=== PATIENT | male | born 1935 | race Hispanic/Latino ===

== ENCOUNTER 2018-04-21 12:52 | Inpatient (IN) | payer MEDICAID, MEDICARE ==
--- NOTE | 2018-04-21 13:10 | ED PDOC ---
Arrival/HPI - General Time Seen by Provider: 04/21/18 13:03 Historian: Patient, EMS - History of Present Illness Narrative History of Present Illness (Text): 77 y/o M p/w general weakness. Patient states he felt fine today at home, went outside when he felt weak and "not good" and walked into a [facility] pharmacy and informed them and they called an ambulance. Patient states now that he feels well and has no complaint. He denies ever having chest pain or shortness of breath or LOC or trauma. Past Medical History - Provider Review Nursing Documentation Reviewed: Yes Family/Social History - Physician Review Nursing Documentation Reviewed: Yes Family/Social History: No Known Family HX Allergies/Home Meds Allergies/Adverse Reactions: Allergies No Known Allergies Allergy (Verified 04/21/18 13:11) Home Medications: Home Meds Medication Instructions Recorded Confirmed No Known Home Med 04/21/18 04/21/18 Review of Systems - Physician Review All systems were reviewed & negative as marked: Yes - Review of Systems Constitutional: absent: Fevers Cardiovascular: absent: Chest Pain Physical Exam - Physical Exam Narrative Physical Exam (Text): Gen: NAD Head: NC/AT Eyes: PERRL ENT: MMM Neck: Supple Chest: No tenderness CV: Regular rate Lungs: CTA b/l Abd: Soft, NT Back: No CVA tenderness Extremities: No edema or tenderness Skin: No rash Neuro: Alert, no focal deficit. Oriented x 2 (name, hospital) Vital Signs Reviewed: Yes Vital Signs Temp Pulse Resp BP Pulse Ox 04/21/18 17:13 135 H 148/80 04/21/18 17:02 135 H 128/78 04/21/18 16:30 150 H 129/76 04/21/18 15:05 136 H 18 139/104 H 97 04/21/18 13:25 98.5 F 147 H 20 102/69 94 L Temperature: Afebrile Blood Pressure: Normal Pulse: Tachycardic Respiratory Rate: Normal Medical Decision Making ED Course and Treatment: Plan: --Chest X-ray ordered --EG ordered --Blood sent --Urinalysis --Urine culture --Calcium Gluconate --Dextrose 50% --Insulin --Metoprolol --Sodium Polystyrene Sulfonate Patient found to be tachycardic 147 with peaked T waves and potassium 6.1. Cocktail administered, slowed to 130s without T wave abnormality. Patient without any symptoms. States takes medication at home but stopped 3 days ago because he felt that he did not need them. EKG 147 bpm, peaked T waves, narrow QRS. EKG 140 bpm, sinus rhythm, narrow QRS. Lopressor IV effective, followed by 25 PO. 3rd EKG NSR 80 bpm, no peaked Ts. T wave inversions laterally. CXR no active disease. - Lab Interpretations Lab Results: 04/21/18 13:34 04/21/18 13:34 Lab Results 04/21/18 13:34: Sodium 141, Potassium 6.1 H*, Chloride 104, Carbon Dioxide 25, Anion Gap 18, BUN 19, Creatinine 1.5, Est GFR ( Amer) 55, Est GFR (Non- Af Amer) 46, Random Glucose 103, Calcium 9.5, Total Bilirubin 1.0, AST 29, ALT 22, Alkaline Phosphatase 119, Total Creatine Kinase 118, Troponin I 0.04, Total Protein 7.2, Albumin 4.5, Globulin 2.7, Albumin/Globulin Ratio 1.6 04/21/18 13:34: WBC 12.4 H, RBC 4.41, Hgb 13.0 L, Hct 39.2 L, MCV 88.9, MCH 29.5 , MCHC 33.2, RDW 13.7, Plt Count 295, MPV 8.8, Gran % 89.3 H, Lymph % (Auto) 6.6 L, [place] % (Auto) 4.0, Eos % (Auto) 0.0 L, Baso % (Auto) 0.1, Gran # 11.04 H , Lymph # (Auto) 0.8 L, [place] # (Auto) 0.5, Eos # (Auto) 0.0, Baso # (Auto) 0.01 - RAD Interpretation Narrative RAD Interpretations (Text): FINDINGS: LUNGS: No active pulmonary disease. PLEURA: No significant pleural effusion identified, no pneumothorax apparent. CARDIOVASCULAR: No radiographic findings to suggest acute or significant cardiovascular disease. Tortuous thoracic aorta. OSSEOUS STRUCTURES: No significant abnormalities. VISUALIZED UPPER ABDOMEN: Normal. OTHER FINDINGS: None. IMPRESSION: No active disease. 04/21/18 15:46 04/21/18 18:19 Radiology Orders: 04/21/18 13:11 CHEST PORTABLE [RAD] Stat Coal Digger: Radiologist - EKG Interpretation EKG Interpretation (Text): EKG 147 bpm, peaked T waves, narrow QRS. EKG 140 bpm, sinus rhythm, narrow QRS. 04/21/18 15:45 Interpreted by ED Physician: Yes - Medication Orders Current Medication Orders: Discontinued Medications Calcium Gluconate (Calcium Gluconate Iv) 1,000 mg IVP ONCE ONE Stop: 04/21/18 14:17 Last Admin: 04/21/18 14:30 Dose: 1,000 mg IVP Administration Document 04/21/18 14:30 [email or web address] (Rec: 04/21/18 14:36 [email or web address] [id number]) Charges for Administration # of IVP Administrations 1 Dextrose (Dextrose 50% Inj) 50 ml IVP STAT STA Stop: 04/21/18 14:17 Last Admin: 04/21/18 14:36 Dose: 50 ml IVP Administration Document 04/21/18 14:36 [email or web address] (Rec: 04/21/18 14:36 [email or web address] [id number]) Charges for Administration # of IVP Administrations 1 Haloperidol Lactate (Haldol) 5 mg IM STAT STA PRN Reason: Protocol Stop: 04/21/18 17:02 Last Admin: 04/21/18 17:10 Dose: 5 mg IM Administration Charges Document 04/21/18 17:10 [email or web address] (Rec: 04/21/18 17:10 [email or web address] [id number]) Injection Site MAR Injection Site Right Deltoid Charges for Administration # of IM Administrations 1 Sodium Chloride (Sodium Chloride 0.9%) 1,000 mls @ 999 mls/hr IV .Q1H1M STA Stop: 04/21/18 14:36 Last Admin: 04/21/18 13:40 Dose: 999 mls/hr eMAR Start Stop Document 04/21/18 13:40 [email or web address] (Rec: 04/21/18 13:40 [email or web address] [id number]) Intravenous Solution Start Date 04/21/18 Start Time 13:40 Insulin Human Regular (Humulin R) 7 units IVP STAT STA Stop: 04/21/18 14:17 Last Admin: 04/21/18 14:37 Dose: 7 units IVP Administration Document 04/21/18 14:37 [email or web address] (Rec: 04/21/18 14:37 [email or web address] [id number]) Charges for Administration # of IVP Administrations 1 Lorazepam (Ativan) 2 mg IM ONCE ONE PRN Reason: Protocol Stop: 04/21/18 17:02 Last Admin: 04/21/18 17:10 Dose: 2 mg IM Administration Charges Document 04/21/18 17:10 [email or web address] (Rec: 04/21/18 17:10 [email or web address] [id number]) Injection Site MAR Injection Site Left Deltoid Charges for Administration # of IM Administrations 1 Metoprolol Tartrate (Lopressor) 5 mg IVP STAT STA Stop: 04/21/18 15:17 Last Admin: 04/21/18 17:02 Dose: 5 mg IVP Administration Document 04/21/18 17:02 [email or web address] (Rec: 04/21/18 17:02 [email or web address] [id number]) Charges for Administration # of IVP Administrations 1 MAR Pulse and Blood Pressure Document 04/21/18 17:02 [email or web address] (Rec: 04/21/18 17:02 [email or web address] [id number]) Pulse Pulse Rate (60-90) 135 Blood Pressure Blood Pressure (100/60-150/90) 128/78 Metoprolol Tartrate (Lopressor) 25 mg PO STAT STA Stop: 04/21/18 16:49 Last Admin: 04/21/18 17:13 Dose: 25 mg MAR Pulse and Blood Pressure Document 04/21/18 17:13 [email or web address] (Rec: 04/21/18 17:14 [email or web address] [id number]) Pulse Pulse Rate (60-90) 135 Blood Pressure Blood Pressure (100/60-150/90) 148/80 Sodium Polystyrene Sulfonate (Kayexalate Susp) 30 gm PO STAT STA Stop: 04/21/18 14:17 Last Admin: 04/21/18 14:36 Dose: 30 gm - Scribe Statement The provider has reviewed the documentation as recorded by the Nancy Valentin All medical record entries made by the Tirsoibtoña were at my direction and personally dictated by me. I have reviewed the chart and agree that the record accurately reflects my personal performance of the history, physical exam, medical decision making, and the department course for this patient. I have also personally directed, reviewed, and agree with the discharge instructions and disposition. Disposition/Present on Arrival - Present on Arrival Any Indicators Present on Arrival: No - Disposition Have Diagnosis and Disposition been Completed?: Yes Diagnosis: Hyperkalemia, Tachycardia Disposition: HOSPITALIZED Disposition Time: 15:10 Patient Plan: Admission, Telemetry Condition: GUARDED
[2018-04-21 13:12] VITALS: BMI 22.3
[2018-04-21] MEDS ORDERED: Sodium Chloride 0.9% 1,000 ML IV STA (13:36)
--- NOTE | 2018-04-21 13:44 | RAD ---
Date of service: 04/21/2018 HISTORY: Generalized weakness. COMPARISON: No prior. FINDINGS: LUNGS: No active pulmonary disease. PLEURA: No significant pleural effusion identified, no pneumothorax apparent. CARDIOVASCULAR: No radiographic findings to suggest acute or significant cardiovascular disease. Tortuous thoracic aorta. OSSEOUS STRUCTURES: No significant abnormalities. VISUALIZED UPPER ABDOMEN: Normal. OTHER FINDINGS: None. IMPRESSION: No active disease.
[2018-04-21 13:45] LABS: BASO # 0.01 K/mm3 (0.0-2.0); BASO % 0.1 % (0.0-3.0); GRAN # 11.04 (1.4-6.5); GRAN % 89.3 % (50.0-68.0); LYMPH # 0.8 (1.2-3.4); LYMPH % 6.6 % (22.0-35.0); MEAN CELL VOLUME 88.9 fl (80.0-105.0); MEAN CORPUSCULAR HEMOGLOBIN 29.5 pg (25.0-35.0); MEAN CORPUSCULAR HGB CONC 33.2 g/dl (31.0-37.0); MEAN PLATELET VOLUME 8.8 fl (7.0-11.0); MONO # 0.5 (0.1-0.6); RBC 4.41 10^6/uL (3.5-6.1); RED CELL DISTRIBUTION WIDTH 13.7 % (11.5-14.5); WHITE BLOOD COUNT 12.4 10^3/ul (4.5-11.0)
[2018-04-21 14:10] LABS: TROPONIN I 0.04 ng/mL
[2018-04-21 14:11] LABS: ALB/GLOB RATIO 1.6 (1.1-1.8); ALBUMIN 4.5 g/dL (3.0-4.8); CALCIUM 9.5 mg/dL (8.4-10.5)
[2018-04-21] MEDS ORDERED: Dextrose 50% SYRINGE Inj (50 ml) IVP STA (14:16)
[2018-04-21] MEDS ORDERED: Sod Polystyrene Sulf 15 gm/60 ml Susp PO STA (14:16)
[2018-04-21] MEDS ORDERED: Insulin Regular 1 UNITS/0.01 ML ML IVP STA (14:16)
[2018-04-21] MEDS: Metoprolol 1 mg/ml Inj IVP STA ×2 (16:30→17:02)
--- NOTE | 2018-04-21 20:34 | CP.PCM.HP ---
<Zainab Barriga - Last Filed: 04/21/18 20:28> History of Present Illness - History of Present Illness History of Present Illness: PGY-1 Zainab Barriga H&P for Dr. Zapata Patient is a 77 yo male with unknown PMH presents to ED for evaluation of generalized weakness. Patient is very lethargic at examination likely secondary to Ativan and Haldol administered in the ED. Patient unable to be awoken during examination limiting pertinent history leading up to event. As per EMT discussion with ED physician, patient went to [facility] with no complaints but was feeling "not good". At [facility] an ambulance was called for the patient. ROS limited as patient unable to participate. Information attempted to be gathered however lack of patient name makes it very difficult to ascertain. PMH-unknown PSH- unknown FH- unknown Meds-unknown Allergies- unknown Social- unknown Code- unknown PMD- unknown Present on Admission - Present on Admission Any Indicators Present on Admission: No - Notes: Notes:: unable to obtain full history secondary due to patient clinical condition; primary team will followup Review of Systems - Review of Systems Systems not reviewed;Unavailable: Acuity of Condition Past Patient History - Past Social History Smoking Status: Never Smoked - CARDIAC Hx Cardiac Disorders: No - PULMONARY Hx Respiratory Disorders: No - NEUROLOGICAL Hx Neurological Disorder: No - HEENT Hx HEENT Problems: No - RENAL Hx Chronic Kidney Disease: No - ENDOCRINE/METABOLIC Hx Endocrine Disorders: No - HEMATOLOGICAL/ONCOLOGICAL Hx Blood Disorders: No - INTEGUMENTARY Hx Dermatological Problems: No - MUSCULOSKELETAL/RHEUMATOLOGICAL Hx Musculoskeletal Disorders: No - GASTROINTESTINAL Hx Gastrointestinal Disorders: No - GENITOURINARY/GYNECOLOGICAL Hx Genitourinary Disorders: No - PSYCHIATRIC Hx Psychophysiologic Disorder: No Hx Substance Use: No - SURGICAL HISTORY Hx Surgeries: No Meds Allergies/Adverse Reactions: Allergies Allergy/AdvReac Type Severity Reaction Status Date / Time No Known Allergies Allergy Verified 04/21/18 13:11 Physical Exam - Constitutional Appears: Non-toxic, No Acute Distress - Head Exam Head Exam: NORMAL INSPECTION, NORMOCEPHALIC - Respiratory Exam Respiratory Exam: Clear to Auscultation Bilateral, NORMAL BREATHING PATTERN - Cardiovascular Exam Cardiovascular Exam: REGULAR RHYTHM, +S1, +S2 - GI/Abdominal Exam GI & Abdominal Exam: Normal Bowel Sounds, Soft - Extremities Exam Extremities exam: Positive for: normal inspection. Negative for: calf tenderness, pedal edema - Neurological Exam Additional comments: patient was not awake or alert patient not able to answer questioning Results - Vital Signs Recent Vital Signs: Last Vital Signs Temp 98.1 F 04/21/18 19:00 Pulse 78 04/21/18 19:00 Resp 19 04/21/18 19:00 BP 120/78 04/21/18 19:00 Pulse Ox 99 04/21/18 19:00 - Labs Result Diagrams: 04/21/18 13:34 04/21/18 13:34 Assessment & Plan - Assessment and Plan (Free Text) Assessment: Patient is a 77 yo male with unknown PMH presents s/p not feeling good at [facility] Plan: Generalized Weakness Patient lethargy may be worsened secondary to Ativan and Haldol CT head without contrast pending EKG q6 x 3; Trops q6 x 3 Tachycardia Cardio Consult- Dr. Brooks- recommendations appreciated Lopressor 5mg stat Lopressor 25mg stat HR in 80s currently; will monitor Hyperkalemia Kayexelate 30gm po stat Calcium gluconate 1000mg IVP once Dextrose 50ml IVP stat Humulin 7 units Repeat CMP in AM PPx GI ppx: Pepcid 40mg po DVT ppx: SCDs <Suresh Zapata - Last Filed: 04/24/18 00:08> Results - Vital Signs Recent Vital Signs: Last Vital Signs Temp 98 F 04/24/18 00:01 Pulse 57 L 04/24/18 00:01 Resp 18 04/24/18 00:01 BP 129/76 04/24/18 00:01 Pulse Ox 98 04/24/18 00:01 - Labs Result Diagrams: 04/23/18 06:00 04/23/18 06:00 Labs: Laboratory Results - last 24 hr 04/23/18 04/23/18 04/23/18 06:00 06:00 06:00 WBC 9.0 RBC 3.95 Hgb 11.3 L Hct 34.7 L MCV 87.8 MCH 28.6 MCHC 32.6 RDW 13.7 Plt Count 295 MPV 9.1 Gran % 76.0 H Lymph % (Auto) 13.9 L [place] % (Auto) 9.6 H Eos % (Auto) 0.3 L Baso % (Auto) 0.2 Gran # 6.86 H Lymph # (Auto) 1.3 [place] # (Auto) 0.9 H Eos # (Auto) 0.0 Baso # (Auto) 0.02 Sodium 139 Potassium 3.7 Chloride 104 Carbon Dioxide 23 Anion Gap 16 BUN 21 Creatinine 1.3 Est GFR ( Amer) > 60 Est GFR (Non-Af Amer) 54 Random Glucose 101 Calcium 8.7 Phosphorus 3.4 Magnesium 1.8 Total Bilirubin 1.0 AST 38 ALT 31 Alkaline Phosphatase 121 Total Protein 6.9 Albumin 4.2 Globulin 2.7 Albumin/Globulin Ratio 1.6 Triglycerides 110 Cholesterol 189 LDL Cholesterol Direct 105 HDL Cholesterol 50
[2018-04-21] MEDS ORDERED: Pneumococcal 23-Valent Vaccine IM ONE (22:29)
[2018-04-21] MEDS ORDERED: Influenza Vaccine 60 mcg/0.5 mL SYR (4YR UP) IM ONE (22:29)
[2018-04-21] MEDS ORDERED: Metoprolol 1 mg/ml Inj IVP STA (22:48)
[2018-04-22] MEDS ORDERED: Metoprolol 1 mg/ml Inj IVP ONE (05:37)
--- NOTE | 2018-04-22 08:43 | CT ---
Date of service: 04/21/2018 PROCEDURE: CT HEAD WITHOUT CONTRAST. HISTORY: AMS COMPARISON: None available. TECHNIQUE: Axial computed tomography images were obtained through the head/brain without intravenous contrast. Radiation dose: Total exam DLP = 1066.01 mGy-cm. This CT exam was performed using one or more of the following dose reduction techniques: Automated exposure control, adjustment of the mA and/or kV according to patient size, and/or use of iterative reconstruction technique. FINDINGS: HEMORRHAGE: No intracranial hemorrhage. BRAIN: Diffuse atrophy with prominence of the ventricles and sulci noted. No mass effect or edema. Tiny basal ganglia calcifications. Scattered periventricular and subcortical white matter hypodensities, which are nonspecific, but often seen with chronic microvascular ischemic disease. Please note that MRI with diffusion imaging is more sensitive in the detection of acute ischemic event. VENTRICLES: No hydrocephalus. CALVARIUM: Unremarkable. PARANASAL SINUSES: Unremarkable as visualized. No significant inflammatory changes. MASTOID AIR CELLS: Unremarkable as visualized. No inflammatory changes. OTHER FINDINGS: Deviated nasal septum. Mild soft tissue swelling. Radiopaque tiny densities noted within the soft tissues anteriorly consistent with debris. Nasal bone irregularities appear chronic. Mild soft tissue swelling; correlate clinically to exclude possibility of acute fracture. IMPRESSION: Generalized atrophy. Nonspecific white matter changes. Mild soft tissue swelling. Radiopaque tiny densities noted within the soft tissues anteriorly consistent with debris. Mild soft tissue swelling; correlate clinically to exclude possibility of acute fracture. Preliminary impression was provided by [employer].
[2018-04-22 09:04] LABS: BASO # 0.01 K/mm3 (0.0-2.0); BASO % 0.1 % (0.0-3.0); EOS % 0.1 % (1.5-5.0); GRAN # 8.36 (1.4-6.5); HEMOGLOBIN 11.1 g/dL (14.0-18.0); LYMPH # 1.2 (1.2-3.4); LYMPH % 11.4 % (22.0-35.0); MEAN CORPUSCULAR HEMOGLOBIN 28.9 pg (25.0-35.0); MEAN CORPUSCULAR HGB CONC 32.8 g/dl (31.0-37.0); MEAN PLATELET VOLUME 8.8 fl (7.0-11.0); MONO # 0.5 (0.1-0.6); MONO % 5.4 % (1.0-6.0); RBC 3.84 10^6/uL (3.5-6.1); RED CELL DISTRIBUTION WIDTH 13.7 % (11.5-14.5); WHITE BLOOD COUNT 10.1 10^3/ul (4.5-11.0)
--- NOTE | 2018-04-22 09:18 | CARD ---
APPROVED REPORT Date of service: 04/21/2018 EKG Measurement Heart [id number] <Conclusion> SVT at 147 BPM, possible A. Flutter LVH STTW changes c/w ischemia ASMI, age unknown Prolonged QTc
--- NOTE | 2018-04-22 09:26 | CARD ---
APPROVED REPORT Date of service: 04/21/2018 EKG Measurement Heart [id number] <Conclusion> SVT at 141 BPM LVH ASMI, age unknown STTW changes c/w ischemia Mildly prolonged QTc
[2018-04-22 09:30] LABS: ALB/GLOB RATIO 1.4 (1.1-1.8); ALBUMIN 3.6 g/dL (3.0-4.8); CALCIUM 8.5 mg/dL (8.4-10.5); TROPONIN I 0.08 ng/mL
--- NOTE | 2018-04-22 10:10 | CARD ---
APPROVED REPORT Date of service: 04/22/2018 EKG Measurement Heart [id number] <Conclusion> Supraventricular tachycardia LVH ASMI, age unknown STTW changes c/w ischemia Prolonged QTc
[2018-04-22] MEDS ORDERED: Metoprolol 1 mg/ml Inj IVP PRN (11:15)
--- NOTE | 2018-04-22 13:12 | CP.PCM.PN ---
<Zainab Barriga - Last Filed: 04/22/18 16:17> Subjective - Date & Time of Evaluation Date of Evaluation: 04/22/18 Time of Evaluation: 11:00 - Subjective Subjective: PGY-1 Marckkris Barriga Medicine Progress Note for Dr. Deutsch's service Patient seen and examined at bedside. Patient offers no acute complaints. Patient does not remember the situation that landed him in hospital. Patient denies chest pain, sob, n/v, constipation or diarrhea, headaches, lightheadedness. Objective - Vital Signs/Intake and Output Vital Signs (last 24 hours): Temp Pulse Resp BP Pulse Ox 97.9 F 89 20 186/93 H 99 04/22/18 12:00 04/22/18 12:00 04/22/18 12:00 04/22/18 12:00 04/21/18 21:15 Intake and Output: 04/22/18 04/22/18 06:59 18:59 Intake Total 30 Output Total 180 Balance -150 - Medications Medications: Current Medications Famotidine (Pepcid) 40 mg PO HS AMANDA Last Admin: 04/21/18 22:21 Dose: 40 mg Sodium Chloride (Sodium Chloride 0.9%) 1,000 mls @ 100 mls/hr IV DAILY AMANDA Metoprolol Tartrate (Lopressor) 5 mg IVP Q6H PRN PRN Reason: IF HR >130 - Labs Labs: 04/22/18 08:45 04/22/18 08:45 - Constitutional Appears: Non-toxic, No Acute Distress - Head Exam Head Exam: ATRAUMATIC, NORMAL INSPECTION - Eye Exam Eye Exam: EOMI, Normal appearance. absent: Nystagmus, Scleral icterus - ENT Exam ENT Exam: Mucous Membranes Moist - Respiratory Exam Respiratory Exam: Clear to Ausculation Bilateral - Cardiovascular Exam Cardiovascular Exam: Tachycardia, +S1, +S2 - GI/Abdominal Exam GI & Abdominal Exam: Soft, Normal Bowel Sounds - Extremities Exam Extremities Exam: Normal Inspection. absent: Calf Tenderness, Pedal Edema - Neurological Exam Neurological Exam: Alert, Awake. absent: Oriented x3 - Psychiatric Exam Psychiatric exam: Normal Affect, Normal Mood - Skin Skin Exam: Intact, Normal Color Assessment and Plan - Assessment and Plan (Free Text) Assessment: Patient is a 77 yo with unknown PMH who presents to hospital after he went to [facility] and ambulance was called; patient does not recall any information leading to event; patient states he has a sister whose number he cannot remember; patient states he lives alone; will ask social work for assistance to identify patient Plan: Tachycardia Cardio consulted- Dr. Brooks- recommendations appreciated Metoprolol 5mg IV q6h prn for HR >130 Afebrile Leukocytosis resolved TSH 2.76 Alcohol level <10; UDS pending Trops trending down Hyperkalemia Resolved s/p Kayexelate, Calcium Gluconate, Dextrose, Insulin, IVF bolus Repeat CMP in AM Anemia Likely dilutional Repeat CBC in AM PPx DVT ppx: SCDs GI ppx: Pepcid 40mg po <Maria A Deutsch - Last Filed: 04/22/18 18:01> Objective - Vital Signs/Intake and Output Vital Signs (last 24 hours): Temp Pulse Resp BP Pulse Ox 97.9 F 89 20 186/93 H 99 04/22/18 12:00 04/22/18 12:00 04/22/18 12:00 04/22/18 12:00 04/21/18 21:15 Intake and Output: 04/22/18 04/22/18 06:59 18:59 Intake Total 30 Output Total 180 Balance -150 - Medications Medications: Current Medications Famotidine (Pepcid) 40 mg PO HS AMANDA Last Admin: 04/21/18 22:21 Dose: 40 mg Sodium Chloride (Sodium Chloride 0.9%) 1,000 mls @ 100 mls/hr IV DAILY AMANDA Metoprolol Tartrate (Lopressor) 5 mg IVP Q6H PRN PRN Reason: IF HR >130 - Labs Labs: 04/22/18 08:45 04/22/18 08:45 Attending/Attestation - Attestation I have personally seen and examined this patient.: Yes I have fully participated in the care of the patient.: Yes I have reviewed all pertinent clinical information, including history, physical exam and plan: Yes Notes (Text): 04/22/18 17:50 77 year old male with no known medical history who was sent from [facility] yesterday for "not feeling well". No further history was able to be obtained, nor ID obtained and patient is admitted as Elton Majano. He was found to have sinus tachycardia, leukocytosis, and hyperkalemia. This morning he is oriented to self but not place or time. He is a poor historian. Will try to obtain more ID information will held of director social welfare and staff. He is started on metoprolol prn and ivf for tachycardia. Cardiology evaluation is requested. Urine drug screen is ordered. TSH was normal. Serial cardiac enzymes are indeterminate. Leukocytosis and hyperkalemia have resolved. ETOH level was negative. Will add ativan prn for agitation. Maria A Deutsch MD Hospitalist.
--- NOTE | 2018-04-22 22:10 | CP.PCM.PCO ---
Addendum Addendum: Resident was paged regarding elevated d-dimer. Dr. Goddard was contacted and he recommended CT angio chest STAT which was ordered. Patient was examined and is a poor historian. Tele monitor was noted to be in NSR with HR 90's but was tachy earlier with accelerated junctional rhythm. The patient looked familiar to the resident and his prior chart is: Sami Min, [id number]
[2018-04-22] MEDS ORDERED: Iohexol 350 MG/100 ML VIAL ONE (23:28)
[2018-04-23] MEDS ORDERED: Metoprolol 1 mg/ml Inj IVP STA (06:29)
[2018-04-23 06:37] LABS: BASO # 0.02 K/mm3 (0.0-2.0); BASO % 0.2 % (0.0-3.0); EOS % 0.3 % (1.5-5.0); GRAN # 6.86 (1.4-6.5); HEMOGLOBIN 11.3 g/dL (14.0-18.0); LYMPH # 1.3 (1.2-3.4); LYMPH % 13.9 % (22.0-35.0); MEAN CELL VOLUME 87.8 fl (80.0-105.0); MEAN CORPUSCULAR HEMOGLOBIN 28.6 pg (25.0-35.0); MEAN CORPUSCULAR HGB CONC 32.6 g/dl (31.0-37.0); MEAN PLATELET VOLUME 9.1 fl (7.0-11.0); MONO # 0.9 (0.1-0.6); MONO % 9.6 % (1.0-6.0); RBC 3.95 10^6/uL (3.5-6.1); RED CELL DISTRIBUTION WIDTH 13.7 % (11.5-14.5)
[2018-04-23 06:41] LABS: ALB/GLOB RATIO 1.6 (1.1-1.8); ALBUMIN 4.2 g/dL (3.0-4.8); ALT/SGPT 31 U/L (7-56); AST/SGOT 38 U/L (17-59); BLOOD UREA NITROGEN 21 mg/dL (7-21); CALCIUM 8.7 mg/dL (8.4-10.5); GFR NON-AFRICAN AMERICAN 54
--- NOTE | 2018-04-23 07:49 | CP.PCM.PN ---
<Zainab Barriga - Last Filed: 04/23/18 14:48> Subjective - Date & Time of Evaluation Date of Evaluation: 04/23/18 Time of Evaluation: 07:45 - Subjective Subjective: PGY-1 Medicine Progress note for Dr. Deutsch's service Patient seen and examined at bedside. Patient's name is Sami Min, previous MRN number [id number]. Patient seems to be at his baseline mental status likely due to dementia. Patient offers no acute complaints. Patient denies cp, sob, n/v, constipation or diarrhea, headaches, lightheadedness, dizziness. Objective - Vital Signs/Intake and Output Vital Signs (last 24 hours): Temp Pulse Resp BP Pulse Ox 98.6 F 84 20 199/114 H 99 04/23/18 06:00 04/23/18 06:32 04/23/18 06:00 04/23/18 06:32 04/23/18 06:00 Intake and Output: 04/23/18 04/23/18 06:59 18:59 Intake Total 360 Balance 360 - Medications Medications: Current Medications Famotidine (Pepcid) 40 mg PO HS [facility] Last Admin: 04/22/18 22:21 Dose: 40 mg Sodium Chloride (Sodium Chloride 0.9%) 1,000 mls @ 100 mls/hr IV DAILY [facility] Metoprolol Tartrate (Lopressor) 5 mg IVP Q6H PRN PRN Reason: IF HR >130 Nicotine (Nicoderm Cq) 1 patch TD 2200 [facility] Last Admin: 04/22/18 22:21 Dose: 1 patch - Labs Labs: 04/23/18 06:00 04/23/18 06:00 - Constitutional Appears: Non-toxic, No Acute Distress - Head Exam Head Exam: NORMAL INSPECTION, NORMOCEPHALIC - Eye Exam Eye Exam: EOMI, Normal appearance. absent: Nystagmus, Scleral icterus - ENT Exam ENT Exam: Mucous Membranes Moist - Respiratory Exam Respiratory Exam: Clear to Ausculation Bilateral, NORMAL BREATHING PATTERN. absent: Rales, Rhonchi, Wheezes - Cardiovascular Exam Cardiovascular Exam: REGULAR RHYTHM, +S1, +S2 - GI/Abdominal Exam GI & Abdominal Exam: Soft, Normal Bowel Sounds. absent: Tenderness - Extremities Exam Extremities Exam: Normal Inspection. absent: Calf Tenderness, Pedal Edema - Back Exam Back Exam: NORMAL INSPECTION - Neurological Exam Neurological Exam: Alert, Awake, Oriented x3 - Psychiatric Exam Psychiatric exam: Normal Affect, Normal Mood - Skin Skin Exam: Intact, Normal Color Assessment and Plan - Assessment and Plan (Free Text) Assessment: Patient is a 77 yo with unknown PMH who presents to hospital after he went to [facility] and ambulance was called; patient does not recall any information leading to event; patient states he has a sister whose number he cannot remember; patient states he lives alone; will ask social work for assistance to identify patient Plan: Reentrant supraventicular tachycardia Cardio consulted- Dr. Brooks- Continue lopressor 50mg bid, Aspirin 81mg po. Start Cardizem 30mg qid Metoprolol 50mg po bid Cardizem 30mg qid Afebrile ; Leukocytosis resolved TSH 2.76 Alcohol level <10; Trops trending down Echo pending UDS uncollected Hyperkalemia (resolved) Resolved s/p Kayexelate, Calcium Gluconate, Dextrose, Insulin, IVF bolus Repeat CMP in AM Anemia Likely dilutional H&H stable; asymptomatic; no active bleeding; hemodynamically stable Tobacco use disorder Nicotine 1 patch TD PPx DVT ppx: SCDs GI ppx: Pepcid 40mg po Medical Management discussed with Dr. Deutsch <Maria A Deutsch - Last Filed: 04/23/18 17:54> Objective - Vital Signs/Intake and Output Vital Signs (last 24 hours): Temp Pulse Resp BP Pulse Ox 98.1 F 81 20 189/105 H 99 04/23/18 12:00 04/23/18 17:18 04/23/18 12:00 04/23/18 17:18 04/23/18 06:00 Intake and Output: 04/23/18 04/23/18 06:59 18:59 Intake Total 360 Balance 360 - Medications Medications: Current Medications Aspirin (Ecotrin) 81 mg PO DAILY [facility] Last Admin: 04/23/18 11:26 Dose: 81 mg Diltiazem HCl (Cardizem) 30 mg PO QID [facility] Last Admin: 04/23/18 17:18 Dose: 30 mg Divalproex Sodium (Depakote Sprinkles) 125 mg PO BID [facility]; Protocol Famotidine (Pepcid) 20 mg PO HS [facility] Lorazepam (Ativan) 0.5 mg PO TID [facility]; Protocol Metoprolol Tartrate (Lopressor) 50 mg PO BID [facility] Last Admin: 04/23/18 17:18 Dose: 50 mg Nicotine (Nicoderm Cq) 1 patch TD 2200 [facility] Last Admin: 04/22/18 22:21 Dose: 1 patch Ziprasidone (Geodon Inj) 20 mg IM Q12H [facility]; Protocol - Labs Labs: 04/23/18 06:00 04/23/18 06:00 Attending/Attestation - Attestation I have personally seen and examined this patient.: Yes I have fully participated in the care of the patient.: Yes I have reviewed all pertinent clinical information, including history, physical exam and plan: Yes Notes (Text): 04/23/18 17:49 77 year old male with no known medical history who was sent from [facility] yesterday for "not feeling well". No further history was able to be obtained, nor ID obtained and patient is admitted as Elton Majano. He was later identified as Sami Min. Case discussed with social work professor. He was found to have SVT, leukocytosis, and hyperkalemia in ER. Urine drug screen was ordered. TSH was normal. Serial cardiac enzymes were indeterminate. D-dimer was elevated but CT angio was negative for PE. He is started on metoprolol and cardizem. Cardiology is following. Leukocytosis and hyperkalemia resolved. Psychiatry evaluation was requested for dementia, altered mental status and agitation. Maria A Deutsch MD Hospitalist.
--- NOTE | 2018-04-23 08:31 | CON ---
DATE: 04/22/2018 CARDIOLOGY CONSULTATION HISTORY OF PRESENT ILLNESS: The patient is a 77-year-old male from [place] ancestry who grew up in [place] and speaks besides [place], Tuvaluan, Belgian and Amharic. He was brought in after EMS was when the patient was in the [facility]. The patient was very lethargic on presentation and gave no reliable history. At the time of my evaluation to the patient, patient does not recall what happened to him and he denied any prior cardiac history and at the time of my evaluation, the patient denied any chest pain or shortness of breath. SOCIAL HISTORY: Patient is a smoker, who smokes tobacco that he prepares himself by drying tobacco leaves. He lives by himself. He has many brothers who live in a different apartment, because he has severed communications with them and does not want to reestablish communications with them. MEDICATIONS: Patient is on Lopressor 5 mg intravenously every 6 hours p.r.n. for heart rate more than 130, Pepcid 40 mg p.o. at bedtime, normal saline 100 mL an hour. Patient did receive Haldol in the emergency room. PAST MEDICAL HISTORY: Not obtainable in detail at this time. REVIEW OF SYSTEMS: Not obtainable in detail at this time. PHYSICAL EXAMINATION: GENERAL: The patient is an elderly male who does not appear to be in any acute distress. He is oriented for the fact that he is at [facility]. VITAL SIGNS: Blood pressure 134/83, heart rate 74, temperature 97.3, respirations 20. HEENT: Normocephalic. CHEST: Clear. HEART: S1, S2 regular. EXTREMITIES: No edema. LABORATORY DATA: SMA-7 on admission was within normal limits except for potassium of 6.1 and repeat potassium was 4. Three sets of troponin was 0.04, 0.11 and 0.08. TSH level is within normal limit. Lipid profile is within normal limit. Hemoglobin and hematocrit 11.1 and 33.8. White counts and platelet counts are within normal limit. DIAGNOSTIC DATA: EKG most recent one revealed sinus tachycardia at a rate of 141, consider lateral ischemic ST-T wave changes. Head CT scan without contrast, generalized atrophy, nonspecific white matter changes, mild soft tissue swelling. Radiopaque tiny densities noted within the soft tissue anteriorly consistent with debris. Mild soft tissue swelling correlate clinically to exclude possibility of acute fracture. Chest x-ray, no active disease. ASSESSMENT: 1. Sinus tachycardia and lateral ischemic ST-T wave changes. The patient has no prior visit to any of [facility] to compare that to another electrocardiogram. Patient denies any chest pain at this time. 2. Altered mental status. 3. Improved hyperkalemia. RECOMMENDATIONS: Continue Lopressor 5 mg intravenously every 6 hours p.r.n. Start aspirin 81 mg once a day. TSH level was obtained and was within normal limit. Obtain an echocardiogram, serum D-dimer and urine for drug screen. Parish Goddard MD
--- NOTE | 2018-04-23 08:33 | CT ---
Date of service: 04/22/2018 PROCEDURE: CT Chest with contrast (Pulmonary Angiogram) HISTORY: r/o PE as d/w Dr. Goddard COMPARISON: None available. TECHNIQUE: Axial computed tomography images were obtained of the chest in the pulmonary arterial phase of enhancement. Coronal and sagittal reformatted images were created and reviewed. Maximum intensity projection (MIP) reconstructed images in the following planes: Intravenous contrast dose: 100 cc Omnipaque 350. Mean Hounsfield value in the main pulmonary artery: 395.58 Radiation dose: Total exam DLP = 284.55 mGy-cm. This CT exam was performed using one or more of the following dose reduction techniques: Automated exposure control, adjustment of the mA and/or kV according to patient size, and/or use of iterative reconstruction technique. FINDINGS: PULMONARY ARTERIES: Unremarkable. No pulmonary embolism. AORTA: Aneurysm ascending aorta 3.9 cm. Tortuous descending aorta. LUNGS: Scarring at the lung bases. Hyperinflation/manifestations COPD.. No nodule, mass or pulmonary consolidation. PLEURAL SPACES: Unremarkable. No effusion or pneumothorax. HEART: Unremarkable. No cardiomegaly. No significant pericardial effusion. LYMPH NODES: No lymphadenopathy. BONES, CHEST WALL: Unremarkable. No fracture or destructive lesion OTHER FINDINGS: Unremarkable. IMPRESSION: Unremarkable CT pulmonary angiogram. No pulmonary embolus. Additional benign and/or incidental findings described above. Concordant results (preliminary interpretation) provided by [employer]. Procedure Completed: 23:44 Preliminary ([facility]) Report: Dictated and Authenticated: 01:09. Final Interpretation: 08:31. April 23, 2018.
[2018-04-23] MEDS ORDERED: Sodium Chloride 0.9% 1,000 ML IV SCH (10:00)
[2018-04-23 10:04] LABS: HDL CHOLESTEROL 50 mg/dL (29-60)
[2018-04-23 10:14] LABS: LDL CHOLESTEROL 105 mg/dL (0-129)
--- NOTE | 2018-04-23 12:34 | PN ---
DATE: 04/23/2018 SUBJECTIVE: The patient denies any dizziness or chest pain. The patient does not know anything about his past medical history. He knows that he is in the hospital, but confused to many other things. PHYSICAL EXAMINATION: VITAL SIGNS: Blood pressure 166/104, heart rate 84, temperature 98.1, respirations 20. HEENT: Normocephalic. CHEST: Minimal rhonchi. HEART: S1 and S2 regular. EXTREMITIES: No edema. LABORATORY DATA: Today's SMA-7 is entirely within normal limit. Lipid profile is within normal limit. TSH level is within normal limit. D-dimer 540. Chest CT angio unremarkable. No pulmonary embolus. Ascending aortic aneurysm, measured 3.9 cm. ASSESSMENT: 1. Altered mental status. 2. Status post fall. 3. Hypertension. 4. Reentrant supraventricular tachycardia. RECOMMENDATIONS: Continue Lopressor 50 mg twice a day, aspirin 81 mg once a day. Start Cardizem at 30 mg four times a day. Parish Goddard MD
--- NOTE | 2018-04-23 16:11 | CARD ---
APPROVED REPORT Date of service: 04/21/2018 EKG Measurement Heart [id number] <Conclusion> SVT at 147 BMP LVH STTW changes c/w ischemia
--- NOTE | 2018-04-23 16:12 | CARD ---
APPROVED REPORT Date of service: 04/21/2018 EKG Measurement Heart [id number] <Conclusion> RSR LVH PRWP, possible anterior OH, age unknown STTW changes c/w ischemia Prolonged QTc
[2018-04-23] MEDS: Divalproex 125 mg EC Sprinkle Cap PO SCH (18:14)
--- NOTE | 2018-04-23 22:46 | CON ---
DATE: 04/23/2018 HISTORY OF PRESENT ILLNESS: The patient was admitted to the hospital because the patient was wandering in the community, was very confused. The patient went to the [facility] and complained that he is not feeling good that is why they called 911 and the patient was brought in to the hospital. This process description writer was involved into the patient's care from the previous admission. The patient's family wanted the patient to be discharged and this process description writer suggested the programs such as [facility], but apparently the patient did not follow up. The patient was seen and examined. The patient presented to be alert. The patient knows that he is in the hospital, but the patient is not aware what is the day today. The patient reported that we are coming into winter. The patient had episodes of wandering behavior, agitation and aggression. The patient is currently on one-to-one observation. This process description writer would like to emphasize the fact that the patient was not agitated during this process description writer's interview, but seems to be disengaged and not interested to have an interview. Vital signs seems to be stable. Temperature 98.1, pulse is 81, blood pressure 189/105. Medications reviewed. Aspirin, Cardizem. This process description writer will initiate Depakote Sprinkles for mood stabilization and irritability. The patient is on Pepcid, Ativan 0.5 mg three times day as scheduled, which will be changed for p.r.n. because scheduled benzodiazepines could give more confusion. The patient also is on Lopressor, Nicoderm and Geodon 10 mg every 12 hours p.r.n. will be started in case of agitation and aggression. Labs reviewed. Coagulation reviewed. Toxicology reviewed. MENTAL STATUS EXAMINATION: The patient appears to be alert, somewhat confused, but the patient knows that he is in the hospital and knows the season, but not the date. The patient has wandering behavior, aggressive outburst. The patient tried to elope. Mood described as fine. Affect was constricted, at times reactive. Thought process concrete. Thought content, the patient was not able to understand the questions about hallucinations and suicidality, but the patient denied any thoughts of harming himself. Insight and judgment seems to be very limited. Impulses are unpredictable. In the history, the patient has dementia. The patient is not and does not have supportive family. IMPRESSION: Most likely, the patient has dementia. Delirium cannot be excluded. PLAN: This process description writer started Depakote, Risperdal as needed, Ativan as needed. The patient is currently on one-to-one. There are no acute psychiatric issues going on, but dementia with behavioral disturbances. Social Service evaluation. Family should be involved. Power of research attorney if it is possible, pt seems lack capacity to make decisions for himself as of now. If family wants to be involved. This process description writer will follow up on this patient tomorrow to make sure the patient tolerates medications well. Thank you very much for letting me participate in the care of your patient. Should you have any questions, give me a call back. Phyllis Isabel MD [facility]
[2018-04-24 07:23] LABS: BASO # 0.02 K/mm3 (0.0-2.0); BASO % 0.3 % (0.0-3.0); EOS # 0.1 (0.0-0.7); EOS % 0.8 % (1.5-5.0); GRAN # 5.93 (1.4-6.5); GRAN % 76.2 % (50.0-68.0); LYMPH % 12.7 % (22.0-35.0); MEAN CELL VOLUME 87.9 fl (80.0-105.0); MEAN CORPUSCULAR HEMOGLOBIN 29.1 pg (25.0-35.0); MEAN CORPUSCULAR HGB CONC 33.1 g/dl (31.0-37.0); MEAN PLATELET VOLUME 9.2 fl (7.0-11.0); MONO # 0.8 (0.1-0.6); RBC 4.13 10^6/uL (3.5-6.1); RED CELL DISTRIBUTION WIDTH 13.8 % (11.5-14.5); WHITE BLOOD COUNT 7.8 10^3/ul (4.5-11.0)
[2018-04-24 07:47] LABS: ALB/GLOB RATIO 1.3 (1.1-1.8); ALBUMIN 4.1 g/dL (3.0-4.8); ALT/SGPT 32 U/L (7-56); AST/SGOT 44 U/L (17-59); BLOOD UREA NITROGEN 17 mg/dL (7-21); CALCIUM 8.9 mg/dL (8.4-10.5); GFR NON-AFRICAN AMERICAN 59
[2018-04-24] MEDS ORDERED: Metoprolol 1 mg/ml Inj IVP STA (08:02)
[2018-04-24] MEDS: Divalproex 125 mg EC Sprinkle Cap PO SCH ×2 (10:18→18:17)
--- NOTE | 2018-04-24 14:05 | CARD ---
APPROVED REPORT Date of service: 04/24/2018 EKG Measurement Heart [id number] <Conclusion> Supraventricular tachycardia at 156 BPM Left ventricular hypertrophy STTW changes c/w ischemia
--- NOTE | 2018-04-24 15:47 | CP.PCM.PN ---
<Zainab Barriga - Last Filed: 04/24/18 15:44> Subjective - Date & Time of Evaluation Date of Evaluation: 04/24/18 Time of Evaluation: 09:30 - Subjective Subjective: PGY-1 Zainab Barriga Medicine Progress Note Patient seen and examined at bedside. Patient offers no acute complaints. Patient denies chest pain, sob, n/v, constipation or diarrhea, headaches, weakness. Objective - Vital Signs/Intake and Output Vital Signs (last 24 hours): Temp Pulse Resp BP Pulse Ox 97.6 F 65 18 147/85 98 04/24/18 12:00 04/24/18 12:00 04/24/18 12:00 04/24/18 12:00 04/24/18 00:01 - Medications Medications: Current Medications Aspirin (Ecotrin) 81 mg PO DAILY [facility] Last Admin: 04/24/18 10:18 Dose: 81 mg Diltiazem HCl (Cardizem) 30 mg PO QID [facility] Last Admin: 04/24/18 07:30 Dose: 30 mg Divalproex Sodium (Depakote Sprinkles) 125 mg PO BID [facility]; Protocol Last Admin: 04/24/18 10:18 Dose: 125 mg Famotidine (Pepcid) 20 mg PO HS [facility] Last Admin: 04/23/18 21:22 Dose: 20 mg Lorazepam (Ativan) 0.5 mg PO TID [facility]; Protocol PRN Reason: agitation/anxiety Metoprolol Tartrate (Lopressor) 50 mg PO BID [facility] Last Admin: 04/24/18 10:20 Dose: Not Given Nicotine (Nicoderm Cq) 1 patch TD 2200 [facility] Last Admin: 04/23/18 21:22 Dose: 1 patch Ziprasidone (Geodon Inj) 10 mg IM Q12H PRN; Protocol PRN Reason: Agitation - Labs Labs: 04/24/18 06:30 04/24/18 06:30 - Additional Findings Additional findings: - Constitutional Appears: Non-toxic, No Acute Distress - Head Exam Head Exam: NORMAL INSPECTION, NORMOCEPHALIC - Eye Exam Eye Exam: EOMI, Normal appearance. absent: Nystagmus, Scleral icterus - ENT Exam ENT Exam: Mucous Membranes Moist - Respiratory Exam Respiratory Exam: Clear to Ausculation Bilateral, NORMAL BREATHING PATTERN. absent: Rales, Rhonchi, Wheezes - Cardiovascular Exam Cardiovascular Exam: REGULAR RHYTHM, +S1, +S2 - GI/Abdominal Exam GI & Abdominal Exam: Soft, Normal Bowel Sounds. absent: Tenderness - Extremities Exam Extremities Exam: Normal Inspection. absent: Calf Tenderness, Pedal Edema - Back Exam Back Exam: NORMAL INSPECTION - Neurological Exam Neurological Exam: Alert, Awake, Oriented x3 - Psychiatric Exam Psychiatric exam: Normal Affect, Normal Mood - Skin Skin Exam: Intact, Normal Color Assessment and Plan - Assessment and Plan (Free Text) Assessment: Patient is a 77 yo with unknown PMH who presents to hospital after he went to [facility] and ambulance was called; patient does not recall any information leading to event; patient states he has a sister whose number he cannot remember; patient states he lives alone; will ask social work for assista nce to identify patient Plan: Reentrant supraventicular tachycardia Cardio consulted- Dr. Brooks- Continue lopressor 50mg bid, Aspirin 81mg po. S tart Cardizem 30mg qid Metoprolol 50mg po bid Cardizem 30mg qid Afebrile ; Leukocytosis resolved TSH 2.76 Alcohol level <10; Trops trending down Echo pending UDS uncollected AMS Psych consulted- Dr. Ferguson- Started patient on Dementia vs Delirium; More likely Dementia due to no infectious source or medications identified that can cause delirium Geodon 10mg IM q12h prn Depakote 125mg po bid Anemia H&H stable; asymptomatic; no active bleeding; hemodynamically stable Tobacco use disorder Nicotine 1 patch TD PPx DVT ppx: SCDs GI ppx: Pepcid 20mg po Medical Management discussed with Dr. Deutsch <Maria A Deutsch - Last Filed: 04/24/18 17:32> Objective - Vital Signs/Intake and Output Vital Signs (last 24 hours): Temp Pulse Resp BP Pulse Ox 97.6 F 71 18 139/68 98 04/24/18 12:00 04/24/18 14:45 04/24/18 12:00 04/24/18 14:45 04/24/18 00:01 - Medications Medications: Current Medications Aspirin (Ecotrin) 81 mg PO DAILY [facility] Last Admin: 04/24/18 10:18 Dose: 81 mg Diltiazem HCl (Cardizem) 30 mg PO QID [facility] Last Admin: 04/24/18 14:45 Dose: 30 mg Divalproex Sodium (Depakote Sprinkles) 125 mg PO BID [facility]; Protocol Last Admin: 04/24/18 10:18 Dose: 125 mg Famotidine (Pepcid) 20 mg PO HS [facility] Last Admin: 04/23/18 21:22 Dose: 20 mg Lorazepam (Ativan) 0.5 mg PO TID PRN; Protocol PRN Reason: agitation/anxiety Metoprolol Tartrate (Lopressor) 50 mg PO BID [facility] Last Admin: 04/24/18 10:20 Dose: Not Given Nicotine (Nicoderm Cq) 1 patch TD 2200 [facility] Last Admin: 04/23/18 21:22 Dose: 1 patch Ziprasidone (Geodon Inj) 10 mg IM Q12H PRN; Protocol PRN Reason: Agitation - Labs Labs: 04/24/18 06:30 04/24/18 06:30 Attending/Attestation - Attestation I have personally seen and examined this patient.: Yes I have fully participated in the care of the patient.: Yes I have reviewed all pertinent clinical information, including history, physical exam and plan: Yes Notes (Text): 04/24/18 17:30 77 year old male with no known medical history who was sent from [facility] for "not feeling well". He was initially admitted as Elton Majano but later identified as Sami Min. He was found to have SVT, leukocytosis, and hyperkalemia in ER. TSH was normal. Serial cardiac enzymes were indeterminate. D-dimer was elevated but CT angio was negative for PE. He is started on metoprolol and cardizem. Cardiology is following. Echocardiogram was reviewed; preserved EF. Leukocytosis and hyperkalemia resolved. Psychiatry evaluation was appreciated or dementia, altered mental status and agitation. He is on geodon prn, ativan prn and depakote. Patient is more cooperative today. Will need to discuss with family, social group worker and psychiatrist regarding safe d/c planning when ready. Maria A Deutsch MD Hospitalist.
--- NOTE | 2018-04-24 16:19 | CARD ---
APPROVED REPORT Date of service: 04/24/2018 EXAM: Two-dimensional and M-mode echocardiogram with Doppler and color Doppler. INDICATION Abnormal EKG/Arrhythmia 2D DIMENSIONS Left Atrium (2D)4.0 (1.6-4.0cm)IVSd1.3 (0.7-1.1cm) LVDd3.9 (3.9-5.9cm)PWd1.2 (0.7-1.1cm) LVDs2.5 (2.5-4.0cm)FS (%) 34.8 % LVEF (%)64.8 (>50%) M-Mode DIMENSIONS Aortic Root3.50 (2.2-3.7cm)Aortic Cusp Exc.1.10 (1.5-2.0cm) Aortic Valve AoV Peak Whcfzhzb169.0cm/sAoV VTI35.8cmAO Peak GR.12mmHg AO Mean GR.7mmHg Mitral Valve MV E Bqfsbver03.4cm/sMV A Cekkyqqe391.0cm/sE/A ratio0.6 TDI Lateral E' Peak V6.63cm/sMedial E' Peak V4.29cm/sE/Lateral E'11.1 E/Medial E'17.1 Pulmonary Valve PV Peak Cjsptdkq97.7cm/sPV Peak Grad.4mmHg Tricuspid Valve TR Peak Qypmcweb824ub/sRAP [id number] Peak Gr.27mmHg [id number] LEFT VENTRICLE The left ventricle is normal size. There is mild concentric left ventricular hypertrophy. The left ventricular function is normal. The left ventricular ejection fraction is within the normal range. There is normal LV segmental wall motion. Transmitral Doppler flow pattern is Grade I-abnormal relaxation pattern. RIGHT VENTRICLE The right ventricle is normal size. The right ventricle is mildly hypertrophied. The right ventricular systolic function is normal. ATRIA The left atrium size is normal. The right atrium size is normal. AORTIC VALVE The aortic valve is moderately thickened. No aortic regurgitation is present. There is no aortic valvular stenosis. MITRAL VALVE The mitral valve is moderately thickened. There is no mitral valve regurgitation noted. There is no mitral valve stenosis. TRICUSPID VALVE The tricuspid valve is normal in structure. There is mild tricuspid regurgitation. There is mild pulmonary hypertension. PULMONIC VALVE The pulmonary valve is normal in structure. There is no pulmonic valvular regurgitation. GREAT VESSELS The aortic root is normal in size. The IVC is normal in size and collapses >50% with inspiration. PERICARDIAL EFFUSION There is a trace loculated anterior pericardial effusion. <Conclusion> The left ventricle is normal size. There is mild concentric left ventricular hypertrophy. The left ventricular function is normal. The left ventricular ejection fraction is within the normal range. There is normal LV segmental wall motion. Transmitral Doppler flow pattern is Grade I-abnormal relaxation pattern. There is mild tricuspid regurgitation. There is mild pulmonary hypertension.
--- NOTE | 2018-04-24 22:53 | PN ---
DATE: 04/23/2018 FOLLOWUP NOTE SUBJECTIVE: The patient was followed up today. The patient tolerated medications well. The patient did not have any agitation or aggression. The patient presented to be in good mood. The patient was more confused today to compare with yesterday. The patient did not know where he is, but overall appears to be very comfortable. VITAL SIGNS: Stable. Temperature 97.6, pulse 71, blood pressure 139/68, respirations 18, oxygen saturation is 98. MEDICATIONS: Reviewed. Aspirin, Depakote 125 mg twice a day, Pepcid, Ativan as needed, Lopressor, Nicoderm patch, verapamil, ziprasidone 10 mg IM every 12 hour as needed. The patient did not required any IM. LABORATORY DATA: More stable. Chemistry within normal limits. Toxicology, alcohol level less than 10. MENTAL STATUS EXAM: The patient presented to be alert, pleasant, the patient is smiling reported that he feels happy. Affect was reactive, mood congruent. Thought process was confabulations. The patient said that he knows this medical technical writer from the last year, but the patient was not able to recall from where. Thought process seems to be circumstantial. Thought content, the patient does not present to be psychotic, but majority of the time confused. Insight and judgment seems to be impaired. Impulses are better controlled. IMPRESSION: Cognitive impairment rule out dementia, rule out delirium. PLAN: Family involvement, social work evaluation. The patient does not present to be psychotic, does not present to be depressed, cognitive impairment is prominent, pt has wandering behavior, most likely the patient is demented and delirious. This medical technical writer will sign off. Should you have any questions give me a call back. Thank you very much for letting me to participate in care of your patient. Phyllis Isabel MD [facility]
--- NOTE | 2018-04-24 23:03 | PN ---
DATE: 04/24/2018 SUBJECTIVE: The patient continues to have recurrent reentrant supraventricular tachycardia. PHYSICAL EXAMINATION: VITAL SIGNS: Blood pressure 139/68, heart rate 65, temperature 97.6, respirations 18. HEENT: Normocephalic. CHEST: Clear. HEART: S1 and S2 regular. EXTREMITIES: No edema. LABORATORY DATA: Today's SMA-7 is entirely within normal limit. Today's hemoglobin and hematocrit 12 and 36.6. White count and platelet count are within normal limits. Echocardiographic study performed today revealed normal left ventricular systolic function and mild pulmonary hypertension. EKG yesterday morning revealed ST changes with heart rate 156, lateral ischemic ST segment changes. ASSESSMENT: 1. Reentrant supraventricular tachycardia. 2. Dementia. 3. Status post syncopal episode. 4. Hypertension. RECOMMENDATIONS: Case was discussed with Dr. Deutsch and with the medical team. Continue aspirin 81 mg once a day, Lopressor 50 mg twice a day. Discontinue Cardizem and start verapamil SR at 240 mg once a day. The patient is not a suitable candidate for ablation therapy because of his cognitive condition as well as his social status. Apparently, the family did not want to have anything to do with the patient and until a legal guardian is obtained, the patient need to be hospitalized. Parish Goddard MD
[2018-04-25] MEDS ORDERED: Metoprolol 1 mg/ml Inj IVP ONE (00:34)
[2018-04-25 06:36] LABS: BASO # 0.01 K/mm3 (0.0-2.0); BASO % 0.1 % (0.0-3.0); EOS # 0.1 (0.0-0.7); EOS % 0.8 % (1.5-5.0); GRAN # 7.58 (1.4-6.5); GRAN % 73.1 % (50.0-68.0); HEMOGLOBIN 12.6 g/dL (14.0-18.0); MEAN CELL VOLUME 88.5 fl (80.0-105.0); MEAN CORPUSCULAR HEMOGLOBIN 29.5 pg (25.0-35.0); MEAN CORPUSCULAR HGB CONC 33.3 g/dl (31.0-37.0); MEAN PLATELET VOLUME 9.2 fl (7.0-11.0); MONO # 0.7 (0.1-0.6); RBC 4.27 10^6/uL (3.5-6.1); WHITE BLOOD COUNT 10.4 10^3/ul (4.5-11.0)
[2018-04-25 07:08] LABS: ALB/GLOB RATIO 1.5 (1.1-1.8); ALBUMIN 4.3 g/dL (3.0-4.8); ALT/SGPT 27 U/L (7-56); AST/SGOT 28 U/L (17-59); BLOOD UREA NITROGEN 21 mg/dL (7-21); CALCIUM 9.4 mg/dL (8.4-10.5); GFR NON-AFRICAN AMERICAN 59
[2018-04-25] MEDS: Divalproex 125 mg EC Sprinkle Cap PO SCH (10:14)
[2018-04-25] MEDS: Verapamil 240 mg ER Tab PO SCH (10:15)
--- NOTE | 2018-04-25 13:06 | CP.PCM.PN ---
<Zainab Barriga - Last Filed: 04/25/18 13:00> Subjective - Date & Time of Evaluation Date of Evaluation: 04/25/18 Time of Evaluation: 10:30 - Subjective Subjective: PGY-1 Zainab Barriga Medicine Progress Note Patient seen and examined at bedside. Patient offers no acute complaints. Patient denies chest pain, sob, n/v, constipation or diarrhea, dysuria. Objective - Vital Signs/Intake and Output Vital Signs (last 24 hours): Temp Pulse Resp BP Pulse Ox 98.2 F 93 H 18 137/80 97 04/25/18 10:00 04/25/18 10:15 04/25/18 10:00 04/25/18 10:15 04/25/18 10:00 Intake and Output: 04/25/18 04/25/18 06:59 18:59 Intake Total 120 Output Total 350 Balance -230 - Medications Medications: Current Medications Aspirin (Ecotrin) 81 mg PO DAILY [facility] Last Admin: 04/25/18 10:14 Dose: 81 mg Divalproex Sodium (Depakote Sprinkles) 125 mg PO BID [facility]; Protocol Last Admin: 04/25/18 10:14 Dose: 125 mg Famotidine (Pepcid) 20 mg PO HS [facility] Last Admin: 04/24/18 21:54 Dose: 20 mg Lorazepam (Ativan) 0.5 mg PO TID PRN; Protocol PRN Reason: agitation/anxiety Metoprolol Tartrate (Lopressor) 50 mg PO BID [facility] Last Admin: 04/25/18 10:09 Dose: 50 mg Nicotine (Nicoderm Cq) 1 patch TD 2200 [facility] Last Admin: 04/24/18 21:54 Dose: 1 patch Verapamil HCl (Calan Sr Tab) 240 mg PO DAILY [facility] Last Admin: 04/25/18 10:15 Dose: 240 mg Ziprasidone (Geodon Inj) 10 mg IM Q12H PRN; Protocol PRN Reason: Agitation - Labs Labs: 04/25/18 05:30 04/25/18 05:30 - Additional Findings Additional findings: - Constitutional Appears: Non-toxic, No Acute Distress - Head Exam Head Exam: NORMAL INSPECTION, NORMOCEPHALIC - Eye Exam Eye Exam: EOMI, Normal appearance. absent: Nystagmus, Scleral icterus - ENT Exam ENT Exam: Mucous Membranes Moist - Respiratory Exam Respiratory Exam: Clear to Ausculation Bilateral, NORMAL BREATHING PATTERN. absent: Rales, Rhonchi, Wheezes - Cardiovascular Exam Cardiovascular Exam: REGULAR RHYTHM, +S1, +S2 - GI/Abdominal Exam GI & Abdominal Exam: Soft, Normal Bowel Sounds. absent: Tenderness - Extremities Exam Extremities Exam: Normal Inspection. absent: Calf Tenderness, Pedal Edema - Back Exam Back Exam: NORMAL INSPECTION - Neurological Exam Neurological Exam: Alert, Awake, Oriented x3 - Psychiatric Exam Psychiatric exam: Normal Affect, Normal Mood - Skin Skin Exam: Intact, Normal Color Assessment and Plan - Assessment and Plan (Free Text) Assessment: Patient is a 77 yo with unknown PMH who presents to hospital after he went [facility] and ambulance was called; patient does not recall any information leading to event; patient states he has a sister whose number he cannot remember; patient states he lives alone; will ask social work for assistance to identify patient Plan: Reentrant supraventicular tachycardia Cardio consulted- Dr. Brooks- Lopressor, Asa, Verapamil Metoprolol 50mg po bid Cardizem dc'ed; Verapamil 240mg po daily Afebrile ; Leukocytosis resolved TSH 2.76 Alcohol level <10; Trops trending down Echo-LV normal size; mild concentric LVH; EF: 64.8 UDS uncollected AMS Psych consulted- Dr. Ferguson- Started patient on Dementia vs Delirium; More likely Dementia due to no infectious source or medications identified that can cause delirium Geodon 10mg IM q12h prn Depakote 125mg po bid Anemia H&H stable; asymptomatic; no active bleeding; hemodynamically stable Tobacco use disorder Nicotine 1 patch TD PPx DVT ppx: SCDs GI ppx: Pepcid 20mg po Medical Management discussed with Dr. Deutsch. Patient's family unwilling to participate in patient care. Likely patient will stay in hospital until guardianship. <Maria A Deutsch - Last Filed: 04/25/18 13:35> Objective - Vital Signs/Intake and Output Vital Signs (last 24 hours): Temp Pulse Resp BP Pulse Ox 98.2 F 93 H 18 137/80 97 04/25/18 10:00 04/25/18 10:15 04/25/18 10:00 04/25/18 10:15 04/25/18 10:00 Intake and Output: 04/25/18 04/25/18 06:59 18:59 Intake Total 120 Output Total 350 Balance -230 - Medications Medications: Current Medications Aspirin (Ecotrin) 81 mg PO DAILY [facility] Last Admin: 04/25/18 10:14 Dose: 81 mg Divalproex Sodium (Depakote Sprinkles) 125 mg PO BID [facility]; Protocol Last Admin: 04/25/18 10:14 Dose: 125 mg Famotidine (Pepcid) 20 mg PO HS [facility] Last Admin: 04/24/18 21:54 Dose: 20 mg Lorazepam (Ativan) 0.5 mg PO TID PRN; Protocol PRN Reason: agitation/anxiety Lorazepam (Ativan) 0.125 mg IVP Q6H PRN; Protocol PRN Reason: Anxiety Metoprolol Tartrate (Lopressor) 50 mg PO BID [facility] Last Admin: 04/25/18 10:09 Dose: 50 mg Nicotine (Nicoderm Cq) 1 patch TD 2200 [facility] Last Admin: 04/24/18 21:54 Dose: 1 patch Verapamil HCl (Calan Sr Tab) 240 mg PO DAILY [facility] Last Admin: 04/25/18 10:15 Dose: 240 mg Ziprasidone (Geodon Inj) 10 mg IM Q12H PRN; Protocol PRN Reason: Agitation - Labs Labs: 04/25/18 05:30 04/25/18 05:30 Attending/Attestation - Attestation I have personally seen and examined this patient.: Yes I have fully participated in the care of the patient.: Yes I have reviewed all pertinent clinical information, including history, physical exam and plan: Yes Notes (Text): 04/25/18 13:31 77 year old male with no known medical history who was sent from [facility] for "not feeling well". He was initially admitted as Elton Majano but later identified as Sami Mni. He was found to have SVT, leukocytosis, and hyperkalemia in ER. TSH was normal. Serial cardiac enzymes were indeterminate. D-dimer was elevated but CT angio was negative for PE. He is started on metoprolol and verapramil. Cardiology is following. Echocardiogram was reviewed; preserved EF. Leukocytosis and hyperkalemia resolved. Psychiatry evaluation was appreciated for dementia, altered mental status and ag itation. He is on geodon prn, ativan prn and depakote. Patient has been calm and cooperative for past 2 days. Will need to discuss with family, social work specialist and psychiatrist regarding safe d/c planning when ready. Maria A Deutsch MD Hospitalist.
--- NOTE | 2018-04-25 16:02 | PN ---
DATE: 04/25/2018 SUBJECTIVE: The patient is confused. He does not appear to be in any distress. He denies any palpitations or dizziness. PHYSICAL EXAMINATION: VITAL SIGNS: Blood pressure 137/80, heart rate 93, temperature 98.3, respirations 20. HEENT: Normocephalic. CHEST: S1, S2 regular. EXTREMITIES: Have no edema. LABORATORY DATA: Hemoglobin and hematocrit 12.6 and 37.8. White count and platelet count are within normal limits. Today SMA-7 is within normal limits. ASSESSMENT AND PLAN: 1. Reentrant paroxysmal supraventricular tachycardia. 2. Dementia. 3. Status post syncopal episode. 4. Hypertension. RECOMMENDATIONS: Case was discussed with Dr. Deutsch. Verapamil SR at 240 mg was started daily instead of Cardizem, continue Lopressor 50 mg twice a day. If the patient continues to have recurrence of SVT, I will consider initiating digoxin therapy. Parish Goddard MD
[2018-04-25 17:51] LABS: ARTERIAL BLOOD GAS HCO3 29.8 mmol/L (21-28); ARTERIAL BLOOD GAS O2 SAT 97.1 % (95-98); ARTERIAL BLOOD GAS PCO2 103 mm/Hg (35-45)
[2018-04-25] MEDS ORDERED: Metoprolol 1 mg/ml Inj ONE (17:51)
[2018-04-25 17:56] LABS: ARTERIAL BLOOD GAS PH 7.07 (7.35-7.45)
--- NOTE | 2018-04-25 18:27 | RAD ---
Date of service: 04/25/2018 HISTORY: TECHNOLOGIST DEVELOPMENT COMPARISON: Chest radiograph dated 04/21/2018. FINDINGS: LUNGS: No active pulmonary disease. PLEURA: No significant pleural effusion identified, no pneumothorax apparent. CARDIOVASCULAR: Atherosclerotic aortic calcifications. Cardiomediastinal silhouette within normal limits OSSEOUS STRUCTURES: Unchanged. VISUALIZED UPPER ABDOMEN: Normal. OTHER FINDINGS: Endotracheal tube with tip between the clavicles and summer. Enteric tube with tip in the stomach. IMPRESSION: Tubes and lines in satisfactory position. No focal consolidation, pleural effusion or evidence of pneumothorax.
[2018-04-25] MEDS ORDERED: Fentanyl 1000mcg/100ml NS 1,000 MCG/100 ML BAG IV PRN (18:45)
--- NOTE | 2018-04-25 18:46 | PCM.RRT ---
<Zainab Barriga - Last Filed: 04/25/18 18:31> WORK ORDER CLERK Nurse Assessment - Situation Date: 04/25/18 Time WORK ORDER CLERK was called: 17:38 WORK ORDER CLERK Responder Arrival Time: 17:39 WORK ORDER CLERK Location:: [address] [place] [address] Room Number: [id number] WORK ORDER CLERK Reason for Call: Not Responding to Urgent Treatment WORK ORDER CLERK Called By: RN - IV IV Inserted during WORK ORDER CLERK?: No - Respiratory Oxygen Delivery Method: Non Rebreather @% Received Nebulizer Treatments:: No Was the Patient Ventilated with Bag/Mask 100% O2?: No Secretions Suctioned?: No Was the Patient Intubated?: No Was the Patient Placed on a Ventilator?: No - Medication Medications Administered During WORK ORDER CLERK: Lopressor 5mg IV X1 - Diagnostic Test Ordered EKG: Yes Chest X-Ray: Yes CT Scan: No - Stat Labs Ordered WORK ORDER CLERK Stat Labs Ordered: CBC, BMP, PT/PTT, TROPONIN, ABG WORK ORDER CLERK Other Labs Ordered: MG, PHOS CPR started during WORK ORDER CLERK?: No - Vital Signs Vital Sign: Rapid Response Vital Sign Blood Pressure 200/100 Pulse Rate 103 Temperature 97.9 F Oxygen Saturation 85 - Finger Stick Blood Glucose Finger Stick Blood Glucose: 222 - Time WORK ORDER CLERK Ended Time WORK ORDER CLERK Ended: 17:56 - Vital Signs at end of WORK ORDER CLERK Vital Signs at end of WORK ORDER CLERK: Rapid Response End Vital Sign Blood Pressure 230/120 Pulse Rate 100 O2 Sat by Pulse Oximetry 86 - Recommendations Notifications: Attending Physician I.Reason for WORK ORDER CLERK - A) Acute Change in Patient: (Select all that apply): Acute change in mental status - Neurological Status (Select all that apply): absent: Alert, Responsive, Oriented, Verbal, Follows Commands, Disoriented, Confused, Lethargic, Aggressive, Weakness Other (Please specify): Patient was non responsive; - Respiratory Oxygen Delivery Method: Non Rebreather @%, Intubated - Constitutional Appears: Non-toxic, In Acute Distress - Head Head Exam: NORMAL INSPECTION, NORMOCEPHALIC - Eyes Eye Exam: EOMI, Normal appearance. absent: Nystagmus, Scleral icterus - Respiratory Exam Respiratory Exam: Accessory Muscle Use, Wheezes, Respiratory Distress. absent: Rales, Rhonchi - Cardiovascular Exam Cardiovascular Exam: Tachycardia, REGULAR RHYTHM, +S1, +S2 - GI/Abdominal Exam GI & Abdominal Exam: Soft, Normal Bowel Sounds. absent: Distended, Tenderness - Neurological Exam Neurological Exam: absent: Alert, Awake - Extremities Exam Extremities Exam: Normal Inspection. absent: Pedal Edema Plan - Assessment of Findings&Treatment Plan Patient had acute change in mental status prompting a rapid response. During evaluation orders were placed for ABG; CXray; CBC/CMP; Troponins, and EKG. ABG showed severe respiratory acidosis which required endoscopy support specialist for intiation of intubation. Patient on examination was very diaphoretic. Patient was non responsive and it did not improve with sternal rub. Patient had an episode of agitation earlier around 1:45 which required 1.25mg of Ativan. Patient continued to be agitated for which he was given Geodon at 2:30. According to nursing pa case was able to relax afterwards. Later patient was found to be non responsive and vital signs were pertinent for persistent tachycardia and elevated blood pressure. Elevated blood pressure of 230/120 was treated with lopressor 10mg and patient was trasnferred to ICU for intubation. <Maria A Deutsch - Last Filed: 04/26/18 08:07> WORK ORDER CLERK Nurse Assessment - Vital Signs Vital Sign: Rapid Response Vital Sign Blood Pressure 200/100 Pulse Rate 103 Temperature 97.9 F Oxygen Saturation 85 - Vital Signs at end of WORK ORDER CLERK Vital Signs at end of WORK ORDER CLERK: Rapid Response End Vital Sign Blood Pressure 230/120 Pulse Rate 100 O2 Sat by Pulse Oximetry 86 Attending/Attestation - Attestation I have personally seen and examined this patient.: Yes I have fully participated in the care of the patient.: Yes I have reviewed all pertinent clinical information, including history, physical exam and plan: Yes
--- NOTE | 2018-04-25 18:56 | CP.PCM.CON ---
History of Present Illness - History of Present Illness History of Present Illness: MICU CONSULT NOTE HPI Patient is 77yo male with no sig PMHx, admitted to telemetry for SVT and leukocytosis with AMS. History is limited to the chart and the primary hospitalist team as patient is obtunded. Pt was on floor being treated for SVT, AMS, and agitation, on Geodon, and Ativan, with improvement in agitation as per documentation today. This evening patient became obtunded, ABG showed severe resp acidosis with hypercapnia, subsequently intubated by ICU staff. Patient is currently intubated sedated, responds to painful stimuli. PMHx NONE PSHx NONE Meds as per EMR FHx unknown Social Hx cannot obtain ROS cannot obtain Review of Systems - Review of Systems Review of Systems: cannot obtain Past Patient History - Past Social History Smoking Status: Unknown If Ever Smoked - CARDIAC Hx Cardiac Disorders: (unknown) - PULMONARY Hx Respiratory Disorders: (unknown) - NEUROLOGICAL Hx Neurological Disorder: Yes (confused) - HEENT Hx HEENT Problems: (unknown) - RENAL Hx Chronic Kidney Disease: (unknown) - ENDOCRINE/METABOLIC Hx Endocrine Disorders: (unknown) - HEMATOLOGICAL/ONCOLOGICAL Hx Blood Disorders: (unknown) - INTEGUMENTARY Hx Dermatological Problems: Yes Other/Comment: dry skin to feet, thick hard toenails - MUSCULOSKELETAL/RHEUMATOLOGICAL Hx Musculoskeletal Disorders: Yes Hx Falls: (unknown) Hx Unsteady Gait: Yes - GASTROINTESTINAL Hx Gastrointestinal Disorders: (unknown) - GENITOURINARY/GYNECOLOGICAL Hx Genitourinary Disorders: (unknown) - PSYCHIATRIC Hx Psychophysiologic Disorder: (unknown) Hx Substance Use: (unknown) - SURGICAL HISTORY Hx Surgeries: (unknown) Meds Allergies/Adverse Reactions: Allergies Allergy/AdvReac Type Severity Reaction Status Date / Time No Known Allergies Allergy Verified 04/21/18 13:11 - Medications Medications: Current Medications Aspirin (Ecotrin) 81 mg PO DAILY [facility] Last Admin: 04/25/18 10:14 Dose: 81 mg Divalproex Sodium (Depakote Sprinkles) 125 mg PO BID [facility]; Protocol Last Admin: 04/25/18 10:14 Dose: 125 mg Famotidine (Pepcid) 20 mg PO HS [facility] Last Admin: 04/24/18 21:54 Dose: 20 mg Midazolam 100 mg/100ml in NS (Midazolam 100 Mg/100ml In Ns) 100 mg in 100 mls @ 2 mls/hr IV .Q24H PRN; Protocol PRN Reason: Agitation Fentanyl Citrate (Fentanyl Citrate/Sodium Chloride 1 Mg/100 Ml) 1,000 mcg in 100 mls @ 2.5 mls/hr IV .Q24H PRN; Protocol PRN Reason: TITRATE PER MD ORDER Lorazepam (Ativan) 0.5 mg PO TID PRN; Protocol PRN Reason: agitation/anxiety Lorazepam (Ativan) 0.125 mg IVP Q6H PRN; Protocol PRN Reason: Anxiety Last Admin: 04/25/18 13:43 Dose: 0.125 mg Metoprolol Tartrate (Lopressor) 50 mg PO BID [facility] Last Admin: 04/25/18 10:09 Dose: 50 mg Nicotine (Nicoderm Cq) 1 patch TD 2200 [facility] Last Admin: 04/24/18 21:54 Dose: 1 patch Verapamil HCl (Calan Sr Tab) 240 mg PO DAILY [facility] Last Admin: 04/25/18 10:15 Dose: 240 mg Ziprasidone (Geodon Inj) 10 mg IM Q12H PRN; Protocol PRN Reason: Agitation Last Admin: 04/25/18 14:30 Dose: 10 mg Physical Exam - Constitutional Appears: Toxic, In Acute Distress, Unkempt, Cachectic - Head Exam Head Exam: NORMAL INSPECTION - Eye Exam Eye Exam: Normal appearance - ENT Exam ENT Exam: Mucous Membranes Dry - Neck Exam Neck exam: Positive for: Full Rom - Respiratory Exam Respiratory Exam: Decreased Breath Sounds, Respiratory Distress - Cardiovascular Exam Cardiovascular Exam: REGULAR RHYTHM, +S1, +S2 - GI/Abdominal Exam GI & Abdominal Exam: Normal Bowel Sounds, Soft - Extremities Exam Extremities exam: Positive for: normal inspection - Neurological Exam Neurological exam: Altered - Skin Skin Exam: Normal Color, Warm Results - Vital Signs Recent Vital Signs: Last Vital Signs Temp 98.4 F 04/25/18 18:43 Pulse 69 04/25/18 18:43 Resp 20 04/25/18 18:43 BP 117/85 04/25/18 18:43 Pulse Ox 100 04/25/18 18:43 - Labs Result Diagrams: 04/25/18 05:30 04/25/18 05:30 Labs: Laboratory Results - last 24 hr 04/25/18 04/25/18 04/25/18 05:30 05:30 17:38 WBC 10.4 D RBC 4.27 Hgb 12.6 L Hct 37.8 L MCV 88.5 MCH 29.5 MCHC 33.3 RDW 14.0 Plt Count 359 MPV 9.2 Gran % 73.1 H Lymph % (Auto) 19.0 L Major % (Auto) 7.0 H Eos % (Auto) 0.8 L Baso % (Auto) 0.1 Gran # 7.58 H Lymph # (Auto) 2.0 Major # (Auto) 0.7 H Eos # (Auto) 0.1 Baso # (Auto) 0.01 pCO2 pO2 HCO3 ABG pH ABG Total CO2 ABG O2 Saturation ABG Base Excess ABG Potassium Glucose Lactate FiO2 Sodium 140 Potassium 4.7 Chloride 106 Carbon Dioxide 22 Anion Gap 16 BUN 21 Creatinine 1.2 Est GFR ( Amer) > 60 Est GFR (Non-Af Amer) 59 POC Glucose (mg/dL) 222 H Random Glucose 97 Calcium 9.4 Phosphorus 3.3 Magnesium 2.1 Total Bilirubin 1.1 AST 28 ALT 27 Alkaline Phosphatase 112 Total Protein 7.2 Albumin 4.3 Globulin 2.9 Albumin/Globulin Ratio 1.5 Arterial Blood Potassium 04/25/18 17:49 WBC RBC Hgb Hct MCV MCH MCHC RDW Plt Count MPV Gran % Lymph % (Auto) Major % (Auto) Eos % (Auto) Baso % (Auto) Gran # Lymph # (Auto) Major # (Auto) Eos # (Auto) Baso # (Auto) pCO2 103 H* pO2 100.0 HCO3 29.8 H ABG pH 7.07 L* ABG Total CO2 33.0 H ABG O2 Saturation 97.1 ABG Base Excess -3.2 L ABG Potassium 3.9 Glucose 215 H Lactate 1.2 FiO2 100.0 Sodium 140.0 Potassium Chloride 107.0 Carbon Dioxide Anion Gap BUN Creatinine Est GFR ( Amer) Est GFR (Non-Af Amer) POC Glucose (mg/dL) Random Glucose Calcium Phosphorus Magnesium Total Bilirubin AST ALT Alkaline Phosphatase Total Protein Albumin Globulin Albumin/Globulin Ratio Arterial Blood Potassium 3.9 - Imaging and Cardiology Chest x-ray Status: Image reviewed by me, Report reviewed by me Assessment & Plan - Assessment and Plan (Free Text) Assessment: 77yo male with AMS, and hyperpcanic resp failure. AMS Hypercapnic resp failure Agitation ?Dementia SVT HTN r/o Delirium Tremens - currently afebrile, BP stable, HR 80s, sinus, in NAD, intubated, sedated, with good oxygenation - CXR with confirmed ETT, and NGT - unclear etiology of AMS, and hypercapanic resp failure, rule out sepsis, delirium tremens, seizure, CVA - needs repeat of all workup, including cbc, cmp, INR, CT head, repeat ABG Recommend: - cont with vent support, low tidal volume ventilation, repeat ABG, daily sedation vacation, CXR - broad spectrum Cefepime, Vanco - panculture UCx, BCx, check Procal - IVF hydration - follow up cardiology - repeat CT head - obtain neuro consult - Versed, Fentanyl, rule out Delirium tremens - follow up psych - repeat CBC, CMP, ABG - FS control - consider VEEG - GI ppx - DVT ppx - Monitor in MICU critical care time 40 minutes
--- NOTE | 2018-04-25 18:56 | PCM.PROC ---
Procedures Attestation:: I certify that I have explained the specified Operation(s) or Procedure(s), risks, benefits and reasonable alternatives to the Patient and/or other person responsible. The opportunity was given to ask questions and all questions answered - Intubation Time Out Performed: Yes Sedative: Etomidate Laryngoscope: Glidescope ET Tube Size: 7.5 ET Tube Uncuffed: No ET Tube Secured at Depth: 22 ET Tube Secured Locarion: Teeth ET Tube Placement Confirmation: Visualized Passing Through Cords, Breath Sounds Equal Bilaterally, No Breath Sounds Over Epigastrum, Confirmation w/Capnometry Patient Tolerated Procedure: Well Procedure Immediate Complications: None
[2018-04-25 19:01] LABS: HEMOGLOBIN 12.6 g/dL (14.0-18.0); MEAN CELL VOLUME 90.7 fl (80.0-105.0); MEAN CORPUSCULAR HEMOGLOBIN 29.4 pg (25.0-35.0); MEAN CORPUSCULAR HGB CONC 32.4 g/dl (31.0-37.0); MEAN PLATELET VOLUME 9.1 fl (7.0-11.0); RBC 4.29 10^6/uL (3.5-6.1); RED CELL DISTRIBUTION WIDTH 14.2 % (11.5-14.5); WHITE BLOOD COUNT 13.4 10^3/ul (4.5-11.0)
[2018-04-25 19:11] LABS: INR 1.11; PARTIAL THROMBOPLASTIN TIME 22.4 Seconds (25.1-36.5); PROTHROMBIN TIME 12.7 SECONDS (9.4-12.5)
[2018-04-25 19:12] LABS: ALB/GLOB RATIO 1.3 (1.1-1.8); ALBUMIN 4.5 g/dL (3.0-4.8); CALCIUM 8.8 mg/dL (8.4-10.5)
[2018-04-25 19:37] LABS: TROPONIN I 0.03 ng/mL
[2018-04-25] MEDS ORDERED: Propofol 10 mg/ml 1,000 MG/100 ML VIAL IV PRN (21:07)
[2018-04-25] MEDS ORDERED: Sod Polystyrene Sulf 15 gm/60 ml Susp PO ONE (21:32)
[2018-04-25] MEDS: Midazolam 100 mg/100ml in NS 100 MG/100 ML SOL IV PRN (23:00)
[2018-04-25 23:14] LABS: ARTERIAL BLOOD GAS HCO3 20.9 mmol/L (21-28); ARTERIAL BLOOD GAS O2 SAT 100.3 % (95-98); ARTERIAL BLOOD GAS PCO2 33 mm/Hg (35-45); ARTERIAL BLOOD GAS PH 7.41 (7.35-7.45); ARTERIAL BLOOD GAS TCO2 21.9 mmol.L (22-28)
[2018-04-26] MEDS: Cefepime 1gm in NS 100ml 1 GM/100 ML BAG IVPB SCH ×3 (00:24→21:52)
[2018-04-26] MEDS: Sodium Chloride 0.9% 1,000 ML IV SCH ×4 (02:30→20:45)
[2018-04-26 05:46] LABS: GRAN # 7.95 (1.4-6.5); GRAN % 82.1 % (50.0-68.0); HEMOGLOBIN 10.6 g/dL (14.0-18.0); LYMPH # 0.6 (1.2-3.4); LYMPH % 6.2 % (22.0-35.0); MEAN CELL VOLUME 91.5 fl (80.0-105.0); MEAN CORPUSCULAR HEMOGLOBIN 29.1 pg (25.0-35.0); MEAN CORPUSCULAR HGB CONC 31.8 g/dl (31.0-37.0); MONO # 1.1 (0.1-0.6); MONO % 11.7 % (1.0-6.0); RBC 3.64 10^6/uL (3.5-6.1); RED CELL DISTRIBUTION WIDTH 14.6 % (11.5-14.5); WHITE BLOOD COUNT 9.7 10^3/ul (4.5-11.0)
[2018-04-26 06:03] LABS: ARTERIAL BLOOD GAS HCO3 19.5 mmol/L (21-28); ARTERIAL BLOOD GAS HEMOGLOBIN 10.3 g/dL (11.7-17.4); ARTERIAL BLOOD GAS O2 CAPACITY 14.4 mL/dl (16-24); ARTERIAL BLOOD GAS O2 CONTENT 14.4 ML/dl (15-23); ARTERIAL BLOOD GAS O2 SAT 100.2 % (95-98); ARTERIAL BLOOD GAS PCO2 28 mm/Hg (35-45); ARTERIAL BLOOD GAS PH 7.45 (7.35-7.45); ARTERIAL BLOOD GAS TCO2 20.4 mmol.L (22-28)
[2018-04-26 06:07] LABS: ALB/GLOB RATIO 1.3 (1.1-1.8); ALBUMIN 3.6 g/dL (3.0-4.8); CALCIUM 8.5 mg/dL (8.4-10.5)
--- NOTE | 2018-04-26 09:06 | CARD ---
APPROVED REPORT Date of service: 04/25/2018 EKG Measurement Heart [id number] <Conclusion> Normal sinus rhythm RVCD Prolonged QTc
--- NOTE | 2018-04-26 09:09 | PN ---
DATE: 04/26/2018 PIANO ASSEMBLER NOTE LOCATION: At [facility]. SUBJECTIVE: The patient is sedated on the ventilator with FIO2 of 50%. The patient is hemodynamically stable. The patient was intubated for hypercapnic respiratory failure. PHYSICAL EXAMINATION: VITAL SIGNS: Physical exam note that the patient's temperature is 97.8, pulse is 82, respirations are 18 and his BP is 153/90. The patient's saturation is 100% on 50% FIO2 on the ventilator. HEENT: Head is atraumatic, normocephalic. Eyes reactive to light. Ears, nose and throat seemed to be within normal limits. NECK: Supple. No JVD. No thyroid enlargement. No lymph nodes. HEART: Regular rate and rhythm. Normal S1, S2. LUNGS: Reveal rare rhonchi at the bases. ABDOMEN: Soft. Decreased bowel sounds. GENITALIA AND RECTAL: Deferred. MUSCULOSKELETAL: No joint deformities. EXTREMITIES: Reveal no significant lower extremity edema. NEUROLOGICAL: The patient is unresponsive on the ventilator. LABORATORY DATA: As far as his laboratories are concerned, his white count is 9.7, hemoglobin is 10.6, hematocrit is 33.3 with platelets of 261,000. Arterial blood gas reveals a pH of 7.45, pCO2 of 28, pO2 of 189. Sodium is 139, potassium 4.7, chloride 109, CO2 of 22 with BUN of 29, creatinine of 1.4 and a glucose of 99. The patient's chest x-ray is pending. IMPRESSION: As far as my impression, this patient presented with altered mental status, noted to have hypercapnic respiratory failure, is ventilator dependent and also noted to have anemia. There is possibility of sepsis. PLAN: As far as our plan, we will continue ventilator support. Continue sedation. The patient will get aggressive pulmonary toilet and we will continue with verapamil as well as aspirin and fentanyl has been . The patient is getting metoprolol, cefepime and Pepcid. We will continue the Versed and IV fluids. The patient is getting vancomycin. We will follow closely and treat aggressively along with the other consultants and the primary care doctor. Krunal Jordan MD
[2018-04-26] MEDS: Vancomycin 1gm in NS 250ml 1 GM/250 ML BAG IVPB SCH (09:41)
[2018-04-26] MEDS: Divalproex 125 mg EC Sprinkle Cap PO SCH ×2 (10:40→18:41)
[2018-04-26] MEDS: Verapamil 240 mg ER Tab PO SCH (10:52)
--- NOTE | 2018-04-26 11:24 | CP.PCM.PN ---
<Juan R Sanabria - Last Filed: 04/26/18 13:07> Subjective - Date & Time of Evaluation Date of Evaluation: 04/26/18 Time of Evaluation: 11:21 - Subjective Subjective: Long Sanabria PGY2 IM Resident - Progress Note for Medicine Service Patient seen and examined this AM. Over past 24 hours patient was noted to have rapid response called for being obtunded. ABG was drawn and patient was noted to be in hypercapnic respiratory failure with respiratory acidosis. Patient was intubated transferred to the unit. Currently on sedation and ROS unable to be obtained. Objective - Vital Signs/Intake and Output Vital Signs (last 24 hours): Temp Pulse Resp BP Pulse Ox 97.8 F 70 20 170/88 H 100 04/26/18 00:00 04/26/18 10:52 04/26/18 00:00 04/26/18 10:52 04/26/18 08:20 Intake and Output: 04/26/18 04/26/18 06:59 18:59 Intake Total 1850 Output Total 200 Balance 1650 - Medications Medications: Current Medications Aspirin (Ecotrin) 81 mg PO DAILY [facility] Last Admin: 04/26/18 09:42 Dose: 81 mg Divalproex Sodium (Depakote Sprinkles) 125 mg PO BID [facility]; Protocol Last Admin: 04/25/18 10:14 Dose: 125 mg Famotidine (Pepcid) 20 mg PO HS [facility] Last Admin: 04/26/18 00:23 Dose: 20 mg Midazolam 100 mg/100ml in NS (Midazolam 100 Mg/100ml In Ns) 100 mg in 100 mls @ 2 mls/hr IV .Q24H PRN; Protocol PRN Reason: Agitation Last Titration: 04/26/18 03:15 Dose: 2 mg/hr, 2 mls/hr Fentanyl Citrate (Fentanyl Citrate/Sodium Chloride 1 Mg/100 Ml) 1,000 mcg in 100 mls @ 2.5 mls/hr IV .Q24H PRN; Protocol PRN Reason: TITRATE PER MD ORDER Last Titration: 04/26/18 05:00 Dose: 0 mcg/hr, 0 mls/hr Cefepime HCl (Maxipime 1gm) 1 gm in 100 mls @ 100 mls/hr IVPB Q12 [facility]; Protocol Last Admin: 09/29/18 09:41 Dose: 100 mls/hr Vancomycin HCl (Vancomycin 1gm) 1 gm in 250 mls @ 167 mls/hr IVPB DAILY [facility]; Protocol Last Admin: 04/26/18 09:41 Dose: 167 mls/hr Sodium Chloride (Sodium Chloride 0.9%) 1,000 mls @ 150 mls/hr IV .Q6H40M [facility] Last Admin: 04/26/18 09:41 Dose: 150 mls/hr Propofol (Diprivan) 1,000 mg in 100 mls @ 1.606 mls/hr IV .Q24H PRN; Protocol PRN Reason: TITRATE PER MD ORDER Last Titration: 04/25/18 23:00 Dose: 0 mcg/kg/min, 0 mls/hr Lorazepam (Ativan) 0.5 mg PO TID PRN; Protocol PRN Reason: agitation/anxiety Lorazepam (Ativan) 0.125 mg IVP Q6H PRN; Protocol PRN Reason: Anxiety Last Admin: 04/25/18 13:43 Dose: 0.125 mg Metoprolol Tartrate (Lopressor) 50 mg PO BID [facility] Last Admin: 04/26/18 09:42 Dose: 50 mg Nicotine (Nicoderm Cq) 1 patch TD 2200 [facility] Last Admin: 04/26/18 00:23 Dose: 1 patch Verapamil HCl (Calan Sr Tab) 240 mg PO DAILY [facility] Last Admin: 04/26/18 10:52 Dose: 240 mg Ziprasidone (Geodon Inj) 10 mg IM Q12H PRN; Protocol PRN Reason: Agitation Last Admin: 04/25/18 14:30 Dose: 10 mg - Labs Labs: 04/26/18 05:00 04/26/18 05:00 PT 12.7 SECONDS (9.4-12.5) H 04/25/18 18:57 INR 1.11 04/25/18 18:57 APTT 22.4 Seconds (25.1-36.5) L 04/25/18 18:57 - Constitutional Appears: No Acute Distress - Head Exam Head Exam: ATRAUMATIC, NORMAL INSPECTION, NORMOCEPHALIC - ENT Exam Additional comments: ET tube in place, measuring - Respiratory Exam Respiratory Exam: Clear to Ausculation Bilateral, NORMAL BREATHING PATTERN. absent: Rhonchi, Wheezes - Cardiovascular Exam Cardiovascular Exam: REGULAR RHYTHM, +S1, +S2 - Neurological Exam Additional comments: intubated and sedated Responds to painful stimuli moves all four extremities spontaneously - Psychiatric Exam Additional comments: sedated - Skin Skin Exam: Dry, Intact Assessment and Plan - Assessment and Plan (Free Text) Assessment: 77 year old male with past medical history that includes - . Plan: Reentrant SVT - Cardiology consulted with Dr. Brooks, f/u recs - Lopressor, ASA, Verapamil - Metoprolol 50 mg BID - Echocardiogram showin LV normal size with mild concentric LVH, Ejection Fraction: 64 - Serial cardiac enzymes indeterminate Hypercapnic Respiratory Failure with respiratory Acidosis - Rapid response called yesterday - Patient intubated and transferred to ICU - ABG showing pH of 7.07/103/100/29.3 on FiO2 100% - Repeat ABG this AM showing improvement of (pH 7.45/28/189/19.5 on FiO2 of 50%) - Vent management per ICU team AMS - Patient with initial presentation of AMS, resolved, then PEANUT VENDOR for obtunded state, hypercapniec resp failure - Continue with broad specreum antibiotics Cefepime, vanco - Versed, Fentanyl - Psych following, f/u recs - UDS pending - Head CT from 04/25 showing no acute abnormalities or significant change from previous Anemia - Normocytic Normochromic anemia - H/H stable at this point - No signs of active bleeding, HDS GI/DVT ppx - Protonix - SCDS Patient seen, case and plan discussed with attending <Maria A Deutsch - Last Filed: 04/26/18 17:16> Objective - Vital Signs/Intake and Output Vital Signs (last 24 hours): Temp Pulse Resp BP Pulse Ox 97.8 F 70 20 170/88 H 100 04/26/18 00:00 04/26/18 10:52 04/26/18 00:00 04/26/18 10:52 04/26/18 08:20 Intake and Output: 04/26/18 04/26/18 06:59 18:59 Intake Total 1850 Output Total 200 Balance 1650 - Medications Medications: Current Medications Aspirin (Ecotrin) 81 mg PO DAILY [facility] Last Admin: 04/26/18 09:42 Dose: 81 mg Divalproex Sodium (Depakote Sprinkles) 125 mg PO BID [facility]; Protocol Last Admin: 04/25/18 10:14 Dose: 125 mg Famotidine (Pepcid) 20 mg PO HS [facility] Last Admin: 04/26/18 00:23 Dose: 20 mg Midazolam 100 mg/100ml in NS (Midazolam 100 Mg/100ml In Ns) 100 mg in 100 mls @ 2 mls/hr IV .Q24H PRN; Protocol PRN Reason: Agitation Last Titration: 04/26/18 03:15 Dose: 2 mg/hr, 2 mls/hr Fentanyl Citrate (Fentanyl Citrate/Sodium Chloride 1 Mg/100 Ml) 1,000 mcg in 100 mls @ 2.5 mls/hr IV .Q24H PRN; Protocol PRN Reason: TITRATE PER MD ORDER Last Titration: 04/26/18 05:00 Dose: 0 mcg/hr, 0 mls/hr Cefepime HCl (Maxipime 1gm) 1 gm in 100 mls @ 100 mls/hr IVPB Q12 [facility]; Protocol Last Admin: 04/26/18 09:41 Dose: 100 mls/hr Vancomycin HCl (Vancomycin 1gm) 1 gm in 250 mls @ 167 mls/hr IVPB DAILY [facility]; Protocol Last Admin: 04/26/18 09:41 Dose: 167 mls/hr Sodium Chloride (Sodium Chloride 0.9%) 1,000 mls @ 150 mls/hr IV .Q6H40M [facility] Last Admin: 04/26/18 09:41 Dose: 150 mls/hr Propofol (Diprivan) 1,000 mg in 100 mls @ 1.606 mls/hr IV .Q24H PRN; Protocol PRN Reason: TITRATE PER MD ORDER Last Titration: 04/25/18 23:00 Dose: 0 mcg/kg/min, 0 mls/hr Lorazepam (Ativan) 0.5 mg PO TID PRN; Protocol PRN Reason: agitation/anxiety Lorazepam (Ativan) 0.125 mg IVP Q6H PRN; Protocol PRN Reason: Anxiety Last Admin: 04/25/18 13:43 Dose: 0.125 mg Metoprolol Tartrate (Lopressor) 50 mg PO BID [facility] Last Admin: 04/26/18 09:42 Dose: 50 mg Nicotine (Nicoderm Cq) 1 patch TD 2200 [facility] Last Admin: 04/26/18 00:23 Dose: 1 patch Verapamil HCl (Calan Sr Tab) 240 mg PO DAILY [facility] Last Admin: 04/26/18 10:52 Dose: 240 mg Ziprasidone (Geodon Inj) 10 mg IM Q12H PRN; Protocol PRN Reason: Agitation Last Admin: 04/25/18 14:30 Dose: 10 mg - Labs Labs: 04/26/18 05:00 04/26/18 05:00 PT 12.7 SECONDS (9.4-12.5) H 04/25/18 18:57 INR 1.11 04/25/18 18:57 APTT 22.4 Seconds (25.1-36.5) L 04/25/18 18:57 Attending/Attestation - Attestation I have personally seen and examined this patient.: Yes I have fully participated in the care of the patient.: Yes I have reviewed all pertinent clinical information, including history, physical exam and plan: Yes Notes (Text): 04/26/18 17:02 77 year old male with no known medical history who was sent from [facility] for "not feeling well". He was initially admitted as Elton Majano but later identified as Sami Min. He was found to have SVT, leukocytosis, and hyperkalemia in ER. TSH was normal. Serial cardiac enzymes were indeterminate. D-dimer was elevated but CT angio was negative for PE. He is started on metoprolol and verapramil by cardiology. Echocardiogram was reviewed; preserved EF. Leukocytosis and hyperkalemia resolved. Psychiatry evaluation was appreciated for dementia, altered mental status and agitation. He was on geodon prn, ativan prn and depakote. Yesterday evening he has PEANUT VENDOR for lethargy and acute respiratory distress. ABG was obtained which showed acute hyperpcapneic respiratory acidosis. Patient was transferred to ICU and intubated. He was empirically started on antibiotics. ABG this morning reviewed; vent management as per interior design program chair. Repeat CXR today showed new left lower lobe / retrocardiac infiltrate. I did call his sister, Nancy Min [phone] but not answer. I also called his wignbfh-gb-nkc, Jabier [phone] this evening who did answer. He was informed of updated patient status. Questions were answered. He stated he will call on Saturday for updates or we may call him. Maria A Deutsch MD Hospitalist.
--- NOTE | 2018-04-26 13:10 | CT ---
Date of service: 04/25/2018 PROCEDURE: CT HEAD WITHOUT CONTRAST. HISTORY: altered, unstable COMPARISON: 04/21/2018. TECHNIQUE: Axial computed tomography images were obtained through the head/brain without intravenous contrast. Supplemental Coronal and Sagittal projectections created and reviewed. Radiation dose: Total exam DLP = mGy-cm. This CT exam was performed using one or more of the following dose reduction techniques: Automated exposure control, adjustment of the mA and/or kV according to patient size, and/or use of iterative reconstruction technique. FINDINGS: HEMORRHAGE: No intracranial hemorrhage. BRAIN: No mass effect or edema. Cortical and cerebellar atrophy, periventricular small vessel disease. VENTRICLES: Unremarkable. No hydrocephalus. CALVARIUM: Unremarkable. PARANASAL SINUSES: Unremarkable as visualized. No significant inflammatory changes. MASTOID AIR CELLS: Unremarkable as visualized. No inflammatory changes. OTHER FINDINGS: None. IMPRESSION: No acute intracranial abnormalities. No significant findings to account for the clinical presentation. No significant interval change compared to the prior examination(s). Concordant results (preliminary interpretation) provided by [facility]. Procedure Completed: 22:04 Preliminary Report: Dictated and Authenticated: 22:37 Final Interpretation: 13:08.
--- NOTE | 2018-04-26 13:59 | PN ---
DATE: 04/26/2018 FOLLOWUP SUBJECTIVE: The patient has a rapid response yesterday at 06:30 p.m. following acute changes in mental status following the patient's sedation. The patient was intubated and transferred to the ICU. There was no reported arrhythmia at the time of the patient's rapid response; however, he did have a run of SVT while on the ventilator that terminated spontaneously. No reported hypertensions except at the time of his sedation. PHYSICAL EXAMINATION: VITAL SIGNS: Blood pressure 170/88, heart rate 70, respirations 26, temperature 97.8. HEENT: No pallor. HEART: S1 and S2 regular. LUNGS: Clear. EXTREMITIES: No edema. LABORATORY DATA: Today's hemoglobin and hematocrit 10.6 and 33.3. White count and platelet count are within normal limit. Today's SMA-7 is within normal limit except for chloride of 109 and BUN of 29. Chest x-ray was unremarkable except for COPD picture. Head CT scan done yesterday revealed no acute intracranial abnormality. ASSESSMENT: 1. Paroxysmal reentrant supraventricular tachycardia. 2. Respiratory failure. 3. Dementia. 4. Hypertension. RECOMMENDATIONS: Continue current Calan SR at 240 mg once a day, Depakote 125 mg twice a day via nasogastric tube, aspirin 81 mg once a day, Lopressor 50 mg twice a day, IV Maxipime 1 g every 12 hours, IV vancomycin at 1 g intravenously daily. Obtain an EEG and consider repeating head CT scan. No specific cardiac workup is indicated at this time. Parish Goddard MD
--- NOTE | 2018-04-26 14:02 | RAD ---
Date of service: 04/26/2018 HISTORY: Intubated. COMPARISON: April 25, 2018. FINDINGS: LUNGS: Atelectasis at the left lung base, retrocardiac region. This represents a new finding. PLEURA: Probable small left pleural effusion. CARDIOVASCULAR: No radiographic findings to suggest acute or significant cardiovascular disease. OSSEOUS STRUCTURES: No significant abnormalities. VISUALIZED UPPER ABDOMEN: Normal. OTHER FINDINGS: Satisfactory and stable position of endotracheal tube and nasogastric tube. IMPRESSION: Stable position of support apparatus. New left lower lobe/retrocardiac infiltrate and effusion.
[2018-04-26 19:58] LABS: BARBITURATES, UR NEGATIVE (NEGATIVE); BENZODIAZEPINES, UR POSITIVE (NEGATIVE); OPIATES, UR NEGATIVE (NEGATIVE); PHENCYCLIDINE, UR NEGATIVE (NEGATIVE)
[2018-04-26] MEDS ORDERED: Metoprolol 1 mg/ml Inj IVP ONE ×2 (22:37→23:59)
[2018-04-27] MEDS: Sodium Chloride 0.9% 1,000 ML IV SCH ×2 (04:00→12:43)
[2018-04-27] MEDS: Midazolam 100 mg/100ml in NS 100 MG/100 ML SOL IV PRN (06:29)
[2018-04-27 06:57] LABS: ARTERIAL BLOOD GAS HEMOGLOBIN 9.3 g/dL (11.7-17.4); ARTERIAL BLOOD GAS O2 CONTENT 13.1 ML/dl (15-23); ARTERIAL BLOOD GAS O2 SAT 100.4 % (95-98); ARTERIAL BLOOD GAS PCO2 30 mm/Hg (35-45); ARTERIAL BLOOD GAS PH 7.41 (7.35-7.45); ARTERIAL BLOOD GAS TCO2 19.9 mmol.L (22-28)
[2018-04-27] MEDS: Verapamil 240 mg ER Tab PO SCH (09:34)
[2018-04-27] MEDS: Divalproex 125 mg EC Sprinkle Cap PO SCH ×2 (09:35→17:05)
[2018-04-27] MEDS: Cefepime 1gm in NS 100ml 1 GM/100 ML BAG IVPB SCH ×2 (09:36→21:57)
[2018-04-27] MEDS: Vancomycin 1gm in NS 250ml 1 GM/250 ML BAG IVPB SCH (09:36)
--- NOTE | 2018-04-27 10:34 | CP.PCM.PN ---
<Jeffrey Lee - Last Filed: 04/27/18 11:11> Subjective - Date & Time of Evaluation Date of Evaluation: 04/27/18 Time of Evaluation: 08:33 - Subjective Subjective: Jeffrey Lee PGY2 IM Progress Note for Dr. Deutsch Patient was seen and examined at bedside. He remains intubated with sedation (Midazolam and fentanyl). Patient was noted to be agitated overnight which is why he remain in restraints and on sedation. Lane catheter is in place and patient making urine. No BMs reported. Nursing notes were reviewed and today's labs are pending. Objective - Vital Signs/Intake and Output Vital Signs (last 24 hours): Temp Pulse Resp BP Pulse Ox 97.6 F 63 22 152/79 H 100 04/27/18 08:00 04/27/18 10:20 04/27/18 08:00 04/27/18 10:00 04/27/18 10:20 Intake and Output: 04/27/18 04/27/18 06:59 18:59 Intake Total 1920 0 Output Total 800 Balance 1120 0 - Medications Medications: Current Medications Aspirin (Ecotrin) 81 mg PO DAILY [facility] Last Admin: 04/27/18 09:37 Dose: 81 mg Divalproex Sodium (Depakote Sprinkles) 125 mg PO BID [facility]; Protocol Last Admin: 04/27/18 09:35 Dose: 125 mg Famotidine (Pepcid) 20 mg PO HS [facility] Last Admin: 04/26/18 21:51 Dose: 20 mg Hydralazine HCl (Apresoline) 50 mg PO Q12 PRN PRN Reason: SBP >180 Last Admin: 04/26/18 17:42 Dose: 50 mg Midazolam 100 mg/100ml in NS (Midazolam 100 Mg/100ml In Ns) 100 mg in 100 mls @ 2 mls/hr IV .Q24H PRN; Protocol PRN Reason: Agitation Last Admin: 04/27/18 06:29 Dose: 2 mg/hr, 2 mls/hr Fentanyl Citrate (Fentanyl Citrate/Sodium Chloride 1 Mg/100 Ml) 1,000 mcg in 100 mls @ 2.5 mls/hr IV .Q24H PRN; Protocol PRN Reason: TITRATE PER MD ORDER Last Titration: 04/27/18 08:08 Dose: 20 mcg/hr, 2 mls/hr Cefepime HCl (Maxipime 1gm) 1 gm in 100 mls @ 100 mls/hr IVPB Q12 [facility]; Protocol Last Admin: 04/27/18 09:36 Dose: 100 mls/hr Vancomycin HCl (Vancomycin 1gm) 1 gm in 250 mls @ 167 mls/hr IVPB DAILY [facility]; Protocol Last Admin: 04/27/18 09:36 Dose: 167 mls/hr Sodium Chloride (Sodium Chloride 0.9%) 1,000 mls @ 150 mls/hr IV .Q6H40M [facility] Last Admin: 04/27/18 04:00 Dose: 150 mls/hr Propofol (Diprivan) 1,000 mg in 100 mls @ 1.606 mls/hr IV .Q24H PRN; Protocol PRN Reason: TITRATE PER MD ORDER Last Titration: 04/25/18 23:00 Dose: 0 mcg/kg/min, 0 mls/hr Lorazepam (Ativan) 0.5 mg PO TID PRN; Protocol PRN Reason: agitation/anxiety Lorazepam (Ativan) 0.125 mg IVP Q6H PRN; Protocol PRN Reason: Anxiety Last Admin: 04/25/18 13:43 Dose: 0.125 mg Metoprolol Tartrate (Lopressor) 50 mg PO BID [facility] Last Admin: 04/27/18 09:36 Dose: 50 mg Nicotine (Nicoderm Cq) 1 patch TD 2200 [facility] Last Admin: 04/26/18 21:51 Dose: 1 patch Verapamil HCl (Calan Sr Tab) 240 mg PO DAILY [facility] Last Admin: 04/27/18 09:34 Dose: 240 mg Ziprasidone (Geodon Inj) 10 mg IM Q12H PRN; Protocol PRN Reason: Agitation Last Admin: 04/25/18 14:30 Dose: 10 mg - Labs Labs: 04/26/18 05:00 04/26/18 05:00 PT 12.7 SECONDS (9.4-12.5) H 04/25/18 18:57 INR 1.11 04/25/18 18:57 APTT 22.4 Seconds (25.1-36.5) L 04/25/18 18:57 - Constitutional Appears: Non-toxic, No Acute Distress - Head Exam Head Exam: NORMAL INSPECTION - Eye Exam Eye Exam: Normal appearance, PERRL - ENT Exam Additional comments: ET tube in place - Neck Exam Neck Exam: Normal Inspection - Respiratory Exam Respiratory Exam: NORMAL BREATHING PATTERN. absent: Rales, Rhonchi, Wheezes - Cardiovascular Exam Cardiovascular Exam: RRR, +S1, +S2. absent: Murmur - GI/Abdominal Exam GI & Abdominal Exam: Soft, Normal Bowel Sounds. absent: Distended, Tenderness - Extremities Exam Additional comments: sedated - Neurological Exam Additional comments: sedated - Skin Skin Exam: Normal Color, Warm Assessment and Plan - Assessment and Plan (Free Text) Assessment: 77 yo with history of SVT (intially admitted as Elton Majano, later identified as Sami Min) who was found to be in SVT (TSH was normal), and was started on metoprolol and verapamil by Cardiology. Patient had PRIMARY GRADE TEACHER for lethargy and noted to have hypercapneic respiratory failure, for which he was intubated and transferred to ICU. CXR showed new LLL infiltrate and effusion, and he is on empiric antibiotics. Plan: 1. Reentrant supraventicular tachycardia - cont Metoprolol and Verapamil - Cardio consulted, recs appreciated - cont to monitor for episodes - cont ASA per cardio recs - Hydralazine for hypertensive episodes 2. Hypercapneic respiratory failure w/ new LLL infiltrate - s/p intubation, OGT for PO intake - cont ICU monitoring - cont empiric abx (vanc and cefepime) - daily ABG's shows excess oxygenation, will discuss with ICU regarding decreasing FiO2 - management for daily sedation vacation, weaning trials and oral care per ICU team 3. AMS, likely 2/2 dementia, at baseline as no cause of acute delerium noted - Psych consulted, recs appreciated - cont Geodon 10mg IM q12h prn - cont Depakote 125mg po bid for seizure ppx 4. Chronic anemia, stable - cont to monitor 5. Tobacco use disorder - cont Nicotine 1 patch TD 6. PPx - DVT ppx: SCDs - GI ppx: Pepcid Dispo: cont to try and contact family for collateral information. cont medical treatment at this time. Patient was examined and discussed with attending, Dr. La Nena Lee PGY2 <Maria A Deutsch - Last Filed: 04/27/18 12:15> Objective - Vital Signs/Intake and Output Vital Signs (last 24 hours): Temp Pulse Resp BP Pulse Ox 97.6 F 63 22 152/79 H 100 04/27/18 08:00 04/27/18 10:20 04/27/18 08:00 04/27/18 10:00 04/27/18 10:20 Intake and Output: 04/27/18 04/27/18 06:59 18:59 Intake Total 1920 8 Output Total 800 Balance 1120 8 - Medications Medications: Current Medications Aspirin (Ecotrin) 81 mg PO DAILY [facility] Last Admin: 04/27/18 09:37 Dose: 81 mg Divalproex Sodium (Depakote Sprinkles) 125 mg PO BID [facility]; Protocol Last Admin: 04/27/18 09:35 Dose: 125 mg Famotidine (Pepcid) 20 mg PO HS [facility] Last Admin: 04/26/18 21:51 Dose: 20 mg Hydralazine HCl (Apresoline) 50 mg PO Q12 PRN PRN Reason: SBP >180 Last Admin: 04/26/18 17:42 Dose: 50 mg Midazolam 100 mg/100ml in NS (Midazolam 100 Mg/100ml In Ns) 100 mg in 100 mls @ 2 mls/hr IV .Q24H PRN; Protocol PRN Reason: Agitation Last Admin: 04/27/18 06:29 Dose: 2 mg/hr, 2 mls/hr Fentanyl Citrate (Fentanyl Citrate/Sodium Chloride 1 Mg/100 Ml) 1,000 mcg in 100 mls @ 2.5 mls/hr IV .Q24H PRN; Protocol PRN Reason: TITRATE PER MD ORDER Last Titration: 04/27/18 11:12 Dose: 0 mcg/hr, 0 mls/hr Cefepime HCl (Maxipime 1gm) 1 gm in 100 mls @ 100 mls/hr IVPB Q12 [facility]; Protocol Last Admin: 04/27/18 09:36 Dose: 100 mls/hr Vancomycin HCl (Vancomycin 1gm) 1 gm in 250 mls @ 167 mls/hr IVPB DAILY [facility]; Protocol Last Admin: 04/27/18 09:36 Dose: 167 mls/hr Sodium Chloride (Sodium Chloride 0.9%) 1,000 mls @ 150 mls/hr IV .Q6H40M [facility] Last Admin: 04/27/18 04:00 Dose: 150 mls/hr Propofol (Diprivan) 1,000 mg in 100 mls @ 1.606 mls/hr IV .Q24H PRN; Protocol PRN Reason: TITRATE PER MD ORDER Last Titration: 04/25/18 23:00 Dose: 0 mcg/kg/min, 0 mls/hr Lorazepam (Ativan) 0.5 mg PO TID PRN; Protocol PRN Reason: agitation/anxiety Lorazepam (Ativan) 0.125 mg IVP Q6H PRN; Protocol PRN Reason: Anxiety Last Admin: 04/25/18 13:43 Dose: 0.125 mg Metoprolol Tartrate (Lopressor) 50 mg PO BID [facility] Last Admin: 04/27/18 09:36 Dose: 50 mg Nicotine (Nicoderm Cq) 1 patch TD 2200 [facility] Last Admin: 04/26/18 21:51 Dose: 1 patch Verapamil HCl (Calan Sr Tab) 240 mg PO DAILY [facility] Last Admin: 04/27/18 09:34 Dose: 240 mg Ziprasidone (Geodon Inj) 10 mg IM Q12H PRN; Protocol PRN Reason: Agitation Last Admin: 04/25/18 14:30 Dose: 10 mg - Labs Labs: 04/26/18 05:00 04/26/18 05:00 PT 12.7 SECONDS (9.4-12.5) H 04/25/18 18:57 INR 1.11 04/25/18 18:57 APTT 22.4 Seconds (25.1-36.5) L 04/25/18 18:57 Attending/Attestation - Attestation I have personally seen and examined this patient.: Yes I have fully participated in the care of the patient.: Yes I have reviewed all pertinent clinical information, including history, physical exam and plan: Yes Notes (Text): 04/27/18 12:10 77 year old male with no known medical history who was sent from [facility] for "not feeling well". He was initially admitted as Elton Majano but later identified as Sami Min. He was found to have SVT, leukocytosis, and hyperkalemia in ER. TSH was normal. Serial cardiac enzymes were indeterminate. D-dimer was elevated but CT angio was negative for PE. He is started on metoprolol and verapramil by cardiology. Echocardiogram was reviewed; preserved EF. Leukocytosis and hyperkalemia resolved. Psychiatry evaluation was appreciated for dementia, altered mental status and agitation. He was on geodon prn, ativan prn and depakote. Saturday evening he has PRIMARY GRADE TEACHER for lethargy and acute respiratory distress. ABG was obtained which showed acute hyperpcapneic respiratory acidosis. Patient was transferred to ICU and intubated. He was empirically started on antibiotics. CXR yesterday showe LLL infiltrate. ABG this morning reviewed; vent management as per telegraph repeater mechanic. I spoke with his [id number], Jabier [phone] yesterday evening and updated him on patient status. He enquired about visiting hours and states he may call or come in on Saturday. Maria A Deutsch MD Hospitalist.
--- NOTE | 2018-04-27 17:54 | PN ---
DATE: 04/27/2018 SUBJECTIVE: The patient shows signs of awakening today. No reported SVT. PHYSICAL EXAMINATION: VITAL SIGNS: Blood pressure /63, heart rate 67, temperature 98.5, respirations 20. HEENT: Normocephalic. CHEST: Clear. HEART: S1 and S2 regular. EXTREMITIES: No edema. LABORATORY DATA: No lab work for today noted. ASSESSMENT: 1. Respiratory failure. 2. Paroxysmal reentrant supraventricular tachycardia. 3. Dementia. 4. Hypertension. 5. Left lower lobe pneumonia. RECOMMENDATIONS: Continue current hydralazine 50 mg every 12 hours, Calan SR 240 mg once a day, Depakote 125 mg twice a day, aspirin 81 mg once a day, Lopressor 50 mg twice a day, Maxipime 1 g intravenously every 12 hours, vancomycin 1 g intravenously daily. Parish Goddard MD
[2018-04-28] MEDS: Sodium Chloride 0.9% 1,000 ML IV SCH ×3 (02:56→20:35)
[2018-04-28 06:21] LABS: ARTERIAL BLOOD GAS HCO3 17.9 mmol/L (21-28); ARTERIAL BLOOD GAS HEMOGLOBIN 8.9 g/dL (11.7-17.4); ARTERIAL BLOOD GAS O2 CAPACITY 12.4 mL/dl (16-24); ARTERIAL BLOOD GAS O2 CONTENT 12.4 ML/dl (15-23); ARTERIAL BLOOD GAS O2 SAT 99.8 % (95-98); ARTERIAL BLOOD GAS PCO2 31 mm/Hg (35-45); ARTERIAL BLOOD GAS PH 7.37 (7.35-7.45); ARTERIAL BLOOD GAS TCO2 18.9 mmol.L (22-28)
[2018-04-28 07:18] LABS: BASO # 0.01 K/mm3 (0.0-2.0); BASO % 0.1 % (0.0-3.0); EOS % 0.2 % (1.5-5.0); GRAN # 6.59 (1.4-6.5); GRAN % 80.6 % (50.0-68.0); HEMOGLOBIN 9.7 g/dL (14.0-18.0); LYMPH # 0.8 (1.2-3.4); LYMPH % 9.7 % (22.0-35.0); MEAN CELL VOLUME 91.1 fl (80.0-105.0); MEAN CORPUSCULAR HEMOGLOBIN 28.8 pg (25.0-35.0); MEAN CORPUSCULAR HGB CONC 31.6 g/dl (31.0-37.0); MONO # 0.8 (0.1-0.6); MONO % 9.4 % (1.0-6.0); RBC 3.37 10^6/uL (3.5-6.1); WHITE BLOOD COUNT 8.2 10^3/ul (4.5-11.0)
[2018-04-28] MEDS: Midazolam 100 mg/100ml in NS 100 MG/100 ML SOL IV PRN (07:23)
[2018-04-28 07:45] LABS: ALBUMIN 2.9 g/dL (3.0-4.8); ALT/SGPT 25 U/L (7-56); AST/SGOT 24 U/L (17-59); BLOOD UREA NITROGEN 17 mg/dL (7-21); CALCIUM 8.1 mg/dL (8.4-10.5); GFR NON-AFRICAN AMERICAN > 60
[2018-04-28] MEDS: Verapamil 240 mg ER Tab PO SCH ×2 (08:11→10:11)
[2018-04-28] MEDS: Divalproex 125 mg EC Sprinkle Cap PO SCH ×3 (08:11→18:11)
[2018-04-28] MEDS ORDERED: Potassium Chloride 40 mEq/30 ml LIQ UD NG ONE (08:56)
--- NOTE | 2018-04-28 08:59 | PN ---
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 No change hemodynamically. The patient was initially intubated for hypercapnic respiratory failure. PHYSICAL EXAMINATION: VITAL SIGNS: Note that his temperature is 97.9, pulse is 83, respirations are 18 and BP is 164/86. O2 saturation is 100%. HEENT: Head is atraumatic, normocephalic. Eyes reactive to light. Ears, nose and throat seem to be within normal limits. NECK: Supple. No JVD. No thyroid enlargement. No lymph nodes. HEART: Has regular rate and rhythm. Normal S1, S2. LUNGS: Reveal good breath sounds bilaterally. ABDOMEN: Soft. Decreased bowel sounds. GENITALIA: Deferred. RECTAL: Deferred. MUSCULOSKELETAL: No joint deformities. EXTREMITIES: Reveal trace lower extremity edema. NEUROLOGICAL: He is sedated on the ventilator. DATA: As far as laboratories are concerned, his white count is 9.7, hemoglobin is 10.6, hematocrit 33.3 with platelets of 261,000. Arterial blood gas reveals a pH of 7.41, pCO2 of 30, pO2 of 177. Sodium is 139, potassium 4.7, chloride 109, CO2 of 22 with a BUN of 29, creatinine of 1.4 and a glucose of 99. IMPRESSION: As far as impression, the patient has presented with altered mental status and noted to be hypercapnic and in respiratory failure, requiring ventilator support. The patient has anemia and possible sepsis. PLAN: As far as our plan, we will continue with ventilator support and sedation. The patient is getting aggressive pulmonary toilet as well as aspirin and fentanyl. He is getting metoprolol, cefepime, Pepcid and Versed as well as vancomycin. The patient has been started on hydralazine to support and help control his blood pressure. We will continue to treat aggressively along with the other consultants and primary care doctor. Krunal Jordan MD
[2018-04-28] MEDS: Cefepime 1gm in NS 100ml 1 GM/100 ML BAG IVPB SCH (10:08)
[2018-04-28] MEDS: Vancomycin 1gm in NS 250ml 1 GM/250 ML BAG IVPB SCH (10:11)
[2018-04-28] MEDS ORDERED: Albuterol-Ipratrop 3 mg / 0.5 (3 ml) UD IH PRN (12:05)
--- NOTE | 2018-04-28 12:12 | CP.CCUPN ---
<Tristin Burris - Last Filed: 04/28/18 13:50> CCU Subjective - Physician Review Subjective (Free Text): Tristin Burris DO, PGY-1 ICU Progress Note for Dr. Mimi Foy Patient was seen and examined at bedside this AM. No acute events overnight. Is still intubated and sedated. CCU Objective - Vital Signs / Intake & Output Vital Signs (Last 4 hours): Vital Signs Pulse Resp BP Pulse Ox 04/28/18 10:10 49 L 100 04/28/18 10:00 50 L 108/62 100 04/28/18 09:54 50 L 21 100 04/28/18 09:50 49 L 100 04/28/18 09:40 48 L 100 04/28/18 09:30 47 L 100 04/28/18 09:20 48 L 99 04/28/18 09:10 48 L 98 04/28/18 09:00 46 L 95/53 L 97 04/28/18 08:50 45 L 97 04/28/18 08:43 105/59 L 04/28/18 08:42 55 L 98 04/28/18 08:40 57 L 98 04/28/18 08:30 68 100 04/28/18 08:20 69 100 04/28/18 08:11 69 201/95 H 04/28/18 08:10 68 100 Intake and Output (Last 8hrs): Intake & Output 04/27/18 04/28/18 04/28/18 22:59 06:59 14:59 Intake Total 1974 1648 410 Output Total 460 550 Balance 1514 1098 410 Intake: IV 1754 1648 110 Fentanyl Drip 6 IVF 1350 1500 IVPB 350 100 Versed Drip 48 48 Oral 220 0 300 Output: Urine 460 550 Urethral (Lane) 460 550 Other: # Bowel Movements 0 - Physical Exam Head: Positive for: Atraumatic, Normocephalic Pupils: Positive for: PERRL, Sluggish Conjunctiva: Negative for: Injected, Icteric Mouth: Positive for: Dry Neck: Negative for: JVD, Lymphadenopathy Respiratory/Chest: Positive for: Wheezes (faint expiratory wheezes bilaterally). Negative for: Respiratory Distress, Accessory Muscle Use, Rales, Rhonchi Cardiovascular: Positive for: Bradycardic. Negative for: Rub, Gallop Abdomen: Negative for: Distention, Mass/Organomegaly Upper Extremity: Negative for: Cyanosis, Edema Lower Extremity: Negative for: Edema Neurological: Positive for: Other (intubated and sedated) Skin: Positive for: Warm, Dry - Medications Active Medications: Active Medications Generic Name Dose Route Start Last Admin Trade Name Freq PRN Reason Stop Dose Admin Albuterol/Ipratropium 3 ml 04/28/18 12:05 Duoneb 3 Mg/0.5 Mg (3 Ml) Ud IH Q2H PRN Shortness of Breath Aspirin 81 mg 04/23/18 10:00 04/28/18 10:10 Ecotrin PO Not Given DAILY AMANDA Divalproex Sodium 125 mg 04/23/18 18:00 04/28/18 10:10 Depakote Sprinkles PO Not Given BID [facility] Protocol Enoxaparin Sodium 40 mg 04/28/18 12:15 Lovenox SC DAILY [facility] Protocol Famotidine 20 mg 04/23/18 10:02 04/27/18 21:58 Pepcid PO 20 mg HS AMANDA Administration Hydralazine HCl 50 mg 04/26/18 17:27 04/28/18 01:32 Apresoline PO 50 mg Q12 PRN Administration SBP >180 Midazolam 100 mg/100ml in NS 100 mg in 100 mls @ 2 mls/hr 04/25/18 18:45 04/28/18 10:59 Midazolam 100 Mg/100ml In Ns IV 0 mg/hr .Q24H PRN 0 mls/hr Agitation Titration Protocol 2 MG/HR Sodium Chloride 1,000 mls @ 150 mls/hr 04/25/18 19:15 04/28/18 02:56 Sodium Chloride 0.9% IV 150 mls/hr .Q6H40M AMANDA Administration Propofol 1,000 mg in 100 mls @ 1.606 mls/hr 04/25/18 21:07 04/25/18 23:00 Diprivan IV 0 mcg/kg/min .Q24H PRN 0 mls/hr TITRATE PER MD ORDER Titration Protocol 5 MCG/KG/MIN Methylprednisolone 40 mg 04/28/18 12:15 Solu-Medrol IVP DAILY [facility] Metoprolol Tartrate 50 mg 04/23/18 10:00 04/28/18 10:10 Lopressor PO Not Given BID [facility] Nicotine 1 patch 04/22/18 22:00 04/27/18 21:58 Nicoderm Cq TD 1 patch 2200 AMANDA Administration Potassium Chloride 40 meq 04/28/18 13:00 Potassium Chloride Oral Soln PO 04/28/18 13:01 ONCE ONE Verapamil HCl 240 mg 04/25/18 10:00 04/28/18 10:11 Calan Sr Tab PO Not Given DAILY AMANDA Ziprasidone 10 mg 04/23/18 18:20 04/25/18 14:30 Geodon Inj IM 10 mg Q12H PRN Administration Agitation Protocol - Patient Studies Lab Studies: Microbiology Studies 04/25/18 22:24 Blood Culture - Preliminary Blood NO GROWTH AFTER 48 HOURS 04/25/18 22:00 Blood Culture - Preliminary Blood NO GROWTH AFTER 48 HOURS Lab Studies 04/28/18 04/28/18 04/28/18 Range/Units 06:18 06:18 06:00 WBC 8.2 (4.5-11.0) 10^3/ul RBC 3.37 L (3.5-6.1) 10^6/uL Hgb 9.7 L (14.0-18.0) g/dL Hct 30.7 L (42.0-52.0) % MCV 91.1 (80.0-105.0) fl MCH 28.8 (25.0-35.0) pg MCHC 31.6 (31.0-37.0) g/dl RDW 15.0 H (11.5-14.5) % Plt Count 254 (120.0-450.0) 10^3/uL MPV 9.0 (7.0-11.0) fl Gran % 80.6 H (50.0-68.0) % Lymph % (Auto) 9.7 L (22.0-35.0) % [place] % (Auto) 9.4 H (1.0-6.0) % Eos % (Auto) 0.2 L (1.5-5.0) % Baso % (Auto) 0.1 (0.0-3.0) % Gran # 6.59 H (1.4-6.5) Lymph # (Auto) 0.8 L (1.2-3.4) [place] # (Auto) 0.8 H (0.1-0.6) Eos # (Auto) 0.0 (0.0-0.7) Baso # (Auto) 0.01 (0.0-2.0) K/mm3 pCO2 31 L (35-45) mm/Hg pO2 121.0 H (80-100) mm/Hg HCO3 17.9 L (21-28) mmol/L ABG pH 7.37 (7.35-7.45) ABG Total CO2 18.9 L (22-28) mmol.L ABG O2 Saturation 99.8 H (95-98) % ABG O2 Content 12.4 L (15-23) ML/dl ABG Base Excess -6.6 L (-2.0-3.0) mmol/L ABG Hemoglobin 8.9 L (11.7-17.4) g/dL ABG Carboxyhemoglobin 2.4 H (0.5-1.5) % POC ABG HHb (Measured) 0.2 (0-5) % ABG Methemoglobin 0.7 (0.0-3.0) % ABG O2 Capacity 12.4 L (16-24) mL/dl Hgb O2 Saturation 96.8 (95.0-98.0) % FiO2 40.0 % Sodium 141 (132-148) mmol/L Potassium 3.4 L (3.6-5.0) mmol/L Chloride 114 H (98-107) mmol/L Carbon Dioxide 19 L (21-33) mmol/L Anion Gap 12 (10-20) BUN 17 (7-21) mg/dL Creatinine 0.9 (0.8-1.5) mg/dl Est GFR ( Amer) > 60 Est GFR (Non-Af Amer) > 60 Random Glucose 68 L (70-110) mg/dL Calcium 8.1 L (8.4-10.5) mg/dL Phosphorus 3.3 (2.5-4.5) mg/dL Magnesium 1.8 (1.7-2.2) mg/dL Total Bilirubin 1.2 (0.2-1.3) mg/dL AST 24 (17-59) U/L ALT 25 (7-56) U/L Alkaline Phosphatase 83 (38-126) U/L Total Protein 5.8 (5.8-8.3) g/dL Albumin 2.9 L (3.0-4.8) g/dL Globulin 2.8 gm/dL Albumin/Globulin Ratio 1.0 L (1.1-1.8) Laboratory Results - last 24 hr 04/28/18 04/28/18 04/28/18 06:00 06:18 06:18 WBC 8.2 RBC 3.37 L Hgb 9.7 L Hct 30.7 L MCV 91.1 MCH 28.8 MCHC 31.6 RDW 15.0 H Plt Count 254 MPV 9.0 Gran % 80.6 H Lymph % (Auto) 9.7 L [place] % (Auto) 9.4 H Eos % (Auto) 0.2 L Baso % (Auto) 0.1 Gran # 6.59 H Lymph # (Auto) 0.8 L [place] # (Auto) 0.8 H Eos # (Auto) 0.0 Baso # (Auto) 0.01 pCO2 31 L pO2 121.0 H HCO3 17.9 L ABG pH 7.37 ABG Total CO2 18.9 L ABG O2 Saturation 99.8 H ABG O2 Content 12.4 L ABG Base Excess -6.6 L ABG Hemoglobin 8.9 L ABG Carboxyhemoglobin 2.4 H POC ABG HHb (Measured) 0.2 ABG Methemoglobin 0.7 ABG O2 Capacity 12.4 L Hgb O2 Saturation 96.8 FiO2 40.0 Sodium 141 Potassium 3.4 L Chloride 114 H Carbon Dioxide 19 L Anion Gap 12 BUN 17 Creatinine 0.9 Est GFR ( Amer) > 60 Est GFR (Non-Af Amer) > 60 Random Glucose 68 L Calcium 8.1 L Phosphorus 3.3 Magnesium 1.8 Total Bilirubin 1.2 AST 24 ALT 25 Alkaline Phosphatase 83 Total Protein 5.8 Albumin 2.9 L Globulin 2.8 Albumin/Globulin Ratio 1.0 L Fingerstick Blood Sugar Results: 109 Review of Systems - Review of Systems Systems not reviewed;Unavailable: Intubated Critical Care Progress Note - Ventilator Checklist Head of Bed 30 Degrees: Yes Daily Sedation Vacation: Yes Daily Assessment of Readiness to Wean: Yes Daily Spontaneous Breathing Trial: Yes PUD Prophalyxis: Yes DVT Prophylaxis: Yes Oral Care with Chlorhexidine Gluconate {CHG}: Yes - Vent Settings MODE:: PRVC TIDAL VOLUME:: 420 RESP RATE:: 14 FIO2:: 30 PEEP:: 5 - Extremities/Vascular Does the Patient have a Lane Catheter?: Yes Assessment/Plan - Assessment and Plan (Free Text) Assessment: 77 yo M with unknown PMH brought in by EMS after found wandering at local grocery store admitted for altered mental status and episode of SVT. Respiratory status subsequently worsened on the floor and was subsequently admitted to ICU in acute respiratory failure. Plan: Neuro: -Intubated and sedated currently -Was altered in ED -Will d/c propofol, ativan, and fentanyl -Will wean off midazolam -Reassess neuro status after sedatives are weaned and patient is extubated Cardio: -Admitted with SVT -Was subsequently managed with lopressor, verapimil -Was bradycardic following administration of these meds -HR now in 70s -Continue to monitor -Cardiology following, recs appreciated Pulm: -Faint expiratory wheezes auscultated bilaterally -Obstructive lung disease is evident from CT chest -Will begin treatment for COPD exacerbation -Solumedrol 40 mg IVP daily for 5 days -Duo-neb Q2h -ABG improving -Change vent settings to 14 RR, TV 420, O2 30% -Continue daily CXR, ABG -Will monitor and start weaning as tolerated GI: -Keep NPO -Will begin feeding as sedatives are weaned and patient is extubated /Nephro: -BUN/Cr stable -UOP of 1010 -Maintain euvolemia -Replete electrolytes as needed Endo: -TSH within normal limits -Maintain euglycemia ID: -Was started on empiric vanc and cefepime for concern of a LLL infiltrate on CXR -This infiltrate was not seen on CT chest -Blood and urine cx negative -D/c abx Heme/Onc: -H/H stable -No signs of HD compromise -Continue monitoring H/H GI/DVT PPX: Pepcid and lovenox Case and plan reviewed and discussed with my attending Dr. Mimi Burris, IM Resident PGY-1 <Harlan Foy - Last Filed: 04/28/18 17:33> CCU Objective - Vital Signs / Intake & Output Vital Signs (Last 4 hours): Vital Signs Temp Pulse Resp BP Pulse Ox 04/28/18 16:10 63 98 04/28/18 16:00 98.2 F 62 19 155/78 H 98 04/28/18 15:50 58 L 98 04/28/18 15:40 57 L 98 04/28/18 15:30 55 L 97 04/28/18 15:23 56 L 98 04/28/18 15:22 55 L 98 04/28/18 15:20 55 L 98 04/28/18 15:13 56 L 98 04/28/18 15:10 56 L 98 04/28/18 15:00 55 L 129/72 98 04/28/18 14:55 55 L 98 04/28/18 14:52 55 L 98 04/28/18 14:50 56 L 99 04/28/18 14:40 56 L 99 04/28/18 14:30 57 L 99 04/28/18 14:20 57 L 99 04/28/18 14:10 60 99 04/28/18 14:00 60 129/70 99 04/28/18 13:50 60 100 04/28/18 13:40 54 L 99 Intake and Output (Last 8hrs): Intake & Output 04/28/18 04/28/18 04/28/18 06:59 14:59 22:59 Intake Total 1648 766 Output Total 550 Balance 1098 766 Intake: IV 1648 466 IVF 1500 IVPB 100 350 Versed Drip 48 6 Oral 0 300 Output: Urine 550 Urethral (Lane) 550 Other: # Bowel Movements 0 - Medications Active Medications: Active Medications Generic Name Dose Route Start Last Admin Trade Name Freq PRN Reason Stop Dose Admin Albuterol/Ipratropium 3 ml 04/28/18 17:15 Duoneb 3 Mg/0.5 Mg (3 Ml) Ud IH 04/29/18 17:16 Q6H AMANDA Aspirin 81 mg 04/23/18 10:00 04/28/18 10:10 Ecotrin PO Not Given DAILY AMANDA Divalproex Sodium 125 mg 04/23/18 18:00 04/28/18 10:10 Depakote Sprinkles PO Not Given BID [facility] Protocol Enoxaparin Sodium 40 mg 04/28/18 12:15 04/28/18 12:30 Lovenox SC 40 mg DAILY AMANDA Administration Protocol Famotidine 20 mg 04/23/18 10:02 04/27/18 21:58 Pepcid PO 20 mg HS AMANDA Administration Hydralazine HCl 50 mg 04/26/18 17:27 04/28/18 01:32 Apresoline PO 50 mg Q12 PRN Administration SBP >180 Midazolam 100 mg/100ml in NS 100 mg in 100 mls @ 2 mls/hr 04/25/18 18:45 04/28/18 10:59 Midazolam 100 Mg/100ml In Ns IV 0 mg/hr .Q24H PRN 0 mls/hr Agitation Titration Protocol 2 MG/HR Sodium Chloride 1,000 mls @ 150 mls/hr 04/25/18 19:15 04/28/18 12:30 Sodium Chloride 0.9% IV 150 mls/hr .Q6H40M AMANDA Administration Propofol 1,000 mg in 100 mls @ 1.606 mls/hr 04/25/18 21:07 04/25/18 23:00 Diprivan IV 0 mcg/kg/min .Q24H PRN 0 mls/hr TITRATE PER MD ORDER Titration Protocol 5 MCG/KG/MIN Methylprednisolone 40 mg 04/28/18 12:15 04/28/18 12:30 Solu-Medrol IVP 40 mg DAILY AMANDA Administration Nicotine 1 patch 04/22/18 22:00 04/27/18 21:58 Nicoderm Cq TD 1 patch 2200 AMANDA Administration Ziprasidone 10 mg 04/23/18 18:20 04/25/18 14:30 Geodon Inj IM 10 mg Q12H PRN Administration Agitation Protocol - Patient Studies Lab Studies: Microbiology Studies 04/25/18 22:24 Blood Culture - Preliminary Blood NO GROWTH AFTER 48 HOURS 04/25/18 22:00 Blood Culture - Preliminary Blood NO GROWTH AFTER 48 HOURS Lab Studies 04/28/18 04/28/18 04/28/18 Range/Units 06:18 06:18 06:00 WBC 8.2 (4.5-11.0) 10^3/ul RBC 3.37 L (3.5-6.1) 10^6/uL Hgb 9.7 L (14.0-18.0) g/dL Hct 30.7 L (42.0-52.0) % MCV 91.1 (80.0-105.0) fl MCH 28.8 (25.0-35.0) pg MCHC 31.6 (31.0-37.0) g/dl RDW 15.0 H (11.5-14.5) % Plt Count 254 (120.0-450.0) 10^3/uL MPV 9.0 (7.0-11.0) fl Gran % 80.6 H (50.0-68.0) % Lymph % (Auto) 9.7 L (22.0-35.0) % [place] % (Auto) 9.4 H (1.0-6.0) % Eos % (Auto) 0.2 L (1.5-5.0) % Baso % (Auto) 0.1 (0.0-3.0) % Gran # 6.59 H (1.4-6.5) Lymph # (Auto) 0.8 L (1.2-3.4) [place] # (Auto) 0.8 H (0.1-0.6) Eos # (Auto) 0.0 (0.0-0.7) Baso # (Auto) 0.01 (0.0-2.0) K/mm3 pCO2 31 L (35-45) mm/Hg pO2 121.0 H (80-100) mm/Hg HCO3 17.9 L (21-28) mmol/L ABG pH 7.37 (7.35-7.45) ABG Total CO2 18.9 L (22-28) mmol.L ABG O2 Saturation 99.8 H (95-98) % ABG O2 Content 12.4 L (15-23) ML/dl ABG Base Excess -6.6 L (-2.0-3.0) mmol/L ABG Hemoglobin 8.9 L (11.7-17.4) g/dL ABG Carboxyhemoglobin 2.4 H (0.5-1.5) % POC ABG HHb (Measured) 0.2 (0-5) % ABG Methemoglobin 0.7 (0.0-3.0) % ABG O2 Capacity 12.4 L (16-24) mL/dl Hgb O2 Saturation 96.8 (95.0-98.0) % FiO2 40.0 % Sodium 141 (132-148) mmol/L Potassium 3.4 L (3.6-5.0) mmol/L Chloride 114 H (98-107) mmol/L Carbon Dioxide 19 L (21-33) mmol/L Anion Gap 12 (10-20) BUN 17 (7-21) mg/dL Creatinine 0.9 (0.8-1.5) mg/dl Est GFR ( Amer) > 60 Est GFR (Non-Af Amer) > 60 Random Glucose 68 L (70-110) mg/dL Calcium 8.1 L (8.4-10.5) mg/dL Phosphorus 3.3 (2.5-4.5) mg/dL Magnesium 1.8 (1.7-2.2) mg/dL Total Bilirubin 1.2 (0.2-1.3) mg/dL AST 24 (17-59) U/L ALT 25 (7-56) U/L Alkaline Phosphatase 83 (38-126) U/L Total Protein 5.8 (5.8-8.3) g/dL Albumin 2.9 L (3.0-4.8) g/dL Globulin 2.8 gm/dL Albumin/Globulin Ratio 1.0 L (1.1-1.8) Laboratory Results - last 24 hr 04/28/18 04/28/18 04/28/18 06:00 06:18 06:18 WBC 8.2 RBC 3.37 L Hgb 9.7 L Hct 30.7 L MCV 91.1 MCH 28.8 MCHC 31.6 RDW 15.0 H Plt Count 254 MPV 9.0 Gran % 80.6 H Lymph % (Auto) 9.7 L [place] % (Auto) 9.4 H Eos % (Auto) 0.2 L Baso % (Auto) 0.1 Gran # 6.59 H Lymph # (Auto) 0.8 L [place] # (Auto) 0.8 H Eos # (Auto) 0.0 Baso # (Auto) 0.01 pCO2 31 L pO2 121.0 H HCO3 17.9 L ABG pH 7.37 ABG Total CO2 18.9 L ABG O2 Saturation 99.8 H ABG O2 Content 12.4 L ABG Base Excess -6.6 L ABG Hemoglobin 8.9 L ABG Carboxyhemoglobin 2.4 H POC ABG HHb (Measured) 0.2 ABG Methemoglobin 0.7 ABG O2 Capacity 12.4 L Hgb O2 Saturation 96.8 FiO2 40.0 Sodium 141 Potassium 3.4 L Chloride 114 H Carbon Dioxide 19 L Anion Gap 12 BUN 17 Creatinine 0.9 Est GFR ( Amer) > 60 Est GFR (Non-Af Amer) > 60 Random Glucose 68 L Calcium 8.1 L Phosphorus 3.3 Magnesium 1.8 Total Bilirubin 1.2 AST 24 ALT 25 Alkaline Phosphatase 83 Total Protein 5.8 Albumin 2.9 L Globulin 2.8 Albumin/Globulin Ratio 1.0 L Addendum Addendum: 04/28/18 17:33 ICU Attending Addendum: Patient seen and examined. Case reviewed on round with housestaff. Agree with resident note above with the following additions/exceptions: 77 M found locally without ID admitted to AMS, HCRF s/p intubation and SVT. CT chest suggest emphysema, predom in apicies. Will tx like COPD exasc with duonebs, steroids and 5 days azithro. I suspect he may also be a chronic retainer. procal <0.5 - can d/c other abx wean sedation today and SBT in AM for plan to extubate for SVT on verapamil and metoprolol. cardio on board HB dropping, no signs of blood loss. Unclear what baseline in. Cont to monitor closely rest of care above Harlan Foy MD Research Development Manager Crtical Care TIme: 33 mins
[2018-04-28] MEDS: MethylPREDNISolone 40 mg Vial IVP SCH (12:30)
[2018-04-28] MEDS: Enoxaparin 40 mg Syringe SC SCH (12:30)
[2018-04-28] MEDS ORDERED: Potassium Chloride 40 mEq/30 ml LIQ UD PO ONE (13:00)
--- NOTE | 2018-04-28 13:07 | CP.PCM.PN ---
<Zainab Barriga - Last Filed: 04/28/18 17:14> Subjective - Date & Time of Evaluation Date of Evaluation: 04/28/18 Time of Evaluation: 09:30 - Subjective Subjective: PGY-1 Zainab Barriga Medicine Progress Note for Dr. Mohan's service Patient seen and examined at bedside. No acute events overnight as per nursing. 12 point ROS limited as patient is sedated and intubated. Objective - Vital Signs/Intake and Output Vital Signs (last 24 hours): Temp Pulse Resp BP Pulse Ox 97.9 F 55 L 20 128/71 100 04/28/18 12:00 04/28/18 12:20 04/28/18 12:00 04/28/18 12:00 04/28/18 12:20 Intake and Output: 04/28/18 04/28/18 06:59 18:59 Intake Total 1648 410 Output Total 550 Balance 1098 410 - Medications Medications: Current Medications Albuterol/Ipratropium (Duoneb 3 Mg/0.5 Mg (3 Ml) Ud) 3 ml IH Q2H PRN PRN Reason: Shortness of Breath Aspirin (Ecotrin) 81 mg PO DAILY [facility] Last Admin: 04/28/18 10:10 Dose: Not Given Divalproex Sodium (Depakote Sprinkles) 125 mg PO BID [facility]; Protocol Last Admin: 04/28/18 10:10 Dose: Not Given Enoxaparin Sodium (Lovenox) 40 mg SC DAILY [facility]; Protocol Last Admin: 04/28/18 12:30 Dose: 40 mg Famotidine (Pepcid) 20 mg PO HS [facility] Last Admin: 04/27/18 21:58 Dose: 20 mg Hydralazine HCl (Apresoline) 50 mg PO Q12 PRN PRN Reason: SBP >180 Last Admin: 04/28/18 01:32 Dose: 50 mg Midazolam 100 mg/100ml in NS (Midazolam 100 Mg/100ml In Ns) 100 mg in 100 mls @ 2 mls/hr IV .Q24H PRN; Protocol PRN Reason: Agitation Last Titration: 04/28/18 10:59 Dose: 0 mg/hr, 0 mls/hr Sodium Chloride (Sodium Chloride 0.9%) 1,000 mls @ 150 mls/hr IV .Q6H40M [facility] Last Admin: 04/28/18 12:30 Dose: 150 mls/hr Propofol (Diprivan) 1,000 mg in 100 mls @ 1.606 mls/hr IV .Q24H PRN; Protocol PRN Reason: TITRATE PER MD ORDER Last Titration: 04/25/18 23:00 Dose: 0 mcg/kg/min, 0 mls/hr Methylprednisolone (Solu-Medrol) 40 mg IVP DAILY [facility] Last Admin: 04/28/18 12:30 Dose: 40 mg Metoprolol Tartrate (Lopressor) 50 mg PO BID [facility] Last Admin: 04/28/18 10:10 Dose: Not Given Nicotine (Nicoderm Cq) 1 patch TD 2200 [facility] Last Admin: 04/27/18 21:58 Dose: 1 patch Verapamil HCl (Calan Sr Tab) 240 mg PO DAILY [facility] Last Admin: 04/28/18 10:11 Dose: Not Given Ziprasidone (Geodon Inj) 10 mg IM Q12H PRN; Protocol PRN Reason: Agitation Last Admin: 04/25/18 14:30 Dose: 10 mg - Labs Labs: 04/28/18 06:18 04/28/18 06:18 PT 12.7 SECONDS (9.4-12.5) H 04/25/18 18:57 INR 1.11 04/25/18 18:57 APTT 22.4 Seconds (25.1-36.5) L 04/25/18 18:57 - Constitutional Appears: Non-toxic, No Acute Distress - Head Exam Head Exam: NORMAL INSPECTION, NORMOCEPHALIC - Eye Exam Eye Exam: EOMI, Normal appearance. absent: Nystagmus, Scleral icterus - ENT Exam Additional comments: intubated on midazolam - Respiratory Exam Respiratory Exam: Clear to Ausculation Bilateral, NORMAL BREATHING PATTERN. absent: Rales, Rhonchi, Wheezes - Cardiovascular Exam Cardiovascular Exam: Bradycardia, REGULAR RHYTHM, +S1, +S2 - GI/Abdominal Exam GI & Abdominal Exam: Soft, Normal Bowel Sounds. absent: Tenderness - Extremities Exam Extremities Exam: Full ROM, Normal Inspection - Neurological Exam Neurological Exam: absent: Alert, Awake, Oriented x3 - Psychiatric Exam Psychiatric exam: Normal Affect, Normal Mood - Skin Skin Exam: Intact, Normal Color Assessment and Plan - Assessment and Plan (Free Text) Assessment: 77 yo with history of SVT (intially admitted as Elton Majano, later identified as Sami Min) who was found to be in SVT (TSH was normal), and was started on metoprolol and verapamil by Cardiology. 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 CXR showed new LLL infiltrate and effusion, and he is on empiric antibiotics. DC'ed abx pending repeat Cxray to restart if clinically warranted Plan: Reentrant supraventicular tachycardia Cardio consulted Dr. Goddard- Metoprolol and Verapamil Metoprolol 50mg po bid and Verapamil 240mg po daily Hydralazine 50 mg q12 PRN for SBP >180 ASA 81mg cont to monitor for episodes Hypercapneic respiratory failure w/ new LLL infiltrate s/p intubation, OGT for PO intake cont ICU monitoring Repeat Cxray pending DC'ed abx as prior cxray showed no infiltrate daily ABG's shows excess oxygenation, will discuss with ICU regarding decreasing FiO2 (currently at 40%) management for daily sedation vacation, weaning trials and oral care per ICU team AMS, likely 2/2 dementia Psych consulted- Dr. Armenta- started patient on Depakote bettye and Geodon PRN Geodon 10mg IM q12h prn Depakote 125mg po bid for seizure ppx Chronic anemia, stable H&H stable; hemondynamically stable Continue to monitor Tobacco use disorder Nicotine 1 patch TD PPx DVT ppx: SCDs GI ppx: Pepcid Dispo: plan for guardianship to provide continued care as family does not want to be involved in patient care. Patient was examined and discussed with attending, Dr. Marques Barriga <Ninoska Mohan - Last Filed: 05/01/18 17:50> Objective - Vital Signs/Intake and Output Vital Signs (last 24 hours): Temp Pulse Resp BP Pulse Ox 98.0 F 91 H 64 H 133/74 95 05/01/18 15:34 05/01/18 15:20 05/01/18 15:20 05/01/18 14:02 05/01/18 15:20 Intake and Output: 05/01/18 05/01/18 06:59 18:59 Intake Total 187.7 6.3 Output Total 250 Balance -62.3 6.3 - Medications Medications: Current Medications Albuterol/Ipratropium (Duoneb 3 Mg/0.5 Mg (3 Ml) Ud) 3 ml IH [id number] [facility] Last Admin: 05/01/18 13:31 Dose: 3 ml Aspirin (Ecotrin) 81 mg PO DAILY [facility] Last Admin: 05/01/18 09:40 Dose: Not Given Divalproex Sodium (Depakote Sprinkles) 125 mg PO BID [facility]; Protocol Last Admin: 05/01/18 13:11 Dose: Not Given Enoxaparin Sodium (Lovenox) 40 mg SC DAILY [facility]; Protocol Last Admin: 05/01/18 09:38 Dose: 40 mg Famotidine (Pepcid) 20 mg PO HS [facility] Last Admin: 04/30/18 21:00 Dose: Not Given Hydralazine HCl (Apresoline) 25 mg IVP Q4H PRN PRN Reason: Systolic Blood Pressure Last Admin: 05/01/18 13:11 Dose: 25 mg Azithromycin (Zithromax 500mg In Ns) 500 mg in 250 mls @ 167 mls/hr IVPB DAILY [facility]; Protocol Last Admin: 05/01/18 09:44 Dose: 167 mls/hr Lisinopril (Zestril) 20 mg NG DAILY [facility] Last Admin: 05/01/18 09:41 Dose: Not Given Methylprednisolone (Solu-Medrol) 40 mg IVP DAILY [facility] Last Admin: 05/01/18 09:38 Dose: 40 mg Metoprolol Tartrate (Lopressor) 50 mg PO BID [facility] Last Admin: 05/01/18 17:43 Dose: Not Given Nicotine (Nicoderm Cq) 1 patch TD 2200 [facility] Last Admin: 04/30/18 22:43 Dose: 1 patch Ziprasidone (Geodon Inj) 10 mg IM Q12H PRN; Protocol PRN Reason: Agitation Last Admin: 04/25/18 14:30 Dose: 10 mg - Labs Labs: 05/01/18 06:00 05/01/18 06:00 PT 12.7 SECONDS (9.4-12.5) H 04/25/18 18:57 INR 1.11 04/25/18 18:57 APTT 22.4 Seconds (25.1-36.5) L 04/25/18 18:57 Attending/Attestation - Attestation I have personally seen and examined this patient.: Yes I have fully participated in the care of the patient.: Yes I have reviewed all pertinent clinical information, including history, physical exam and plan: Yes Notes (Text): 05/01/18 17:49 Medical record note made by the resident after discussion with my direction and input after the patient was personally seen and examined by me. I have reviewed the chart and agree that the record accurately reflects by personal performance of the history, physical exam, data review, and medical decision-making, in the course for the patient. I have also personally directed the plan of care.
--- NOTE | 2018-04-28 13:31 | RAD ---
Date of service: 04/28/2018 HISTORY: intubated, poss aspiration COMPARISON: 04/26/2018 FINDINGS: LUNGS: No active pulmonary disease. PLEURA: No significant pleural effusion identified, no pneumothorax apparent. CARDIOVASCULAR: Normal. OSSEOUS STRUCTURES: No significant abnormalities. VISUALIZED UPPER ABDOMEN: Normal. OTHER FINDINGS: The endotracheal and nasogastric tubes are in satisfactory position IMPRESSION: No active disease.
[2018-04-28] MEDS ORDERED: Albuterol-Ipratrop 3 mg / 0.5 (3 ml) UD IH SCH (15:45)
--- NOTE | 2018-04-28 16:54 | CP.PCM.CON ---
<Guadalupe Orlando - Last Filed: 04/28/18 17:17> History of Present Illness - History of Present Illness History of Present Illness: Guadalupe Orlando, PGY2, Neurology Consult Note for Dr Narvaez: Reason for consult: AMS 77 yo male with no sig PMHx, initially came to [facility] [place] for agitation, AMS, also found to have SVT, leukocytosis. AMS was deemed as part of dementia. 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 Patient's respiratory acidosis was then corrected, however, patient becomes lethargic. All sedation turned off at 8:30 this AM. Currently, patient winces on sternal rubs, moving RLE. No fevers. ROS limited as patient is intubated. PMHx: none PSHx none Meds as per EMR FHx unknown Social Hx cannot obtain ROS cannot obtain Review of Systems - Review of Systems Systems not reviewed;Unavailable: Altered Mental Status, Intubated Past Patient History - Past Social History Smoking Status: Unknown If Ever Smoked - CARDIAC Hx Cardiac Disorders: (unknown) - PULMONARY Hx Respiratory Disorders: (unknown) - NEUROLOGICAL Hx Neurological Disorder: Yes (confused) - HEENT Hx HEENT Problems: (unknown) - RENAL Hx Chronic Kidney Disease: (unknown) - ENDOCRINE/METABOLIC Hx Endocrine Disorders: (unknown) - HEMATOLOGICAL/ONCOLOGICAL Hx Blood Disorders: (unknown) - INTEGUMENTARY Hx Dermatological Problems: Yes Other/Comment: dry skin to feet, thick hard toenails - MUSCULOSKELETAL/RHEUMATOLOGICAL Hx Musculoskeletal Disorders: Yes Hx Falls: (unknown) Hx Unsteady Gait: Yes - GASTROINTESTINAL Hx Gastrointestinal Disorders: (unknown) - GENITOURINARY/GYNECOLOGICAL Hx Genitourinary Disorders: (unknown) - PSYCHIATRIC Hx Psychophysiologic Disorder: (unknown) Hx Substance Use: (unknown) - SURGICAL HISTORY Hx Surgeries: (unknown) Meds Allergies/Adverse Reactions: Allergies Allergy/AdvReac Type Severity Reaction Status Date / Time No Known Allergies Allergy Verified 04/21/18 13:11 - Medications Medications: Current Medications Albuterol/Ipratropium (Duoneb 3 Mg/0.5 Mg (3 Ml) Ud) 3 ml IH Q2H [facility] Stop: 04/28/18 21:46 Aspirin (Ecotrin) 81 mg PO DAILY [facility] Last Admin: 10/01/18 10:10 Dose: Not Given Divalproex Sodium (Depakote Sprinkles) 125 mg PO BID [facility]; Protocol Last Admin: 04/28/18 10:10 Dose: Not Given Enoxaparin Sodium (Lovenox) 40 mg SC DAILY [facility]; Protocol Last Admin: 04/28/18 12:30 Dose: 40 mg Famotidine (Pepcid) 20 mg PO HS [facility] Last Admin: 04/27/18 21:58 Dose: 20 mg Hydralazine HCl (Apresoline) 50 mg PO Q12 PRN PRN Reason: SBP >180 Last Admin: 04/28/18 01:32 Dose: 50 mg Midazolam 100 mg/100ml in NS (Midazolam 100 Mg/100ml In Ns) 100 mg in 100 mls @ 2 mls/hr IV .Q24H PRN; Protocol PRN Reason: Agitation Last Titration: 04/28/18 10:59 Dose: 0 mg/hr, 0 mls/hr Sodium Chloride (Sodium Chloride 0.9%) 1,000 mls @ 150 mls/hr IV .Q6H40M [facility] Last Admin: 04/28/18 12:30 Dose: 150 mls/hr Propofol (Diprivan) 1,000 mg in 100 mls @ 1.606 mls/hr IV .Q24H PRN; Protocol PRN Reason: TITRATE PER MD ORDER Last Titration: 04/25/18 23:00 Dose: 0 mcg/kg/min, 0 mls/hr Methylprednisolone (Solu-Medrol) 40 mg IVP DAILY [facility] Last Admin: 04/28/18 12:30 Dose: 40 mg Nicotine (Nicoderm Cq) 1 patch TD 2200 [facility] Last Admin: 04/27/18 21:58 Dose: 1 patch Ziprasidone (Geodon Inj) 10 mg IM Q12H PRN; Protocol PRN Reason: Agitation Last Admin: 04/25/18 14:30 Dose: 10 mg Physical Exam - Constitutional Appears: Older Than Stated Age - Head Exam Head Exam: ATRAUMATIC, NORMOCEPHALIC - Eye Exam Eye Exam: PERRL. absent: Conjunctival injection, EOMI (unable to assess), Nystagmus, Periorbital swelling, Scleral icterus Pupil Exam: PERRL. absent: Fixed, Irregular, Miosis, Mydriatic, Unequal - ENT Exam Additional comments: intubated - Respiratory Exam Respiratory Exam: Wheezes (mild) - Cardiovascular Exam Cardiovascular Exam: RRR, +S1, +S2. absent: Systolic Murmur - GI/Abdominal Exam GI & Abdominal Exam: Normal Bowel Sounds, Soft. absent: Distended, Tenderness - Extremities Exam Extremities exam: Positive for: normal inspection. Negative for: calf tenderness, pedal edema - Neurological Exam Additional comments: winces to pain, does not open eyes spontaneously. + gag reflex, dolls eyes maneuver normal, + corneal reflex moves right lower extremity. - Skin Skin Exam: Normal Color, Warm Results - Vital Signs Recent Vital Signs: Last Vital Signs Temp 98.2 F 04/28/18 16:00 Pulse 63 04/28/18 16:10 Resp 19 04/28/18 16:00 BP 155/78 H 04/28/18 16:00 Pulse Ox 98 04/28/18 16:10 - Labs Result Diagrams: 04/28/18 06:18 04/28/18 06:18 Labs: Laboratory Results - last 24 hr 04/28/18 04/28/18 04/28/18 06:00 06:18 06:18 WBC 8.2 RBC 3.37 L Hgb 9.7 L Hct 30.7 L MCV 91.1 MCH 28.8 MCHC 31.6 RDW 15.0 H Plt Count 254 MPV 9.0 Gran % 80.6 H Lymph % (Auto) 9.7 L Braxton % (Auto) 9.4 H Eos % (Auto) 0.2 L Baso % (Auto) 0.1 Gran # 6.59 H Lymph # (Auto) 0.8 L Braxton # (Auto) 0.8 H Eos # (Auto) 0.0 Baso # (Auto) 0.01 pCO2 31 L pO2 121.0 H HCO3 17.9 L ABG pH 7.37 ABG Total CO2 18.9 L ABG O2 Saturation 99.8 H ABG O2 Content 12.4 L ABG Base Excess -6.6 L ABG Hemoglobin 8.9 L ABG Carboxyhemoglobin 2.4 H POC ABG HHb (Measured) 0.2 ABG Methemoglobin 0.7 ABG O2 Capacity 12.4 L Hgb O2 Saturation 96.8 FiO2 40.0 Sodium 141 Potassium 3.4 L Chloride 114 H Carbon Dioxide 19 L Anion Gap 12 BUN 17 Creatinine 0.9 Est GFR ( Amer) > 60 Est GFR (Non-Af Amer) > 60 Random Glucose 68 L Calcium 8.1 L Phosphorus 3.3 Magnesium 1.8 Total Bilirubin 1.2 AST 24 ALT 25 Alkaline Phosphatase 83 Total Protein 5.8 Albumin 2.9 L Globulin 2.8 Albumin/Globulin Ratio 1.0 L Assessment & Plan - Assessment and Plan (Free Text) Assessment: 77 year old male with no significant PMH, initially presented to [facility] [place] for agitiation, AMS, was being treated for SVT, leukocytosis. Patient then went into hypercapneic respiratory failure, requiring intubation and ICU monitoring. Neur ology consulted for AMS: - will obtain video EEG to rule out seizures - MRI brain unavailable to do tonight - Head CT 04/25 negative for acute changes - neuro checks, seizure precautions, aspiration precautions - c/w ICU management - monitor Case discussed with Dr Narvaez. <Pavel Narvaez - Last Filed: 04/29/18 12:25> Meds - Medications Medications: Current Medications Albuterol/Ipratropium (Duoneb 3 Mg/0.5 Mg (3 Ml) Ud) 3 ml IH Q6H [facility] Stop: 04/29/18 17:16 Last Admin: 04/29/18 07:52 Dose: 3 ml Aspirin (Ecotrin) 81 mg PO DAILY [facility] Last Admin: 04/29/18 10:20 Dose: 81 mg Divalproex Sodium (Depakote Sprinkles) 125 mg PO BID [facility]; Protocol Last Admin: 04/29/18 10:20 Dose: 125 mg Enoxaparin Sodium (Lovenox) 40 mg SC DAILY [facility]; Protocol Last Admin: 04/29/18 10:21 Dose: 40 mg Famotidine (Pepcid) 20 mg PO HS [facility] Last Admin: 04/28/18 22:38 Dose: 20 mg Hydralazine HCl (Apresoline) 50 mg PO Q12 PRN PRN Reason: SBP >180 Last Admin: 04/29/18 10:21 Dose: 50 mg Midazolam 100 mg/100ml in NS (Midazolam 100 Mg/100ml In Ns) 100 mg in 100 mls @ 2 mls/hr IV .Q24H PRN; Protocol PRN Reason: Agitation Last Titration: 04/28/18 19:50 Dose: 4 mg/hr, 4 mls/hr Sodium Chloride (Sodium Chloride 0.9%) 1,000 mls @ 150 mls/hr IV .Q6H40M [facility] Last Admin: 04/28/18 20:35 Dose: 150 mls/hr Propofol (Diprivan) 1,000 mg in 100 mls @ 1.606 mls/hr IV .Q24H PRN; Protocol PRN Reason: TITRATE PER MD ORDER Last Titration: 04/25/18 23:00 Dose: 0 mcg/kg/min, 0 mls/hr Azithromycin (Zithromax 500mg In Ns) 500 mg in 250 mls @ 167 mls/hr IVPB DAILY [facility]; Protocol Last Admin: 04/29/18 10:22 Dose: 167 mls/hr Valproate Sodium 750 mg/ (Sodium Chloride) 107.5 mls @ 100 mls/hr IVPB BID [facility] Valproate Sodium 1,000 mg/ (Sodium Chloride) 110 mls @ 100 mls/hr IVPB ONCE ONE Stop: 04/29/18 12:24 Lisinopril (Zestril) 10 mg NG DAILY [facility] Last Admin: 04/29/18 10:20 Dose: 10 mg Methylprednisolone (Solu-Medrol) 40 mg IVP DAILY [facility] Last Admin: 04/29/18 10:21 Dose: 40 mg Metoprolol Tartrate (Lopressor) 50 mg PO BID [facility] Nicotine (Nicoderm Cq) 1 patch TD 2200 [facility] Last Admin: 04/28/18 22:38 Dose: 1 patch Ziprasidone (Geodon Inj) 10 mg IM Q12H PRN; Protocol PRN Reason: Agitation Last Admin: 04/25/18 14:30 Dose: 10 mg Results - Vital Signs Recent Vital Signs: Last Vital Signs Temp 98.2 F 04/29/18 04:00 Pulse 129 H 04/29/18 10:50 Resp 19 04/29/18 09:40 BP 190/84 H 04/29/18 10:42 Pulse Ox 100 04/29/18 10:50 - Labs Result Diagrams: 04/29/18 11:00 04/29/18 11:00 Labs: Laboratory Results - last 24 hr 04/29/18 04/29/18 04/29/18 06:21 11:00 11:00 WBC 11.9 H D RBC 3.78 Hgb 11.2 L Hct 34.1 L MCV 90.2 MCH 29.6 MCHC 32.8 RDW 15.0 H Plt Count 321 MPV 9.2 Gran % 86.2 H Lymph % (Auto) 5.7 L Braxton % (Auto) 7.9 H Eos % (Auto) 0.2 L Baso % (Auto) 0.0 Gran # 10.22 H Lymph # (Auto) 0.7 L Braxton # (Auto) 0.9 H Eos # (Auto) 0.0 Baso # (Auto) 0.00 pCO2 34 L pO2 109.0 H HCO3 17.1 L ABG pH 7.31 L ABG Total CO2 18.1 L ABG O2 Saturation 99.9 H ABG O2 Content 15.4 ABG Base Excess -8.3 L ABG Hemoglobin 11.2 L ABG Carboxyhemoglobin 2.6 H POC ABG HHb (Measured) 0.1 ABG Methemoglobin 0.7 ABG O2 Capacity 15.4 L Hgb O2 Saturation 96.5 FiO2 30.0 Sodium 141 Potassium 4.3 Chloride 117 H Carbon Dioxide 15 L Anion Gap 14 BUN 19 Creatinine 0.8 Est GFR ( Amer) > 60 Est GFR (Non-Af Amer) > 60 Random Glucose 105 Calcium 8.8 Phosphorus 3.2 Magnesium 2.0 Total Bilirubin 0.8 AST 18 ALT 24 Alkaline Phosphatase 89 Total Protein 5.7 L Albumin 3.1 Globulin 2.7 Albumin/Globulin Ratio 1.2 Assessment & Plan - Assessment and Plan (Free Text) Assessment: All medical record entries made by the resident were at my direction and personally dictated by me. I have reviewed the chart and agree that the record accurately reflects my personal performance of the history, physical exam, medical decision making, and the department course for this patient. I have also personally directed, reviewed, and agree with the discharge instructions and disposition.
[2018-04-28] MEDS: Albuterol-Ipratrop 3 mg / 0.5 (3 ml) UD IH SCH (20:00)
[2018-04-29] MEDS: Albuterol-Ipratrop 3 mg / 0.5 (3 ml) UD IH SCH ×3 (02:55→13:21)
[2018-04-29 06:27] LABS: ARTERIAL BLOOD GAS HCO3 17.1 mmol/L (21-28); ARTERIAL BLOOD GAS HEMOGLOBIN 11.2 g/dL (11.7-17.4); ARTERIAL BLOOD GAS O2 CAPACITY 15.4 mL/dl (16-24); ARTERIAL BLOOD GAS O2 CONTENT 15.4 ML/dl (15-23); ARTERIAL BLOOD GAS O2 SAT 99.9 % (95-98); ARTERIAL BLOOD GAS PCO2 34 mm/Hg (35-45); ARTERIAL BLOOD GAS PH 7.31 (7.35-7.45); ARTERIAL BLOOD GAS TCO2 18.1 mmol.L (22-28)
--- NOTE | 2018-04-29 08:09 | PN ---
DATE: 04/28/2018 SUBJECTIVE: The patient is sedated on the ventilator. No reported SVT. Patient is persistently hypertensive. [id number] was contacted by the ICU team and he promised to come and visit the patient. PHYSICAL EXAMINATION: VITAL SIGNS: Blood pressure 155/78, heart rate 62, respiratory rate 24, temperature 97.9. HEENT: Head: Normocephalic. CHEST: Bibasilar rhonchi. HEART: S1 and S2 regular. EXTREMITIES: No edema. LABORATORY DATA: Today's hemoglobin and hematocrit 9.7 and 30.7. White count and platelet count are within normal limit. SMA-7: Sodium 141, potassium 3.4, chloride 114, CO2 of 19, glucose 68, BUN 17, creatinine 0.9. Today's chest x-ray report no active disease. ASSESSMENT: 1. Paroxysmal reentrant supraventricular tachycardia. 2. Respiratory failure requiring intubation, mechanical ventilation. 3. Hypokalemia. 4. Dementia. 5. Hypertension. 6. Consider left lower lobe pneumonia. RECOMMENDATIONS: Continue hydralazine 50 mg every 12 hours p.r.n. for systolic blood pressure above 180, Calan SR is on hold because of sinus bradycardia as well as Lopressor. Continue midazolam infusion at 2 mL per hour, Solu-Medrol 40 mg intravenously daily. Discontinue both Lopressor and verapamil for now. Parish Goddard MD
[2018-04-29] MEDS: Divalproex 125 mg EC Sprinkle Cap PO SCH (10:20)
[2018-04-29] MEDS: MethylPREDNISolone 40 mg Vial IVP SCH (10:21)
[2018-04-29] MEDS: Enoxaparin 40 mg Syringe SC SCH (10:21)
[2018-04-29] MEDS: Azithromycin 500MG/NS 250ml 500 MG/250 ML BAG IVPB SCH (10:22)
--- NOTE | 2018-04-29 10:32 | CP.CCUPN ---
Addendum entered and electronically signed by Tristin Burris DO 04/29/18 13:06: Spoke with patient's brother in law who identified him as Sami Min (MR # [id number]). Medical records was called to speak with his brother in law to get the medical records corrected. Per his brother in law, prior to this admission he had some baseline dementia but was still living at [facility] nearby. He has a history of wandering off in the past. Discussed patient's diagnosis and the plan going forward with Dr. Goddard. Original Note: <Tristin Burris - Last Filed: 04/29/18 12:26> CCU Subjective - Physician Review Subjective (Free Text): Tristin Burris DO, PGY-1 ICU Progress Note for Dr. Mimi Foy Patient was seen and examined at bedside this AM. No acute events overnight. Is still intubated and sedated. Administrative Nursing Supervisor was unable to draw AM labs because patient was agitated at the time. Patient is now sedated but HR and BP are noted to be elevated. CCU Objective - Vital Signs / Intake & Output Vital Signs (Last 4 hours): Vital Signs Pulse BP 04/29/18 10:21 144 H 190/84 H 04/29/18 10:20 145 H 190/84 H 04/29/18 07:50 78 04/29/18 07:42 74 184/93 H 04/29/18 07:40 73 04/29/18 07:30 80 04/29/18 07:20 76 04/29/18 07:10 73 04/29/18 07:00 75 184/91 H 04/29/18 06:50 77 04/29/18 06:40 79 Intake and Output (Last 8hrs): Intake & Output 04/28/18 04/29/18 04/29/18 22:59 06:59 14:59 Intake Total 1534 1844 Output Total 480 800 Balance 1054 1044 Intake: IV 1354 1844 IVF 1350 1800 Versed Drip 44 Oral 180 Output: Urine 480 800 Urethral (Lane) 480 800 - Physical Exam Physical Exam Limitations: Positive for: Other (grimaces and flexes to pain with sternal rub and trapezius pinch) Head: Positive for: Atraumatic, Normocephalic Pupils: Positive for: PERRL, Sluggish Conjunctiva: Negative for: Injected, Icteric Mouth: Positive for: Dry Neck: Negative for: JVD, Lymphadenopathy Respiratory/Chest: Positive for: Clear to Auscultation. Negative for: Respiratory Distress, Accessory Muscle Use, Rales, Rhonchi Cardiovascular: Positive for: Tachycardic. Negative for: Rub, Gallop Abdomen: Negative for: Distention, Mass/Organomegaly Upper Extremity: Negative for: Cyanosis, Edema Lower Extremity: Negative for: Edema Neurological: Positive for: Other (intubated and sedated, grimacing with painful stimuli, GCS of 5) Skin: Positive for: Warm, Dry - Medications Active Medications: Active Medications Generic Name Dose Route Start Last Admin Trade Name Freq PRN Reason Stop Dose Admin Albuterol/Ipratropium 3 ml 04/28/18 17:15 04/29/18 07:52 Duoneb 3 Mg/0.5 Mg (3 Ml) Ud IH 04/29/18 17:16 3 ml Q6H AMANDA Administration Aspirin 81 mg 04/23/18 10:00 04/29/18 10:20 Ecotrin PO 81 mg DAILY AMANDA Administration Divalproex Sodium 125 mg 04/23/18 18:00 04/29/18 10:20 Depakote Sprinkles PO 125 mg BID AMANDA Administration Protocol Enoxaparin Sodium 40 mg 04/28/18 12:15 04/29/18 10:21 Lovenox SC 40 mg DAILY AMANDA Administration Protocol Famotidine 20 mg 04/23/18 10:02 04/28/18 22:38 Pepcid PO 20 mg HS AMANDA Administration Hydralazine HCl 50 mg 04/26/18 17:27 04/29/18 10:21 Apresoline PO 50 mg Q12 PRN Administration SBP >180 Midazolam 100 mg/100ml in NS 100 mg in 100 mls @ 2 mls/hr 04/25/18 18:45 04/28/18 19:50 Midazolam 100 Mg/100ml In Ns IV 4 mg/hr .Q24H PRN 4 mls/hr Agitation Titration Protocol 2 MG/HR Sodium Chloride 1,000 mls @ 150 mls/hr 04/25/18 19:15 04/28/18 20:35 Sodium Chloride 0.9% IV 150 mls/hr .Q6H40M AMANDA Administration Propofol 1,000 mg in 100 mls @ 1.606 mls/hr 04/25/18 21:07 04/25/18 23:00 Diprivan IV 0 mcg/kg/min .Q24H PRN 0 mls/hr TITRATE PER MD ORDER Titration Protocol 5 MCG/KG/MIN Azithromycin 500 mg in 250 mls @ 167 mls/hr 04/29/18 10:00 04/29/18 10:22 Zithromax 500mg In Ns IVPB 167 mls/hr DAILY AMANDA Administration Protocol Lisinopril 10 mg 04/29/18 10:00 04/29/18 10:20 Zestril NG 10 mg DAILY AMANDA Administration Methylprednisolone 40 mg 04/28/18 12:15 04/29/18 10:21 Solu-Medrol IVP 40 mg DAILY AMANDA Administration Nicotine 1 patch 04/22/18 22:00 04/28/18 22:38 Nicoderm Cq TD 1 patch 2200 AMANDA Administration Ziprasidone 10 mg 04/23/18 18:20 04/25/18 14:30 Geodon Inj IM 10 mg Q12H PRN Administration Agitation Protocol - Patient Studies Lab Studies: Microbiology Studies 04/25/18 22:24 Blood Culture - Preliminary Blood NO GROWTH AFTER 3 DAYS 04/25/18 22:00 Blood Culture - Preliminary Blood NO GROWTH AFTER 3 DAYS Lab Studies 04/29/18 Range/Units 06:21 pCO2 34 L (35-45) mm/Hg pO2 109.0 H (80-100) mm/Hg HCO3 17.1 L (21-28) mmol/L ABG pH 7.31 L (7.35-7.45) ABG Total CO2 18.1 L (22-28) mmol.L ABG O2 Saturation 99.9 H (95-98) % ABG O2 Content 15.4 (15-23) ML/dl ABG Base Excess -8.3 L (-2.0-3.0) mmol/L ABG Hemoglobin 11.2 L (11.7-17.4) g/dL ABG Carboxyhemoglobin 2.6 H (0.5-1.5) % POC ABG HHb (Measured) 0.1 (0-5) % ABG Methemoglobin 0.7 (0.0-3.0) % ABG O2 Capacity 15.4 L (16-24) mL/dl Hgb O2 Saturation 96.5 (95.0-98.0) % FiO2 30.0 % Laboratory Results - last 24 hr 04/29/18 06:21 pCO2 34 L pO2 109.0 H HCO3 17.1 L ABG pH 7.31 L ABG Total CO2 18.1 L ABG O2 Saturation 99.9 H ABG O2 Content 15.4 ABG Base Excess -8.3 L ABG Hemoglobin 11.2 L ABG Carboxyhemoglobin 2.6 H POC ABG HHb (Measured) 0.1 ABG Methemoglobin 0.7 ABG O2 Capacity 15.4 L Hgb O2 Saturation 96.5 FiO2 30.0 Fingerstick Blood Sugar Results: 109 Review of Systems - Review of Systems Systems not reviewed;Unavailable: Intubated Critical Care Progress Note - Ventilator Checklist Head of Bed 30 Degrees: Yes Daily Sedation Vacation: Yes Daily Assessment of Readiness to Wean: Yes Daily Spontaneous Breathing Trial: Yes PUD Prophalyxis: Yes DVT Prophylaxis: Yes - Vent Settings MODE:: PRVC - Extremities/Vascular Does the Patient have a Central Venous Catheter?: No Does the Patient have a Lane Catheter?: Yes - Restraints Justification for Restraints: High risk for removing IV access - Prophylaxis GI Prophylaxis GI: Pepsid - Prophylaxis DVT Prophylaxis DVT: Lovenox Assessment/Plan - Assessment and Plan (Free Text) Assessment: 77 yo M with unknown PMH brought in by EMS after found wandering at local grocery store admitted for altered mental status and episode of SVT. Respiratory status subsequently worsened on the floor and was subsequently admitted to ICU in acute respiratory failure. Plan: Neuro: -Was agitated overnight as sedatives were weaned -Per neuro recs, will continue 24 hr EEG today, will be complete around 1800 -MRI brain ordered -Will also start empiric valproate 1000 mg single dose and 750 mg BID -Doll's eyes, gag, pupillary reflexes intact Cardio: -Admitted with episode of SVT, was given lopressor and verapamil per cardiology recs -Was bradycardic overnight so lopressor and verapamil were discontinued -Became tachycardic in the 150s in the morning but responded well to single 5 mg IVP dose of lopressor -Will continue to monitor -Continue to maintain MAP > 65 -Cardiology following, recs appreciated Pulm: -Will wait to wean off vent until EEG and MRI are complete -Last CXR with tube in place, continue daily CXR -ABG improving, continue daily ABG -Vent settings: TV 450, RR 16, O2 40, PEEP 5 -Maintain SpO2 > 95% -Begin weaning off vent tomorrow GI: -Patient has been intubated since Saturday -Will begin tube feedings -Begin regular feeds after extubation, plan on extubation tomorrow /Nephro: -BUN/Cr stable -Continue to replete electrolytes as needed -UOP adequate Endocrine: -Maintain euglycemia -Prior TSH WNL Heme/Onc: -H/H stable -Monitor for signs of HD compromise -Continue to monitor H/H Case and plan reviewed and discussed with my attending Dr. Mimi Burris, IM Resident PGY-1 <Harlan Foy - Last Filed: 04/29/18 14:50> CCU Objective - Vital Signs / Intake & Output Vital Signs (Last 4 hours): Vital Signs Pulse BP Pulse Ox 04/29/18 14:30 74 100 04/29/18 14:22 72 144/83 100 04/29/18 14:20 68 100 04/29/18 14:10 67 100 04/29/18 14:00 68 126/66 100 04/29/18 13:50 68 100 04/29/18 13:40 68 100 04/29/18 13:30 69 100 04/29/18 13:20 68 100 04/29/18 13:10 69 100 04/29/18 13:00 70 136/67 100 04/29/18 12:50 71 100 04/29/18 12:40 73 100 04/29/18 12:30 74 100 04/29/18 12:20 71 100 04/29/18 12:10 68 100 04/29/18 12:00 69 133/69 100 04/29/18 11:50 70 100 04/29/18 11:40 72 100 04/29/18 11:30 73 100 04/29/18 11:20 72 100 04/29/18 11:10 71 100 04/29/18 11:00 150/80 100 04/29/18 10:50 129 H 100 Intake and Output (Last 8hrs): Intake & Output 04/28/18 04/29/18 04/29/18 22:59 06:59 14:59 Intake Total 1534 1844 Output Total 480 800 Balance 1054 1044 Intake: IV 1354 1844 IVF 1350 1800 Versed Drip 44 Oral 180 Output: Urine 480 800 Urethral (Lane) 480 800 - Medications Active Medications: Active Medications Generic Name Dose Route Start Last Admin Trade Name Freq PRN Reason Stop Dose Admin Albuterol/Ipratropium 3 ml 04/29/18 14:38 Duoneb 3 Mg/0.5 Mg (3 Ml) Ud IH 04/30/18 08:01 0800,1400,2000 AMANDA Aspirin 81 mg 04/23/18 10:00 04/29/18 10:20 Ecotrin PO 81 mg DAILY AMANDA Administration Divalproex Sodium 125 mg 04/23/18 18:00 04/29/18 10:20 Depakote Sprinkles PO 125 mg BID AMANDA Administration Protocol Enoxaparin Sodium 40 mg 04/28/18 12:15 04/29/18 10:21 Lovenox SC 40 mg DAILY AMANDA Administration Protocol Famotidine 20 mg 04/23/18 10:02 04/28/18 22:38 Pepcid PO 20 mg HS AMANDA Administration Hydralazine HCl 50 mg 04/29/18 22:00 Apresoline PO Q12 AMANDA Midazolam 100 mg/100ml in NS 100 mg in 100 mls @ 2 mls/hr 04/25/18 18:45 04/28/18 19:50 Midazolam 100 Mg/100ml In Ns IV 4 mg/hr .Q24H PRN 4 mls/hr Agitation Titration Protocol 2 MG/HR Sodium Chloride 1,000 mls @ 150 mls/hr 04/25/18 19:15 04/28/18 20:35 Sodium Chloride 0.9% IV 150 mls/hr .Q6H40M AMANDA Administration Propofol 1,000 mg in 100 mls @ 1.606 mls/hr 04/25/18 21:07 04/25/18 23:00 Diprivan IV 0 mcg/kg/min .Q24H PRN 0 mls/hr TITRATE PER MD ORDER Titration Protocol 5 MCG/KG/MIN Azithromycin 500 mg in 250 mls @ 167 mls/hr 04/29/18 10:00 04/29/18 10:22 Zithromax 500mg In Ns IVPB 167 mls/hr DAILY AMANDA Administration Protocol Valproate Sodium 750 mg/ 107.5 mls @ 100 mls/hr 04/29/18 18:00 Sodium Chloride IVPB BID AMANDA Lisinopril 10 mg 04/29/18 10:00 04/29/18 10:20 Zestril NG 10 mg DAILY AMANDA Administration Methylprednisolone 40 mg 04/28/18 12:15 04/29/18 10:21 Solu-Medrol IVP 40 mg DAILY AMANDA Administration Metoprolol Tartrate 50 mg 04/29/18 18:00 Lopressor PO BID AMANDA Nicotine 1 patch 04/22/18 22:00 04/28/18 22:38 Nicoderm Cq TD 1 patch 2200 AMANDA Administration Ziprasidone 10 mg 04/23/18 18:20 04/25/18 14:30 Geodon Inj IM 10 mg Q12H PRN Administration Agitation Protocol - Patient Studies Lab Studies: Microbiology Studies 04/25/18 22:24 Blood Culture - Preliminary Blood NO GROWTH AFTER 3 DAYS 04/25/18 22:00 Blood Culture - Preliminary Blood NO GROWTH AFTER 3 DAYS Lab Studies 04/29/18 04/29/18 04/29/18 Range/Units 11:00 11:00 06:21 WBC 11.9 H D (4.5-11.0) 10^3/ul RBC 3.78 (3.5-6.1) 10^6/uL Hgb 11.2 L (14.0-18.0) g/dL Hct 34.1 L (42.0-52.0) % MCV 90.2 (80.0-105.0) fl MCH 29.6 (25.0-35.0) pg MCHC 32.8 (31.0-37.0) g/dl RDW 15.0 H (11.5-14.5) % Plt Count 321 (120.0-450.0) 10^3/uL MPV 9.2 (7.0-11.0) fl Gran % 86.2 H (50.0-68.0) % Lymph % (Auto) 5.7 L (22.0-35.0) % Cottle % (Auto) 7.9 H (1.0-6.0) % Eos % (Auto) 0.2 L (1.5-5.0) % Baso % (Auto) 0.0 (0.0-3.0) % Gran # 10.22 H (1.4-6.5) Lymph # (Auto) 0.7 L (1.2-3.4) Cottle # (Auto) 0.9 H (0.1-0.6) Eos # (Auto) 0.0 (0.0-0.7) Baso # (Auto) 0.00 (0.0-2.0) K/mm3 pCO2 34 L (35-45) mm/Hg pO2 109.0 H (80-100) mm/Hg HCO3 17.1 L (21-28) mmol/L ABG pH 7.31 L (7.35-7.45) ABG Total CO2 18.1 L (22-28) mmol.L ABG O2 Saturation 99.9 H (95-98) % ABG O2 Content 15.4 (15-23) ML/dl ABG Base Excess -8.3 L (-2.0-3.0) mmol/L ABG Hemoglobin 11.2 L (11.7-17.4) g/dL ABG Carboxyhemoglobin 2.6 H (0.5-1.5) % POC ABG HHb (Measured) 0.1 (0-5) % ABG Methemoglobin 0.7 (0.0-3.0) % ABG O2 Capacity 15.4 L (16-24) mL/dl Hgb O2 Saturation 96.5 (95.0-98.0) % FiO2 30.0 % Sodium 141 (132-148) mmol/L Potassium 4.3 (3.6-5.0) mmol/L Chloride 117 H (98-107) mmol/L Carbon Dioxide 15 L (21-33) mmol/L Anion Gap 14 (10-20) BUN 19 (7-21) mg/dL Creatinine 0.8 (0.8-1.5) mg/dl Est GFR ( Amer) > 60 Est GFR (Non-Af Amer) > 60 Random Glucose 105 (70-110) mg/dL Calcium 8.8 (8.4-10.5) mg/dL Phosphorus 3.2 (2.5-4.5) mg/dL Magnesium 2.0 (1.7-2.2) mg/dL Total Bilirubin 0.8 (0.2-1.3) mg/dL AST 18 (17-59) U/L ALT 24 (7-56) U/L Alkaline Phosphatase 89 (38-126) U/L Total Protein 5.7 L (5.8-8.3) g/dL Albumin 3.1 (3.0-4.8) g/dL Globulin 2.7 gm/dL Albumin/Globulin Ratio 1.2 (1.1-1.8) Laboratory Results - last 24 hr 04/29/18 04/29/18 04/29/18 06:21 11:00 11:00 WBC 11.9 H D RBC 3.78 Hgb 11.2 L Hct 34.1 L MCV 90.2 MCH 29.6 MCHC 32.8 RDW 15.0 H Plt Count 321 MPV 9.2 Gran % 86.2 H Lymph % (Auto) 5.7 L Cottle % (Auto) 7.9 H Eos % (Auto) 0.2 L Baso % (Auto) 0.0 Gran # 10.22 H Lymph # (Auto) 0.7 L Cottle # (Auto) 0.9 H Eos # (Auto) 0.0 Baso # (Auto) 0.00 pCO2 34 L pO2 109.0 H HCO3 17.1 L ABG pH 7.31 L ABG Total CO2 18.1 L ABG O2 Saturation 99.9 H ABG O2 Content 15.4 ABG Base Excess -8.3 L ABG Hemoglobin 11.2 L ABG Carboxyhemoglobin 2.6 H POC ABG HHb (Measured) 0.1 ABG Methemoglobin 0.7 ABG O2 Capacity 15.4 L Hgb O2 Saturation 96.5 FiO2 30.0 Sodium 141 Potassium 4.3 Chloride 117 H Carbon Dioxide 15 L Anion Gap 14 BUN 19 Creatinine 0.8 Est GFR ( Amer) > 60 Est GFR (Non-Af Amer) > 60 Random Glucose 105 Calcium 8.8 Phosphorus 3.2 Magnesium 2.0 Total Bilirubin 0.8 AST 18 ALT 24 Alkaline Phosphatase 89 Total Protein 5.7 L Albumin 3.1 Globulin 2.7 Albumin/Globulin Ratio 1.2 Addendum Addendum: 04/29/18 14:48 ICU Attending Addendum: Patient seen and examined. Case reviewed on round with housestaff. Agree with resident note above with the following additions/exceptions: 77 M found locally without ID admitted to AMS, HCRF s/p intubation and SVT. CT chest suggest emphysema, predom in apicies. tx like COPD exasc with duonebs, steroids and 5 days azithro. procal <0.5 - can d/c other abx on cont EEG for 24hours, will hold off on extubating until after EEG for SVT on verapamil and metoprolol. cardio on board HB dropping, no signs of blood loss. Unclear what baseline in. Cont to monitor closely Will confirm ID today and have name appropriately changed to his government name rest of care above Harlan Foy MD Filtration Operator Crtical Care TIme: 31 mins
[2018-04-29] MEDS ORDERED: Metoprolol 1 mg/ml Inj IVP ONE (10:38)
[2018-04-29] MEDS ORDERED: Metoprolol 1 mg/ml Inj ONE (10:40)
[2018-04-29 11:10] LABS: EOS % 0.2 % (1.5-5.0); GRAN # 10.22 (1.4-6.5); GRAN % 86.2 % (50.0-68.0); HEMOGLOBIN 11.2 g/dL (14.0-18.0); LYMPH # 0.7 (1.2-3.4); LYMPH % 5.7 % (22.0-35.0); MEAN CELL VOLUME 90.2 fl (80.0-105.0); MEAN CORPUSCULAR HEMOGLOBIN 29.6 pg (25.0-35.0); MEAN CORPUSCULAR HGB CONC 32.8 g/dl (31.0-37.0); MEAN PLATELET VOLUME 9.2 fl (7.0-11.0); MONO # 0.9 (0.1-0.6); MONO % 7.9 % (1.0-6.0); RBC 3.78 10^6/uL (3.5-6.1); WHITE BLOOD COUNT 11.9 10^3/ul (4.5-11.0)
[2018-04-29] MEDS ORDERED: Valproate 1,000 MG in Sodium Chloride 0.9% 100 ML IVPB ONE (11:19)
[2018-04-29 11:21] LABS: ALB/GLOB RATIO 1.2 (1.1-1.8); ALBUMIN 3.1 g/dL (3.0-4.8); ALT/SGPT 24 U/L (7-56); AST/SGOT 18 U/L (17-59); BLOOD UREA NITROGEN 19 mg/dL (7-21); CALCIUM 8.8 mg/dL (8.4-10.5); GFR NON-AFRICAN AMERICAN > 60
--- NOTE | 2018-04-29 13:01 | CP.PCM.PN ---
<Linus,Zainab - Last Filed: 04/29/18 12:56> Subjective - Date & Time of Evaluation Date of Evaluation: 04/29/18 Time of Evaluation: 09:40 - Subjective Subjective: PGY-1 Zainab Barriga Medicine Progress Note for Dr. Mohan's service Patient seen and examined at bedside. As per nursing patient was agitated overnight. Patient's blood was not drawn for similar reason in the morning. 12 point ROS limited as patient is sedated and intubated. Objective - Vital Signs/Intake and Output Vital Signs (last 24 hours): Temp Pulse Resp BP Pulse Ox 98.2 F 129 H 19 190/84 H 100 04/29/18 04:00 04/29/18 10:50 04/29/18 09:40 04/29/18 10:42 04/29/18 10:50 Intake and Output: 04/29/18 04/29/18 06:59 18:59 Intake Total 1848 Output Total 800 Balance 1048 - Medications Medications: Current Medications Albuterol/Ipratropium (Duoneb 3 Mg/0.5 Mg (3 Ml) Ud) 3 ml IH Q6H [facility] Stop: 04/29/18 17:16 Last Admin: 04/29/18 07:52 Dose: 3 ml Aspirin (Ecotrin) 81 mg PO DAILY [facility] Last Admin: 04/29/18 10:20 Dose: 81 mg Divalproex Sodium (Depakote Sprinkles) 125 mg PO BID [facility]; Protocol Last Admin: 04/29/18 10:20 Dose: 125 mg Enoxaparin Sodium (Lovenox) 40 mg SC DAILY [facility]; Protocol Last Admin: 04/29/18 10:21 Dose: 40 mg Famotidine (Pepcid) 20 mg PO HS [facility] Last Admin: 04/28/18 22:38 Dose: 20 mg Hydralazine HCl (Apresoline) 50 mg PO Q12 PRN PRN Reason: SBP >180 Last Admin: 04/29/18 10:21 Dose: 50 mg Midazolam 100 mg/100ml in NS (Midazolam 100 Mg/100ml In Ns) 100 mg in 100 mls @ 2 mls/hr IV .Q24H PRN; Protocol PRN Reason: Agitation Last Titration: 04/28/18 19:50 Dose: 4 mg/hr, 4 mls/hr Sodium Chloride (Sodium Chloride 0.9%) 1,000 mls @ 150 mls/hr IV .Q6H40M BETTYE Last Admin: 04/28/18 20:35 Dose: 150 mls/hr Propofol (Diprivan) 1,000 mg in 100 mls @ 1.606 mls/hr IV .Q24H PRN; Protocol PRN Reason: TITRATE PER MD ORDER Last Titration: 04/25/18 23:00 Dose: 0 mcg/kg/min, 0 mls/hr Azithromycin (Zithromax 500mg In Ns) 500 mg in 250 mls @ 167 mls/hr IVPB DAILY [facility]; Protocol Last Admin: 04/29/18 10:22 Dose: 167 mls/hr Valproate Sodium 750 mg/ (Sodium Chloride) 107.5 mls @ 100 mls/hr IVPB BID [facility] Lisinopril (Zestril) 10 mg NG DAILY [facility] Last Admin: 04/29/18 10:20 Dose: 10 mg Methylprednisolone (Solu-Medrol) 40 mg IVP DAILY [facility] Last Admin: 04/29/18 10:21 Dose: 40 mg Metoprolol Tartrate (Lopressor) 50 mg PO BID [facility] Nicotine (Nicoderm Cq) 1 patch TD 2200 [facility] Last Admin: 04/28/18 22:38 Dose: 1 patch Ziprasidone (Geodon Inj) 10 mg IM Q12H PRN; Protocol PRN Reason: Agitation Last Admin: 04/25/18 14:30 Dose: 10 mg - Labs Labs: 04/29/18 11:00 04/29/18 11:00 PT 12.7 SECONDS (9.4-12.5) H 04/25/18 18:57 INR 1.11 04/25/18 18:57 APTT 22.4 Seconds (25.1-36.5) L 04/25/18 18:57 - Additional Findings Additional findings: - Constitutional Appears: Non-toxic, No Acute Distress - Head Exam Head Exam: NORMAL INSPECTION, NORMOCEPHALIC - Eye Exam Eye Exam: EOMI, Normal appearance. absent: Nystagmus, Scleral icterus - ENT Exam Additional comments: intubated on midazolam and propofol - Respiratory Exam Respiratory Exam: Clear to Ausculation Bilateral, NORMAL BREATHING PATTERN. absent: Rales, Rhonchi, Wheezes - Cardiovascular Exam Cardiovascular Exam: Bradycardia, REGULAR RHYTHM, +S1, +S2 - GI/Abdominal Exam GI & Abdominal Exam: Soft, Normal Bowel Sounds. absent: Tenderness - Extremities Exam Extremities Exam: Full ROM, Normal Inspection - Neurological Exam Neurological Exam: absent: Alert, Awake, Oriented x3 - Psychiatric Exam Psychiatric exam: Normal Affect, Normal Mood - Skin Skin Exam: Intact, Normal Color Assessment and Plan - Assessment and Plan (Free Text) Assessment: 77 yo with history of SVT (intially admitted as Elton Majano, later identified as Sami Min) who was found to be in SVT (TSH was normal), and was started on metoprolol and verapamil by Cardiology. Patient had RN DIALYSIS for lethargy and noted to have hypercapneic respiratory failure, for which he was intubated and transferred to ICU. CXR showed new LLL infiltrate and effusion, and he is on empiric antibiotics. Switched to azithromax only as per ICU. Patient started on valproate as per neuro Plan: Reentrant supraventicular tachycardia Cardio consulted Dr. Goddard- Hydralazine 50mg q12 prn SBP >180; Calan and Lopressor were held due to bradycardai; DC'ed metoprolol and verapamil for now; Solumedrol 40mg IV daily ICU consulted Dr. Adams- Patient restarted on lopressor 50mg bid bettye Metoprolol 50mg bid bettye Hydralazine 50 mg q12 PRN for SBP >180 Lisinopril 10mg daily bettye ASA 81mg cont to monitor for episodes Hypercapneic respiratory failure w/ new LLL infiltrate s/p intubation, OGT for PO intake cont ICU monitoring 04-28-18 Cxray shows no active disease Azithromycin started for elevated WBC Duoneb 3ml q6h bettye daily ABG's shows excess oxygenation, will discuss with ICU regarding decreasing FiO2 (currently at 40%) management for daily sedation vacation, weaning trials and oral care per ICU team AMS, likely 2/2 dementia Psych consulted- Dr. Armenta- started patient on Depakote bettye and Geodon PRN Geodon 10mg IM q12h prn Depakote 125mg po bid for seizure ppx Valproate 750mg in NS Chronic anemia, stable H&H stable; hemondynamically stable Continue to monitor Tobacco use disorder Nicotine 1 patch TD PPx DVT ppx: Lovenox 40mg sc daily GI ppx: Pepcid Dispo: SW note states that brother in law will come to hospital today. Weaning patient off intubation as per ICU team. Patient was examined and discussed with attending, Dr. Marques Barriga <Ninoska Mohan - Last Filed: 05/01/18 17:49> Objective - Vital Signs/Intake and Output Vital Signs (last 24 hours): Temp Pulse Resp BP Pulse Ox 98.0 F 91 H 64 H 133/74 95 05/01/18 15:34 05/01/18 15:20 05/01/18 15:20 05/01/18 14:02 05/01/18 15:20 Intake and Output: 05/01/18 05/01/18 06:59 18:59 Intake Total 187.7 6.3 Output Total 250 Balance -62.3 6.3 - Medications Medications: Current Medications Albuterol/Ipratropium (Duoneb 3 Mg/0.5 Mg (3 Ml) Ud) 3 ml IH [id number] [facility] Last Admin: 05/01/18 13:31 Dose: 3 ml Aspirin (Ecotrin) 81 mg PO DAILY [facility] Last Admin: 05/01/18 09:40 Dose: Not Given Divalproex Sodium (Depakote Sprinkles) 125 mg PO BID [facility]; Protocol Last Admin: 05/01/18 13:11 Dose: Not Given Enoxaparin Sodium (Lovenox) 40 mg SC DAILY [facility]; Protocol Last Admin: 05/01/18 09:38 Dose: 40 mg Famotidine (Pepcid) 20 mg PO HS [facility] Last Admin: 04/30/18 21:00 Dose: Not Given Hydralazine HCl (Apresoline) 25 mg IVP Q4H PRN PRN Reason: Systolic Blood Pressure Last Admin: 05/01/18 13:11 Dose: 25 mg Azithromycin (Zithromax 500mg In Ns) 500 mg in 250 mls @ 167 mls/hr IVPB DAILY [facility]; Protocol Last Admin: 05/01/18 09:44 Dose: 167 mls/hr Lisinopril (Zestril) 20 mg NG DAILY [facility] Last Admin: 05/01/18 09:41 Dose: Not Given Methylprednisolone (Solu-Medrol) 40 mg IVP DAILY [facility] Last Admin: 05/01/18 09:38 Dose: 40 mg Metoprolol Tartrate (Lopressor) 50 mg PO BID [facility] Last Admin: 05/01/18 17:43 Dose: Not Given Nicotine (Nicoderm Cq) 1 patch TD 2200 [facility] Last Admin: 04/30/18 22:43 Dose: 1 patch Ziprasidone (Geodon Inj) 10 mg IM Q12H PRN; Protocol PRN Reason: Agitation Last Admin: 04/25/18 14:30 Dose: 10 mg - Labs Labs: 05/01/18 06:00 05/01/18 06:00 PT 12.7 SECONDS (9.4-12.5) H 04/25/18 18:57 INR 1.11 04/25/18 18:57 APTT 22.4 Seconds (25.1-36.5) L 04/25/18 18:57 Attending/Attestation - Attestation I have personally seen and examined this patient.: Yes I have fully participated in the care of the patient.: Yes I have reviewed all pertinent clinical information, including history, physical exam and plan: Yes Notes (Text): 05/01/18 17:49 Medical record note made by the resident after discussion with my direction and input after the patient was personally seen and examined by me. I have reviewed the chart and agree that the record accurately reflects by personal performance of the history, physical exam, data review, and medical decision-making, in the course for the patient. I have also personally directed the plan of care.
[2018-04-29] MEDS ORDERED: Valproate 750 MG in Sodium Chloride 0.9% 100 ML IVPB SCH (18:00)
[2018-04-29] MEDS ORDERED: Valproate 1,000 MG in Sodium Chloride 0.9% 100 ML IVPB SCH (18:00)
[2018-04-29] MEDS: Midazolam 100 mg/100ml in NS 100 MG/100 ML SOL IV PRN (19:06)
--- NOTE | 2018-04-29 20:16 | PN ---
DATE: 04/29/2018 SUBJECTIVE: This is the first time that we were able to get the exact name of the patient instead of Elton Quijano. The patient's [id number] arrived to the hospital and the demographic informations were corrected; however, the chart is still not connected to previous admissions, which I could not browse on the [facility] database. According to [id number] that the patient left [place] by himself. He did smoke tobacco of his own and at times, he would dry some flower leaves and smoke it. Patient apparently took a bus to visit his sister and ended up in a [employer] and collapsed there. According to the [id number], the patient has signs of early dementia. However, he is a man of his own in terms of decision making. The patient is still on a ventilator. He did develop SVT that required IV Lopressor and currently in sinus rhythm. He is sedated on a ventilator. PHYSICAL EXAMINATION: VITAL SIGNS: Blood pressure 144/83, heart rate 72, temperature 98.2, respirations 20. HEENT: Normocephalic. CHEST: Bibasilar rhonchi. HEART: S1 and S2 regular. ABDOMEN: Soft. EXTREMITIES: No edema. LABORATORY DATA: Hemoglobin and hematocrit 11.2 and 34.1. White count 11.9, platelet count 321,000. SMA-7: Sodium 141, potassium 4.2, chloride 117, CO2 15, glucose 105, BUN 19, creatinine 0.8. I did refer a Neurology evaluation. ASSESSMENT: A 77 years old male with no significant past medical history, presented because of agitation, altered mental status, was being treated for a supraventricular tachycardia and leukocytosis and went on to respiratory failure. Endocrine is to obtain a video electroencephalogram, brain magnetic resonance imaging. 1. Paroxysmal reentrant supraventricular tachycardia. 2. Respiratory failure. 3. Altered mental status. 4. Chronic obstructive lung disease. 5. Dementia. 6. Hypertension. RECOMMENDATIONS: Continue hydralazine 50 mg every 12 hours, aspirin 81 mg once a day, Lopressor 50 mg twice a day, Lovenox 40 mg subcutaneous once a day, IV midazolam at 2 mL per hour, Nicoderm patch, Solu-Medrol 40 mg intravenously daily, valproate sodium 750 mg IV piggyback twice a day, Zestril 10 mg daily via nasogastric tube and Zithromax 500 mg intravenously daily. Parish Goddard MD [facility] # [id number]
[2018-04-30 05:23] LABS: ARTERIAL BLOOD GAS HCO3 20.2 mmol/L (21-28); ARTERIAL BLOOD GAS HEMOGLOBIN 9.8 g/dL (11.7-17.4); ARTERIAL BLOOD GAS O2 CAPACITY 13.5 mL/dl (16-24); ARTERIAL BLOOD GAS O2 CONTENT 13.4 ML/dl (15-23); ARTERIAL BLOOD GAS O2 SAT 99.1 % (95-98); ARTERIAL BLOOD GAS PCO2 35 mm/Hg (35-45); ARTERIAL BLOOD GAS PH 7.37 (7.35-7.45); ARTERIAL BLOOD GAS TCO2 21.3 mmol.L (22-28)
[2018-04-30 06:30] LABS: GRAN # 8.62 (1.4-6.5); GRAN % 86.1 % (50.0-68.0); HEMOGLOBIN 10.5 g/dL (14.0-18.0); LYMPH # 0.6 (1.2-3.4); LYMPH % 5.9 % (22.0-35.0); MEAN CELL VOLUME 91.6 fl (80.0-105.0); MEAN CORPUSCULAR HEMOGLOBIN 29.4 pg (25.0-35.0); MEAN CORPUSCULAR HGB CONC 32.1 g/dl (31.0-37.0); MEAN PLATELET VOLUME 9.8 fl (7.0-11.0); MONO # 0.8 (0.1-0.6); RBC 3.57 10^6/uL (3.5-6.1); RED CELL DISTRIBUTION WIDTH 15.4 % (11.5-14.5)
[2018-04-30 07:13] LABS: ALB/GLOB RATIO 1.1 (1.1-1.8); ALBUMIN 2.9 g/dL (3.0-4.8); ALT/SGPT 20 U/L (7-56); AST/SGOT 17 U/L (17-59); BLOOD UREA NITROGEN 24 mg/dL (7-21); CALCIUM 8.5 mg/dL (8.4-10.5); GFR NON-AFRICAN AMERICAN > 60
[2018-04-30] MEDS: Albuterol-Ipratrop 3 mg / 0.5 (3 ml) UD IH SCH ×4 (07:43→20:32)
--- NOTE | 2018-04-30 07:51 | CP.CCUPN ---
<Tristin Burris - Last Filed: 04/30/18 07:54> CCU Subjective - Physician Review Subjective (Free Text): Tristin Burris DO, PGY-1 ICU Progress Note for Dr. Mimi Foy Patient was seen and examined at bedside this AM. No acute events overnight. Is still intubated and sedated. HR stable overnight s/p lopressor. He is currently receiving tube feeds. CCU Objective - Vital Signs / Intake & Output Vital Signs (Last 4 hours): Vital Signs Temp Pulse BP Pulse Ox 04/30/18 06:48 69 04/30/18 06:40 67 98 04/30/18 06:30 71 97 04/30/18 06:20 73 97 04/30/18 06:10 74 98 04/30/18 06:00 79 167/88 H 98 04/30/18 05:50 82 99 04/30/18 05:40 71 94 L 04/30/18 05:30 65 98 04/30/18 05:20 67 100 04/30/18 05:10 64 100 04/30/18 05:00 65 163/89 H 100 04/30/18 04:50 67 100 04/30/18 04:40 68 100 04/30/18 04:30 68 100 04/30/18 04:20 71 100 04/30/18 04:10 73 100 04/30/18 04:04 77 04/30/18 04:03 78 04/30/18 04:02 79 04/30/18 04:00 97.9 F 81 150/91 H 04/30/18 03:54 78 04/30/18 03:52 78 04/30/18 03:50 82 100 Intake and Output (Last 8hrs): Intake & Output 04/29/18 04/30/18 04/30/18 22:59 06:59 14:59 Intake Total 1584 688 Output Total 0 550 Balance 1584 138 Weight 141 lb 3.2 oz Intake: IV 1334 48 IVF 950 IVPB 250 Versed Drip 48 48 Tube Feeding 200 540 Other 50 100 Output: Urine 0 550 Urine, Voided 0 550 - Physical Exam Head: Positive for: Atraumatic, Normocephalic Pupils: Positive for: PERRL, Sluggish Conjunctiva: Negative for: Injected, Icteric Mouth: Positive for: Moist Mucous Membranes Neck: Negative for: JVD, Lymphadenopathy Respiratory/Chest: Positive for: Clear to Auscultation. Negative for: Respiratory Distress, Accessory Muscle Use, Wheezes, Rales, Rhonchi Cardiovascular: Positive for: Regular Rate and Rhythm, Normal S1, S2. Negative for: Murmurs, Rub, Gallop Abdomen: Negative for: Distention, Mass/Organomegaly Upper Extremity: Negative for: Cyanosis, Edema Lower Extremity: Negative for: Edema Neurological: Positive for: Other (intubated and sedated, grimacing with painful stimuli, GCS of 5) Skin: Positive for: Warm, Dry - Medications Active Medications: Active Medications Generic Name Dose Route Start Last Admin Trade Name Freq PRN Reason Stop Dose Admin Albuterol/Ipratropium 3 ml 04/29/18 14:38 04/30/18 07:43 Duoneb 3 Mg/0.5 Mg (3 Ml) Ud IH 04/30/18 08:01 3 ml 0800,1400,2000 AMANDA Administration Aspirin 81 mg 04/23/18 10:00 04/29/18 10:20 Ecotrin PO 81 mg DAILY AMANDA Administration Divalproex Sodium 125 mg 04/23/18 18:00 04/29/18 10:20 Depakote Sprinkles PO 125 mg BID AMANDA Administration Protocol Enoxaparin Sodium 40 mg 04/28/18 12:15 04/29/18 10:21 Lovenox SC 40 mg DAILY AMANDA Administration Protocol Famotidine 20 mg 04/23/18 10:02 04/29/18 21:48 Pepcid PO 20 mg HS AMANDA Administration Hydralazine HCl 50 mg 04/29/18 22:00 04/29/18 22:06 Apresoline PO 50 mg Q12 AMANDA Administration Midazolam 100 mg/100ml in NS 100 mg in 100 mls @ 2 mls/hr 04/25/18 18:45 04/29/18 19:06 Midazolam 100 Mg/100ml In Ns IV 4 mg/hr .Q24H PRN 4 mls/hr Agitation Administration Protocol 2 MG/HR Propofol 1,000 mg in 100 mls @ 1.606 mls/hr 04/25/18 21:07 04/25/18 23:00 Diprivan IV 0 mcg/kg/min .Q24H PRN 0 mls/hr TITRATE PER MD ORDER Titration Protocol 5 MCG/KG/MIN Azithromycin 500 mg in 250 mls @ 167 mls/hr 04/29/18 10:00 04/29/18 10:22 Zithromax 500mg In Ns IVPB 167 mls/hr DAILY AMANDA Administration Protocol Valproate Sodium 750 mg/ 107.5 mls @ 100 mls/hr 04/29/18 18:00 04/29/18 19:00 Sodium Chloride IVPB 100 mls/hr BID AMANDA Administration Lisinopril 10 mg 04/29/18 10:00 04/29/18 10:20 Zestril NG 10 mg DAILY AMANDA Administration Methylprednisolone 40 mg 04/28/18 12:15 04/29/18 10:21 Solu-Medrol IVP 40 mg DAILY AMANDA Administration Metoprolol Tartrate 50 mg 04/29/18 18:00 04/29/18 18:58 Lopressor PO 50 mg BID AMANDA Administration Nicotine 1 patch 04/22/18 22:00 04/29/18 21:48 Nicoderm Cq TD 1 patch 2200 AMANDA Administration Ziprasidone 10 mg 04/23/18 18:20 04/25/18 14:30 Geodon Inj IM 10 mg Q12H PRN Administration Agitation Protocol - Patient Studies Lab Studies: Microbiology Studies 04/25/18 22:24 Blood Culture - Preliminary Blood NO GROWTH AFTER 4 DAYS 04/25/18 22:00 Blood Culture - Preliminary Blood NO GROWTH AFTER 4 DAYS Lab Studies 04/30/18 04/30/18 04/30/18 Range/Units 05:15 05:15 05:08 WBC 10.0 (4.5-11.0) 10^3/ul RBC 3.57 (3.5-6.1) 10^6/uL Hgb 10.5 L (14.0-18.0) g/dL Hct 32.7 L (42.0-52.0) % MCV 91.6 (80.0-105.0) fl MCH 29.4 (25.0-35.0) pg MCHC 32.1 (31.0-37.0) g/dl RDW 15.4 H (11.5-14.5) % Plt Count 349 (120.0-450.0) 10^3/uL MPV 9.8 (7.0-11.0) fl Gran % 86.1 H (50.0-68.0) % Lymph % (Auto) 5.9 L (22.0-35.0) % [place] % (Auto) 8.0 H (1.0-6.0) % Eos % (Auto) 0.0 L (1.5-5.0) % Baso % (Auto) 0.0 (0.0-3.0) % Gran # 8.62 H (1.4-6.5) Lymph # (Auto) 0.6 L (1.2-3.4) [place] # (Auto) 0.8 H (0.1-0.6) Eos # (Auto) 0.0 (0.0-0.7) Baso # (Auto) 0.00 (0.0-2.0) K/mm3 pCO2 35 (35-45) mm/Hg pO2 100.0 (80-100) mm/Hg HCO3 20.2 L (21-28) mmol/L ABG pH 7.37 (7.35-7.45) ABG Total CO2 21.3 L (22-28) mmol.L ABG O2 Saturation 99.1 H (95-98) % ABG O2 Content 13.4 L (15-23) ML/dl ABG Base Excess -4.5 L (-2.0-3.0) mmol/L ABG Hemoglobin 9.8 L (11.7-17.4) g/dL ABG Carboxyhemoglobin 2.1 H (0.5-1.5) % POC ABG HHb (Measured) 0.9 (0-5) % ABG Methemoglobin 0.7 (0.0-3.0) % ABG O2 Capacity 13.5 L (16-24) mL/dl Hgb O2 Saturation 96.3 (95.0-98.0) % FiO2 30.0 % Sodium 144 (132-148) mmol/L Potassium 4.0 (3.6-5.0) mmol/L Chloride 116 H (98-107) mmol/L Carbon Dioxide 20 L (21-33) mmol/L Anion Gap 13 (10-20) BUN 24 H (7-21) mg/dL Creatinine 0.8 (0.8-1.5) mg/dl Est GFR ( Amer) > 60 Est GFR (Non-Af Amer) > 60 Random Glucose 112 H (70-110) mg/dL Calcium 8.5 (8.4-10.5) mg/dL Phosphorus 2.9 (2.5-4.5) mg/dL Magnesium 2.2 (1.7-2.2) mg/dL Total Bilirubin 0.4 (0.2-1.3) mg/dL AST 17 (17-59) U/L ALT 20 (7-56) U/L Alkaline Phosphatase 69 (38-126) U/L Total Protein 5.6 L (5.8-8.3) g/dL Albumin 2.9 L (3.0-4.8) g/dL Globulin 2.7 gm/dL Albumin/Globulin Ratio 1.1 (1.1-1.8) 04/29/18 04/29/18 Range/Units 11:00 11:00 WBC 11.9 H D (4.5-11.0) 10^3/ul RBC 3.78 (3.5-6.1) 10^6/uL Hgb 11.2 L (14.0-18.0) g/dL Hct 34.1 L (42.0-52.0) % MCV 90.2 (80.0-105.0) fl MCH 29.6 (25.0-35.0) pg MCHC 32.8 (31.0-37.0) g/dl RDW 15.0 H (11.5-14.5) % Plt Count 321 (120.0-450.0) 10^3/uL MPV 9.2 (7.0-11.0) fl Gran % 86.2 H (50.0-68.0) % Lymph % (Auto) 5.7 L (22.0-35.0) % [place] % (Auto) 7.9 H (1.0-6.0) % Eos % (Auto) 0.2 L (1.5-5.0) % Baso % (Auto) 0.0 (0.0-3.0) % Gran # 10.22 H (1.4-6.5) Lymph # (Auto) 0.7 L (1.2-3.4) [place] # (Auto) 0.9 H (0.1-0.6) Eos # (Auto) 0.0 (0.0-0.7) Baso # (Auto) 0.00 (0.0-2.0) K/mm3 pCO2 (35-45) mm/Hg pO2 (80-100) mm/Hg HCO3 (21-28) mmol/L ABG pH (7.35-7.45) ABG Total CO2 (22-28) mmol.L ABG O2 Saturation (95-98) % ABG O2 Content (15-23) ML/dl ABG Base Excess (-2.0-3.0) mmol/L ABG Hemoglobin (11.7-17.4) g/dL ABG Carboxyhemoglobin (0.5-1.5) % POC ABG HHb (Measured) (0-5) % ABG Methemoglobin (0.0-3.0) % ABG O2 Capacity (16-24) mL/dl Hgb O2 Saturation (95.0-98.0) % FiO2 % Sodium 141 (132-148) mmol/L Potassium 4.3 (3.6-5.0) mmol/L Chloride 117 H (98-107) mmol/L Carbon Dioxide 15 L (21-33) mmol/L Anion Gap 14 (10-20) BUN 19 (7-21) mg/dL Creatinine 0.8 (0.8-1.5) mg/dl Est GFR ( Amer) > 60 Est GFR (Non-Af Amer) > 60 Random Glucose 105 (70-110) mg/dL Calcium 8.8 (8.4-10.5) mg/dL Phosphorus 3.2 (2.5-4.5) mg/dL Magnesium 2.0 (1.7-2.2) mg/dL Total Bilirubin 0.8 (0.2-1.3) mg/dL AST 18 (17-59) U/L ALT 24 (7-56) U/L Alkaline Phosphatase 89 (38-126) U/L Total Protein 5.7 L (5.8-8.3) g/dL Albumin 3.1 (3.0-4.8) g/dL Globulin 2.7 gm/dL Albumin/Globulin Ratio 1.2 (1.1-1.8) Laboratory Results - last 24 hr 04/29/18 04/29/18 04/30/18 11:00 11:00 05:08 WBC 11.9 H D RBC 3.78 Hgb 11.2 L Hct 34.1 L MCV 90.2 MCH 29.6 MCHC 32.8 RDW 15.0 H Plt Count 321 MPV 9.2 Gran % 86.2 H Lymph % (Auto) 5.7 L [place] % (Auto) 7.9 H Eos % (Auto) 0.2 L Baso % (Auto) 0.0 Gran # 10.22 H Lymph # (Auto) 0.7 L [place] # (Auto) 0.9 H Eos # (Auto) 0.0 Baso # (Auto) 0.00 pCO2 35 pO2 100.0 HCO3 20.2 L ABG pH 7.37 ABG Total CO2 21.3 L ABG O2 Saturation 99.1 H ABG O2 Content 13.4 L ABG Base Excess -4.5 L ABG Hemoglobin 9.8 L ABG Carboxyhemoglobin 2.1 H POC ABG HHb (Measured) 0.9 ABG Methemoglobin 0.7 ABG O2 Capacity 13.5 L Hgb O2 Saturation 96.3 FiO2 30.0 Sodium 141 Potassium 4.3 Chloride 117 H Carbon Dioxide 15 L Anion Gap 14 BUN 19 Creatinine 0.8 Est GFR ( Amer) > 60 Est GFR (Non-Af Amer) > 60 Random Glucose 105 Calcium 8.8 Phosphorus 3.2 Magnesium 2.0 Total Bilirubin 0.8 AST 18 ALT 24 Alkaline Phosphatase 89 Total Protein 5.7 L Albumin 3.1 Globulin 2.7 Albumin/Globulin Ratio 1.2 04/30/18 04/30/18 05:15 05:15 WBC 10.0 RBC 3.57 Hgb 10.5 L Hct 32.7 L MCV 91.6 MCH 29.4 MCHC 32.1 RDW 15.4 H Plt Count 349 MPV 9.8 Gran % 86.1 H Lymph % (Auto) 5.9 L [place] % (Auto) 8.0 H Eos % (Auto) 0.0 L Baso % (Auto) 0.0 Gran # 8.62 H Lymph # (Auto) 0.6 L [place] # (Auto) 0.8 H Eos # (Auto) 0.0 Baso # (Auto) 0.00 pCO2 pO2 HCO3 ABG pH ABG Total CO2 ABG O2 Saturation ABG O2 Content ABG Base Excess ABG Hemoglobin ABG Carboxyhemoglobin POC ABG HHb (Measured) ABG Methemoglobin ABG O2 Capacity Hgb O2 Saturation FiO2 Sodium 144 Potassium 4.0 Chloride 116 H Carbon Dioxide 20 L Anion Gap 13 BUN 24 H Creatinine 0.8 Est GFR ( Amer) > 60 Est GFR (Non-Af Amer) > 60 Random Glucose 112 H Calcium 8.5 Phosphorus 2.9 Magnesium 2.2 Total Bilirubin 0.4 AST 17 ALT 20 Alkaline Phosphatase 69 Total Protein 5.6 L Albumin 2.9 L Globulin 2.7 Albumin/Globulin Ratio 1.1 Fingerstick Blood Sugar Results: 109 Review of Systems - Review of Systems Systems not reviewed;Unavailable: Intubated Critical Care Progress Note - Ventilator Checklist Head of Bed 30 Degrees: Yes Daily Sedation Vacation: Yes Daily Assessment of Readiness to Wean: Yes Daily Spontaneous Breathing Trial: No PUD Prophalyxis: Yes DVT Prophylaxis: Yes - Vent Settings MODE:: PRVC - Extremities/Vascular Does the Patient have a Lane Catheter?: Yes - Restraints Justification for Restraints: High risk for self extubation, High risk for removing IV access - Prophylaxis GI Prophylaxis GI: Pepsid - Prophylaxis DVT Prophylaxis DVT: Lovenox Assessment/Plan - Assessment and Plan (Free Text) Assessment: 77 yo M with unknown PMH brought in by EMS after found wandering at local grocery store admitted for altered mental status and episode of SVT. Respiratory status subsequently worsened on the floor and was subsequently admitted to ICU in acute respiratory failure. Originally admitted as Elton Majano but identified by brother in law as Paulie Min (also known as Sami Min on prior visits, ). Plan: Neuro: -Per neuro recs, brain MRI today -EEG without seizure activity, d/c valproic acid -Doll's eyes, gag, pupillary reflexes intact Cardio: -HR RRR overnight -Will continue to monitor -Continue to maintain MAP > 65 -Cardiology following, recs appreciated Pulm: -CTA b/l, no wheezes s/p duo-neb and solumedrol -Will begin weaning off vent after MRI today -ABG improving, continue daily ABG until off vent -Vent settings: TV 450, RR 16, O2 40, PEEP 5 -Maintain SpO2 > 95% -Patient is a chronic smoker and has underlying obstructive disease based on chest CT -Follow up PFTs needed GI: -D/c tube feeds prior to extubation - /Nephro: -BUN/Cr stable -Continue to replete electrolytes as needed -UOP adequate Endocrine: -Maintain euglycemia -Prior TSH WNL Heme/Onc: -H/H stable -Monitor for signs of HD compromise -Continue to monitor H/H Case and plan reviewed and discussed with my attending Dr. Mimi Burris, IM Resident PGY-1 <Harlan Foy - Last Filed: 04/30/18 11:14> CCU Objective - Vital Signs / Intake & Output Vital Signs (Last 4 hours): Vital Signs Temp Pulse Resp BP Pulse Ox 04/30/18 09:11 65 152/77 H 04/30/18 09:10 65 152/77 H 04/30/18 09:09 65 152/77 H 04/30/18 08:00 98.4 F 72 14 178/85 H 97 Intake and Output (Last 8hrs): Intake & Output 04/29/18 04/30/18 04/30/18 22:59 06:59 14:59 Intake Total 1584 688 Output Total 0 550 Balance 1584 138 Weight 64.047 kg Intake: IV 1334 48 IVF 950 IVPB 250 Versed Drip 48 48 Tube Feeding 200 540 Other 50 100 Output: Urine 0 550 Urine, Voided 0 550 - Medications Active Medications: Active Medications Generic Name Dose Route Start Last Admin Trade Name Freq PRN Reason Stop Dose Admin Aspirin 81 mg 04/23/18 10:00 04/30/18 09:10 Ecotrin PO 81 mg DAILY AMANDA Administration Divalproex Sodium 125 mg 04/23/18 18:00 04/30/18 09:09 Depakote Sprinkles PO 125 mg BID AMANDA Administration Protocol Enoxaparin Sodium 40 mg 04/28/18 12:15 04/30/18 09:10 Lovenox SC 40 mg DAILY AMANDA Administration Protocol Famotidine 20 mg 04/23/18 10:02 04/29/18 21:48 Pepcid PO 20 mg HS AMANDA Administration Hydralazine HCl 50 mg 04/29/18 22:00 04/30/18 09:09 Apresoline PO 50 mg Q12 AMANDA Administration Midazolam 100 mg/100ml in NS 100 mg in 100 mls @ 2 mls/hr 09/28/18 18:45 04/29/18 19:06 Midazolam 100 Mg/100ml In Ns IV 4 mg/hr .Q24H PRN 4 mls/hr Agitation Administration Protocol 2 MG/HR Azithromycin 500 mg in 250 mls @ 167 mls/hr 04/29/18 10:00 04/30/18 09:11 Zithromax 500mg In Ns IVPB 167 mls/hr DAILY AMANDA Administration Protocol Lisinopril 10 mg 04/29/18 10:00 04/30/18 09:11 Zestril NG 10 mg DAILY AMANDA Administration Methylprednisolone 40 mg 04/28/18 12:15 04/30/18 09:11 Solu-Medrol IVP 40 mg DAILY AMANDA Administration Metoprolol Tartrate 50 mg 04/29/18 18:00 04/30/18 09:10 Lopressor PO 50 mg BID AMANDA Administration Nicotine 1 patch 04/22/18 22:00 04/29/18 21:48 Nicoderm Cq TD 1 patch 2200 AMANDA Administration Ziprasidone 10 mg 04/23/18 18:20 04/25/18 14:30 Geodon Inj IM 10 mg Q12H PRN Administration Agitation Protocol - Patient Studies Lab Studies: Microbiology Studies 04/25/18 22:24 Blood Culture - Preliminary Blood NO GROWTH AFTER 4 DAYS 04/25/18 22:00 Blood Culture - Preliminary Blood NO GROWTH AFTER 4 DAYS Lab Studies 04/30/18 04/30/18 04/30/18 Range/Units 05:15 05:15 05:08 WBC 10.0 (4.5-11.0) 10^3/ul RBC 3.57 (3.5-6.1) 10^6/uL Hgb 10.5 L (14.0-18.0) g/dL Hct 32.7 L (42.0-52.0) % MCV 91.6 (80.0-105.0) fl MCH 29.4 (25.0-35.0) pg MCHC 32.1 (31.0-37.0) g/dl RDW 15.4 H (11.5-14.5) % Plt Count 349 (120.0-450.0) 10^3/uL MPV 9.8 (7.0-11.0) fl Gran % 86.1 H (50.0-68.0) % Lymph % (Auto) 5.9 L (22.0-35.0) % [place] % (Auto) 8.0 H (1.0-6.0) % Eos % (Auto) 0.0 L (1.5-5.0) % Baso % (Auto) 0.0 (0.0-3.0) % Gran # 8.62 H (1.4-6.5) Lymph # (Auto) 0.6 L (1.2-3.4) [place] # (Auto) 0.8 H (0.1-0.6) Eos # (Auto) 0.0 (0.0-0.7) Baso # (Auto) 0.00 (0.0-2.0) K/mm3 pCO2 35 (35-45) mm/Hg pO2 100.0 (80-100) mm/Hg HCO3 20.2 L (21-28) mmol/L ABG pH 7.37 (7.35-7.45) ABG Total CO2 21.3 L (22-28) mmol.L ABG O2 Saturation 99.1 H (95-98) % ABG O2 Content 13.4 L (15-23) ML/dl ABG Base Excess -4.5 L (-2.0-3.0) mmol/L ABG Hemoglobin 9.8 L (11.7-17.4) g/dL ABG Carboxyhemoglobin 2.1 H (0.5-1.5) % POC ABG HHb (Measured) 0.9 (0-5) % ABG Methemoglobin 0.7 (0.0-3.0) % ABG O2 Capacity 13.5 L (16-24) mL/dl Hgb O2 Saturation 96.3 (95.0-98.0) % FiO2 30.0 % Sodium 144 (132-148) mmol/L Potassium 4.0 (3.6-5.0) mmol/L Chloride 116 H (98-107) mmol/L Carbon Dioxide 20 L (21-33) mmol/L Anion Gap 13 (10-20) BUN 24 H (7-21) mg/dL Creatinine 0.8 (0.8-1.5) mg/dl Est GFR ( Amer) > 60 Est GFR (Non-Af Amer) > 60 Random Glucose 112 H (70-110) mg/dL Calcium 8.5 (8.4-10.5) mg/dL Phosphorus 2.9 (2.5-4.5) mg/dL Magnesium 2.2 (1.7-2.2) mg/dL Total Bilirubin 0.4 (0.2-1.3) mg/dL AST 17 (17-59) U/L ALT 20 (7-56) U/L Alkaline Phosphatase 69 (38-126) U/L Total Protein 5.6 L (5.8-8.3) g/dL Albumin 2.9 L (3.0-4.8) g/dL Globulin 2.7 gm/dL Albumin/Globulin Ratio 1.1 (1.1-1.8) 04/29/18 04/29/18 Range/Units 11:00 11:00 WBC 11.9 H D (4.5-11.0) 10^3/ul RBC 3.78 (3.5-6.1) 10^6/uL Hgb 11.2 L (14.0-18.0) g/dL Hct 34.1 L (42.0-52.0) % MCV 90.2 (80.0-105.0) fl MCH 29.6 (25.0-35.0) pg MCHC 32.8 (31.0-37.0) g/dl RDW 15.0 H (11.5-14.5) % Plt Count 321 (120.0-450.0) 10^3/uL MPV 9.2 (7.0-11.0) fl Gran % 86.2 H (50.0-68.0) % Lymph % (Auto) 5.7 L (22.0-35.0) % [place] % (Auto) 7.9 H (1.0-6.0) % Eos % (Auto) 0.2 L (1.5-5.0) % Baso % (Auto) 0.0 (0.0-3.0) % Gran # 10.22 H (1.4-6.5) Lymph # (Auto) 0.7 L (1.2-3.4) [place] # (Auto) 0.9 H (0.1-0.6) Eos # (Auto) 0.0 (0.0-0.7) Baso # (Auto) 0.00 (0.0-2.0) K/mm3 pCO2 (35-45) mm/Hg pO2 (80-100) mm/Hg HCO3 (21-28) mmol/L ABG pH (7.35-7.45) ABG Total CO2 (22-28) mmol.L ABG O2 Saturation (95-98) % ABG O2 Content (15-23) ML/dl ABG Base Excess (-2.0-3.0) mmol/L ABG Hemoglobin (11.7-17.4) g/dL ABG Carboxyhemoglobin (0.5-1.5) % POC ABG HHb (Measured) (0-5) % ABG Methemoglobin (0.0-3.0) % ABG O2 Capacity (16-24) mL/dl Hgb O2 Saturation (95.0-98.0) % FiO2 % Sodium 141 (132-148) mmol/L Potassium 4.3 (3.6-5.0) mmol/L Chloride 117 H (98-107) mmol/L Carbon Dioxide 15 L (21-33) mmol/L Anion Gap 14 (10-20) BUN 19 (7-21) mg/dL Creatinine 0.8 (0.8-1.5) mg/dl Est GFR ( Amer) > 60 Est GFR (Non-Af Amer) > 60 Random Glucose 105 (70-110) mg/dL Calcium 8.8 (8.4-10.5) mg/dL Phosphorus 3.2 (2.5-4.5) mg/dL Magnesium 2.0 (1.7-2.2) mg/dL Total Bilirubin 0.8 (0.2-1.3) mg/dL AST 18 (17-59) U/L ALT 24 (7-56) U/L Alkaline Phosphatase 89 (38-126) U/L Total Protein 5.7 L (5.8-8.3) g/dL Albumin 3.1 (3.0-4.8) g/dL Globulin 2.7 gm/dL Albumin/Globulin Ratio 1.2 (1.1-1.8) Laboratory Results - last 24 hr 04/29/18 04/29/18 04/30/18 11:00 11:00 05:08 WBC 11.9 H D RBC 3.78 Hgb 11.2 L Hct 34.1 L MCV 90.2 MCH 29.6 MCHC 32.8 RDW 15.0 H Plt Count 321 MPV 9.2 Gran % 86.2 H Lymph % (Auto) 5.7 L [place] % (Auto) 7.9 H Eos % (Auto) 0.2 L Baso % (Auto) 0.0 Gran # 10.22 H Lymph # (Auto) 0.7 L [place] # (Auto) 0.9 H Eos # (Auto) 0.0 Baso # (Auto) 0.00 pCO2 35 pO2 100.0 HCO3 20.2 L ABG pH 7.37 ABG Total CO2 21.3 L ABG O2 Saturation 99.1 H ABG O2 Content 13.4 L ABG Base Excess -4.5 L ABG Hemoglobin 9.8 L ABG Carboxyhemoglobin 2.1 H POC ABG HHb (Measured) 0.9 ABG Methemoglobin 0.7 ABG O2 Capacity 13.5 L Hgb O2 Saturation 96.3 FiO2 30.0 Sodium 141 Potassium 4.3 Chloride 117 H Carbon Dioxide 15 L Anion Gap 14 BUN 19 Creatinine 0.8 Est GFR ( Amer) > 60 Est GFR (Non-Af Amer) > 60 Random Glucose 105 Calcium 8.8 Phosphorus 3.2 Magnesium 2.0 Total Bilirubin 0.8 AST 18 ALT 24 Alkaline Phosphatase 89 Total Protein 5.7 L Albumin 3.1 Globulin 2.7 Albumin/Globulin Ratio 1.2 04/30/18 04/30/18 05:15 05:15 WBC 10.0 RBC 3.57 Hgb 10.5 L Hct 32.7 L MCV 91.6 MCH 29.4 MCHC 32.1 RDW 15.4 H Plt Count 349 MPV 9.8 Gran % 86.1 H Lymph % (Auto) 5.9 L [place] % (Auto) 8.0 H Eos % (Auto) 0.0 L Baso % (Auto) 0.0 Gran # 8.62 H Lymph # (Auto) 0.6 L [place] # (Auto) 0.8 H Eos # (Auto) 0.0 Baso # (Auto) 0.00 pCO2 pO2 HCO3 ABG pH ABG Total CO2 ABG O2 Saturation ABG O2 Content ABG Base Excess ABG Hemoglobin ABG Carboxyhemoglobin POC ABG HHb (Measured) ABG Methemoglobin ABG O2 Capacity Hgb O2 Saturation FiO2 Sodium 144 Potassium 4.0 Chloride 116 H Carbon Dioxide 20 L Anion Gap 13 BUN 24 H Creatinine 0.8 Est GFR ( Amer) > 60 Est GFR (Non-Af Amer) > 60 Random Glucose 112 H Calcium 8.5 Phosphorus 2.9 Magnesium 2.2 Total Bilirubin 0.4 AST 17 ALT 20 Alkaline Phosphatase 69 Total Protein 5.6 L Albumin 2.9 L Globulin 2.7 Albumin/Globulin Ratio 1.1 Addendum Addendum: 04/30/18 11:12 ICU Attending Addendum: Patient seen and examined. Case reviewed on round with housestaff. Agree with resident note above with the following additions/exceptions: 77 M found locally admitted for AMS, HCRF s/p intubation and SVT. CT chest suggest emphysema, predom in apicies. tx like COPD exasc with duonebs, steroids and 5 days azithro. procal <0.5 - can d/c other abx f/u EEG done yesterday, as per neuro MRI today post-MRI wean off sedation, hold feeds, SBT and plant extubate will use precedex if needed for agitation for SVT on verapamil and metoprolol. cardio on board HB stable rest of care above Harlan Foy MD [employer] Crtical Care TIme: 30 mins
[2018-04-30] MEDS: Divalproex 125 mg EC Sprinkle Cap PO SCH ×2 (09:09→17:16)
[2018-04-30] MEDS: Enoxaparin 40 mg Syringe SC SCH (09:10)
[2018-04-30] MEDS: MethylPREDNISolone 40 mg Vial IVP SCH (09:11)
[2018-04-30] MEDS: Azithromycin 500MG/NS 250ml 500 MG/250 ML BAG IVPB SCH (09:11)
--- NOTE | 2018-04-30 11:15 | MRI ---
Date of service: 04/30/2018 PROCEDURE: MRI BRAIN WITHOUT CONTRAST HISTORY: altered mental status, r/o CVA COMPARISON: None available. TECHNIQUE: Multiplanar, multisequence MR images of the brain were obtained without intravenous contrast enhancement. FINDINGS: HEMORRHAGE: None DWI: No evidence of an acute or early subacute infarction. BRAIN PARENCHYMA: No mass effect or edema. There is mild to moderate atrophy. There are no microvascular changes seen. VENTRICLES: Unremarkable. No hydrocephalus. CRANIUM: Unremarkable. ORBITS: Grossly unremarkable. PARANASAL SINUSES/MASTOIDS: Small amount of fluid in the mastoid air cells VASCULAR SYSTEM: Skull base flow voids intact. OTHER FINDINGS: None. IMPRESSION: No acute intracranial findings
[2018-04-30 12:21] LABS: URINE BILIRUBIN NEGATIVE (NEGATIVE); URINE BLOOD NEGATIVE (NEGATIVE); URINE GLUCOSE (UA) NEGATIVE (NEGATIVE); URINE LEUKOCYTE ESTERASE TRACE Leu/uL (NEGATIVE); URINE PROTEIN TRACE mg/dL (<30 mg/dL)
[2018-04-30 12:22] LABS: URINE APPEARANCE CLEAR (CLEAR); URINE COLOR YELLOW (YELLOW)
[2018-04-30 12:28] LABS: URINE BACTERIA MOD (NEG); URINE EPITHELIAL CELLS 0 - 2 /hpf (0-5); URINE RBC 0 - 2 /hpf (0-2)
[2018-04-30 12:29] LABS: URINE AMORPHOUS SEDIMENT FEW; URINE COARSE GRANULAR CAST TRACE /hpf (0-2)
--- NOTE | 2018-04-30 13:00 | CP.PCM.PN ---
<Zainab Barriga - Last Filed: 04/30/18 12:54> Subjective - Date & Time of Evaluation Date of Evaluation: 04/30/18 Time of Evaluation: 12:54 - Subjective Subjective: PGY-1 Zainab Barriga Medicine Progress Note for Dr. Mohan's service Patient seen and examined at bedside. As per nursing patient was agitated overnight. Patient's blood was not drawn for similar reason in the morning. 12 point ROS limited as patient is sedated and intubated. Objective - Vital Signs/Intake and Output Vital Signs (last 24 hours): Temp Pulse Resp BP Pulse Ox 98.4 F 65 22 181/90 H 100 04/30/18 12:00 04/30/18 12:20 04/30/18 12:00 04/30/18 12:00 04/30/18 12:20 Intake and Output: 04/30/18 04/30/18 06:59 18:59 Intake Total 688 Output Total 550 Balance 138 - Medications Medications: Current Medications Aspirin (Ecotrin) 81 mg PO DAILY [facility] Last Admin: 04/30/18 09:10 Dose: 81 mg Divalproex Sodium (Depakote Sprinkles) 125 mg PO BID [facility]; Protocol Last Admin: 04/30/18 09:09 Dose: 125 mg Enoxaparin Sodium (Lovenox) 40 mg SC DAILY [facility]; Protocol Last Admin: 04/30/18 09:10 Dose: 40 mg Famotidine (Pepcid) 20 mg PO HS [facility] Last Admin: 04/29/18 21:48 Dose: 20 mg Hydralazine HCl (Apresoline) 50 mg PO Q12 [facility] Last Admin: 04/30/18 09:09 Dose: 50 mg Midazolam 100 mg/100ml in NS (Midazolam 100 Mg/100ml In Ns) 100 mg in 100 mls @ 2 mls/hr IV .Q24H PRN; Protocol PRN Reason: Agitation Last Admin: 04/29/18 19:06 Dose: 4 mg/hr, 4 mls/hr Azithromycin (Zithromax 500mg In Ns) 500 mg in 250 mls @ 167 mls/hr IVPB DAILY [facility]; Protocol Last Admin: 04/30/18 09:11 Dose: 167 mls/hr Lisinopril (Zestril) 10 mg NG DAILY [facility] Last Admin: 04/30/18 09:11 Dose: 10 mg Lisinopril (Zestril) 20 mg PO DAILY [facility] Methylprednisolone (Solu-Medrol) 40 mg IVP DAILY [facility] Last Admin: 04/30/18 09:11 Dose: 40 mg Metoprolol Tartrate (Lopressor) 50 mg PO BID [facility] Last Admin: 04/30/18 09:10 Dose: 50 mg Nicotine (Nicoderm Cq) 1 patch TD 2200 [facility] Last Admin: 04/29/18 21:48 Dose: 1 patch Ziprasidone (Geodon Inj) 10 mg IM Q12H PRN; Protocol PRN Reason: Agitation Last Admin: 04/25/18 14:30 Dose: 10 mg - Labs Labs: 04/30/18 05:15 04/30/18 05:15 PT 12.7 SECONDS (9.4-12.5) H 04/25/18 18:57 INR 1.11 04/25/18 18:57 APTT 22.4 Seconds (25.1-36.5) L 04/25/18 18:57 - Additional Findings Additional findings: - Constitutional Appears: Non-toxic, No Acute Distress - Head Exam Head Exam: NORMAL INSPECTION, NORMOCEPHALIC - Eye Exam Eye Exam: EOMI, Normal appearance. absent: Nystagmus, Scleral icterus - ENT Exam Additional comments: intubated on midazolam and propofol - Respiratory Exam Respiratory Exam: Clear to Ausculation Bilateral, NORMAL BREATHING PATTERN. absent: Rales, Rhonchi, Wheezes - Cardiovascular Exam Cardiovascular Exam: Bradycardia, REGULAR RHYTHM, +S1, +S2 - GI/Abdominal Exam GI & Abdominal Exam: Soft, Normal Bowel Sounds. absent: Tenderness - Extremities Exam Extremities Exam: Full ROM, Normal Inspection - Neurological Exam Neurological Exam: absent: Alert, Awake, Oriented x3 - Psychiatric Exam Psychiatric exam: Normal Affect, Normal Mood - Skin Skin Exam: Intact, Normal Color Assessment and Plan - Assessment and Plan (Free Text) Assessment: 77 yo with history of SVT (intially admitted as Elton Majano, later identified as Sami Min) who was found to be in SVT (TSH was normal), and was started on metoprolol and verapamil by Cardiology. Patient had STENCIL TYPIST for lethargy and noted to have hypercapneic respiratory failure, for which he was intubated and transferred to ICU. CXR showed new LLL infiltrate and effusion, and he is on Azithromycin. Patient's medications were changed as per ICU and cardio team to include solu-medrol and metoprolol because patient had low heart rate readings after intubation. Patient's blood pressure remains and lisinopril was added yesterday and increased to 20mg today. Hydralazine 50mg po q12sch for better blood pressure control. MRI of brain w/o contrast pending. Valproate was stopped as per neuro. Plan: Reentrant supraventicular tachycardia Cardio consulted Dr. Goddard- Hydralazine 50mg q12 prn SBP >180; Metoprolol 50mg bid ICU consulted Dr. Adams- patient intubated; post MRI wean off sedation Metoprolol 50mg bid bettye Hydralazine 50 mg q12 PRN for SBP >180 Lisinopril 20mg daily bettye ASA 81mg cont to monitor for episodes Hypercapneic respiratory failure w/ new LLL infiltrate 04-28-18 Cxray shows no active disease s/p intubation, OGT for PO intake; on midazolam; FiO2 at 30 % Azithromycin; possible dc for Abx as procal <0.05; was started for COPD exacerbation as per ICU team Solumedrol 40mg IVP management for daily sedation weaning trials and oral care per ICU team AMS, likely 2/2 dementia Psych consulted- Dr. Armenta- started patient on Depakote bettye and Geodon PRN Geodon 10mg IM q12h prn Depakote 125mg po bid for seizure ppx Was on EEG monitoring- but no seizure like activity noted- stopped valproate as per Neuro MRI brain w/o contrast pending Chronic anemia, stable H&H stable; hemondynamically stable Continue to monitor Tobacco use disorder Nicotine 1 patch TD PPx DVT ppx: Lovenox 40mg sc daily GI ppx: Pepcid 20mg po HS Dispo: Pending Update from pick up worker team Patient was examined and discussed with attending, Dr. Marques Barriga <Ninoska Mohan - Last Filed: 05/01/18 17:48> Objective - Vital Signs/Intake and Output Vital Signs (last 24 hours): Temp Pulse Resp BP Pulse Ox 98.0 F 91 H 64 H 133/74 95 05/01/18 15:34 05/01/18 15:20 05/01/18 15:20 05/01/18 14:02 05/01/18 15:20 Intake and Output: 05/01/18 05/01/18 06:59 18:59 Intake Total 187.7 6.3 Output Total 250 Balance -62.3 6.3 - Medications Medications: Current Medications Albuterol/Ipratropium (Duoneb 3 Mg/0.5 Mg (3 Ml) Ud) 3 ml IH [id number] [facility] Last Admin: 05/01/18 13:31 Dose: 3 ml Aspirin (Ecotrin) 81 mg PO DAILY [facility] Last Admin: 05/01/18 09:40 Dose: Not Given Divalproex Sodium (Depakote Sprinkles) 125 mg PO BID [facility]; Protocol Last Admin: 05/01/18 13:11 Dose: Not Given Enoxaparin Sodium (Lovenox) 40 mg SC DAILY [facility]; Protocol Last Admin: 05/01/18 09:38 Dose: 40 mg Famotidine (Pepcid) 20 mg PO HS [facility] Last Admin: 04/30/18 21:00 Dose: Not Given Hydralazine HCl (Apresoline) 25 mg IVP Q4H PRN PRN Reason: Systolic Blood Pressure Last Admin: 05/01/18 13:11 Dose: 25 mg Azithromycin (Zithromax 500mg In Ns) 500 mg in 250 mls @ 167 mls/hr IVPB DAILY [facility]; Protocol Last Admin: 05/01/18 09:44 Dose: 167 mls/hr Lisinopril (Zestril) 20 mg NG DAILY [facility] Last Admin: 05/01/18 09:41 Dose: Not Given Methylprednisolone (Solu-Medrol) 40 mg IVP DAILY [facility] Last Admin: 05/01/18 09:38 Dose: 40 mg Metoprolol Tartrate (Lopressor) 50 mg PO BID [facility] Last Admin: 05/01/18 17:43 Dose: Not Given Nicotine (Nicoderm Cq) 1 patch TD 2200 [facility] Last Admin: 04/30/18 22:43 Dose: 1 patch Ziprasidone (Geodon Inj) 10 mg IM Q12H PRN; Protocol PRN Reason: Agitation Last Admin: 04/25/18 14:30 Dose: 10 mg - Labs Labs: 05/01/18 06:00 05/01/18 06:00 PT 12.7 SECONDS (9.4-12.5) H 04/25/18 18:57 INR 1.11 04/25/18 18:57 APTT 22.4 Seconds (25.1-36.5) L 04/25/18 18:57 Attending/Attestation - Attestation I have personally seen and examined this patient.: Yes I have fully participated in the care of the patient.: Yes I have reviewed all pertinent clinical information, including history, physical exam and plan: Yes Notes (Text): 05/01/18 17:48 Medical record note made by the resident after discussion with my direction and input after the patient was personally seen and examined by me. I have reviewed the chart and agree that the record accurately reflects by personal performance of the history, physical exam, data review, and medical decision-making, in the course for the patient. I have also personally directed the plan of care.
[2018-04-30 15:25] LABS: ARTERIAL BLOOD GAS HCO3 22.6 mmol/L (21-28); ARTERIAL BLOOD GAS HEMOGLOBIN 10.6 g/dL (11.7-17.4); ARTERIAL BLOOD GAS O2 CAPACITY 14.4 mL/dl (16-24); ARTERIAL BLOOD GAS O2 CONTENT 14.3 ML/dl (15-23); ARTERIAL BLOOD GAS O2 SAT 99.2 % (95-98); ARTERIAL BLOOD GAS PCO2 34 mm/Hg (35-45); ARTERIAL BLOOD GAS PH 7.43 (7.35-7.45); ARTERIAL BLOOD GAS TCO2 23.6 mmol.L (22-28)
--- NOTE | 2018-04-30 15:27 | PN ---
DATE: 04/30/2018 FOLLOWUP SUBJECTIVE: No reported hypotension or supraventricular tachycardia. The patient is still sedated on a ventilator. PHYSICAL EXAMINATION: VITAL SIGNS: Blood pressure 181/90, heart rate 59, temperature 98.4, respirations 22. HEENT: Normocephalic. CHEST: Bilateral rhonchi. HEART: S1 and S2 regular. ABDOMEN: Soft. EXTREMITIES: No edema. LABORATORY DATA: Hemoglobin and hematocrit 10.5 and 32.7. White count and platelet count are within normal limit. SMA-7: Sodium 144, potassium 4, chloride 116, CO2 of 20, glucose 112, BUN 24, creatinine 0.8. Brain MRI revealed no acute intracranial findings. ASSESSMENT: 1. Paroxysmal reentrant supraventricular tachycardia. 2. Respiratory failure. 3. Dementia. 4. Hypertension. 5. Chronic obstructive lung disease. RECOMMENDATIONS: Continue hydralazine 50 mg every 12 hours. Continue aspirin 81 mg once a day, Lopressor 50 mg twice a day, Solu-Medrol 40 mg intravenously daily, Zestril 20 mg daily, IV Zithromax 500 mg daily. Parish Goddard MD
--- NOTE | 2018-04-30 15:28 | CP.PCM.PN ---
<Guadalupe Orlando - Last Filed: 04/30/18 15:41> Subjective - Date & Time of Evaluation Date of Evaluation: 04/30/18 Time of Evaluation: 15:28 - Subjective Subjective: Guadalupe Orlando, PGY2, Neurology Progress Note for Dr Narvaez: Patient seen and examined at bedside. No acute events overnight. Patient remains intubated, on versed. Patient opens eyes spontaneously, remains intubated, moving all extremities, grimaces to pain. Patient is not following commands. ROS limited as patient is intubated. Objective - Vital Signs/Intake and Output Vital Signs (last 24 hours): Temp Pulse Resp BP Pulse Ox 98.4 F 77 26 H 196/99 H 99 04/30/18 12:00 04/30/18 14:32 04/30/18 14:10 04/30/18 14:32 04/30/18 14:10 Intake and Output: 04/30/18 04/30/18 06:59 18:59 Intake Total 688 55 Output Total 550 Balance 138 55 - Medications Medications: Current Medications Albuterol/Ipratropium (Duoneb 3 Mg/0.5 Mg (3 Ml) Ud) 3 ml IH [id number] [facility] Last Admin: 04/30/18 13:38 Dose: 3 ml Aspirin (Ecotrin) 81 mg PO DAILY [facility] Last Admin: 04/30/18 09:10 Dose: 81 mg Divalproex Sodium (Depakote Sprinkles) 125 mg PO BID [facility]; Protocol Last Admin: 04/30/18 09:09 Dose: 125 mg Enoxaparin Sodium (Lovenox) 40 mg SC DAILY [facility]; Protocol Last Admin: 04/30/18 09:10 Dose: 40 mg Famotidine (Pepcid) 20 mg PO HS [facility] Last Admin: 04/29/18 21:48 Dose: 20 mg Hydralazine HCl (Apresoline) 25 mg IVP Q4H PRN PRN Reason: Systolic Blood Pressure Last Admin: 04/30/18 14:32 Dose: 25 mg Midazolam 100 mg/100ml in NS (Midazolam 100 Mg/100ml In Ns) 100 mg in 100 mls @ 2 mls/hr IV .Q24H PRN; Protocol PRN Reason: Agitation Last Titration: 04/30/18 12:53 Dose: 0 mg/hr, 0 mls/hr Azithromycin (Zithromax 500mg In Ns) 500 mg in 250 mls @ 167 mls/hr IVPB DAILY [facility]; Protocol Last Admin: 04/30/18 09:11 Dose: 167 mls/hr Dexmedetomidine HCl (Precedex 400mcg/100ml) 400 mcg in 100 mls @ 3.202 mls/hr IV .Q24H PRN; Protocol PRN Reason: Agitation Lisinopril (Zestril) 20 mg NG DAILY [facility] Methylprednisolone (Solu-Medrol) 40 mg IVP DAILY [facility] Last Admin: 04/30/18 09:11 Dose: 40 mg Metoprolol Tartrate (Lopressor) 50 mg PO BID [facility] Last Admin: 04/30/18 09:10 Dose: 50 mg Nicotine (Nicoderm Cq) 1 patch TD 2200 [facility] Last Admin: 04/29/18 21:48 Dose: 1 patch Ziprasidone (Geodon Inj) 10 mg IM Q12H PRN; Protocol PRN Reason: Agitation Last Admin: 04/25/18 14:30 Dose: 10 mg - Labs Labs: 04/30/18 05:15 04/30/18 05:15 PT 12.7 SECONDS (9.4-12.5) H 04/25/18 18:57 INR 1.11 04/25/18 18:57 APTT 22.4 Seconds (25.1-36.5) L 04/25/18 18:57 - Additional Findings Additional findings: - Constitutional Appears: Older Than Stated Age - Head Exam Head Exam: ATRAUMATIC, NORMOCEPHALIC - Eye Exam Eye Exam: PERRL. absent: Conjunctival injection, EOMI (unable to assess), Nystagmus, Periorbital swelling, Scleral icterus Pupil Exam: PERRL. absent: Fixed, Irregular, Miosis, Mydriatic, Unequal - ENT Exam Additional comments: intubated - Respiratory Exam Respiratory Exam: mild rhonchi - Cardiovascular Exam Cardiovascular Exam: RRR, +S1, +S2. absent: Systolic Murmur - GI/Abdominal Exam GI & Abdominal Exam: Normal Bowel Sounds, Soft. absent: Distended, Tenderness - Extremities Exam Extremities exam: Positive for: normal inspection. Negative for: calf tenderness, pedal edema - Neurological Exam Additional comments: Opens eyes spontaneously, + gag reflex, + corneal reflexes, PERRL moves all extremities. Does not follow commands Assessment and Plan - Assessment and Plan (Free Text) Assessment: 82 year old male with PMH dementia, COPD, heavy smoker, initially presented to [facility] for agitiation, AMS, was being treated for SVT, leukocytosis. Patient then went into hypercapneic respiratory failure, requiring intubation and ICU monitoring. Neurology consulted for AMS, likely toxic metabolic encephalopathy and dementia: - EEG neg for seizure activity, MRI brain neg. - Head CT 04/25 negative for acute changes - correct underlying abnormalities - continue with medical management. - Please reconsult us if necessary Case discussed with Dr Narvaez. <Pavel Narvaez - Last Filed: 05/01/18 13:12> Objective - Vital Signs/Intake and Output Vital Signs (last 24 hours): Temp Pulse Resp BP Pulse Ox 100 F H 62 18 147/71 99 05/01/18 04:00 05/01/18 05:10 05/01/18 05:10 05/01/18 05:00 05/01/18 05:10 Intake and Output: 05/01/18 05/01/18 06:59 18:59 Intake Total 187.7 6.3 Output Total 250 Balance -62.3 6.3 - Medications Medications: Current Medications Albuterol/Ipratropium (Duoneb 3 Mg/0.5 Mg (3 Ml) Ud) 3 ml IH [id number] [facility] Last Admin: 05/01/18 07:38 Dose: 3 ml Aspirin (Ecotrin) 81 mg PO DAILY [facility] Last Admin: 05/01/18 09:40 Dose: Not Given Divalproex Sodium (Depakote Sprinkles) 125 mg PO BID [facility]; Protocol Last Admin: 04/30/18 17:16 Dose: 125 mg Enoxaparin Sodium (Lovenox) 40 mg SC DAILY [facility]; Protocol Last Admin: 05/01/18 09:38 Dose: 40 mg Famotidine (Pepcid) 20 mg PO HS [facility] Last Admin: 04/30/18 21:00 Dose: Not Given Hydralazine HCl (Apresoline) 25 mg IVP Q4H PRN PRN Reason: Systolic Blood Pressure Last Admin: 04/30/18 20:56 Dose: 25 mg Midazolam 100 mg/100ml in NS (Midazolam 100 Mg/100ml In Ns) 100 mg in 100 mls @ 2 mls/hr IV .Q24H PRN; Protocol PRN Reason: Agitation Last Titration: 04/30/18 12:53 Dose: 0 mg/hr, 0 mls/hr Azithromycin (Zithromax 500mg In Ns) 500 mg in 250 mls @ 167 mls/hr IVPB DAILY [facility]; Protocol Last Admin: 05/01/18 09:44 Dose: 167 mls/hr Dexmedetomidine HCl (Precedex 400mcg/100ml) 400 mcg in 100 mls @ 3.202 mls/hr IV .Q24H PRN; Protocol PRN Reason: Agitation Last Admin: 05/01/18 09:00 Dose: 0.2 mcg/kg/hr, 3.202 mls/hr Lisinopril (Zestril) 20 mg NG DAILY [facility] Last Admin: 05/01/18 09:41 Dose: Not Given Methylprednisolone (Solu-Medrol) 40 mg IVP DAILY [facility] Last Admin: 05/01/18 09:38 Dose: 40 mg Metoprolol Tartrate (Lopressor) 50 mg PO BID [facility] Last Admin: 05/01/18 09:39 Dose: Not Given Nicotine (Nicoderm Cq) 1 patch TD 2200 [facility] Last Admin: 04/30/18 22:43 Dose: 1 patch Ziprasidone (Geodon Inj) 10 mg IM Q12H PRN; Protocol PRN Reason: Agitation Last Admin: 04/25/18 14:30 Dose: 10 mg - Labs Labs: 05/01/18 06:00 05/01/18 06:00 PT 12.7 SECONDS (9.4-12.5) H 04/25/18 18:57 INR 1.11 04/25/18 18:57 APTT 22.4 Seconds (25.1-36.5) L 04/25/18 18:57 Assessment and Plan - Assessment and Plan (Free Text) Plan: All medical record entries made by the Resident were at my direction and personally dictated by me. I have reviewed the chart and agree that the record accurately reflects my personal performance of the history, physical exam, medical decision making, and the department course for this patient. I have also personally directed, reviewed, and agree with the discharge instructions and disposition. Patient is waking up slightly, with improved cognition. Intact brainstem reflexes and attempting weaning from trach today. Thank you Dr. Brice Augustine
[2018-04-30] MEDS: Dexmedetomidine 400mcg/100mL 400 MCG/100 ML BOTTLE IV PRN (20:54)
[2018-05-01] MEDS: Albuterol-Ipratrop 3 mg / 0.5 (3 ml) UD IH SCH ×5 (01:20→20:00)
[2018-05-01 06:12] LABS: ARTERIAL BLOOD GAS HCO3 25.5 mmol/L (21-28); ARTERIAL BLOOD GAS HEMOGLOBIN 9.3 g/dL (11.7-17.4); ARTERIAL BLOOD GAS O2 CAPACITY 12.9 mL/dl (16-24); ARTERIAL BLOOD GAS O2 CONTENT 12.9 ML/dl (15-23); ARTERIAL BLOOD GAS O2 SAT 99.8 % (95-98); ARTERIAL BLOOD GAS PCO2 35 mm/Hg (35-45); ARTERIAL BLOOD GAS PH 7.47 (7.35-7.45); ARTERIAL BLOOD GAS TCO2 26.6 mmol.L (22-28)
[2018-05-01 07:15] LABS: GRAN # 7.53 (1.4-6.5); GRAN % 86.1 % (50.0-68.0); HEMOGLOBIN 9.6 g/dL (14.0-18.0); LYMPH # 0.5 (1.2-3.4); LYMPH % 5.1 % (22.0-35.0); MEAN CELL VOLUME 90.1 fl (80.0-105.0); MEAN CORPUSCULAR HEMOGLOBIN 29.6 pg (25.0-35.0); MEAN CORPUSCULAR HGB CONC 32.9 g/dl (31.0-37.0); MEAN PLATELET VOLUME 8.9 fl (7.0-11.0); MONO # 0.8 (0.1-0.6); MONO % 8.8 % (1.0-6.0); RBC 3.24 10^6/uL (3.5-6.1); RED CELL DISTRIBUTION WIDTH 15.3 % (11.5-14.5); WHITE BLOOD COUNT 8.8 10^3/ul (4.5-11.0)
[2018-05-01 07:38] LABS: ALB/GLOB RATIO 1.1 (1.1-1.8); ALBUMIN 2.8 g/dL (3.0-4.8); ALT/SGPT 18 U/L (7-56); AST/SGOT 19 U/L (17-59); BLOOD UREA NITROGEN 22 mg/dL (7-21); CALCIUM 8.2 mg/dL (8.4-10.5); GFR NON-AFRICAN AMERICAN > 60
[2018-05-01] MEDS: Dexmedetomidine 400mcg/100mL 400 MCG/100 ML BOTTLE IV PRN (09:00)
--- NOTE | 2018-05-01 09:09 | CP.CCUPN ---
<Tristin Burris - Last Filed: 05/01/18 11:24> CCU Subjective - Physician Review Subjective (Free Text): Tristin Burris DO, PGY-1 ICU Progress Note for Dr. Mimi Foy Patient was seen and examined at bedside this AM. No acute events overnight. Was extubated yesterday and has been maintaining SpO2 well. He is alert to person and place but not to time or situation. He is moving all extremities well. CCU Objective - Vital Signs / Intake & Output Vital Signs (Last 4 hours): Vital Signs Pulse Resp Pulse Ox 05/01/18 05:10 62 18 99 Intake and Output (Last 8hrs): Intake & Output 04/30/18 05/01/18 05/01/18 22:59 06:59 14:59 Intake Total 489.6 180.1 Output Total 500 250 Balance -10.4 -69.9 Weight 142 lb 6.4 oz Intake: IV 279.6 180.1 IVPB 250 Right Lower Forearm 94 Versed Drip 22 Oral 210 0 Output: Urine 500 250 Urethral (Lane) 500 Urine, Voided 250 Stool 0 Emesis 0 - Physical Exam Head: Positive for: Atraumatic, Normocephalic Pupils: Positive for: PERRL Extroacular Muscles: Positive for: EOMI Conjunctiva: Negative for: Injected, Icteric Mouth: Positive for: Moist Mucous Membranes Pharnyx: Positive for: Normal. Negative for: ERYTHEMA, EXUDATE Neck: Negative for: JVD Respiratory/Chest: Positive for: Clear to Auscultation. Negative for: Respiratory Distress, Accessory Muscle Use, Wheezes, Rales, Rhonchi Cardiovascular: Positive for: Regular Rate and Rhythm, Normal S1, S2. Negative for: Murmurs, Rub, Gallop Abdomen: Negative for: Tenderness, Distention, Mass/Organomegaly Back: Positive for: Normal Inspection Upper Extremity: Negative for: Cyanosis, Edema Lower Extremity: Positive for: NORMAL PULSES. Negative for: Edema Neurological: Positive for: Motor Func Grossly Intact Skin: Positive for: Warm, Dry Psychiatric: Positive for: Alert - Medications Active Medications: Active Medications Generic Name Dose Route Start Last Admin Trade Name Freq PRN Reason Stop Dose Admin Albuterol/Ipratropium 3 ml 04/30/18 14:00 05/01/18 07:38 Duoneb 3 Mg/0.5 Mg (3 Ml) Ud IH 3 ml [id number] AMANDA Administration Aspirin 81 mg 04/23/18 10:00 04/30/18 09:10 Ecotrin PO 81 mg DAILY AMANDA Administration Divalproex Sodium 125 mg 04/23/18 18:00 04/30/18 17:16 Depakote Sprinkles PO 125 mg BID AMANDA Administration Protocol Enoxaparin Sodium 40 mg 04/28/18 12:15 04/30/18 09:10 Lovenox SC 40 mg DAILY AMANDA Administration Protocol Famotidine 20 mg 04/23/18 10:02 04/30/18 21:00 Pepcid PO Not Given HS AMANDA Hydralazine HCl 25 mg 04/30/18 14:21 04/30/18 20:56 Apresoline IVP 25 mg Q4H PRN Administration Systolic Blood Pressure Midazolam 100 mg/100ml in NS 100 mg in 100 mls @ 2 mls/hr 04/25/18 18:45 04/30/18 12:53 Midazolam 100 Mg/100ml In Ns IV 0 mg/hr .Q24H PRN 0 mls/hr Agitation Titration Protocol 2 MG/HR Azithromycin 500 mg in 250 mls @ 167 mls/hr 04/29/18 10:00 04/30/18 09:11 Zithromax 500mg In Ns IVPB 167 mls/hr DAILY AMANDA Administration Protocol Dexmedetomidine HCl 400 mcg in 100 mls @ 3.202 mls/hr 04/30/18 14:11 05/01/18 06:45 Precedex 400mcg/100ml IV 0.2 mcg/kg/hr .Q24H PRN 3.202 mls/hr Agitation Titration Protocol 0.2 MCG/KG/HR Potassium Chloride 10 meq in 100 mls @ 50 mls/hr 05/01/18 08:15 Potassium Chloride 10 Meq/100 Ml IVPB 05/01/18 12:14 Q2H AMANDA Lisinopril 20 mg 04/30/18 13:05 Zestril NG DAILY AMANDA Methylprednisolone 40 mg 04/28/18 12:15 04/30/18 09:11 Solu-Medrol IVP 40 mg DAILY AMANDA Administration Metoprolol Tartrate 50 mg 04/29/18 18:00 04/30/18 17:18 Lopressor PO 50 mg BID AMANDA Administration Nicotine 1 patch 04/22/18 22:00 04/30/18 22:43 Nicoderm Cq TD 1 patch 2200 AMANDA Administration Ziprasidone 10 mg 04/23/18 18:20 04/25/18 14:30 Geodon Inj IM 10 mg Q12H PRN Administration Agitation Protocol - Patient Studies Lab Studies: Microbiology Studies 04/25/18 22:24 Blood Culture - Final Blood NO GROWTH AFTER 5 DAYS Gram Stain - Final TEST NOT PERFORMED 04/25/18 22:00 Blood Culture - Final Blood NO GROWTH AFTER 5 DAYS Gram Stain - Final TEST NOT PERFORMED Lab Studies 05/01/18 05/01/18 05/01/18 Range/Units 06:00 06:00 05:50 WBC 8.8 (4.5-11.0) 10^3/ul RBC 3.24 L (3.5-6.1) 10^6/uL Hgb 9.6 L (14.0-18.0) g/dL Hct 29.2 L (42.0-52.0) % MCV 90.1 (80.0-105.0) fl MCH 29.6 (25.0-35.0) pg MCHC 32.9 (31.0-37.0) g/dl RDW 15.3 H (11.5-14.5) % Plt Count 314 (120.0-450.0) 10^3/uL MPV 8.9 (7.0-11.0) fl Gran % 86.1 H (50.0-68.0) % Lymph % (Auto) 5.1 L (22.0-35.0) % [place] % (Auto) 8.8 H (1.0-6.0) % Eos % (Auto) 0.0 L (1.5-5.0) % Baso % (Auto) 0.0 (0.0-3.0) % Gran # 7.53 H (1.4-6.5) Lymph # (Auto) 0.5 L (1.2-3.4) [place] # (Auto) 0.8 H (0.1-0.6) Eos # (Auto) 0.0 (0.0-0.7) Baso # (Auto) 0.00 (0.0-2.0) K/mm3 pCO2 35 (35-45) mm/Hg pO2 116.0 H (80-100) mm/Hg HCO3 25.5 (21-28) mmol/L ABG pH 7.47 H (7.35-7.45) ABG Total CO2 26.6 (22-28) mmol.L ABG O2 Saturation 99.8 H (95-98) % ABG O2 Content 12.9 L (15-23) ML/dl ABG Base Excess 1.9 (-2.0-3.0) mmol/L ABG Hemoglobin 9.3 L (11.7-17.4) g/dL ABG Carboxyhemoglobin 2.4 H (0.5-1.5) % POC ABG HHb (Measured) 0.2 (0-5) % ABG Methemoglobin 0.7 (0.0-3.0) % ABG O2 Capacity 12.9 L (16-24) mL/dl Hgb O2 Saturation 96.8 (95.0-98.0) % FiO2 32.0 % Sodium 142 (132-148) mmol/L Potassium 3.5 L (3.6-5.0) mmol/L Chloride 112 H (98-107) mmol/L Carbon Dioxide 26 (21-33) mmol/L Anion Gap 8 L (10-20) BUN 22 H (7-21) mg/dL Creatinine 0.7 L (0.8-1.5) mg/dl Est GFR ( Amer) > 60 Est GFR (Non-Af Amer) > 60 Random Glucose 103 (70-110) mg/dL Calcium 8.2 L (8.4-10.5) mg/dL Phosphorus 3.2 (2.5-4.5) mg/dL Magnesium 1.9 (1.7-2.2) mg/dL Total Bilirubin 0.6 (0.2-1.3) mg/dL AST 19 (17-59) U/L ALT 18 (7-56) U/L Alkaline Phosphatase 65 (38-126) U/L Total Protein 5.2 L (5.8-8.3) g/dL Albumin 2.8 L (3.0-4.8) g/dL Globulin 2.4 gm/dL Albumin/Globulin Ratio 1.1 (1.1-1.8) Urine Color (YELLOW) Urine Appearance (CLEAR) Urine pH (4.7-8.0) Ur Specific [place] (1.005-1.035) Urine Protein (<30 mg/dL) mg/dL Urine Glucose (UA) (NEGATIVE) mg/dL Urine Ketones (NEGATIVE) mg/dL Urine Blood (NEGATIVE) Urine Nitrate (NEGATIVE) Urine Bilirubin (NEGATIVE) Urine Urobilinogen (<1 E.U./dL) E.U./dL Ur Leukocyte Esterase (NEGATIVE) [place]/uL Urine RBC (0-2) /hpf Urine WBC (0-6) /hpf Ur Epithelial Cells (0-5) /hpf Amorphous Sediment Urine Bacteria (NEG) Coarse Granular Casts (0-2) /hpf 04/30/18 04/30/18 Range/Units 15:15 11:30 WBC (4.5-11.0) 10^3/ul RBC (3.5-6.1) 10^6/uL Hgb (14.0-18.0) g/dL Hct (42.0-52.0) % MCV (80.0-105.0) fl MCH (25.0-35.0) pg MCHC (31.0-37.0) g/dl RDW (11.5-14.5) % Plt Count (120.0-450.0) 10^3/uL MPV (7.0-11.0) fl Gran % (50.0-68.0) % Lymph % (Auto) (22.0-35.0) % [place] % (Auto) (1.0-6.0) % Eos % (Auto) (1.5-5.0) % Baso % (Auto) (0.0-3.0) % Gran # (1.4-6.5) Lymph # (Auto) (1.2-3.4) [place] # (Auto) (0.1-0.6) Eos # (Auto) (0.0-0.7) Baso # (Auto) (0.0-2.0) K/mm3 pCO2 34 L (35-45) mm/Hg pO2 91.0 (80-100) mm/Hg HCO3 22.6 (21-28) mmol/L ABG pH 7.43 (7.35-7.45) ABG Total CO2 23.6 (22-28) mmol.L ABG O2 Saturation 99.2 H (95-98) % ABG O2 Content 14.3 L (15-23) ML/dl ABG Base Excess -1.3 (-2.0-3.0) mmol/L ABG Hemoglobin 10.6 L (11.7-17.4) g/dL ABG Carboxyhemoglobin 2.4 H (0.5-1.5) % POC ABG HHb (Measured) 0.8 (0-5) % ABG Methemoglobin 1.3 (0.0-3.0) % ABG O2 Capacity 14.4 L (16-24) mL/dl Hgb O2 Saturation 95.4 (95.0-98.0) % FiO2 32.0 % Sodium (132-148) mmol/L Potassium (3.6-5.0) mmol/L Chloride (98-107) mmol/L Carbon Dioxide (21-33) mmol/L Anion Gap (10-20) BUN (7-21) mg/dL Creatinine (0.8-1.5) mg/dl Est GFR ( Amer) Est GFR (Non-Af Amer) Random Glucose (70-110) mg/dL Calcium (8.4-10.5) mg/dL Phosphorus (2.5-4.5) mg/dL Magnesium (1.7-2.2) mg/dL Total Bilirubin (0.2-1.3) mg/dL AST (17-59) U/L ALT (7-56) U/L Alkaline Phosphatase (38-126) U/L Total Protein (5.8-8.3) g/dL Albumin (3.0-4.8) g/dL Globulin gm/dL Albumin/Globulin Ratio (1.1-1.8) Urine Color Yellow (YELLOW) Urine Appearance Clear (CLEAR) Urine pH 6.0 (4.7-8.0) Ur Specific [place] >= 1.030 (1.005-1.035) Urine Protein Trace H (<30 mg/dL) mg/dL Urine Glucose (UA) Negative (NEGATIVE) mg/dL Urine Ketones Negative (NEGATIVE) mg/dL Urine Blood Negative (NEGATIVE) Urine Nitrate Negative (NEGATIVE) Urine Bilirubin Negative (NEGATIVE) Urine Urobilinogen 2.0 H (<1 E.U./dL) E.U./dL Ur Leukocyte Esterase Trace H (NEGATIVE) [place]/uL Urine RBC 0 - 2 (0-2) /hpf Urine WBC 5 - 10 (0-6) /hpf Ur Epithelial Cells 0 - 2 (0-5) /hpf Amorphous Sediment Few Urine Bacteria Mod (NEG) Coarse Granular Casts Trace H (0-2) /hpf Laboratory Results - last 24 hr 04/30/18 04/30/18 05/01/18 11:30 15:15 05:50 WBC RBC Hgb Hct MCV MCH MCHC RDW Plt Count MPV Gran % Lymph % (Auto) [place] % (Auto) Eos % (Auto) Baso % (Auto) Gran # Lymph # (Auto) [place] # (Auto) Eos # (Auto) Baso # (Auto) pCO2 34 L 35 pO2 91.0 116.0 H HCO3 22.6 25.5 ABG pH 7.43 7.47 H ABG Total CO2 23.6 26.6 ABG O2 Saturation 99.2 H 99.8 H ABG O2 Content 14.3 L 12.9 L ABG Base Excess -1.3 1.9 ABG Hemoglobin 10.6 L 9.3 L ABG Carboxyhemoglobin 2.4 H 2.4 H POC ABG HHb (Measured) 0.8 0.2 ABG Methemoglobin 1.3 0.7 ABG O2 Capacity 14.4 L 12.9 L Hgb O2 Saturation 95.4 96.8 FiO2 32.0 32.0 Sodium Potassium Chloride Carbon Dioxide Anion Gap BUN Creatinine Est GFR ( Amer) Est GFR (Non-Af Amer) Random Glucose Calcium Phosphorus Magnesium Total Bilirubin AST ALT Alkaline Phosphatase Total Protein Albumin Globulin Albumin/Globulin Ratio Urine Color Yellow Urine Appearance Clear Urine pH 6.0 Ur Specific [place] >= 1.030 Urine Protein Trace H Urine Glucose (UA) Negative Urine Ketones Negative Urine Blood Negative Urine Nitrate Negative Urine Bilirubin Negative Urine Urobilinogen 2.0 H Ur Leukocyte Esterase Trace H Urine RBC 0 - 2 Urine WBC 5 - 10 Ur Epithelial Cells 0 - 2 Amorphous Sediment Few Urine Bacteria Mod Coarse Granular Casts Trace H 05/01/18 05/01/18 06:00 06:00 WBC 8.8 RBC 3.24 L Hgb 9.6 L Hct 29.2 L MCV 90.1 MCH 29.6 MCHC 32.9 RDW 15.3 H Plt Count 314 MPV 8.9 Gran % 86.1 H Lymph % (Auto) 5.1 L [place] % (Auto) 8.8 H Eos % (Auto) 0.0 L Baso % (Auto) 0.0 Gran # 7.53 H Lymph # (Auto) 0.5 L [place] # (Auto) 0.8 H Eos # (Auto) 0.0 Baso # (Auto) 0.00 pCO2 pO2 HCO3 ABG pH ABG Total CO2 ABG O2 Saturation ABG O2 Content ABG Base Excess ABG Hemoglobin ABG Carboxyhemoglobin POC ABG HHb (Measured) ABG Methemoglobin ABG O2 Capacity Hgb O2 Saturation FiO2 Sodium 142 Potassium 3.5 L Chloride 112 H Carbon Dioxide 26 Anion Gap 8 L BUN 22 H Creatinine 0.7 L Est GFR ( Amer) > 60 Est GFR (Non-Af Amer) > 60 Random Glucose 103 Calcium 8.2 L Phosphorus 3.2 Magnesium 1.9 Total Bilirubin 0.6 AST 19 ALT 18 Alkaline Phosphatase 65 Total Protein 5.2 L Albumin 2.8 L Globulin 2.4 Albumin/Globulin Ratio 1.1 Urine Color Urine Appearance Urine pH Ur Specific [place] Urine Protein Urine Glucose (UA) Urine Ketones Urine Blood Urine Nitrate Urine Bilirubin Urine Urobilinogen Ur Leukocyte Esterase Urine RBC Urine WBC Ur Epithelial Cells Amorphous Sediment Urine Bacteria Coarse Granular Casts Fingerstick Blood Sugar Results: 109 Review of Systems - Review of Systems Systems not reviewed;Unavailable: Altered Mental Status Assessment/Plan - Assessment and Plan (Free Text) Assessment: 77 yo M with unclear PMH after found wandering at local grocery store admitted for altered mental status and episode of SVT. Respiratory status subsequently worsened on the floor and was subsequently admitted to ICU in acute respiratory failure. Originally admitted as Elton Majano but identified by brother in law as Paulie Min (also known as Sami Min on prior visits, ). Was admitted for a similar episode in January 2018. At that admission, he was supposed to f/u with Dr. Narvaez for evaluation worsening mental status and possible dementia. Plan: Neuro: -Brain MRI completed, without acute abnormalities -Alert, moving all extremities, trying to get out of bed Cardio: -HR RRR overnight -Will continue to monitor -Continue to maintain MAP > 65 -Cardiology following, recs appreciated Pulm: -CTA b/l, no wheezes s/p duo-neb and solumedrol -Extubated -Maintain SpO2 > 95% -Patient is a chronic smoker and has underlying obstructive disease based on chest CT -Follow up PFTs needed GI: -Advance diet slowly -High risk for aspiration, consider swallow eval /Nephro: -BUN/Cr stable -Continue to replete electrolytes as needed -UOP adequate Endocrine: -Maintain euglycemia -Prior TSH WNL Heme/Onc: -H/H stable -Monitor for signs of HD compromise -Continue to monitor H/H DVT/GI PPX: Lovenox and pepcid Transfer to tele Case and plan reviewed and discussed with my attending Dr. Mimi Burris, IM Resident PGY-1 <Harlan Foy - Last Filed: 05/01/18 14:20> CCU Objective - Vital Signs / Intake & Output Vital Signs (Last 4 hours): Vital Signs Pulse Resp BP Pulse Ox 05/01/18 13:11 60 170/94 H 05/01/18 13:10 68 14 98 05/01/18 13:08 69 19 172/94 H 98 05/01/18 13:00 69 14 99 05/01/18 12:50 71 16 98 05/01/18 12:40 73 37 H 97 05/01/18 12:30 73 38 H 96 05/01/18 12:20 73 96 05/01/18 12:10 77 43 H 95 05/01/18 12:00 75 43 H 163/81 H 94 L 05/01/18 11:50 83 28 H 96 05/01/18 11:40 78 32 H 95 05/01/18 11:30 80 39 H 96 05/01/18 11:27 81 33 H 169/83 H 97 05/01/18 11:20 100 H 28 H 100 05/01/18 11:10 64 13 100 05/01/18 11:00 58 L 12 157/66 H 100 05/01/18 10:50 63 19 100 05/01/18 10:40 63 14 100 05/01/18 10:30 67 37 H 100 05/01/18 10:20 63 15 100 Intake and Output (Last 8hrs): Intake & Output 04/30/18 05/01/18 05/01/18 22:59 06:59 14:59 Intake Total 489.6 180.1 6.3 Output Total 500 250 Balance -10.4 -69.9 6.3 Weight 64.592 kg Intake: IV 279.6 180.1 6.3 IVPB 250 Right Lower Forearm 94 Versed Drip 22 Oral 210 0 Output: Urine 500 250 Urethral (Lane) 500 Urine, Voided 250 Stool 0 Emesis 0 - Medications Active Medications: Active Medications Generic Name Dose Route Start Last Admin Trade Name Freq PRN Reason Stop Dose Admin Albuterol/Ipratropium 3 ml 04/30/18 14:00 05/01/18 13:31 Duoneb 3 Mg/0.5 Mg (3 Ml) Ud IH 3 ml [id number] AMANDA Administration Aspirin 81 mg 04/23/18 10:00 05/01/18 09:40 Ecotrin PO Not Given DAILY AMANDA Divalproex Sodium 125 mg 04/23/18 18:00 05/01/18 13:11 Depakote Sprinkles PO Not Given BID [facility] Protocol Enoxaparin Sodium 40 mg 04/28/18 12:15 05/01/18 09:38 Lovenox SC 40 mg DAILY [facility] Administration Protocol Famotidine 20 mg 04/23/18 10:02 04/30/18 21:00 Pepcid PO Not Given HS [facility] Hydralazine HCl 25 mg 04/30/18 14:21 05/01/18 13:11 Apresoline IVP 25 mg Q4H PRN Administration Systolic Blood Pressure Midazolam 100 mg/100ml in NS 100 mg in 100 mls @ 2 mls/hr 04/25/18 18:45 04/30/18 12:53 Midazolam 100 Mg/100ml In Ns IV 0 mg/hr .Q24H PRN 0 mls/hr Agitation Titration Protocol 2 MG/HR Azithromycin 500 mg in 250 mls @ 167 mls/hr 04/29/18 10:00 05/01/18 09:44 Zithromax 500mg In Ns IVPB 167 mls/hr DAILY AMANDA Administration Protocol Dexmedetomidine HCl 400 mcg in 100 mls @ 3.202 mls/hr 04/30/18 14:11 05/01/18 09:00 Precedex 400mcg/100ml IV 0.2 mcg/kg/hr .Q24H PRN 3.202 mls/hr Agitation Administration Protocol 0.2 MCG/KG/HR Lisinopril 20 mg 04/30/18 13:05 05/01/18 09:41 Zestril NG Not Given DAILY AMANDA Methylprednisolone 40 mg 04/28/18 12:15 05/01/18 09:38 Solu-Medrol IVP 40 mg DAILY AMANDA Administration Metoprolol Tartrate 50 mg 04/29/18 18:00 05/01/18 09:39 Lopressor PO Not Given BID AMANDA Nicotine 1 patch 04/22/18 22:00 04/30/18 22:43 Nicoderm Cq TD 1 patch 2200 AMANDA Administration Ziprasidone 10 mg 04/23/18 18:20 04/25/18 14:30 Geodon Inj IM 10 mg Q12H PRN Administration Agitation Protocol - Patient Studies Lab Studies: Microbiology Studies 04/25/18 22:24 Blood Culture - Final Blood NO GROWTH AFTER 5 DAYS Gram Stain - Final TEST NOT PERFORMED 04/25/18 22:00 Blood Culture - Final Blood NO GROWTH AFTER 5 DAYS Gram Stain - Final TEST NOT PERFORMED Lab Studies 05/01/18 05/01/18 05/01/18 Range/Units 06:00 06:00 05:50 WBC 8.8 (4.5-11.0) 10^3/ul RBC 3.24 L (3.5-6.1) 10^6/uL Hgb 9.6 L (14.0-18.0) g/dL Hct 29.2 L (42.0-52.0) % MCV 90.1 (80.0-105.0) fl MCH 29.6 (25.0-35.0) pg MCHC 32.9 (31.0-37.0) g/dl RDW 15.3 H (11.5-14.5) % Plt Count 314 (120.0-450.0) 10^3/uL MPV 8.9 (7.0-11.0) fl Gran % 86.1 H (50.0-68.0) % Lymph % (Auto) 5.1 L (22.0-35.0) % [place] % (Auto) 8.8 H (1.0-6.0) % Eos % (Auto) 0.0 L (1.5-5.0) % Baso % (Auto) 0.0 (0.0-3.0) % Gran # 7.53 H (1.4-6.5) Lymph # (Auto) 0.5 L (1.2-3.4) [place] # (Auto) 0.8 H (0.1-0.6) Eos # (Auto) 0.0 (0.0-0.7) Baso # (Auto) 0.00 (0.0-2.0) K/mm3 pCO2 35 (35-45) mm/Hg pO2 116.0 H (80-100) mm/Hg HCO3 25.5 (21-28) mmol/L ABG pH 7.47 H (7.35-7.45) ABG Total CO2 26.6 (22-28) mmol.L ABG O2 Saturation 99.8 H (95-98) % ABG O2 Content 12.9 L (15-23) ML/dl ABG Base Excess 1.9 (-2.0-3.0) mmol/L ABG Hemoglobin 9.3 L (11.7-17.4) g/dL ABG Carboxyhemoglobin 2.4 H (0.5-1.5) % POC ABG HHb (Measured) 0.2 (0-5) % ABG Methemoglobin 0.7 (0.0-3.0) % ABG O2 Capacity 12.9 L (16-24) mL/dl Hgb O2 Saturation 96.8 (95.0-98.0) % FiO2 32.0 % Sodium 142 (132-148) mmol/L Potassium 3.5 L (3.6-5.0) mmol/L Chloride 112 H (98-107) mmol/L Carbon Dioxide 26 (21-33) mmol/L Anion Gap 8 L (10-20) BUN 22 H (7-21) mg/dL Creatinine 0.7 L (0.8-1.5) mg/dl Est GFR ( Amer) > 60 Est GFR (Non-Af Amer) > 60 Random Glucose 103 (70-110) mg/dL Calcium 8.2 L (8.4-10.5) mg/dL Phosphorus 3.2 (2.5-4.5) mg/dL Magnesium 1.9 (1.7-2.2) mg/dL Total Bilirubin 0.6 (0.2-1.3) mg/dL AST 19 (17-59) U/L ALT 18 (7-56) U/L Alkaline Phosphatase 65 (38-126) U/L Total Protein 5.2 L (5.8-8.3) g/dL Albumin 2.8 L (3.0-4.8) g/dL Globulin 2.4 gm/dL Albumin/Globulin Ratio 1.1 (1.1-1.8) 04/30/18 Range/Units 15:15 WBC (4.5-11.0) 10^3/ul RBC (3.5-6.1) 10^6/uL Hgb (14.0-18.0) g/dL Hct (42.0-52.0) % MCV (80.0-105.0) fl MCH (25.0-35.0) pg MCHC (31.0-37.0) g/dl RDW (11.5-14.5) % Plt Count (120.0-450.0) 10^3/uL MPV (7.0-11.0) fl Gran % (50.0-68.0) % Lymph % (Auto) (22.0-35.0) % [place] % (Auto) (1.0-6.0) % Eos % (Auto) (1.5-5.0) % Baso % (Auto) (0.0-3.0) % Gran # (1.4-6.5) Lymph # (Auto) (1.2-3.4) [place] # (Auto) (0.1-0.6) Eos # (Auto) (0.0-0.7) Baso # (Auto) (0.0-2.0) K/mm3 pCO2 34 L (35-45) mm/Hg pO2 91.0 (80-100) mm/Hg HCO3 22.6 (21-28) mmol/L ABG pH 7.43 (7.35-7.45) ABG Total CO2 23.6 (22-28) mmol.L ABG O2 Saturation 99.2 H (95-98) % ABG O2 Content 14.3 L (15-23) ML/dl ABG Base Excess -1.3 (-2.0-3.0) mmol/L ABG Hemoglobin 10.6 L (11.7-17.4) g/dL ABG Carboxyhemoglobin 2.4 H (0.5-1.5) % POC ABG HHb (Measured) 0.8 (0-5) % ABG Methemoglobin 1.3 (0.0-3.0) % ABG O2 Capacity 14.4 L (16-24) mL/dl Hgb O2 Saturation 95.4 (95.0-98.0) % FiO2 32.0 % Sodium (132-148) mmol/L Potassium (3.6-5.0) mmol/L Chloride (98-107) mmol/L Carbon Dioxide (21-33) mmol/L Anion Gap (10-20) BUN (7-21) mg/dL Creatinine (0.8-1.5) mg/dl Est GFR ( Amer) Est GFR (Non-Af Amer) Random Glucose (70-110) mg/dL Calcium (8.4-10.5) mg/dL Phosphorus (2.5-4.5) mg/dL Magnesium (1.7-2.2) mg/dL Total Bilirubin (0.2-1.3) mg/dL AST (17-59) U/L ALT (7-56) U/L Alkaline Phosphatase (38-126) U/L Total Protein (5.8-8.3) g/dL Albumin (3.0-4.8) g/dL Globulin gm/dL Albumin/Globulin Ratio (1.1-1.8) Laboratory Results - last 24 hr 04/30/18 05/01/18 05/01/18 15:15 05:50 06:00 WBC 8.8 RBC 3.24 L Hgb 9.6 L Hct 29.2 L MCV 90.1 MCH 29.6 MCHC 32.9 RDW 15.3 H Plt Count 314 MPV 8.9 Gran % 86.1 H Lymph % (Auto) 5.1 L [place] % (Auto) 8.8 H Eos % (Auto) 0.0 L Baso % (Auto) 0.0 Gran # 7.53 H Lymph # (Auto) 0.5 L [place] # (Auto) 0.8 H Eos # (Auto) 0.0 Baso # (Auto) 0.00 pCO2 34 L 35 pO2 91.0 116.0 H HCO3 22.6 25.5 ABG pH 7.43 7.47 H ABG Total CO2 23.6 26.6 ABG O2 Saturation 99.2 H 99.8 H ABG O2 Content 14.3 L 12.9 L ABG Base Excess -1.3 1.9 ABG Hemoglobin 10.6 L 9.3 L ABG Carboxyhemoglobin 2.4 H 2.4 H POC ABG HHb (Measured) 0.8 0.2 ABG Methemoglobin 1.3 0.7 ABG O2 Capacity 14.4 L 12.9 L Hgb O2 Saturation 95.4 96.8 FiO2 32.0 32.0 Sodium Potassium Chloride Carbon Dioxide Anion Gap BUN Creatinine Est GFR ( Amer) Est GFR (Non-Af Amer) Random Glucose Calcium Phosphorus Magnesium Total Bilirubin AST ALT Alkaline Phosphatase Total Protein Albumin Globulin Albumin/Globulin Ratio 05/01/18 06:00 WBC RBC Hgb Hct MCV MCH MCHC RDW Plt Count MPV Gran % Lymph % (Auto) [place] % (Auto) Eos % (Auto) Baso % (Auto) Gran # Lymph # (Auto) [place] # (Auto) Eos # (Auto) Baso # (Auto) pCO2 pO2 HCO3 ABG pH ABG Total CO2 ABG O2 Saturation ABG O2 Content ABG Base Excess ABG Hemoglobin ABG Carboxyhemoglobin POC ABG HHb (Measured) ABG Methemoglobin ABG O2 Capacity Hgb O2 Saturation FiO2 Sodium 142 Potassium 3.5 L Chloride 112 H Carbon Dioxide 26 Anion Gap 8 L BUN 22 H Creatinine 0.7 L Est GFR ( Amer) > 60 Est GFR (Non-Af Amer) > 60 Random Glucose 103 Calcium 8.2 L Phosphorus 3.2 Magnesium 1.9 Total Bilirubin 0.6 AST 19 ALT 18 Alkaline Phosphatase 65 Total Protein 5.2 L Albumin 2.8 L Globulin 2.4 Albumin/Globulin Ratio 1.1 Addendum Addendum: 05/01/18 14:16 ICU Attending Addendum: Patient seen and examined. Case reviewed on round with housestaff. Agree with resident note above with the following additions/exceptions: 77 M found locally admitted for AMS, HCRF s/p intubation and SVT. CT chest suggest emphysema, predom in apicies. tx like COPD exasc with duonebs, steroids and 5 days azithro. procal <0.5 - can d/c other abx Extubated yesterday, has done well since ABG this AM does not show CO2 rentention infact, alkalemic attirbuted his to rise in serum bicarb (contraction alk vs returning to baseline compensation) EEG and MRI completed - f/u as per Neuro for SVT on verapamil and metoprolol. cardio on board HB fluctuating, but stable no evid of bleed transfer to TELE d/w with primary team on rounds this AM rest of care above Harlan Foy MD Sports Marketing Coordinator Crtical Care TIme: 30 mins
[2018-05-01] MEDS: MethylPREDNISolone 40 mg Vial IVP SCH (09:38)
[2018-05-01] MEDS: Enoxaparin 40 mg Syringe SC SCH (09:38)
[2018-05-01] MEDS: Azithromycin 500MG/NS 250ml 500 MG/250 ML BAG IVPB SCH (09:44)
--- NOTE | 2018-05-01 11:47 | CP.PCM.PN ---
<Zainab Barriga - Last Filed: 05/01/18 13:28> Subjective - Date & Time of Evaluation Date of Evaluation: 05/01/18 Time of Evaluation: 09:30 - Subjective Subjective: PGY-1 Zainab Barriga Medicine Progress Note for Dr. Mohan's service Patient seen and examined at bedside. Patient extubated yesterday after MRI. Patient AAOx1. Patient offers no acute complaints and denies headaches, chest pain, sob, n/v, constipation or diarrhea, dysuria. Objective - Vital Signs/Intake and Output Vital Signs (last 24 hours): Temp Pulse Resp BP Pulse Ox 100 F H 62 18 147/71 99 05/01/18 04:00 05/01/18 05:10 05/01/18 05:10 05/01/18 05:00 05/01/18 05:10 Intake and Output: 05/01/18 05/01/18 06:59 18:59 Intake Total 187.7 6.3 Output Total 250 Balance -62.3 6.3 - Medications Medications: Current Medications Albuterol/Ipratropium (Duoneb 3 Mg/0.5 Mg (3 Ml) Ud) 3 ml IH [id number] [facility] Last Admin: 05/01/18 07:38 Dose: 3 ml Aspirin (Ecotrin) 81 mg PO DAILY [facility] Last Admin: 05/01/18 09:40 Dose: Not Given Divalproex Sodium (Depakote Sprinkles) 125 mg PO BID [facility]; Protocol Last Admin: 04/30/18 17:16 Dose: 125 mg Enoxaparin Sodium (Lovenox) 40 mg SC DAILY [facility]; Protocol Last Admin: 05/01/18 09:38 Dose: 40 mg Famotidine (Pepcid) 20 mg PO HS [facility] Last Admin: 04/30/18 21:00 Dose: Not Given Hydralazine HCl (Apresoline) 25 mg IVP Q4H PRN PRN Reason: Systolic Blood Pressure Last Admin: 04/30/18 20:56 Dose: 25 mg Midazolam 100 mg/100ml in NS (Midazolam 100 Mg/100ml In Ns) 100 mg in 100 mls @ 2 mls/hr IV .Q24H PRN; Protocol PRN Reason: Agitation Last Titration: 04/30/18 12:53 Dose: 0 mg/hr, 0 mls/hr Azithromycin (Zithromax 500mg In Ns) 500 mg in 250 mls @ 167 mls/hr IVPB DAILY [facility]; Protocol Last Admin: 05/01/18 09:44 Dose: 167 mls/hr Dexmedetomidine HCl (Precedex 400mcg/100ml) 400 mcg in 100 mls @ 3.202 mls/hr IV .Q24H PRN; Protocol PRN Reason: Agitation Last Admin: 05/01/18 09:00 Dose: 0.2 mcg/kg/hr, 3.202 mls/hr Potassium Chloride (Potassium Chloride 10 Meq/100 Ml) 10 meq in 100 mls @ 50 mls/hr IVPB Q2H [facility] Stop: 05/01/18 12:14 Last Admin: 05/01/18 09:39 Dose: 50 mls/hr Lisinopril (Zestril) 20 mg NG DAILY [facility] Last Admin: 05/01/18 09:41 Dose: Not Given Methylprednisolone (Solu-Medrol) 40 mg IVP DAILY [facility] Last Admin: 05/01/18 09:38 Dose: 40 mg Metoprolol Tartrate (Lopressor) 50 mg PO BID [facility] Last Admin: 05/01/18 09:39 Dose: Not Given Nicotine (Nicoderm Cq) 1 patch TD 2200 [facility] Last Admin: 04/30/18 22:43 Dose: 1 patch Ziprasidone (Geodon Inj) 10 mg IM Q12H PRN; Protocol PRN Reason: Agitation Last Admin: 04/25/18 14:30 Dose: 10 mg - Labs Labs: 05/01/18 06:00 05/01/18 06:00 PT 12.7 SECONDS (9.4-12.5) H 04/25/18 18:57 INR 1.11 04/25/18 18:57 APTT 22.4 Seconds (25.1-36.5) L 04/25/18 18:57 - Constitutional Appears: Non-toxic, No Acute Distress - Head Exam Head Exam: NORMAL INSPECTION, NORMOCEPHALIC - Eye Exam Eye Exam: EOMI, Normal appearance. absent: Nystagmus, Scleral icterus - ENT Exam ENT Exam: Mucous Membranes Moist - Respiratory Exam Respiratory Exam: Clear to Ausculation Bilateral, NORMAL BREATHING PATTERN. absent: Rales, Rhonchi, Wheezes - Cardiovascular Exam Cardiovascular Exam: REGULAR RHYTHM, +S1, +S2 - GI/Abdominal Exam GI & Abdominal Exam: Soft, Normal Bowel Sounds. absent: Distended, Firm, Guarding, Rigid, Tenderness - Extremities Exam Extremities Exam: Normal Inspection. absent: Calf Tenderness, Pedal Edema - Neurological Exam Neurological Exam: Alert, Awake. absent: Oriented x3 - Psychiatric Exam Psychiatric exam: Normal Affect, Normal Mood - Skin Skin Exam: Intact, Normal Color Assessment and Plan - Assessment and Plan (Free Text) Assessment: 77 yo with history of SVT (intially admitted as Elton Majano, later identified as Sami Min) who was found to be in SVT (TSH was normal), and was started on metoprolol and verapamil by Cardiology. Patient had ERP SPECIALIST for lethargy and noted to have hypercapneic respiratory failure, for which he was intubated and transferred to ICU. CXR showed new LLL infiltrate and effusion, and he is on Azithromycin. Patient's medications were changed as per ICU and cardio team to include solu-medrol and metoprolol because patient had low heart rate readings after intubation. Patient's blood pressure remains elevated and lisinopril was added and increased to 20mg. Hydralazine 50mg po q12sch for better blood pressure control. MRI of brain shows no acute abnormalities. Valproate was stopped as per neuro. Hydralazine switched to 25mg IVP q4h. Speech and swallow eval pending prior to patient taking oral meds. Plan: Reentrant supraventicular tachycardia Cardio consulted Dr. Goddard- Hydralazine 25mg IVP q4h prn SBP >180; Metoprolol 50mg bid Metoprolol 50mg bid [facility] Hydralazine 25 mg q12 PRN for SBP >180 Lisinopril 20mg daily [facility] ASA 81mg cont to monitor for episodes Hypercapneic respiratory failure w/ new LLL infiltrate ICU consulted Dr. Adams- patient extubated; On azithromycin for complete of 5 days due to COPD exacerbation 04-28-18 Cxray shows no active disease Azithromycin Solumedrol 40mg IVP Duoneb 3ml IH q6h [facility] AMS, likely 2/2 dementia Psych consulted- Dr. Armenta- started patient on Depakote bettye and Geodon PRN Geodon 10mg IM q12h prn Depakote 125mg po bid for seizure ppx Was on EEG monitoring- but no seizure like activity noted- stopped valproate as per Neuro MRI brain negative for acute abnormalities Hypokalemia Repleted with KCl 10meq x 2 IV CMP in AM Chronic anemia, stable H&H stable; hemondynamically stable Continue to monitor Tobacco use disorder Nicotine 1 patch TD PPx DVT ppx: Lovenox 40mg sc daily GI ppx: Pepcid 20mg po HS Dispo: Pending Update from [employer] Patient was examined and discussed with attending, Dr. Marques Barriga <Ninoska Mohan - Last Filed: 05/01/18 17:47> Objective - Vital Signs/Intake and Output Vital Signs (last 24 hours): Temp Pulse Resp BP Pulse Ox 98.0 F 91 H 64 H 133/74 95 05/01/18 15:34 05/01/18 15:20 05/01/18 15:20 05/01/18 14:02 05/01/18 15:20 Intake and Output: 05/01/18 05/01/18 06:59 18:59 Intake Total 187.7 6.3 Output Total 250 Balance -62.3 6.3 - Medications Medications: Current Medications Albuterol/Ipratropium (Duoneb 3 Mg/0.5 Mg (3 Ml) Ud) 3 ml IH [id number] [facility] Last Admin: 05/01/18 13:31 Dose: 3 ml Aspirin (Ecotrin) 81 mg PO DAILY [facility] Last Admin: 05/01/18 09:40 Dose: Not Given Divalproex Sodium (Depakote Sprinkles) 125 mg PO BID [facility]; Protocol Last Admin: 05/01/18 13:11 Dose: Not Given Enoxaparin Sodium (Lovenox) 40 mg SC DAILY [facility]; Protocol Last Admin: 05/01/18 09:38 Dose: 40 mg Famotidine (Pepcid) 20 mg PO HS [facility] Last Admin: 04/30/18 21:00 Dose: Not Given Hydralazine HCl (Apresoline) 25 mg IVP Q4H PRN PRN Reason: Systolic Blood Pressure Last Admin: 05/01/18 13:11 Dose: 25 mg Azithromycin (Zithromax 500mg In Ns) 500 mg in 250 mls @ 167 mls/hr IVPB DAILY [facility]; Protocol Last Admin: 05/01/18 09:44 Dose: 167 mls/hr Lisinopril (Zestril) 20 mg NG DAILY [facility] Last Admin: 05/01/18 09:41 Dose: Not Given Methylprednisolone (Solu-Medrol) 40 mg IVP DAILY [facility] Last Admin: 05/01/18 09:38 Dose: 40 mg Metoprolol Tartrate (Lopressor) 50 mg PO BID [facility] Last Admin: 05/01/18 17:43 Dose: Not Given Nicotine (Nicoderm Cq) 1 patch TD 2200 [facility] Last Admin: 04/30/18 22:43 Dose: 1 patch Ziprasidone (Geodon Inj) 10 mg IM Q12H PRN; Protocol PRN Reason: Agitation Last Admin: 04/25/18 14:30 Dose: 10 mg - Labs Labs: 05/01/18 06:00 05/01/18 06:00 PT 12.7 SECONDS (9.4-12.5) H 04/25/18 18:57 INR 1.11 04/25/18 18:57 APTT 22.4 Seconds (25.1-36.5) L 04/25/18 18:57 Attending/Attestation - Attestation I have personally seen and examined this patient.: Yes I have fully participated in the care of the patient.: Yes I have reviewed all pertinent clinical information, including history, physical exam and plan: Yes Notes (Text): 05/01/18 17:47 Medical record note made by the resident after discussion with my direction and input after the patient was personally seen and examined by me. I have reviewed the chart and agree that the record accurately reflects by personal performance of the history, physical exam, data review, and medical decision-making, in the course for the patient. I have also personally directed the plan of care. 77 yrs. old male was sent from [facility] for "not feeling well". , was found to have SVT was started on metoprolol and verapamil by Cardiology. Patient had ERP SPECIALIST for lethargy and noted to have hypercapneic respiratory failure, for which he was intubated and transferred to ICU. Patient was extubated yesterday .He is on nasal canula.Lung sound are clear. Mental status is better. Heart rate and blood pressure is better controlled.
[2018-05-01] MEDS: Divalproex 125 mg EC Sprinkle Cap PO SCH ×2 (13:11→18:07)
[2018-05-02] MEDS: Albuterol-Ipratrop 3 mg / 0.5 (3 ml) UD IH SCH ×4 (02:12→19:08)
[2018-05-02 06:33] LABS: EOS % 0.1 % (1.5-5.0); GRAN # 6.31 (1.4-6.5); GRAN % 79.3 % (50.0-68.0); HEMOGLOBIN 9.4 g/dL (14.0-18.0); LYMPH # 0.7 (1.2-3.4); LYMPH % 8.7 % (22.0-35.0); MEAN CELL VOLUME 89.7 fl (80.0-105.0); MEAN CORPUSCULAR HEMOGLOBIN 29.4 pg (25.0-35.0); MEAN CORPUSCULAR HGB CONC 32.8 g/dl (31.0-37.0); MEAN PLATELET VOLUME 9.1 fl (7.0-11.0); MONO % 11.9 % (1.0-6.0); RBC 3.2 10^6/uL (3.5-6.1); RED CELL DISTRIBUTION WIDTH 15.4 % (11.5-14.5)
[2018-05-02 07:28] LABS: ALB/GLOB RATIO 1.2 (1.1-1.8); ALBUMIN 3.1 g/dL (3.0-4.8); ALT/SGPT 30 U/L (7-56); AST/SGOT 31 U/L (17-59); BLOOD UREA NITROGEN 18 mg/dL (7-21); CALCIUM 8.4 mg/dL (8.4-10.5); GFR NON-AFRICAN AMERICAN > 60
[2018-05-02] MEDS: Divalproex 125 mg EC Sprinkle Cap PO SCH ×2 (09:16→17:08)
[2018-05-02] MEDS: Enoxaparin 40 mg Syringe SC SCH (09:17)
[2018-05-02] MEDS: MethylPREDNISolone 40 mg Vial IVP SCH (09:20)
[2018-05-02] MEDS: Azithromycin 500MG/NS 250ml 500 MG/250 ML BAG IVPB SCH (11:09)
--- NOTE | 2018-05-02 13:51 | CP.PCM.PN ---
<Zainab Barriga - Last Filed: 05/02/18 13:59> Subjective - Date & Time of Evaluation Date of Evaluation: 05/02/18 Time of Evaluation: 09:50 - Subjective Subjective: PGY-1 Medicine Progress Note for Dr. Mohan's service Patient seen and examined at bedside. Patient AAOx 1. Patient offers no acute complaints. Patient seemed agitated in the morning. Patient denies chest pain, sob, n/v, constipation or diarrhea, headaches, dysuria. Objective - Vital Signs/Intake and Output Vital Signs (last 24 hours): Temp Pulse Resp BP Pulse Ox 98.5 F 79 20 197/107 H 97 05/02/18 12:00 05/02/18 12:26 05/02/18 06:00 05/02/18 12:26 05/02/18 06:00 Intake and Output: 05/02/18 05/02/18 06:59 18:59 Intake Total 120 Output Total 600 Balance -480 - Medications Medications: Current Medications Albuterol/Ipratropium (Duoneb 3 Mg/0.5 Mg (3 Ml) Ud) 3 ml IH [id number] [facility] Last Admin: 05/02/18 07:50 Dose: 3 ml Aspirin (Ecotrin) 81 mg PO DAILY [facility] Last Admin: 05/02/18 09:16 Dose: 81 mg Divalproex Sodium (Depakote Sprinkles) 125 mg PO BID [facility]; Protocol Last Admin: 05/02/18 09:16 Dose: 125 mg Enoxaparin Sodium (Lovenox) 40 mg SC DAILY [facility]; Protocol Last Admin: 05/02/18 09:17 Dose: 40 mg Famotidine (Pepcid) 20 mg PO HS [facility] Last Admin: 05/01/18 22:00 Dose: 20 mg Hydralazine HCl (Apresoline) 25 mg IVP Q4H PRN PRN Reason: Systolic Blood Pressure Last Admin: 05/02/18 12:26 Dose: 25 mg Lisinopril (Zestril) 20 mg NG DAILY [facility] Last Admin: 05/02/18 09:21 Dose: 20 mg Methylprednisolone (Solu-Medrol) 40 mg IVP DAILY [facility] Last Admin: 05/02/18 09:20 Dose: 40 mg Metoprolol Tartrate (Lopressor) 50 mg PO BID [facility] Last Admin: 05/02/18 09:16 Dose: 50 mg Nicotine (Nicoderm Cq) 1 patch TD 2200 [facility] Last Admin: 05/01/18 22:00 Dose: 1 patch Quetiapine Fumarate (Seroquel) 25 mg PO HS [facility]; Protocol Ziprasidone (Geodon Inj) 10 mg IM Q12H PRN; Protocol PRN Reason: Agitation Last Admin: 04/25/18 14:30 Dose: 10 mg - Labs Labs: 05/02/18 06:00 05/02/18 06:30 PT 12.7 SECONDS (9.4-12.5) H 04/25/18 18:57 INR 1.11 04/25/18 18:57 APTT 22.4 Seconds (25.1-36.5) L 04/25/18 18:57 - Constitutional Appears: Non-toxic, No Acute Distress - Head Exam Head Exam: NORMAL INSPECTION, NORMOCEPHALIC - Eye Exam Eye Exam: EOMI, Normal appearance. absent: Nystagmus, Scleral icterus - ENT Exam ENT Exam: Mucous Membranes Moist - Respiratory Exam Respiratory Exam: Clear to Ausculation Bilateral, NORMAL BREATHING PATTERN. absent: Rales, Rhonchi, Wheezes, Respiratory Distress - Cardiovascular Exam Cardiovascular Exam: REGULAR RHYTHM, +S1, +S2 - GI/Abdominal Exam GI & Abdominal Exam: Soft, Normal Bowel Sounds. absent: Distended, Firm, Tenderness - Extremities Exam Extremities Exam: Normal Inspection. absent: Calf Tenderness, Pedal Edema - Neurological Exam Neurological Exam: Awake. absent: Oriented x3 - Psychiatric Exam Psychiatric exam: Normal Affect, Normal Mood - Skin Skin Exam: Intact, Normal Color Assessment and Plan - Assessment and Plan (Free Text) Assessment: 77 yo with history of SVT (intially admitted as Elton Majano, later identified as Sami Min) who was found to be in SVT (TSH was normal), and was started on metoprolol and verapamil by Cardiology. Patient had GUIDE TRA[employer]EL for lethargy and noted to have hypercapneic respiratory failure, for which he was intubated and transferred to ICU. CXR showed new LLL infiltrate and effusion, and he is on Azithromycin. Patient's medications were changed as per ICU and cardio team to include solu-medrol and metoprolol because patient had low heart rate readings after intubation. Patient's blood pressure remains elevated and lisinopril was added and increased to 20mg. Hydralazine 50mg po q12sch for better blood pressure control. MRI of brain shows no acute abnormalities. Valproate was stopped as per neuro. Hydralazine switched to 25mg IVP q4h. Speech and swallow recommend puree with liquid diet. Meds will be crushed with food. Plan: Reentrant supraventicular tachycardia Cardio consulted Dr. Goddard- Hydralazine 25mg IVP q4h prn SBP >180; Metoprolol 50mg bid Metoprolol 50mg bid [facility]; Lisinopril 20mg daily [facility] Hydralazine 25 mg q12 PRN for SBP >180 ASA 81mg cont to monitor for episodes Hypercapneic respiratory failure w/ new LLL infiltrate ICU consulted Dr. Adams- patient extubated; On azithromycin for complete of 5 days due to COPD exacerbation 04-28-18 Cxray shows no active disease Day 5/ of Azithromycin- final day Day 11/30 of Solumedrol 40mg IVP- final day Duoneb 3ml IH q6h [facility] PT eval pending AMS, likely 2/2 dementia Psych consulted- Dr. Armenta- started patient on Depakote bettye and Geodon PRN MRI brain negative for acute abnormalities Was on EEG monitoring- but no seizure like activity noted- stopped valproate as per Neuro Geodon 10mg IM q12h prn Depakote 125mg po bid for seizure ppx Seroquel 25mg PO HS Hypokalemia Repleted with KCl 10meq x 2 IV CMP in AM Chronic anemia, stable H&H stable; hemondynamically stable Continue to monitor Tobacco use disorder Nicotine 1 patch TD PPx DVT ppx: Lovenox 40mg sc daily GI ppx: Pepcid 20mg po HS Dispo: [facility] with family support; yesterday sister was unable to be contacted Patient was examined and discussed with attending, Dr. Marques Barriga <Ninoska Mohan - Last Filed: 05/04/18 16:46> Objective - Vital Signs/Intake and Output Vital Signs (last 24 hours): Temp Pulse Resp BP Pulse Ox 98.1 F 77 16 114/72 93 L 05/04/18 14:00 05/04/18 14:00 05/04/18 14:00 05/04/18 14:00 05/04/18 14:00 - Medications Medications: Current Medications Albuterol/Ipratropium (Duoneb 3 Mg/0.5 Mg (3 Ml) Ud) 3 ml IH [id number] [facility] Last Admin: 05/04/18 13:13 Dose: 3 ml Arformoterol Tartrate (Brovana) 15 mcg IH [id number] [facility] Last Admin: 05/04/18 07:19 Dose: 15 mcg Aspirin (Ecotrin) 81 mg PO DAILY [facility] Last Admin: 05/04/18 11:38 Dose: 81 mg Budesonide (Pulmicort Respules) 0.5 mg IH [id number] [facility] Last Admin: 05/04/18 07:19 Dose: 0.5 mg Divalproex Sodium (Depakote Sprinkles) 125 mg PO BID [facility]; Protocol Last Admin: 05/04/18 11:37 Dose: 125 mg Enoxaparin Sodium (Lovenox) 40 mg SC DAILY [facility]; Protocol Last Admin: 05/04/18 11:40 Dose: 40 mg Famotidine (Pepcid) 20 mg PO HS [facility] Last Admin: 05/03/18 21:17 Dose: 20 mg Hydralazine HCl (Apresoline) 20 mg IVP Q6H PRN PRN Reason: Systolic Blood Pressure Last Admin: 05/04/18 05:52 Dose: 20 mg Lisinopril (Zestril) 20 mg NG DAILY [facility] Last Admin: 05/04/18 11:38 Dose: 20 mg Lorazepam (Ativan) 0.5 mg IVP Q6H PRN; Protocol PRN Reason: Agitation Last Admin: 05/04/18 05:02 Dose: 0.5 mg Methylprednisolone (Solu-Medrol) 40 mg IVP DAILY [facility] Last Admin: 05/02/18 09:20 Dose: 40 mg Metoprolol Tartrate (Lopressor) 50 mg PO BID [facility] Last Admin: 05/04/18 11:37 Dose: 50 mg Nicotine (Nicoderm Cq) 1 patch TD 2200 [facility] Last Admin: 05/03/18 22:05 Dose: 1 patch Potassium Chloride (K-Dur 20 Meq Er Tab) 40 meq PO DAILY [facility] Last Admin: 05/04/18 11:37 Dose: 40 meq Potassium Chloride (Klor-Con 10) 40 meq PO Q4 [facility] Stop: 05/04/18 20:01 Last Admin: 05/04/18 11:39 Dose: 40 meq Quetiapine Fumarate (Seroquel) 25 mg PO HS [facility]; Protocol Last Admin: 05/03/18 21:17 Dose: 25 mg Ziprasidone (Geodon Inj) 10 mg IM Q12H PRN; Protocol PRN Reason: Agitation Last Admin: 05/02/18 18:47 Dose: 10 mg - Labs Labs: 05/04/18 06:30 05/04/18 13:55 PT 12.7 SECONDS (9.4-12.5) H 04/25/18 18:57 INR 1.11 04/25/18 18:57 APTT 22.4 Seconds (25.1-36.5) L 04/25/18 18:57 Attending/Attestation - Attestation I have personally seen and examined this patient.: Yes I have fully participated in the care of the patient.: Yes I have reviewed all pertinent clinical information, including history, physical exam and plan: Yes Notes (Text): 05/04/18 16:46 Medical record note made by the resident after discussion with my direction and input after the patient was personally seen and examined by me. I have reviewed the chart and agree that the record accurately reflects by personal performance of the history, physical exam, data review, and medical decision-making, in the course for the patient. I have also personally directed the plan of care.
[2018-05-03] MEDS: Albuterol-Ipratrop 3 mg / 0.5 (3 ml) UD IH SCH ×5 (01:51→19:48)
[2018-05-03 06:24] LABS: GRAN # 7.08 (1.4-6.5); GRAN % 80.3 % (50.0-68.0); HEMOGLOBIN 10.8 g/dL (14.0-18.0); LYMPH # 0.7 (1.2-3.4); LYMPH % 8.1 % (22.0-35.0); MEAN CELL VOLUME 89.9 fl (80.0-105.0); MEAN CORPUSCULAR HEMOGLOBIN 29.6 pg (25.0-35.0); MEAN CORPUSCULAR HGB CONC 32.9 g/dl (31.0-37.0); MEAN PLATELET VOLUME 9.1 fl (7.0-11.0); MONO % 11.6 % (1.0-6.0); RBC 3.65 10^6/uL (3.5-6.1); RED CELL DISTRIBUTION WIDTH 15.2 % (11.5-14.5); WHITE BLOOD COUNT 8.8 10^3/ul (4.5-11.0)
[2018-05-03 06:43] LABS: ALB/GLOB RATIO 1.3 (1.1-1.8); ALBUMIN 3.6 g/dL (3.0-4.8); ALT/SGPT 32 U/L (7-56); AST/SGOT 42 U/L (17-59); BLOOD UREA NITROGEN 14 mg/dL (7-21); CALCIUM 8.4 mg/dL (8.4-10.5); GFR NON-AFRICAN AMERICAN > 60
[2018-05-03] MEDS: Divalproex 125 mg EC Sprinkle Cap PO SCH ×2 (10:01→17:41)
[2018-05-03] MEDS: Potassium Chloride 20 mEq ER Tab PO SCH (10:02)
[2018-05-03] MEDS: Enoxaparin 40 mg Syringe SC SCH (10:03)
[2018-05-03] MEDS ORDERED: Fluticasone-Salmeterol 250-50mcg Diskus IH SCH (11:30)
--- NOTE | 2018-05-03 13:06 | CP.PCM.PN ---
<Zainab Barriga - Last Filed: 05/03/18 13:02> Subjective - Date & Time of Evaluation Date of Evaluation: 05/03/18 Time of Evaluation: 09:15 - Subjective Subjective: PGY-1 Medicine Progress Note for Dr. Mohan's service Pt seen this morning attempting to climb OOB every few minutes. Pt is AAO x1. Pt settled down after receiving breakfast. Assistance with meals is recommended. 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 BP has decreased. No acute complaints this morning. Pt denies headache, chest pain, SOB, nausea, vomiting, diarrhea, constipation. Objective - Vital Signs/Intake and Output Vital Signs (last 24 hours): Temp Pulse Resp BP Pulse Ox 98.2 F 98 H 21 158/83 H 94 L 05/03/18 08:23 05/03/18 08:23 05/03/18 08:23 05/03/18 10:03 05/03/18 08:23 Intake and Output: 05/03/18 05/03/18 06:59 18:59 Intake Total 240 Output Total 1050 Balance -810 - Medications Medications: Current Medications Albuterol/Ipratropium (Duoneb 3 Mg/0.5 Mg (3 Ml) Ud) 3 ml IH [id number] [facility] Last Admin: 05/03/18 08:03 Dose: 3 ml Arformoterol Tartrate (Brovana) 15 mcg IH [id number] [facility] Aspirin (Ecotrin) 81 mg PO DAILY [facility] Last Admin: 05/03/18 10:03 Dose: 81 mg Budesonide (Pulmicort Respules) 0.5 mg IH [id number] [facility] Divalproex Sodium (Depakote Sprinkles) 125 mg PO BID [facility]; Protocol Last Admin: 05/03/18 10:01 Dose: 125 mg Enoxaparin Sodium (Lovenox) 40 mg SC DAILY [facility]; Protocol Last Admin: 05/03/18 10:03 Dose: 40 mg Famotidine (Pepcid) 20 mg PO HS [facility] Last Admin: 05/02/18 22:42 Dose: 20 mg Hydralazine HCl (Apresoline) 20 mg IVP Q6H PRN PRN Reason: Systolic Blood Pressure Last Admin: 05/03/18 05:19 Dose: 20 mg Lisinopril (Zestril) 20 mg NG DAILY [facility] Last Admin: 05/03/18 10:02 Dose: 20 mg Lorazepam (Ativan) 0.5 mg IVP Q6H PRN; Protocol PRN Reason: Agitation Last Admin: 05/03/18 08:00 Dose: 0.5 mg Methylprednisolone (Solu-Medrol) 40 mg IVP DAILY [facility] Last Admin: 05/02/18 09:20 Dose: 40 mg Metoprolol Tartrate (Lopressor) 50 mg PO BID [facility] Last Admin: 05/03/18 10:03 Dose: 50 mg Nicotine (Nicoderm Cq) 1 patch TD 2200 [facility] Last Admin: 05/02/18 22:43 Dose: 1 patch Potassium Chloride (K-Dur 20 Meq Er Tab) 40 meq PO DAILY [facility] Last Admin: 05/03/18 10:02 Dose: 40 meq Quetiapine Fumarate (Seroquel) 25 mg PO HS [facility]; Protocol Last Admin: 05/02/18 22:42 Dose: 25 mg Ziprasidone (Geodon Inj) 10 mg IM Q12H PRN; Protocol PRN Reason: Agitation Last Admin: 05/02/18 18:47 Dose: 10 mg - Labs Labs: 05/03/18 05:00 05/03/18 05:00 PT 12.7 SECONDS (9.4-12.5) H 04/25/18 18:57 INR 1.11 04/25/18 18:57 APTT 22.4 Seconds (25.1-36.5) L 04/25/18 18:57 - Additional Findings Additional findings: - Constitutional Appears: Non-toxic, No Acute Distress - Head Exam Head Exam: NORMAL INSPECTION, NORMOCEPHALIC - Eye Exam Eye Exam: EOMI, Normal appearance. absent: Nystagmus, Scleral icterus - ENT Exam ENT Exam: Mucous Membranes Moist - Respiratory Exam Respiratory Exam: Clear to Ausculation Bilateral, NORMAL BREATHING PATTERN. absent: Rales, Rhonchi, Wheezes, Respiratory Distress - Cardiovascular Exam Cardiovascular Exam: REGULAR RHYTHM, +S1, +S2 - GI/Abdominal Exam GI & Abdominal Exam: Soft, Normal Bowel Sounds. absent: Distended, Firm, Tenderness - Extremities Exam Extremities Exam: Normal Inspection. absent: Calf Tenderness, Pedal Edema - Neurological Exam Neurological Exam: Awake. absent: Oriented x3 - Psychiatric Exam Psychiatric exam: Normal Affect, Normal Mood - Skin Skin Exam: Intact, Normal Color Assessment and Plan - Assessment and Plan (Free Text) Assessment: 77 yo with history of SVT (intially admitted as Elton Majano, later identified as Sami Min) who was found to be in SVT (TSH was normal), and was started on metoprolol and verapamil by Cardiology. 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 CXR showed new LLL infiltrate and effusion, and he is on Azithromycin. Patient's medications were changed as per ICU and cardio team to include solu-medrol and metoprolol because patient had low heart rate readings after intubation. Patient's blood pressure remains elevated and lisinopril was added and increased to 20mg. Hydralazine 50mg po q12sch for collette r blood pressure control. MRI of brain shows no acute abnormalities. Valproate was stopped as per neuro. Hydralazine switched to 25mg IVP q4h. Speech and swallow recommend puree with liquid diet. Meds will be crushed with food. Plan: Reentrant supraventicular tachycardia BP this morning (05/03) was 195/111. Given hydralazine 20mg. Cardio consulted Dr. Goddard- Hydralazine 25mg IVP q4h prn SBP >180; Metoprolol 50mg bid Cont Metoprolol 50mg bid bettye; Lisinopril 20mg daily bettye Cont Hydralazine 25 mg q12 PRN for SBP >180 Cont ASA 81mg cont to monitor for episodes Hypercapneic respiratory failure w/ new LLL infiltrate ICU consulted Dr. Adams- patient extubated on 05/01; 5 day course of azithromycin for COPD exacerbation has been completed. No longer on abx. 04-28-18 CXR shows no active disease Brovana/Pulmicort Duoneb 3ml IH q6h bettye PT recommends EMERITA once medically cleared. AMS, likely 2/2 dementia Psych consulted- Dr. Armenta- started patient on Depakote bettye and Geodon PRN MRI brain negative for acute abnormalities Was on EEG monitoring- but no seizure like activity noted- stopped valproate as per Neuro Geodon 10mg IM q12h prn Depakote 125mg po bid for seizure ppx Seroquel 25mg PO HS Agitation Ativan 0.5mg IVP q6 Hypokalemia K on 3.3 on 05/03 Started KCl 40meq po daily CMP in AM Chronic anemia, stable H&H stable; hemondynamically stable Continue to monitor Tobacco use disorder Nicotine 1 patch TD Counseled on smoking cessation PPx DVT ppx: Lovenox 40mg sc daily GI ppx: Pepcid 20mg po HS Dispo: SW working on contacting sister to discuss dispo to [facility] and [facility] with family support Medical Mag <Ninoska Mohan - Last Filed: 05/04/18 16:46> Objective - Vital Signs/Intake and Output Vital Signs (last 24 hours): Temp Pulse Resp BP Pulse Ox 98.1 F 77 16 114/72 93 L 05/04/18 14:00 05/04/18 14:00 05/04/18 14:00 05/04/18 14:00 05/04/18 14:00 - Medications Medications: Current Medications Albuterol/Ipratropium (Duoneb 3 Mg/0.5 Mg (3 Ml) Ud) 3 ml IH [id number] [facility] Last Admin: 05/04/18 13:13 Dose: 3 ml Arformoterol Tartrate (Brovana) 15 mcg IH [id number] [facility] Last Admin: 05/04/18 07:19 Dose: 15 mcg Aspirin (Ecotrin) 81 mg PO DAILY [facility] Last Admin: 05/04/18 11:38 Dose: 81 mg Budesonide (Pulmicort Respules) 0.5 mg IH [id number] [facility] Last Admin: 05/04/18 07:19 Dose: 0.5 mg Divalproex Sodium (Depakote Sprinkles) 125 mg PO BID [facility]; Protocol Last Admin: 05/04/18 11:37 Dose: 125 mg Enoxaparin Sodium (Lovenox) 40 mg SC DAILY [facility]; Protocol Last Admin: 05/04/18 11:40 Dose: 40 mg Famotidine (Pepcid) 20 mg PO HS [facility] Last Admin: 05/03/18 21:17 Dose: 20 mg Hydralazine HCl (Apresoline) 20 mg IVP Q6H PRN PRN Reason: Systolic Blood Pressure Last Admin: 05/04/18 05:52 Dose: 20 mg Lisinopril (Zestril) 20 mg NG DAILY [facility] Last Admin: 05/04/18 11:38 Dose: 20 mg Lorazepam (Ativan) 0.5 mg IVP Q6H PRN; Protocol PRN Reason: Agitation Last Admin: 05/04/18 05:02 Dose: 0.5 mg Methylprednisolone (Solu-Medrol) 40 mg IVP DAILY [facility] Last Admin: 05/02/18 09:20 Dose: 40 mg Metoprolol Tartrate (Lopressor) 50 mg PO BID [facility] Last Admin: 05/04/18 11:37 Dose: 50 mg Nicotine (Nicoderm Cq) 1 patch TD 2200 [facility] Last Admin: 05/03/18 22:05 Dose: 1 patch Potassium Chloride (K-Dur 20 Meq Er Tab) 40 meq PO DAILY [facility] Last Admin: 05/04/18 11:37 Dose: 40 meq Potassium Chloride (Klor-Con 10) 40 meq PO Q4 [facility] Stop: 05/04/18 20:01 Last Admin: 05/04/18 11:39 Dose: 40 meq Quetiapine Fumarate (Seroquel) 25 mg PO HS [facility]; Protocol Last Admin: 05/03/18 21:17 Dose: 25 mg Ziprasidone (Geodon Inj) 10 mg IM Q12H PRN; Protocol PRN Reason: Agitation Last Admin: 05/02/18 18:47 Dose: 10 mg - Labs Labs: 05/04/18 06:30 05/04/18 13:55 PT 12.7 SECONDS (9.4-12.5) H 04/25/18 18:57 INR 1.11 04/25/18 18:57 APTT 22.4 Seconds (25.1-36.5) L 04/25/18 18:57 Attending/Attestation - Attestation I have personally seen and examined this patient.: Yes I have fully participated in the care of the patient.: Yes I have reviewed all pertinent clinical information, including history, physical exam and plan: Yes Notes (Text): 05/04/18 16:43 Medical record note made by the resident after discussion with my direction and input after the patient was personally seen and examined by me. I have reviewed the chart and agree that the record accurately reflects by personal performance of the history, physical exam, data review, and medical decision-making, in the course for the patient. I have also personally directed the plan of care. 77 Yrs old male was sent from [facility] for "not feeling well". , was found to have SVT was started on metoprolol and verapamil by Cardiology. 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 Patient was extubated 04/30/18 .He is on nasal canula. Lung sound are clear. Mental status is better. EEG and MRI negative, likely has underlying dementia,Patient is not wheezing today, we will stop steroid today as he is going to finish 5 days course of steroid for his COPD. PT/OT evaluation is requested. template worker is working on disposition. Prognosis is guarded.
[2018-05-03] MEDS: Arformoterol 15 mcg/2 ml Inh Sol IH SCH (19:47)
[2018-05-03] MEDS: Budesonide 0.5 mg/2 ml Inhal Susp UD IH SCH (19:48)
[2018-05-04] MEDS: Albuterol-Ipratrop 3 mg / 0.5 (3 ml) UD IH SCH ×4 (01:21→21:14)
--- NOTE | 2018-05-04 06:28 | CP.PCM.PN ---
<Marck Barrigakris - Last Filed: 05/04/18 18:33> Subjective - Date & Time of Evaluation Date of Evaluation: 05/04/18 Time of Evaluation: 11:45 - Subjective Subjective: PGY-1 Medicine Progress Note for Dr. Mohan's service Pt seen and examined at bedside. Pt is AAO x1 likely baseline. Pt has moments of agitation. No acute complaints this morning. Pt denies headache, chest pain, SOB, nausea, vomiting, diarrhea, constipation. Objective - Vital Signs/Intake and Output Vital Signs (last 24 hours): Temp Pulse Resp BP Pulse Ox 97.6 F 96 H 18 186/100 H 96 05/03/18 22:00 05/04/18 05:52 05/03/18 22:00 05/04/18 05:52 05/03/18 22:00 Intake and Output: 05/03/18 05/04/18 18:59 06:59 Intake Total 480 Balance 480 - Medications Medications: Current Medications Albuterol/Ipratropium (Duoneb 3 Mg/0.5 Mg (3 Ml) Ud) 3 ml IH [id number] [facility] Last Admin: 05/04/18 01:21 Dose: Not Given Arformoterol Tartrate (Brovana) 15 mcg IH [id number] [facility] Last Admin: 05/03/18 19:47 Dose: 15 mcg Aspirin (Ecotrin) 81 mg PO DAILY [facility] Last Admin: 05/03/18 10:03 Dose: 81 mg Budesonide (Pulmicort Respules) 0.5 mg IH [id number] [facility] Last Admin: 05/03/18 19:48 Dose: 0.5 mg Divalproex Sodium (Depakote Sprinkles) 125 mg PO BID [facility]; Protocol Last Admin: 05/03/18 17:41 Dose: Not Given Enoxaparin Sodium (Lovenox) 40 mg SC DAILY [facility]; Protocol Last Admin: 05/03/18 10:03 Dose: 40 mg Famotidine (Pepcid) 20 mg PO HS [facility] Last Admin: 05/03/18 21:17 Dose: 20 mg Hydralazine HCl (Apresoline) 20 mg IVP Q6H PRN PRN Reason: Systolic Blood Pressure Last Admin: 05/04/18 05:52 Dose: 20 mg Lisinopril (Zestril) 20 mg NG DAILY [facility] Last Admin: 05/03/18 10:02 Dose: 20 mg Lorazepam (Ativan) 0.5 mg IVP Q6H PRN; Protocol PRN Reason: Agitation Last Admin: 05/04/18 05:02 Dose: 0.5 mg Methylprednisolone (Solu-Medrol) 40 mg IVP DAILY [facility] Last Admin: 05/02/18 09:20 Dose: 40 mg Metoprolol Tartrate (Lopressor) 50 mg PO BID [facility] Last Admin: 05/03/18 17:44 Dose: Not Given Nicotine (Nicoderm Cq) 1 patch TD 2200 [facility] Last Admin: 05/03/18 22:05 Dose: 1 patch Potassium Chloride (K-Dur 20 Meq Er Tab) 40 meq PO DAILY [facility] Last Admin: 05/03/18 10:02 Dose: 40 meq Quetiapine Fumarate (Seroquel) 25 mg PO HS [facility]; Protocol Last Admin: 05/03/18 21:17 Dose: 25 mg Ziprasidone (Geodon Inj) 10 mg IM Q12H PRN; Protocol PRN Reason: Agitation Last Admin: 05/02/18 18:47 Dose: 10 mg - Labs Labs: 05/03/18 05:00 05/03/18 05:00 PT 12.7 SECONDS (9.4-12.5) H 04/25/18 18:57 INR 1.11 04/25/18 18:57 APTT 22.4 Seconds (25.1-36.5) L 04/25/18 18:57 - Additional Findings Additional findings: - Constitutional Appears: Non-toxic, No Acute Distress - Head Exam Head Exam: NORMAL INSPECTION, NORMOCEPHALIC - Eye Exam Eye Exam: EOMI, Normal appearance. absent: Nystagmus, Scleral icterus - ENT Exam ENT Exam: Mucous Membranes Moist - Respiratory Exam Respiratory Exam: Clear to Ausculation Bilateral, NORMAL BREATHING PATTERN. absent: Rales, Rhonchi, Wheezes, Respiratory Distress - Cardiovascular Exam Cardiovascular Exam: REGULAR RHYTHM, +S1, +S2 - GI/Abdominal Exam GI & Abdominal Exam: Soft, Normal Bowel Sounds. absent: Distended, Firm, Tenderness - Extremities Exam Extremities Exam: Normal Inspection. absent: Calf Tenderness, Pedal Edema - Neurological Exam Neurological Exam: Awake. absent: Oriented x3 - Psychiatric Exam Psychiatric exam: Normal Affect, Normal Mood - Skin Skin Exam: Intact, Normal Color Assessment and Plan - Assessment and Plan (Free Text) Assessment: 77 yo with history of SVT (intially admitted as Elton Majano, later identified as Sami Min) who was found to be in SVT (TSH was normal), and was started on metoprolol and verapamil by Cardiology. 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 CXR showed new LLL infiltrate and effusion, and he is on Azithromycin. Patient's medications were changed as per ICU and cardio team to include solu-medrol and metoprolol because patient had low heart rate readings after intubation. Patient's current medications have his blood pressure and heart rate under well control. Pending social work update for shelter care plan. Plan: Reentrant supraventicular tachycardia Cardio consulted Dr. Goddard- reccomendations as below Cont Metoprolol 50mg bid bettye; Lisinopril 20mg daily bettye Cont Hydralazine 20 mg IVP q6h PRN for SBP >180 Cont ASA 81mg Hypercapneic respiratory failure w/ new LLL infiltrate ICU consulted Dr. Adams- patient extubated on 05/01; 5 day course of azithromycin for COPD exacerbation has been completed. No longer on abx. 04-28-18 CXR shows no active disease Brovana/Pulmicort Duoneb 3ml IH q6h bettye PT recommends EMERITA once medically cleared. AMS, likely 2/2 dementia Psych consulted- Dr. Armenta- started patient on Depakote bettye and Geodon PRN MRI brain negative for acute abnormalities Was on EEG monitoring- but no seizure like activity noted- stopped valproate as per Neuro Geodon 10mg IM q12h prn Depakote 125mg po bid for seizure ppx Seroquel 25mg PO HS Agitation Ativan 0.5mg IVP q6 Hypokalemia 2.8 in AM Repleted with Kcl oral and IV Repeat BMP shows 4.0 Chronic anemia, stable H&H stable; hemondynamically stable Continue to monitor Tobacco use disorder Nicotine 1 patch TD Counseled on smoking cessation PPx DVT ppx: Lovenox 40mg sc daily GI ppx: Pepcid 20mg po HS Dispo: SW working on contacting sister to discuss dispo to [facility] and [facility] with family support Medical Management discussed with Dr. Mohan PGY-1 Zainab Barriga <Ninoska Mohan - Last Filed: 05/12/18 08:11> Objective - Vital Signs/Intake and Output Vital Signs (last 24 hours): Temp Pulse Resp BP Pulse Ox 98.1 F 68 18 109/47 L 96 05/09/18 15:20 05/09/18 15:20 05/09/18 15:20 05/09/18 15:20 05/09/18 15:20 - Labs Labs: 05/08/18 07:15 05/08/18 07:15 PT 12.7 SECONDS (9.4-12.5) H 04/25/18 18:57 INR 1.11 04/25/18 18:57 APTT 22.4 Seconds (25.1-36.5) L 04/25/18 18:57 Attending/Attestation - Attestation I have personally seen and examined this patient.: Yes I have fully participated in the care of the patient.: Yes I have reviewed all pertinent clinical information, including history, physical exam and plan: Yes Notes (Text): 05/12/18 08:11 Medical record note made by the resident after discussion with my direction and input after the patient was personally seen and examined by me. I have reviewed the chart and agree that the record accurately reflects by personal performance of the history, physical exam, data review, and medical decision-making, in the course for the patient. I have also personally directed the plan of care.
[2018-05-04] MEDS: Budesonide 0.5 mg/2 ml Inhal Susp UD IH SCH ×2 (07:19→21:14)
[2018-05-04] MEDS: Arformoterol 15 mcg/2 ml Inh Sol IH SCH ×2 (07:19→21:14)
[2018-05-04 07:35] LABS: BASO # 0.01 K/mm3 (0.0-2.0); BASO % 0.1 % (0.0-3.0); EOS % 0.3 % (1.5-5.0); GRAN # 5.01 (1.4-6.5); GRAN % 74.1 % (50.0-68.0); HEMOGLOBIN 10.6 g/dL (14.0-18.0); LYMPH # 1.1 (1.2-3.4); LYMPH % 16.5 % (22.0-35.0); MEAN CELL VOLUME 88.9 fl (80.0-105.0); MEAN CORPUSCULAR HEMOGLOBIN 29.4 pg (25.0-35.0); MEAN PLATELET VOLUME 8.9 fl (7.0-11.0); MONO # 0.6 (0.1-0.6); RBC 3.61 10^6/uL (3.5-6.1); WHITE BLOOD COUNT 6.8 10^3/ul (4.5-11.0)
[2018-05-04 08:04] LABS: ALB/GLOB RATIO 1.3 (1.1-1.8); ALBUMIN 3.3 g/dL (3.0-4.8); ALT/SGPT 43 U/L (7-56); AST/SGOT 48 U/L (17-59); BLOOD UREA NITROGEN 15 mg/dL (7-21); CALCIUM 8.4 mg/dL (8.4-10.5); GFR NON-AFRICAN AMERICAN > 60
[2018-05-04] MEDS: Divalproex 125 mg EC Sprinkle Cap PO SCH ×2 (11:37→17:24)
[2018-05-04] MEDS: Potassium Chloride 20 mEq ER Tab PO SCH (11:37)
[2018-05-04] MEDS: Potassium Chloride 10 mEq ER Tab PO SCH ×3 (11:39→22:51)
[2018-05-04] MEDS: Enoxaparin 40 mg Syringe SC SCH (11:40)
--- NOTE | 2018-05-04 13:12 | CARD ---
APPROVED REPORT Date of service: 05/04/2018 EKG Measurement Heart [id number] <Conclusion> Sinus rhythm with premature atrial complexes Left ventricular hypertrophy with repolarization abnormality Inferior infarct, age undetermined Prolonged QT Abnormal ECG
[2018-05-04 14:18] LABS: BLOOD UREA NITROGEN 22 mg/dL (7-21); CALCIUM 8.3 mg/dL (8.4-10.5); GFR NON-AFRICAN AMERICAN > 60
[2018-05-05] MEDS: Albuterol-Ipratrop 3 mg / 0.5 (3 ml) UD IH SCH ×4 (01:16→19:20)
[2018-05-05] MEDS: Arformoterol 15 mcg/2 ml Inh Sol IH SCH ×2 (07:31→19:20)
[2018-05-05] MEDS: Budesonide 0.5 mg/2 ml Inhal Susp UD IH SCH ×2 (07:32→19:20)
[2018-05-05 07:47] LABS: EOS # 0.1 (0.0-0.7); EOS % 0.8 % (1.5-5.0); GRAN # 5.53 (1.4-6.5); GRAN % 70.8 % (50.0-68.0); HEMOGLOBIN 10.4 g/dL (14.0-18.0); LYMPH # 1.4 (1.2-3.4); LYMPH % 17.9 % (22.0-35.0); MEAN CELL VOLUME 90.5 fl (80.0-105.0); MEAN CORPUSCULAR HEMOGLOBIN 29.1 pg (25.0-35.0); MEAN CORPUSCULAR HGB CONC 32.2 g/dl (31.0-37.0); MEAN PLATELET VOLUME 9.3 fl (7.0-11.0); MONO # 0.8 (0.1-0.6); MONO % 10.5 % (1.0-6.0); RBC 3.57 10^6/uL (3.5-6.1); RED CELL DISTRIBUTION WIDTH 15.2 % (11.5-14.5); WHITE BLOOD COUNT 7.8 10^3/ul (4.5-11.0)
[2018-05-05 08:10] LABS: ALB/GLOB RATIO 1.3 (1.1-1.8); ALBUMIN 3.3 g/dL (3.0-4.8); ALT/SGPT 40 U/L (7-56); AST/SGOT 41 U/L (17-59); BLOOD UREA NITROGEN 32 mg/dL (7-21); CALCIUM 8.6 mg/dL (8.4-10.5); GFR NON-AFRICAN AMERICAN > 60
[2018-05-05] MEDS: Divalproex 125 mg EC Sprinkle Cap PO SCH ×3 (10:00→18:09)
[2018-05-05] MEDS: Potassium Chloride 20 mEq ER Tab PO SCH (10:20)
[2018-05-05] MEDS: Enoxaparin 40 mg Syringe SC SCH (10:47)
--- NOTE | 2018-05-05 16:19 | CP.PCM.PN ---
Subjective - Date & Time of Evaluation Date of Evaluation: 05/05/18 Time of Evaluation: 11:45 - Subjective Subjective: PGY-1 Medicine Progress Note for Dr. Camargo's service Patient seen and examined at bedside. Patient offers no acute complaints. Patient denies fevers, chills, chest pain, sob, n/v, constipation or diarrhea, d ysuria. Objective - Vital Signs/Intake and Output Vital Signs (last 24 hours): Temp Pulse Resp BP Pulse Ox 97.4 F L 72 18 141/8 L 98 05/05/18 08:20 05/05/18 10:58 05/05/18 08:20 05/05/18 10:58 05/05/18 08:20 Intake and Output: 05/05/18 05/05/18 06:59 18:59 Intake Total 540 500 Balance 540 500 - Medications Medications: Current Medications Albuterol/Ipratropium (Duoneb 3 Mg/0.5 Mg (3 Ml) Ud) 3 ml IH [id number] [facility] Last Admin: 05/05/18 14:19 Dose: 3 ml Arformoterol Tartrate (Brovana) 15 mcg IH [id number] [facility] Last Admin: 05/05/18 07:31 Dose: 15 mcg Aspirin (Ecotrin) 81 mg PO DAILY [facility] Last Admin: 05/05/18 10:58 Dose: 81 mg Budesonide (Pulmicort Respules) 0.5 mg IH [id number] [facility] Last Admin: 05/05/18 07:32 Dose: 0.5 mg Divalproex Sodium (Depakote Sprinkles) 125 mg PO BID [facility]; Protocol Last Admin: 05/05/18 10:48 Dose: 125 mg Enoxaparin Sodium (Lovenox) 40 mg SC DAILY [facility]; Protocol Last Admin: 05/05/18 10:47 Dose: 40 mg Famotidine (Pepcid) 20 mg PO HS [facility] Last Admin: 05/04/18 22:52 Dose: 20 mg Hydralazine HCl (Apresoline) 20 mg IVP Q6H PRN PRN Reason: Systolic Blood Pressure Last Admin: 05/04/18 05:52 Dose: 20 mg Lisinopril (Zestril) 20 mg NG DAILY [facility] Last Admin: 05/05/18 10:48 Dose: 20 mg Lorazepam (Ativan) 0.5 mg IVP Q6H PRN; Protocol PRN Reason: Agitation Last Admin: 05/05/18 11:10 Dose: 0.5 mg Methylprednisolone (Solu-Medrol) 40 mg IVP DAILY [facility] Last Admin: 05/02/18 09:20 Dose: 40 mg Metoprolol Tartrate (Lopressor) 50 mg PO BID [facility] Last Admin: 05/05/18 10:58 Dose: 50 mg Nicotine (Nicoderm Cq) 1 patch TD 2200 [facility] Last Admin: 05/04/18 22:52 Dose: 1 patch Potassium Chloride (K-Dur 20 Meq Er Tab) 40 meq PO DAILY [facility] Last Admin: 05/05/18 10:20 Dose: 40 meq Quetiapine Fumarate (Seroquel) 25 mg PO HS [facility]; Protocol Last Admin: 05/04/18 22:52 Dose: 25 mg Ziprasidone (Geodon Inj) 10 mg IM Q12H PRN; Protocol PRN Reason: Agitation Last Admin: 05/04/18 23:17 Dose: 10 mg - Labs Labs: 05/05/18 07:30 05/05/18 07:30 PT 12.7 SECONDS (9.4-12.5) H 04/25/18 18:57 INR 1.11 04/25/18 18:57 APTT 22.4 Seconds (25.1-36.5) L 04/25/18 18:57 - Additional Findings Additional findings: - Constitutional Appears: Non-toxic, No Acute Distress - Head Exam Head Exam: NORMAL INSPECTION, NORMOCEPHALIC - Eye Exam Eye Exam: EOMI, Normal appearance. absent: Nystagmus, Scleral icterus - ENT Exam ENT Exam: Mucous Membranes Moist - Respiratory Exam Respiratory Exam: Clear to Ausculation Bilateral, NORMAL BREATHING PATTERN. absent: Rales, Rhonchi, Wheezes, Respiratory Distress - Cardiovascular Exam Cardiovascular Exam: REGULAR RHYTHM, +S1, +S2 - GI/Abdominal Exam GI & Abdominal Exam: Soft, Normal Bowel Sounds. absent: Distended, Firm, Tenderness - Extremities Exam Extremities Exam: Normal Inspection. absent: Calf Tenderness, Pedal Edema - Neurological Exam Neurological Exam: Awake. absent: Oriented x3 - Psychiatric Exam Psychiatric exam: Normal Affect, Normal Mood - Skin Skin Exam: Intact, Normal Color Assessment and Plan - Assessment and Plan (Free Text) Assessment: 77 yo with history of SVT (intially admitted as Elton Majano, later identified as Sami Min) who was found to be in SVT (TSH was normal), and was started on metoprolol and verapamil by Cardiology. Patient had [employer] for lethargy and noted to have hypercapneic respiratory failure, for which he was intubated and transferred to ICU. CXR showed new LLL infiltrate and effusion, and he is on Azithromycin. Patient's medications were changed as per ICU and cardio team to include solu-medrol and metoprolol because patient had low heart rate readings after intubation. Patient's current medications have his blood pressure and heart rate under well control. 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 Plan: Reentrant supraventicular tachycardia Cardio consulted Dr. Goddard- reccomendations as below Cont Metoprolol 50mg bid bettye; Lisinopril 20mg daily bettye Cont Hydralazine 20 mg IVP q6h PRN for SBP >180 Cont ASA 81mg Hypercapneic respiratory failure w/ new LLL infiltrate ICU consulted Dr. Adams- patient extubated on 05/01; 5 day course of azithromycin for COPD exacerbation has been completed. No longer on abx. 04-28-18 CXR shows no active disease Brovana/Pulmicort Duoneb 3ml IH q6h bettye PT recommends [facility] once medically cleared. AMS, likely 2/2 dementia Psych consulted- Dr. Armenta- started patient on Depakote bettye and Geodon PRN MRI brain negative for acute abnormalities Was on EEG monitoring- but no seizure like activity noted- stopped valproate as per Neuro Geodon 10mg IM q12h prn Depakote 125mg po bid for seizure ppx Seroquel 25mg PO HS Agitation Ativan 0.5mg IVP q6 Hypokalemia 2.8 in AM Repleted with Kcl oral and IV Repeat BMP shows 4.0 Chronic anemia, stable H&H stable; hemondynamically stable Continue to monitor Tobacco use disorder Nicotine 1 patch TD Counseled on smoking cessation PPx DVT ppx: Lovenox 40mg sc daily GI ppx: Pepcid 20mg po HS Dispo: SW working on contacting sister to discuss dispo to [facility] and then [facility] with family support Medical Management discussed with Dr. Camargo PGY-1 Zainab Barriga
--- NOTE | 2018-05-05 21:36 | PN ---
DATE: 05/05/2018 SUBJECTIVE: The patient is comfortable, sitting on a chair. He denies any chest pain. He is confused to place. PHYSICAL EXAMINATION VITAL SIGNS: Blood pressure 141/78, heart rate 74, temperature 97.4, respirations 18. HEENT: Normocephalic. CHEST: Bilateral rhonchi. HEART: S1 and S2 regular. EXTREMITIES: No edema. LABORATORY DATA: Today's SMA-7 is within normal limits except for BUN of 32 and anion gap of 9. Today's hemoglobin and hematocrit 10.4 and 32.0, white count and platelet count are within normal limit. ASSESSMENT: 1. Status post respiratory failure. 2. Paroxysmal reentrant supraventricular tachycardia. 3. Status post syncopal episode on presentation. 4. Dementia. 5. Chronic obstructive lung disease. RECOMMENDATIONS: Continue hydralazine 20 mg intravenously every 6 hours p.r.n, continue Brovana 15 mcg inhalation every 12 hours, aspirin 81 mg once a day, Geodon 10 mg IM every 12 hours p.r.n., K-Dur 40 mEq orally daily, Lopressor 50 mg once a day, Lovenox 40 mg subcutaneous once a day, Zestril 20 mg once a day, Solu-Medrol 40 mg intravenously daily. Parish Goddard MD
[2018-05-06] MEDS: Albuterol-Ipratrop 3 mg / 0.5 (3 ml) UD IH SCH ×4 (02:39→20:29)
[2018-05-06] MEDS: Budesonide 0.5 mg/2 ml Inhal Susp UD IH SCH ×2 (07:10→20:29)
[2018-05-06] MEDS: Arformoterol 15 mcg/2 ml Inh Sol IH SCH ×2 (07:10→20:29)
[2018-05-06 08:19] LABS: BASO # 0.02 K/mm3 (0.0-2.0); BASO % 0.2 % (0.0-3.0); EOS # 0.1 (0.0-0.7); EOS % 1.1 % (1.5-5.0); GRAN # 7.48 (1.4-6.5); GRAN % 75.7 % (50.0-68.0); HEMOGLOBIN 10.8 g/dL (14.0-18.0); LYMPH # 2.1 (1.2-3.4); LYMPH % 21.4 % (22.0-35.0); MEAN CELL VOLUME 91.8 fl (80.0-105.0); MEAN CORPUSCULAR HEMOGLOBIN 29.3 pg (25.0-35.0); MEAN PLATELET VOLUME 9.1 fl (7.0-11.0); MONO # 0.2 (0.1-0.6); MONO % 1.6 % (1.0-6.0); RBC 3.68 10^6/uL (3.5-6.1); RED CELL DISTRIBUTION WIDTH 15.3 % (11.5-14.5); WHITE BLOOD COUNT 9.9 10^3/ul (4.5-11.0)
[2018-05-06 08:32] LABS: ALB/GLOB RATIO 1.4 (1.1-1.8); ALBUMIN 3.8 g/dL (3.0-4.8); ALT/SGPT 42 U/L (7-56); AST/SGOT 33 U/L (17-59); BLOOD UREA NITROGEN 22 mg/dL (7-21); GFR NON-AFRICAN AMERICAN > 60
[2018-05-06] MEDS: Enoxaparin 40 mg Syringe SC SCH (10:33)
[2018-05-06] MEDS: Divalproex 125 mg EC Sprinkle Cap PO SCH ×2 (10:33→17:38)
[2018-05-06] MEDS: Potassium Chloride 20 mEq ER Tab PO SCH (10:33)
--- NOTE | 2018-05-06 16:29 | CP.PCM.PN ---
Subjective - Date & Time of Evaluation Date of Evaluation: 05/06/18 Time of Evaluation: 11:45 - Subjective Subjective: PGY-1 Medicine Progress Note for Dr. Camargo's service Patient seen and examined at bedside. Patient offers no acute complaints. Patient denies fevers, chills, chest pain, sob, n/v, constipation or diarrhea, d ysuria. Objective - Vital Signs/Intake and Output Vital Signs (last 24 hours): Temp Pulse Resp BP Pulse Ox 97.8 F 70 18 135/77 94 L 05/06/18 14:00 05/06/18 14:00 05/06/18 14:00 05/06/18 14:00 05/06/18 14:00 Intake and Output: 05/06/18 05/06/18 06:59 18:59 Intake Total 120 Balance 120 - Medications Medications: Current Medications Albuterol/Ipratropium (Duoneb 3 Mg/0.5 Mg (3 Ml) Ud) 3 ml IH [id number] [facility] Last Admin: 05/06/18 13:13 Dose: 3 ml Arformoterol Tartrate (Brovana) 15 mcg IH [id number] [facility] Last Admin: 05/06/18 07:10 Dose: 15 mcg Aspirin (Ecotrin) 81 mg PO DAILY [facility] Last Admin: 05/06/18 10:33 Dose: 81 mg Budesonide (Pulmicort Respules) 0.5 mg IH [id number] [facility] Last Admin: 05/06/18 07:10 Dose: 0.5 mg Divalproex Sodium (Depakote Sprinkles) 125 mg PO BID [facility]; Protocol Last Admin: 05/06/18 10:33 Dose: 125 mg Famotidine (Pepcid) 20 mg PO HS [facility] Last Admin: 05/05/18 21:30 Dose: 20 mg Folic Acid (Folic Acid) 1 mg PO DAILY [facility] Hydralazine HCl (Apresoline) 20 mg IVP Q6H PRN PRN Reason: Systolic Blood Pressure Last Admin: 05/06/18 00:27 Dose: 20 mg Lisinopril (Zestril) 20 mg NG DAILY [facility] Last Admin: 05/06/18 10:34 Dose: 20 mg Lorazepam (Ativan) 0.5 mg IVP Q6H PRN; Protocol PRN Reason: Agitation Last Admin: 05/05/18 11:10 Dose: 0.5 mg Methylprednisolone (Solu-Medrol) 40 mg IVP DAILY [facility] Last Admin: 05/02/18 09:20 Dose: 40 mg Metoprolol Tartrate (Lopressor) 50 mg PO BID [facility] Last Admin: 05/06/18 10:33 Dose: 50 mg Multivitamins/Minerals (Therapeutic-M Tab) 1 tab PO 0800 [facility] Nicotine (Nicoderm Cq) 1 patch TD 2200 [facility] Last Admin: 05/04/18 22:52 Dose: 1 patch Potassium Chloride (K-Dur 20 Meq Er Tab) 40 meq PO DAILY [facility] Last Admin: 05/06/18 10:33 Dose: 40 meq Quetiapine Fumarate (Seroquel) 25 mg PO HS [facility]; Protocol Last Admin: 05/05/18 21:30 Dose: 25 mg Thiamine HCl (Vitamin B1 Tab) 100 mg PO DAILY [facility] Ziprasidone (Geodon Inj) 10 mg IM Q12H PRN; Protocol PRN Reason: Agitation Last Admin: 05/04/18 23:17 Dose: 10 mg - Labs Labs: 05/06/18 08:00 05/06/18 08:00 PT 12.7 SECONDS (9.4-12.5) H 04/25/18 18:57 INR 1.11 04/25/18 18:57 APTT 22.4 Seconds (25.1-36.5) L 04/25/18 18:57 - Additional Findings Additional findings: - Constitutional Appears: Non-toxic, No Acute Distress - Head Exam Head Exam: NORMAL INSPECTION, NORMOCEPHALIC - Eye Exam Eye Exam: EOMI, Normal appearance. absent: Nystagmus, Scleral icterus - ENT Exam ENT Exam: Mucous Membranes Moist - Respiratory Exam Respiratory Exam: Clear to Ausculation Bilateral, NORMAL BREATHING PATTERN. absent: Rales, Rhonchi, Wheezes, Respiratory Distress - Cardiovascular Exam Cardiovascular Exam: REGULAR RHYTHM, +S1, +S2 - GI/Abdominal Exam GI & Abdominal Exam: Soft, Normal Bowel Sounds. absent: Distended, Firm, Tenderness - Extremities Exam Extremities Exam: Normal Inspection. absent: Calf Tenderness, Pedal Edema - Neurological Exam Neurological Exam: Awake. absent: Oriented x3 - Psychiatric Exam Psychiatric exam: Normal Affect, Normal Mood - Skin Skin Exam: Intact, Normal Color Assessment and Plan - Assessment and Plan (Free Text) Assessment: 77 yo with history of SVT (intially admitted as Elton Majano, later identified as Sami Min) who was found to be in SVT (TSH was normal), and was started on metoprolol and verapamil by Cardiology. Patient had [employer] for lethargy and noted to have hypercapneic respiratory failure, for which he was intubated and transferred to ICU. CXR showed new LLL infiltrate and effusion, and he is on Azithromycin. Patient's medications were changed as per ICU and cardio team to include solu-medrol and metoprolol because patient had low heart rate readings after intubation. Patient's current medications have his blood pressure and heart rate under well control. 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 Plan: Reentrant supraventicular tachycardia Cardio consulted Dr. Goddard- reccomendations as below Cont Metoprolol 50mg bid bettye; Lisinopril 20mg daily bettye Cont Hydralazine 20 mg IVP q6h PRN for SBP >180 Cont ASA 81mg Hypercapneic respiratory failure w/ new LLL infiltrate ICU consulted Dr. Adams- patient extubated on 05/01; 5 day course of azithromycin for COPD exacerbation has been completed. No longer on abx. 04-28-18 CXR shows no active disease Brovana/Pulmicort Duoneb 3ml IH q6h bettye PT recommends [facility] once medically cleared. AMS, likely 2/2 dementia likely 2/2 chronic alcohol abuse; family provided history Psych consulted- Dr. Armenta- started patient on Depakote bettye and Geodon PRN MRI brain negative for acute abnormalities Was on EEG monitoring- but no seizure like activity noted- stopped valproate as per Neuro Geodon 10mg IM q12h prn Depakote 125mg po bid for seizure ppx Seroquel 25mg PO HS Thiamine, Folic acid, Multivitamins Agitation Ativan 0.5mg IVP q6 Hypokalemia 2.8 in AM Repleted with Kcl oral and IV Repeat BMP shows 4.0 Chronic anemia, stable H&H stable; hemondynamically stable Continue to monitor Tobacco use disorder Nicotine 1 patch TD PPx DVT ppx: Lovenox 40mg sc daily GI ppx: Pepcid 20mg po HS Dispo: SW working on contacting sister to discuss dispo to [facility] and then [facility] with family support Medical Management discussed with Dr. Camargo PGY-1 Zainab Barriga
--- NOTE | 2018-05-06 20:44 | PN ---
DATE: 05/06/2018 SUBJECTIVE: The patient is confused, but pleasant. He denies any chest pain. PHYSICAL EXAMINATION: VITAL SIGNS: Blood pressure 135/77, heart rate 70, temperature 97.8, respiration 18. HEENT: Normocephalic. CHEST: Minimal rhonchi. HEART: S1, S2 regular. EXTREMITIES: No edema. LABORATORY DATA: Today's hemoglobin and hematocrit 10.8 and 33.8. White count and platelet count are within normal limit. Today's SMA-7 is within normal limit except for BUN of 22. ASSESSMENT: 1. Status post respiratory failure. 2. Paroxysmal reentrant supraventricular tachycardia. 3. Chronic obstructive lung disease. 4. Dementia. 5. Hypertension. RECOMMENDATIONS: Continue current hydralazine 20 mg intravenously every 6 hours p.r.n., continue current aspirin 81 mg once a day, Lovenox 40 mg subcutaneously once a day, Lopressor 50 mg twice a day, Solu-Medrol 40 mg intravenously daily, and thiamine 100 mg once a day. Parish Goddard MD
[2018-05-07] MEDS: Albuterol-Ipratrop 3 mg / 0.5 (3 ml) UD IH SCH ×4 (03:10→20:20)
[2018-05-07] MEDS: Arformoterol 15 mcg/2 ml Inh Sol IH SCH ×2 (07:30→20:20)
[2018-05-07] MEDS: Budesonide 0.5 mg/2 ml Inhal Susp UD IH SCH ×2 (07:30→20:20)
[2018-05-07] MEDS: Multivitamin With Minerals Tab PO SCH (11:46)
[2018-05-07] MEDS: Potassium Chloride 20 mEq ER Tab PO SCH (11:46)
[2018-05-07] MEDS: Divalproex 125 mg EC Sprinkle Cap PO SCH ×2 (11:46→18:25)
[2018-05-07] MEDS: Enoxaparin 40 mg Syringe SC SCH (11:57)
--- NOTE | 2018-05-07 14:53 | PN ---
DATE: 05/07/2018 FOLLOWUP SUBJECTIVE: The patient denies any chest pain or shortness of breath. PHYSICAL EXAMINATION: VITAL SIGNS: Blood pressure 132/67, heart rate 94, temperature 98.4, respirations 20. HEENT: Normocephalic. CHEST: Clear. HEART: S1 and S2 regular. EXTREMITIES: No edema. ASSESSMENT: 1. Paroxysmal reentrant supraventricular tachycardia. 2. Chronic obstructive lung disease. 3. Mild anemia. 4. Dementia. 5. Improved hypokalemia. 6. Status post respiratory failure. 7. Systemic hypertension. RECOMMENDATIONS: Continue current hydralazine 20 mg intravenously every 6 hours p.r.n. Continue Ativan 0.5 mg intravenously every 6 hours p.r.n., aspirin 81 mg once a day, folic acid 1 mg once a day, K-Dur 20 mEq once a day, Lopressor 50 mg twice a day, nicotine patch, Seroquel 25 mg at bedtime, Solu-Medrol 40 mg intravenously daily, Zestril 20 mg daily. Parish Goddard MD
--- NOTE | 2018-05-07 14:56 | CP.PCM.PN ---
<Zainab Barriga - Last Filed: 05/07/18 14:53> Subjective - Date & Time of Evaluation Date of Evaluation: 05/07/18 Time of Evaluation: 11:45 - Subjective Subjective: PGY-1 Medicine Progress Note for Dr. Camargo's service Patient seen and examined on chair outside of room. Patient offers no acute complaints. Patient denies fevers, chills, chest pain, sob, n/v, constipation or diarrhea, dysuria. Objective - Vital Signs/Intake and Output Vital Signs (last 24 hours): Temp Pulse Resp BP Pulse Ox 98.4 F 94 H 20 132/67 94 L 05/07/18 06:00 05/07/18 06:00 05/07/18 06:00 05/07/18 06:00 05/07/18 06:00 Intake and Output: 05/07/18 05/07/18 06:59 18:59 Intake Total 240 Balance 240 - Medications Medications: Current Medications Albuterol/Ipratropium (Duoneb 3 Mg/0.5 Mg (3 Ml) Ud) 3 ml IH [id number] [facility] Last Admin: 05/07/18 14:10 Dose: 3 ml Arformoterol Tartrate (Brovana) 15 mcg IH [id number] [facility] Last Admin: 05/07/18 07:30 Dose: 15 mcg Aspirin (Ecotrin) 81 mg PO DAILY [facility] Last Admin: 05/07/18 11:46 Dose: 81 mg Budesonide (Pulmicort Respules) 0.5 mg IH [id number] [facility] Last Admin: 05/07/18 07:30 Dose: 0.5 mg Divalproex Sodium (Depakote Sprinkles) 125 mg PO BID [facility]; Protocol Last Admin: 05/07/18 11:46 Dose: 125 mg Enoxaparin Sodium (Lovenox) 40 mg SC DAILY [facility]; Protocol Last Admin: 05/07/18 11:57 Dose: 40 mg Famotidine (Pepcid) 20 mg PO HS [facility] Last Admin: 05/06/18 22:38 Dose: 20 mg Folic Acid (Folic Acid) 1 mg PO DAILY [facility] Last Admin: 05/07/18 11:46 Dose: 1 mg Hydralazine HCl (Apresoline) 20 mg IVP Q6H PRN PRN Reason: Systolic Blood Pressure Last Admin: 05/06/18 21:45 Dose: 20 mg Lisinopril (Zestril) 20 mg NG DAILY [facility] Last Admin: 05/07/18 11:46 Dose: 20 mg Lorazepam (Ativan) 0.5 mg IVP Q6H PRN; Protocol PRN Reason: Agitation Last Admin: 05/05/18 11:10 Dose: 0.5 mg Methylprednisolone (Solu-Medrol) 40 mg IVP DAILY [facility] Last Admin: 05/02/18 09:20 Dose: 40 mg Metoprolol Tartrate (Lopressor) 50 mg PO BID [facility] Last Admin: 05/07/18 11:46 Dose: 50 mg Multivitamins/Minerals (Therapeutic-M Tab) 1 tab PO 0800 [facility] Last Admin: 05/07/18 11:46 Dose: 1 tab Nicotine (Nicoderm Cq) 1 patch TD 2200 [facility] Last Admin: 05/06/18 21:44 Dose: 1 patch Potassium Chloride (K-Dur 20 Meq Er Tab) 40 meq PO DAILY [facility] Last Admin: 05/07/18 11:46 Dose: 40 meq Quetiapine Fumarate (Seroquel) 25 mg PO HS [facility]; Protocol Last Admin: 05/06/18 21:44 Dose: 25 mg Thiamine HCl (Vitamin B1 Tab) 100 mg PO DAILY [facility] Last Admin: 05/07/18 11:46 Dose: 100 mg Ziprasidone (Geodon Inj) 10 mg IM Q12H PRN; Protocol PRN Reason: Agitation Last Admin: 05/04/18 23:17 Dose: 10 mg - Labs Labs: 05/06/18 08:00 05/06/18 08:00 PT 12.7 SECONDS (9.4-12.5) H 04/25/18 18:57 INR 1.11 04/25/18 18:57 APTT 22.4 Seconds (25.1-36.5) L 04/25/18 18:57 - Additional Findings Additional findings: - Constitutional Appears: Non-toxic, No Acute Distress - Head Exam Head Exam: NORMAL INSPECTION, NORMOCEPHALIC - Eye Exam Eye Exam: EOMI, Normal appearance. absent: Nystagmus, Scleral icterus - ENT Exam ENT Exam: Mucous Membranes Moist - Respiratory Exam Respiratory Exam: Clear to Ausculation Bilateral, NORMAL BREATHING PATTERN. absent: Rales, Rhonchi, Wheezes, Respiratory Distress - Cardiovascular Exam Cardiovascular Exam: REGULAR RHYTHM, +S1, +S2 - GI/Abdominal Exam GI & Abdominal Exam: Soft, Normal Bowel Sounds. absent: Distended, Firm, Tenderness - Extremities Exam Extremities Exam: Normal Inspection. absent: Calf Tenderness, Pedal Edema - Neurological Exam Neurological Exam: Awake. absent: Oriented x3 - Psychiatric Exam Psychiatric exam: Normal Affect, Normal Mood - Skin Skin Exam: Intact, Normal Color Assessment and Plan - Assessment and Plan (Free Text) Assessment: 77 yo with history of SVT (intially admitted as Elton Majano, later identified as Sami Min) who was found to be in SVT (TSH was normal), and was started on metoprolol and verapamil by Cardiology. 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 CXR showed new LLL infiltrate and effusion, and he is on Azithromycin. Patient's medications were changed as per ICU and cardio team to include solu-medrol and metoprolol because patient had low heart rate readings after intubation. Patient's current medications have his blood pressure and heart rate under well control. Pending social work update for [facility] care plan. Plan: Reentrant supraventicular tachycardia Cardio consulted Dr. Goddard- reccomendations as below Cont Metoprolol 50mg bid bettye; Lisinopril 20mg daily bettye Cont Hydralazine 20 mg IVP q6h PRN for SBP >180 Cont ASA 81mg Hypercapneic respiratory failure w/ new LLL infiltrate ICU consulted Dr. Adams- patient extubated on 05/01; 5 day course of azithromycin for COPD exacerbation has been completed. No longer on abx. 04-28-18 CXR shows no active disease Brovana/Pulmicort Duoneb 3ml IH q6h bettye PT recommends EMERITA once medically cleared. AMS, likely 2/2 dementia likely 2/2 chronic alcohol abuse; family provided history Psych consulted- Dr. Armenta- started patient on Depakote bettye and Geodon PRN MRI brain negative for acute abnormalities Was on EEG monitoring- but no seizure like activity noted- stopped valproate as per Neuro Geodon 10mg IM q12h prn Depakote 125mg po bid for seizure ppx Seroquel 25mg PO HS Thiamine, Folic acid, Multivitamins Agitation Ativan 0.5mg IVP q6 Hypokalemia 2.8 in AM Repleted with Kcl oral and IV Repeat BMP shows 4.0 Chronic anemia, stable H&H stable; hemondynamically stable Continue to monitor Tobacco use disorder Nicotine 1 patch TD PPx DVT ppx: Lovenox 40mg sc daily GI ppx: Pepcid 20mg po HS Dispo: 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 Medical Management discussed with Dr. Camargo PGY-1 Zainab Barriga <Maria A Deutsch - Last Filed: 05/07/18 17:42> Objective - Vital Signs/Intake and Output Vital Signs (last 24 hours): Temp Pulse Resp BP Pulse Ox 98.5 F 75 20 134/79 99 05/07/18 14:00 05/07/18 14:00 05/07/18 14:00 05/07/18 14:00 05/07/18 14:00 Intake and Output: 05/07/18 05/07/18 06:59 18:59 Intake Total 240 Balance 240 - Medications Medications: Current Medications Albuterol/Ipratropium (Duoneb 3 Mg/0.5 Mg (3 Ml) Ud) 3 ml IH [id number] [facility] Last Admin: 05/07/18 14:10 Dose: 3 ml Arformoterol Tartrate (Brovana) 15 mcg IH [id number] [facility] Last Admin: 05/07/18 07:30 Dose: 15 mcg Aspirin (Ecotrin) 81 mg PO DAILY [facility] Last Admin: 05/07/18 11:46 Dose: 81 mg Budesonide (Pulmicort Respules) 0.5 mg IH [id number] [facility] Last Admin: 05/07/18 07:30 Dose: 0.5 mg Divalproex Sodium (Depakote Sprinkles) 125 mg PO BID [facility]; Protocol Last Admin: 05/07/18 11:46 Dose: 125 mg Enoxaparin Sodium (Lovenox) 40 mg SC DAILY [facility]; Protocol Last Admin: 05/07/18 11:57 Dose: 40 mg Famotidine (Pepcid) 20 mg PO HS [facility] Last Admin: 05/06/18 22:38 Dose: 20 mg Folic Acid (Folic Acid) 1 mg PO DAILY [facility] Last Admin: 05/07/18 11:46 Dose: 1 mg Hydralazine HCl (Apresoline) 20 mg IVP Q6H PRN PRN Reason: Systolic Blood Pressure Last Admin: 05/06/18 21:45 Dose: 20 mg Lisinopril (Zestril) 20 mg NG DAILY [facility] Last Admin: 05/07/18 11:46 Dose: 20 mg Lorazepam (Ativan) 0.5 mg IVP Q6H PRN; Protocol PRN Reason: Agitation Last Admin: 05/05/18 11:10 Dose: 0.5 mg Methylprednisolone (Solu-Medrol) 40 mg IVP DAILY [facility] Last Admin: 05/02/18 09:20 Dose: 40 mg Metoprolol Tartrate (Lopressor) 50 mg PO BID [facility] Last Admin: 05/07/18 11:46 Dose: 50 mg Multivitamins/Minerals (Therapeutic-M Tab) 1 tab PO 0800 [facility] Last Admin: 05/07/18 11:46 Dose: 1 tab Nicotine (Nicoderm Cq) 1 patch TD 2200 [facility] Last Admin: 05/06/18 21:44 Dose: 1 patch Potassium Chloride (K-Dur 20 Meq Er Tab) 40 meq PO DAILY [facility] Last Admin: 05/07/18 11:46 Dose: 40 meq Quetiapine Fumarate (Seroquel) 25 mg PO HS [facility]; Protocol Last Admin: 05/06/18 21:44 Dose: 25 mg Thiamine HCl (Vitamin B1 Tab) 100 mg PO DAILY [facility] Last Admin: 05/07/18 11:46 Dose: 100 mg Ziprasidone (Geodon Inj) 10 mg IM Q12H PRN; Protocol PRN Reason: Agitation Last Admin: 05/04/18 23:17 Dose: 10 mg - Labs Labs: 05/06/18 08:00 05/06/18 08:00 PT 12.7 SECONDS (9.4-12.5) H 04/25/18 18:57 INR 1.11 04/25/18 18:57 APTT 22.4 Seconds (25.1-36.5) L 04/25/18 18:57 Attending/Attestation - Attestation I have personally seen and examined this patient.: Yes I have fully participated in the care of the patient.: Yes I have reviewed all pertinent clinical information, including history, physical exam and plan: Yes Notes (Text): 05/07/18 17:33 82 year old male with past medical history of SVT and dementia who was admitted for SVT. Hospital course was complicated by hypercapneic respiratory failure and intubated. He was later extubated and transferred to the medical floor. He received antibiotics for LLL pneumonia. Patient has poor family support at home. PT is recommending EMERITA. Will follow up with rehabilitation case coordinator and social security benefits interviewer. Maria A Deutsch MD Hospitalist.
[2018-05-08] MEDS: Albuterol-Ipratrop 3 mg / 0.5 (3 ml) UD IH SCH ×4 (02:35→22:46)
[2018-05-08 07:31] LABS: EOS # 0.3 (0.0-0.7); EOS % 3.1 % (1.5-5.0); GRAN # 5.24 (1.4-6.5); GRAN % 64.2 % (50.0-68.0); HEMOGLOBIN 9.9 g/dL (14.0-18.0); LYMPH # 1.8 (1.2-3.4); LYMPH % 21.4 % (22.0-35.0); MEAN CELL VOLUME 92.9 fl (80.0-105.0); MEAN CORPUSCULAR HEMOGLOBIN 29.2 pg (25.0-35.0); MEAN CORPUSCULAR HGB CONC 31.4 g/dl (31.0-37.0); MEAN PLATELET VOLUME 9.2 fl (7.0-11.0); MONO # 0.9 (0.1-0.6); MONO % 11.3 % (1.0-6.0); RBC 3.39 10^6/uL (3.5-6.1); RED CELL DISTRIBUTION WIDTH 15.6 % (11.5-14.5); WHITE BLOOD COUNT 8.2 10^3/ul (4.5-11.0)
[2018-05-08 07:54] LABS: ALB/GLOB RATIO 1.4 (1.1-1.8); ALBUMIN 3.9 g/dL (3.0-4.8); ALT/SGPT 35 U/L (7-56); AST/SGOT 32 U/L (17-59); BLOOD UREA NITROGEN 17 mg/dL (7-21); GFR NON-AFRICAN AMERICAN > 60
[2018-05-08] MEDS: Arformoterol 15 mcg/2 ml Inh Sol IH SCH ×2 (09:45→22:46)
[2018-05-08] MEDS: Budesonide 0.5 mg/2 ml Inhal Susp UD IH SCH ×2 (09:46→22:47)
[2018-05-08] MEDS: Potassium Chloride 20 mEq ER Tab PO SCH (10:07)
[2018-05-08] MEDS: Multivitamin With Minerals Tab PO SCH (10:07)
[2018-05-08] MEDS: Enoxaparin 40 mg Syringe SC SCH (10:07)
[2018-05-08] MEDS: Divalproex 125 mg EC Sprinkle Cap PO SCH (10:07)
--- NOTE | 2018-05-08 14:52 | PN ---
DATE: 05/08/2018 FOLLOWUP SUBJECTIVE: The patient is confused to place, but pleasant. Denies any chest pain or shortness of breath. PHYSICAL EXAMINATION: VITAL SIGNS: Blood pressure 142/63, heart rate 71, temperature 97.8, respirations 19. HEENT: Normocephalic. CHEST: Bilateral rhonchi. HEART: S1 and S2 regular. ABDOMEN: Soft. EXTREMITIES: No edema. LABORATORY DATA: Hemoglobin and hematocrit 9.9 and 31.5. White count and platelet count are within normal limit. Today's SMA-7 is entirely within normal limit. Total protein, albumin, globulin, albumin and globulin ratio are over the normal limit and liver enzymes are within normal limit. ASSESSMENT: 1. Paroxysmal reentrant supraventricular tachycardia. 2. Dementia. 3. Systemic hypertension. 4. Chronic obstructive lung disease. 5. Status post respiratory failure. RECOMMENDATIONS: This case was discussed with the medical team. Continue hydralazine 20 mg IV every 6 hours p.r.n. Continue folic acid 1 mg daily, K-Dur 20 mEq orally daily, Lopressor 50 mg twice a day, Lovenox 40 mg subcutaneously once a day, Solu-Medrol at 40 mg intravenously daily, Zestril 20 mg daily. Parish Goddard MD
--- NOTE | 2018-05-08 15:09 | CP.PCM.PN ---
<Zainab Barriga - Last Filed: 05/08/18 15:07> Subjective - Date & Time of Evaluation Date of Evaluation: 05/08/18 Time of Evaluation: 11:30 - Subjective Subjective: PGY-1 Medicine Progress Note for Dr. Deutsch's service Patient seen and examined at bedside. Patient offers no acute complaints. Patient note to continue to smack lips. Patient received Geodon overnight as patient was agitated. Will monitor. Patient denies fevers, chills, cp, sob, n/v, constipation or diarrhea, and dysuria. Objective - Vital Signs/Intake and Output Vital Signs (last 24 hours): Temp Pulse Resp BP Pulse Ox 97.8 F 71 19 142/63 97 05/08/18 06:00 05/08/18 10:08 05/08/18 06:00 05/08/18 10:08 05/08/18 06:00 Intake and Output: 05/08/18 05/08/18 06:59 18:59 Intake Total 120 Balance 120 - Medications Medications: Current Medications Albuterol/Ipratropium (Duoneb 3 Mg/0.5 Mg (3 Ml) Ud) 3 ml IH [id number] [facility] Last Admin: 05/08/18 14:26 Dose: 3 ml Arformoterol Tartrate (Brovana) 15 mcg IH [id number] [facility] Last Admin: 05/08/18 09:45 Dose: 15 mcg Budesonide (Pulmicort Respules) 0.5 mg IH [id number] [facility] Last Admin: 05/08/18 09:46 Dose: 0.5 mg Divalproex Sodium (Depakote Sprinkles) 125 mg PO BID [facility]; Protocol Last Admin: 05/08/18 10:07 Dose: 125 mg Enoxaparin Sodium (Lovenox) 40 mg SC DAILY [facility]; Protocol Last Admin: 05/08/18 10:07 Dose: 40 mg Famotidine (Pepcid) 20 mg PO HS [facility] Last Admin: 05/07/18 21:16 Dose: 20 mg Folic Acid (Folic Acid) 1 mg PO DAILY [facility] Last Admin: 05/08/18 10:07 Dose: 1 mg Hydralazine HCl (Apresoline) 20 mg IVP Q6H PRN PRN Reason: Systolic Blood Pressure Last Admin: 05/06/18 21:45 Dose: 20 mg Lisinopril (Zestril) 20 mg NG DAILY [facility] Last Admin: 05/08/18 10:08 Dose: 20 mg Lorazepam (Ativan) 0.5 mg IVP Q6H PRN; Protocol PRN Reason: Agitation Last Admin: 05/07/18 22:33 Dose: 0.5 mg Methylprednisolone (Solu-Medrol) 40 mg IVP DAILY [facility] Last Admin: 05/02/18 09:20 Dose: 40 mg Metoprolol Tartrate (Lopressor) 50 mg PO BID [facility] Last Admin: 05/08/18 10:08 Dose: 50 mg Multivitamins/Minerals (Therapeutic-M Tab) 1 tab PO 0800 [facility] Last Admin: 05/08/18 10:07 Dose: 1 tab Potassium Chloride (K-Dur 20 Meq Er Tab) 40 meq PO DAILY [facility] Last Admin: 05/08/18 10:07 Dose: 40 meq Quetiapine Fumarate (Seroquel) 25 mg PO HS [facility]; Protocol Last Admin: 05/07/18 21:15 Dose: 25 mg Thiamine HCl (Vitamin B1 Tab) 100 mg PO DAILY [facility] Last Admin: 05/08/18 10:07 Dose: 100 mg Ziprasidone (Geodon Inj) 10 mg IM Q12H PRN; Protocol PRN Reason: Agitation Last Admin: 05/08/18 03:25 Dose: 10 mg - Labs Labs: 05/08/18 07:15 05/08/18 07:15 PT 12.7 SECONDS (9.4-12.5) H 04/25/18 18:57 INR 1.11 04/25/18 18:57 APTT 22.4 Seconds (25.1-36.5) L 04/25/18 18:57 - Additional Findings Additional findings: - Constitutional Appears: Non-toxic, No Acute Distress - Head Exam Head Exam: NORMAL INSPECTION, NORMOCEPHALIC - Eye Exam Eye Exam: EOMI, Normal appearance. absent: Nystagmus, Scleral icterus - ENT Exam ENT Exam: Mucous Membranes Moist - Respiratory Exam Respiratory Exam: Clear to Ausculation Bilateral, NORMAL BREATHING PATTERN. absent: Rales, Rhonchi, Wheezes, Respiratory Distress - Cardiovascular Exam Cardiovascular Exam: REGULAR RHYTHM, +S1, +S2 - GI/Abdominal Exam GI & Abdominal Exam: Soft, Normal Bowel Sounds. absent: Distended, Firm, Te nderness - Extremities Exam Extremities Exam: Normal Inspection. absent: Calf Tenderness, Pedal Edema - Neurological Exam Neurological Exam: Awake. absent: Oriented x3 - Psychiatric Exam Psychiatric exam: Normal Affect, Normal Mood - Skin Skin Exam: Intact, Normal Color Assessment and Plan - Assessment and Plan (Free Text) Assessment: 77 yo with history of SVT (intially admitted as Elton Majano, later identified as Sami Min) who was found to be in SVT (TSH was normal), and was started on metoprolol and verapamil by Cardiology. 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 CXR showed new LLL infiltrate and effusion, and he is on Azithromycin. Patient's medications were changed as per ICU and cardio team to include solu-medrol and metoprolol because patient had low heart rate readings after intubation. Patient's current medications have his blood pressure and heart rate under well control. Pending social work update for custodial care plan. Plan: Reentrant supraventicular tachycardia Cardio consulted Dr. Goddard- reccomendations as below Cont Metoprolol 50mg bid bettye; Lisinopril 20mg daily bettye Cont Hydralazine 20 mg IVP q6h PRN for SBP >180 Cont ASA 81mg Hypercapneic respiratory failure w/ new LLL infiltrate ICU consulted Dr. Adams- patient extubated on 05/01; 5 day course of azithromycin for COPD exacerbation has been completed. No longer on abx. 04-28-18 CXR shows no active disease Brovana/Pulmicort Duoneb 3ml IH q6h bettye PT recommends EMERITA once medically cleared. AMS, likely 2/2 dementia likely 2/2 chronic alcohol abuse; family provided history Psych consulted- Dr. 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 Medical Management discussed with Dr. Camargo PGY-1 Zainab Barriga <Maria A Deutsch - Last Filed: 05/08/18 18:48> Objective - Vital Signs/Intake and Output Vital Signs (last 24 hours): Temp Pulse Resp BP Pulse Ox 97.8 F 71 19 142/63 97 05/08/18 06:00 05/08/18 10:08 05/08/18 06:00 05/08/18 10:08 05/08/18 06:00 Intake and Output: 05/08/18 05/08/18 06:59 18:59 Intake Total 120 Balance 120 - Medications Medications: Current Medications Albuterol/Ipratropium (Duoneb 3 Mg/0.5 Mg (3 Ml) Ud) 3 ml IH [id number] [facility] Last Admin: 05/08/18 14:26 Dose: 3 ml Arformoterol Tartrate (Brovana) 15 mcg IH [id number] [facility] Last Admin: 05/08/18 09:45 Dose: 15 mcg Budesonide (Pulmicort Respules) 0.5 mg IH [id number] [facility] Last Admin: 05/08/18 09:46 Dose: 0.5 mg Enoxaparin Sodium (Lovenox) 40 mg SC DAILY [facility]; Protocol Last Admin: 05/08/18 10:07 Dose: 40 mg Famotidine (Pepcid) 20 mg PO HS [facility] Last Admin: 05/07/18 21:16 Dose: 20 mg Folic Acid (Folic Acid) 1 mg PO DAILY [facility] Last Admin: 05/08/18 10:07 Dose: 1 mg Hydralazine HCl (Apresoline) 20 mg IVP Q6H PRN PRN Reason: Systolic Blood Pressure Last Admin: 05/06/18 21:45 Dose: 20 mg Lisinopril (Zestril) 20 mg NG DAILY [facility] Last Admin: 05/08/18 10:08 Dose: 20 mg Lorazepam (Ativan) 0.5 mg IVP Q6H PRN; Protocol PRN Reason: Agitation Last Admin: 05/07/18 22:33 Dose: 0.5 mg Methylprednisolone (Solu-Medrol) 40 mg IVP DAILY [facility] Last Admin: 05/02/18 09:20 Dose: 40 mg Metoprolol Tartrate (Lopressor) 50 mg PO BID [facility] Last Admin: 05/08/18 10:08 Dose: 50 mg Multivitamins/Minerals (Therapeutic-M Tab) 1 tab PO 0800 [facility] Last Admin: 05/08/18 10:07 Dose: 1 tab Potassium Chloride (K-Dur 20 Meq Er Tab) 40 meq PO DAILY [facility] Last Admin: 05/08/18 10:07 Dose: 40 meq Quetiapine Fumarate (Seroquel) 25 mg PO HS [facility]; Protocol Last Admin: 05/07/18 21:15 Dose: 25 mg Thiamine HCl (Vitamin B1 Tab) 100 mg PO DAILY [facility] Last Admin: 05/08/18 10:07 Dose: 100 mg Ziprasidone (Geodon Inj) 10 mg IM Q12H PRN; Protocol PRN Reason: Agitation Last Admin: 05/08/18 03:25 Dose: 10 mg - Labs Labs: 05/08/18 07:15 05/08/18 07:15 PT 12.7 SECONDS (9.4-12.5) H 04/25/18 18:57 INR 1.11 04/25/18 18:57 APTT 22.4 Seconds (25.1-36.5) L 04/25/18 18:57 Attending/Attestation - Attestation I have personally seen and examined this patient.: Yes I have fully participated in the care of the patient.: Yes I have reviewed all pertinent clinical information, including history, physical exam and plan: Yes Notes (Text): 05/08/18 18:47 82 year old male with past medical history of SVT and dementia who was admitted for SVT. Hospital course was complicated by hypercapneic respiratory failure and intubated. He was later extubated and transferred to the medical floor. He received antibiotics for LLL pneumonia. Overnight he had episode of agitation requiring geodon. This morning he is calm and cooperative. Patient has poor family support at home. PT is recommending EMERITA. Will follow up with case sealer and social service director. Maria A Deutsch MD Hospitalist.
[2018-05-09] MEDS: Albuterol-Ipratrop 3 mg / 0.5 (3 ml) UD IH SCH ×3 (02:02→13:11)
[2018-05-09] MEDS: Arformoterol 15 mcg/2 ml Inh Sol IH SCH (07:31)
[2018-05-09] MEDS: Budesonide 0.5 mg/2 ml Inhal Susp UD IH SCH (07:32)
[2018-05-09 08:12] VITALS: RESP 18; TEMP 98.1
[2018-05-09] MEDS: Multivitamin With Minerals Tab PO SCH (09:05)
[2018-05-09] MEDS: Potassium Chloride 20 mEq ER Tab PO SCH (13:04)
[2018-05-09] MEDS: Enoxaparin 40 mg Syringe SC SCH (13:07)
--- NOTE | 2018-05-09 14:28 | CP.PCM.DIS ---
<Zainab Barriga - Last Filed: 05/09/18 14:15> Provider - Provider Date of Admission: 04/21/18 18:17 Attending physician: Maria A Deutsch MD Consults: Dr. Katy Narvaez Time Spent in preparation of Discharge (in minutes): 45 Hospital Course - Lab Results Lab Results: Micro Results 05/01/18 23:30 Urine Urine Culture - Final No Growth (<1,000 CFU/ML) 04/30/18 16:18 Nose MRSA Culture (Admit) - Final MRSA NOT DETECTED 04/25/18 22:24 Blood Blood Culture - Final NO GROWTH AFTER 5 DAYS 04/25/18 22:24 Blood Gram Stain - Final TEST NOT PERFORMED 04/25/18 22:00 Blood Blood Culture - Final NO GROWTH AFTER 5 DAYS 04/25/18 22:00 Blood Gram Stain - Final TEST NOT PERFORMED Most Recent Lab Values WBC 8.2 10^3/ul (4.5-11.0) 05/08/18 07:15 RBC 3.39 10^6/uL (3.5-6.1) L 05/08/18 07:15 Hgb 9.9 g/dL (14.0-18.0) L 05/08/18 07:15 Hct 31.5 % (42.0-52.0) L 05/08/18 07:15 MCV 92.9 fl (80.0-105.0) 05/08/18 07:15 MCH 29.2 pg (25.0-35.0) 05/08/18 07:15 MCHC 31.4 g/dl (31.0-37.0) 05/08/18 07:15 RDW 15.6 % (11.5-14.5) H 05/08/18 07:15 Plt Count 362 10^3/uL (120.0-450.0) 05/08/18 07:15 MPV 9.2 fl (7.0-11.0) 05/08/18 07:15 Gran % 64.2 % (50.0-68.0) 05/08/18 07:15 Lymph % (Auto) 21.4 % (22.0-35.0) L 05/08/18 07:15 Conway % (Auto) 11.3 % (1.0-6.0) H 05/08/18 07:15 Eos % (Auto) 3.1 % (1.5-5.0) 05/08/18 07:15 Baso % (Auto) 0.0 % (0.0-3.0) 05/08/18 07:15 Gran # 5.24 (1.4-6.5) 05/08/18 07:15 Lymph # (Auto) 1.8 (1.2-3.4) 05/08/18 07:15 Conway # (Auto) 0.9 (0.1-0.6) H 05/08/18 07:15 Eos # (Auto) 0.3 (0.0-0.7) 05/08/18 07:15 Baso # (Auto) 0.00 K/mm3 (0.0-2.0) 05/08/18 07:15 PT 12.7 SECONDS (9.4-12.5) H 04/25/18 18:57 INR 1.11 04/25/18 18:57 APTT 22.4 Seconds (25.1-36.5) L 04/25/18 18:57 D-Dimer, Quantitative 540 ng/mlDDU (0-243) H 04/22/18 20:03 pCO2 35 mm/Hg (35-45) 05/01/18 05:50 pO2 116.0 mm/Hg (80-100) H 05/01/18 05:50 HCO3 25.5 mmol/L (21-28) 05/01/18 05:50 ABG pH 7.47 (7.35-7.45) H 05/01/18 05:50 ABG Total CO2 26.6 mmol.L (22-28) 05/01/18 05:50 ABG O2 Saturation 99.8 % (95-98) H 05/01/18 05:50 ABG O2 Content 12.9 ML/dl (15-23) L 05/01/18 05:50 ABG Base Excess 1.9 mmol/L (-2.0-3.0) 05/01/18 05:50 ABG Hemoglobin 9.3 g/dL (11.7-17.4) L 05/01/18 05:50 ABG Carboxyhemoglobin 2.4 % (0.5-1.5) H 05/01/18 05:50 POC ABG HHb (Measured) 0.2 % (0-5) 05/01/18 05:50 ABG Methemoglobin 0.7 % (0.0-3.0) 05/01/18 05:50 ABG O2 Capacity 12.9 mL/dl (16-24) L 05/01/18 05:50 ABG Potassium 4.1 mmol/L (3.6-5.2) 04/25/18 23:11 Hgb O2 Saturation 96.8 % (95.0-98.0) 05/01/18 05:50 Sodium 137.0 mmol/L (132-148) 04/25/18 23:11 Chloride 114.0 mmol/L (98-107) H 04/25/18 23:11 Glucose 98 mg/dl (75-110) 04/25/18 23:11 Lactate 1.0 mmol/L (0.7-2.1) 04/25/18 23:11 FiO2 32.0 % 05/01/18 05:50 Sodium 141 mmol/L (132-148) 05/08/18 07:15 Potassium 4.5 mmol/L (3.6-5.0) 05/08/18 07:15 Chloride 103 mmol/L (98-107) 05/08/18 07:15 Carbon Dioxide 29 mmol/L (21-33) 05/08/18 07:15 Anion Gap 13 (10-20) 05/08/18 07:15 BUN 17 mg/dL (7-21) 05/08/18 07:15 Creatinine 1.0 mg/dl (0.8-1.5) 05/08/18 07:15 Est GFR ( Amer) > 60 05/08/18 07:15 Est GFR (Non-Af Amer) > 60 05/08/18 07:15 POC Glucose (mg/dL) 222 mg/dL (65-110) H 04/25/18 17:38 Random Glucose 87 mg/dL (70-110) 05/08/18 07:15 Calcium 9.0 mg/dL (8.4-10.5) 05/08/18 07:15 Phosphorus 2.9 mg/dL (2.5-4.5) 05/02/18 06:30 Magnesium 2.0 mg/dL (1.7-2.2) 05/02/18 06:30 Total Bilirubin 0.7 mg/dL (0.2-1.3) 05/08/18 07:15 AST 32 U/L (17-59) 05/08/18 07:15 ALT 35 U/L (7-56) 05/08/18 07:15 Alkaline Phosphatase 71 U/L (38-126) 05/08/18 07:15 Ammonia < 9 umol/L (9-33) L 04/21/18 22:24 Lactate Dehydrogenase 647 U/L (333-699) 04/25/18 18:57 Total Creatine Kinase 185 U/L (35-230) 04/25/18 18:57 Troponin I 0.03 ng/mL D 04/25/18 18:57 Total Protein 6.6 g/dL (5.8-8.3) 05/08/18 07:15 Albumin 3.9 g/dL (3.0-4.8) 05/08/18 07:15 Globulin 2.8 gm/dL 05/08/18 07:15 Albumin/Globulin Ratio 1.4 (1.1-1.8) 05/08/18 07:15 Triglycerides 110 mg/dL (35-160) 04/23/18 06:00 Cholesterol 189 mg/dL (130-200) 04/23/18 06:00 LDL Cholesterol Direct 105 mg/dL (0-129) 04/23/18 06:00 HDL Cholesterol 50 mg/dL (29-60) 04/23/18 06:00 Procalcitonin < 0.05 NG/ML (0.19-0.49) L 04/25/18 18:57 TSH 3rd Generation 2.76 mIU/mL (0.46-4.68) 04/22/18 08:45 Arterial Blood Potassium 4.1 mmol/L (3.6-5.2) 04/25/18 23:11 Urine Color Yellow (YELLOW) 04/30/18 11:30 Urine Appearance Clear (CLEAR) 04/30/18 11:30 Urine pH 6.0 (4.7-8.0) 04/30/18 11:30 Ur Specific Harris >= 1.030 (1.005-1.035) 04/30/18 11:30 Urine Protein Trace mg/dL (<30 mg/dL) H 04/30/18 11:30 Urine Glucose (UA) Negative mg/dL (NEGATIVE) 04/30/18 11:30 Urine Ketones Negative mg/dL (NEGATIVE) 04/30/18 11:30 Urine Blood Negative (NEGATIVE) 04/30/18 11:30 Urine Nitrate Negative (NEGATIVE) 04/30/18 11:30 Urine Bilirubin Negative (NEGATIVE) 04/30/18 11:30 Urine Urobilinogen 2.0 E.U./dL (<1 E.U./dL) H 04/30/18 11:30 Ur Leukocyte Esterase Trace Weston/uL (NEGATIVE) H 04/30/18 11:30 Urine RBC 0 - 2 /hpf (0-2) 04/30/18 11:30 Urine WBC 5 - 10 /hpf (0-6) 04/30/18 11:30 Ur Epithelial Cells 0 - 2 /hpf (0-5) 04/30/18 11:30 Amorphous Sediment Few 04/30/18 11:30 Urine Bacteria Mod (NEG) 04/30/18 11:30 Coarse Granular Casts Trace /hpf (0-2) H 04/30/18 11:30 Urine Opiates Screen Negative (NEGATIVE) 04/26/18 18:52 Urine Methadone Screen Negative (NEGATIVE) 04/26/18 18:52 Ur Barbiturates Screen Negative (NEGATIVE) 04/26/18 18:52 Ur Phencyclidine Scrn Negative (NEGATIVE) 04/26/18 18:52 Ur Amphetamines Screen Negative (NEGATIVE) 04/26/18 18:52 U Benzodiazepines Scrn Positive (NEGATIVE) H 04/26/18 18:52 U Oth Cocaine Metabols Negative (NEGATIVE) 04/26/18 18:52 U Cannabinoids Screen Negative (NEGATIVE) 04/26/18 18:52 Alcohol, Quantitative < 10 mg/dL (0-10) 04/21/18 22:24 - Hospital Course Hospital Course: Upon Admission Patient is a 77 yo male with unknown PMH presents to ED for evaluation of generalized weakness. Patient is very lethargic at examination likely secondary to Ativan and Haldol administered in the ED. Patient unable to be awoken during examination limiting pertinent history leading up to event. As per EMT discussion with ED physician, patient went to [facility] with no complaints but was feeling "not good". At [facility] pharmacy an ambulance was called for the patient. ROS limited as patient unable to participate. Information attempted to be gathered however lack of patient name makes it very difficult to ascertain. Hospital Course 77 yo with history of SVT (intially admitted as Elton Majano, later identified as Sami Min) who was found to be in SVT (TSH was normal), and was started on metoprolol and verapamil by Cardiology. Patient had [employer] for lethargy and noted to have hypercapneic respiratory failure, for which he was intubated and transferred to ICU. CXR showed new LLL infiltrate and effusion, and he is on Azithromycin. Patient's medications were changed as per ICU and cardio team to include solu-medrol and metoprolol because patient had low heart rate readings after intubation. Patient's current medications have his blood pressure and heart rate under well control. Patient's family was spoken to multiple times during this admission, initially family was not conducive to being involved, however later patient family wanted longterm care with familial visits. As per conversation yesterday, patient will be transferred to [facility] until further placement for longterm care. Patient started since 05-08 to have episodes of lip smacking however intermittent. Conversation with Dr. Burns was had but likely not medication induced. Patient has been agitated and if it is a side effect, it is a tolerable side effect otherwise patient becomes very agitated and hard to redirect. Discharge Plan Patient is stable for discharge to [facility] as per Dr. Deutsch. Patient will need close monitoring at the facility. Will require a psych evaluation and primary doctor evaluation for continued management at [facility] facility. Patient will continue medications as reconciled during this admission because it has good control for patient blood pressure, SVT, and psychiatric issues likely due to dementia. Patient's family will be visiting [facility] until patient gets further placement for licensed optician care. Discharge Exam - Head Exam Head Exam: NORMAL INSPECTION, NORMOCEPHALIC - Eye Exam Eye Exam: EOMI, Normal appearance. absent: Nystagmus, Scleral icterus - Respiratory Exam Respiratory Exam: NORMAL BREATHING PATTERN. absent: Rales, Rhonchi, Wheezes - Cardiovascular Exam Cardiovascular Exam: REGULAR RHYTHM, +S1, +S2. absent: Bradycardia, Tachycardia - GI/Abdominal Exam GI & Abdominal Exam: Normal Bowel Sounds, Soft. absent: Diminished Bowel Sounds, Distended, Firm, Guarding, Tenderness - Neurological Exam Additional comments: AAOx1 patient has baseline dementia - Psychiatric Exam Psychiatric exam: Normal Affect, Normal Mood - Skin Skin Exam: Intact, Normal Color Discharge Plan - Discharge Medications Prescriptions: hydrALAZINE [Apresoline] 25 mg PO Q6H PRN #60 tab PRN Reason: SBP>160 Lisinopril [Zestril] 20 mg PO DAILY #60 tab - Follow Up Plan Condition: GUARDED Disposition: REHAB FACILITY/REHAB UNIT Instructions: Type 2 Diabetes, Hyperkalemia (DC), Pneumococcal Polysaccharide Vaccine (23-Valent), Flu Vaccine Additional Instructions: 1. Patient is stable for discharge to [facility] as per Dr. Deutsch 2. Patient is to be transferred to [facility] at [facility] as patient requires longterm nursing care. Patient has baseline dementia, AAOx1, and is unable to continue taking care of himself. Patient will require a psychiatry followup at [facility] within 1 week as patient gets agitated. With seroquel and Geodon prn patient has been very calm. 3. Patient will be discharged with the medications to be continued at [facility] as follows: Duoneb 3ml IH q6h resp bettye, Brovana 15 mcg IH q12h resp bettye, Pulmicort 0.5 mg IH q12h resp bettye, Zestril 20mg po daily, Hydralazine 25mg po q6h prn, Lopressor 50mg po bid, Seroquel 25mg po hs, Geodon 10mg IH q12h 4. Patient's brother in law, Dereck, and sisters were at bedside to discuss further management for the patient. They are aware that patient requires constant supervision as he is unable to participate in his own care. 5. Patient will be transferred to [facility] for further treatment until placement into licensed optician facility. <Maria A Deutsch - Last Filed: 05/09/18 17:27> Provider - Provider Date of Admission: 04/21/18 18:17 Attending physician: Maria A Deutsch MD Hospital Course - Lab Results Lab Results: Micro Results 05/01/18 23:30 Urine Urine Culture - Final No Growth (<1,000 CFU/ML) 04/30/18 16:18 Nose MRSA Culture (Admit) - Final MRSA NOT DETECTED 04/25/18 22:24 Blood Blood Culture - Final NO GROWTH AFTER 5 DAYS 04/25/18 22:24 Blood Gram Stain - Final TEST NOT PERFORMED 04/25/18 22:00 Blood Blood Culture - Final NO GROWTH AFTER 5 DAYS 04/25/18 22:00 Blood Gram Stain - Final TEST NOT PERFORMED Most Recent Lab Values WBC 8.2 10^3/ul (4.5-11.0) 05/08/18 07:15 RBC 3.39 10^6/uL (3.5-6.1) L 05/08/18 07:15 Hgb 9.9 g/dL (14.0-18.0) L 05/08/18 07:15 Hct 31.5 % (42.0-52.0) L 05/08/18 07:15 MCV 92.9 fl (80.0-105.0) 05/08/18 07:15 MCH 29.2 pg (25.0-35.0) 05/08/18 07:15 MCHC 31.4 g/dl (31.0-37.0) 05/08/18 07:15 RDW 15.6 % (11.5-14.5) H 05/08/18 07:15 Plt Count 362 10^3/uL (120.0-450.0) 05/08/18 07:15 MPV 9.2 fl (7.0-11.0) 05/08/18 07:15 Gran % 64.2 % (50.0-68.0) 05/08/18 07:15 Lymph % (Auto) 21.4 % (22.0-35.0) L 05/08/18 07:15 Conway % (Auto) 11.3 % (1.0-6.0) H 05/08/18 07:15 Eos % (Auto) 3.1 % (1.5-5.0) 05/08/18 07:15 Baso % (Auto) 0.0 % (0.0-3.0) 05/08/18 07:15 Gran # 5.24 (1.4-6.5) 05/08/18 07:15 Lymph # (Auto) 1.8 (1.2-3.4) 05/08/18 07:15 Conway # (Auto) 0.9 (0.1-0.6) H 05/08/18 07:15 Eos # (Auto) 0.3 (0.0-0.7) 05/08/18 07:15 Baso # (Auto) 0.00 K/mm3 (0.0-2.0) 05/08/18 07:15 PT 12.7 SECONDS (9.4-12.5) H 04/25/18 18:57 INR 1.11 04/25/18 18:57 APTT 22.4 Seconds (25.1-36.5) L 04/25/18 18:57 D-Dimer, Quantitative 540 ng/mlDDU (0-243) H 04/22/18 20:03 pCO2 35 mm/Hg (35-45) 05/01/18 05:50 pO2 116.0 mm/Hg (80-100) H 05/01/18 05:50 HCO3 25.5 mmol/L (21-28) 05/01/18 05:50 ABG pH 7.47 (7.35-7.45) H 05/01/18 05:50 ABG Total CO2 26.6 mmol.L (22-28) 05/01/18 05:50 ABG O2 Saturation 99.8 % (95-98) H 05/01/18 05:50 ABG O2 Content 12.9 ML/dl (15-23) L 05/01/18 05:50 ABG Base Excess 1.9 mmol/L (-2.0-3.0) 05/01/18 05:50 ABG Hemoglobin 9.3 g/dL (11.7-17.4) L 05/01/18 05:50 ABG Carboxyhemoglobin 2.4 % (0.5-1.5) H 05/01/18 05:50 POC ABG HHb (Measured) 0.2 % (0-5) 05/01/18 05:50 ABG Methemoglobin 0.7 % (0.0-3.0) 05/01/18 05:50 ABG O2 Capacity 12.9 mL/dl (16-24) L 05/01/18 05:50 ABG Potassium 4.1 mmol/L (3.6-5.2) 04/25/18 23:11 Hgb O2 Saturation 96.8 % (95.0-98.0) 05/01/18 05:50 Sodium 137.0 mmol/L (132-148) 04/25/18 23:11 Chloride 114.0 mmol/L (98-107) H 04/25/18 23:11 Glucose 98 mg/dl (75-110) 04/25/18 23:11 Lactate 1.0 mmol/L (0.7-2.1) 04/25/18 23:11 FiO2 32.0 % 05/01/18 05:50 Sodium 141 mmol/L (132-148) 05/08/18 07:15 Potassium 4.5 mmol/L (3.6-5.0) 05/08/18 07:15 Chloride 103 mmol/L (98-107) 05/08/18 07:15 Carbon Dioxide 29 mmol/L (21-33) 05/08/18 07:15 Anion Gap 13 (10-20) 05/08/18 07:15 BUN 17 mg/dL (7-21) 05/08/18 07:15 Creatinine 1.0 mg/dl (0.8-1.5) 05/08/18 07:15 Est GFR ( Amer) > 60 05/08/18 07:15 Est GFR (Non-Af Amer) > 60 05/08/18 07:15 POC Glucose (mg/dL) 222 mg/dL (65-110) H 04/25/18 17:38 Random Glucose 87 mg/dL (70-110) 05/08/18 07:15 Calcium 9.0 mg/dL (8.4-10.5) 05/08/18 07:15 Phosphorus 2.9 mg/dL (2.5-4.5) 05/02/18 06:30 Magnesium 2.0 mg/dL (1.7-2.2) 05/02/18 06:30 Total Bilirubin 0.7 mg/dL (0.2-1.3) 05/08/18 07:15 AST 32 U/L (17-59) 05/08/18 07:15 ALT 35 U/L (7-56) 05/08/18 07:15 Alkaline Phosphatase 71 U/L (38-126) 05/08/18 07:15 Ammonia < 9 umol/L (9-33) L 04/21/18 22:24 Lactate Dehydrogenase 647 U/L (333-699) 04/25/18 18:57 Total Creatine Kinase 185 U/L (35-230) 04/25/18 18:57 Troponin I 0.03 ng/mL D 04/25/18 18:57 Total Protein 6.6 g/dL (5.8-8.3) 05/08/18 07:15 Albumin 3.9 g/dL (3.0-4.8) 05/08/18 07:15 Globulin 2.8 gm/dL 05/08/18 07:15 Albumin/Globulin Ratio 1.4 (1.1-1.8) 05/08/18 07:15 Triglycerides 110 mg/dL (35-160) 04/23/18 06:00 Cholesterol 189 mg/dL (130-200) 04/23/18 06:00 LDL Cholesterol Direct 105 mg/dL (0-129) 04/23/18 06:00 HDL Cholesterol 50 mg/dL (29-60) 04/23/18 06:00 Procalcitonin < 0.05 NG/ML (0.19-0.49) L 04/25/18 18:57 TSH 3rd Generation 2.76 mIU/mL (0.46-4.68) 04/22/18 08:45 Arterial Blood Potassium 4.1 mmol/L (3.6-5.2) 04/25/18 23:11 Urine Color Yellow (YELLOW) 04/30/18 11:30 Urine Appearance Clear (CLEAR) 04/30/18 11:30 Urine pH 6.0 (4.7-8.0) 04/30/18 11:30 Ur Specific Harris >= 1.030 (1.005-1.035) 04/30/18 11:30 Urine Protein Trace mg/dL (<30 mg/dL) H 04/30/18 11:30 Urine Glucose (UA) Negative mg/dL (NEGATIVE) 04/30/18 11:30 Urine Ketones Negative mg/dL (NEGATIVE) 04/30/18 11:30 Urine Blood Negative (NEGATIVE) 04/30/18 11:30 Urine Nitrate Negative (NEGATIVE) 04/30/18 11:30 Urine Bilirubin Negative (NEGATIVE) 04/30/18 11:30 Urine Urobilinogen 2.0 E.U./dL (<1 E.U./dL) H 04/30/18 11:30 Ur Leukocyte Esterase Trace Weston/uL (NEGATIVE) H 04/30/18 11:30 Urine RBC 0 - 2 /hpf (0-2) 04/30/18 11:30 Urine WBC 5 - 10 /hpf (0-6) 04/30/18 11:30 Ur Epithelial Cells 0 - 2 /hpf (0-5) 04/30/18 11:30 Amorphous Sediment Few 04/30/18 11:30 Urine Bacteria Mod (NEG) 04/30/18 11:30 Coarse Granular Casts Trace /hpf (0-2) H 04/30/18 11:30 Urine Opiates Screen Negative (NEGATIVE) 04/26/18 18:52 Urine Methadone Screen Negative (NEGATIVE) 04/26/18 18:52 Ur Barbiturates Screen Negative (NEGATIVE) 04/26/18 18:52 Ur Phencyclidine Scrn Negative (NEGATIVE) 04/26/18 18:52 Ur Amphetamines Screen Negative (NEGATIVE) 04/26/18 18:52 U Benzodiazepines Scrn Positive (NEGATIVE) H 04/26/18 18:52 U Oth Cocaine Metabols Negative (NEGATIVE) 04/26/18 18:52 U Cannabinoids Screen Negative (NEGATIVE) 04/26/18 18:52 Alcohol, Quantitative < 10 mg/dL (0-10) 04/21/18 22:24 Attending/Attestation - Attestation I have personally seen and examined this patient.: Yes I have fully participated in the care of the patient.: Yes I have reviewed all pertinent clinical information, including history, physical exam and plan: Yes Notes (Text): 05/09/18 17:26 82 year old male with past medical history of SVT and dementia who was admitted for SVT. SVT improved with metoprolol. Cardiology was following. Hospital course was complicated by hypercapneic respiratory failure and intubation. He was later extubated and transferred to the medical floor. He received antibiotics for LLL pneumonia. He had intermittent episodes of agitation for which psychiatry was following. Patient has poor family support at home. Patient is discharged to [facility] today. Maria A Deutsch MD Hospitalist.
[2018-05-09 15:21] VITALS: BP 109/47; PULSE 68; O2SAT 96
--- NOTE | 2018-05-12 09:14 | PN ---
DATE: 05/09/2018 FOLLOWUP SUBJECTIVE: The patient is confused to place. He denies any palpitation or dizziness. PHYSICAL EXAMINATION: VITAL SIGNS: Blood pressure 155/75, heart rate 75, temperature 98.1, respirations 18. HEENT: Normocephalic. CHEST: Bilateral rhonchi. HEART: S1 and S2 regular. EXTREMITIES: No edema. ASSESSMENT: 1. Paroxysmal reentrant supraventricular tachycardia. 2. Chronic obstructive pulmonary disease. 3. Status post respiratory failure. 4. Dementia. 5. Hypertension. 6. Social issues with the patient's placement. RECOMMENDATIONS: Continue hydralazine 20 mg IV every 6 hours p.r.n. Continue Ativan 0.5 mg intravenously every 6 hours p.r.n., folic acid 1 mg orally daily, K-Dur 40 mEq orally daily, Lopressor 50 mg twice a day, Lovenox 40 mg subcutaneously daily, Seroquel 25 mg at bedtime, Zestril 20 mg once a day, thiamine 100 mg daily. Parish Goddard MD
== END 2018-05-09 16:59 | DRG 544 ==
LOC: ED 12:52 → EDBD 18:17 → ERH 18:17 → 2RNO 21:49 → ICU 04-25 18:14 → 2RNO 05-01 16:53 → 5RSO 05-02 14:25
PROVIDERS: ADMIT Hospitalist; ATTEND Internal Medicine
PROC: 0BH17EZ Insertion of Endotracheal Airway into Trachea, Via Natural or Artificial Opening (ICD-10-PCS; principal; 2018-04-25)
PROC: 5A1955Z Respiratory Ventilation, Greater than 96 Consecutive Hours (ICD-10-PCS; 2018-04-25)
PROC: 3E0F7GC Introduction of Other Therapeutic Substance into Respiratory Tract, Via Natural or Artificial Opening (ICD-10-PCS; 2018-04-28)
PROC: 05H633Z Insertion of Infusion Device into Left Subclavian Vein, Percutaneous Approach (ICD-10-PCS; 2018-05-01)
PROC: B547ZZA Ultrasonography of Left Subclavian Vein, Guidance (ICD-10-PCS; 2018-05-01)
DX: I47.1 Supraventricular tachycardia (principal); J96.02 Acute respiratory failure with hypercapnia; Z99.11 Dependence on respirator [ventilator] status; J18.9 Pneumonia, unspecified organism; E87.5 Hyperkalemia; E87.2 Acidosis; F03.90 Unspecified dementia, unspecified severity, without behavioral disturbance, psychotic disturbance, mood disturbance, and anxiety; E87.6 Hypokalemia; J44.1 Chronic obstructive pulmonary disease with (acute) exacerbation; J44.0 Chronic obstructive pulmonary disease with (acute) lower respiratory infection; D64.9 Anemia, unspecified; I10 Essential (primary) hypertension; F17.200 Nicotine dependence, unspecified, uncomplicated